=== PATIENT | female | born 1985 | race Caucasian/White ===

== ENCOUNTER 2017-08-21 17:27 | Emergency (ER) | payer OTHER ==
[2017-08-21 17:53] LABS: #Eosinphils 0.1 thou/uL (0.0-0.7); #Lymphocytes 3.3 thou/uL (1.20-3.40); #Monocytes 0.7 thou/uL (0.11-0.59); %Basophils 0.4 % (0.0-1.0); %Eosinophils 1.4 % (0.0-10.0); %Lymphocytes 32.5 % (21.0-51.0); %Monocytes 6.8 % (0.0-10.0); Mean Platelet Volume 7.8 fL (7.4-10.4); Red Blood Cell (RBC) Count 5.15 mill/uL (4.20-5.40); White Blood Cell (WBC) Count 10.2 thou/uL (4.8-10.8)
[2017-08-21 18:14] LABS: ALT (SGPT) 36 U/L (8-55); AST (SGOT) 23 U/L (5-34); Alkaline Phosphatase 45 U/L (40-150); Anion Gap 13 mmol/L (10-20); BUN (Urea Nitrogen) 12 mg/dL (7.0-18.7); Bilirubin, Total 0.9 mg/dL (0.2-1.2); Calc. Creatinine Clearance 0 mL/min (70-130); Calcium 9.6 mg/dL (7.8-10.44); Carbon Dioxide 32 mmol/L (22-29); Chloride 95 mmol/L (98-107); Estimated GFR-MDRD 78; Globulin 4.4 g/dL (2.4-3.5); Lipase 26 U/L (8-78); Protein, Total 8.4 g/dL (6.0-8.3)
[2017-08-21] MEDS ORDERED: Promethazine HCl 25 MG/ML VIAL ONE (18:31)
[2017-08-21] MEDS ORDERED: Insulin Regular 300 UNITS/3 ML VIAL ONE (18:42)
--- NOTE | 2017-08-21 18:55 | RAD ---
PORTABLE CHEST: History: Shortness of breath. FINDINGS: Patient is rotated on this exam. Heart and mediastinum are within normal limits. The lungs are clear of infiltrates. No significant bony findings. IMPRESSION: No active intrathoracic disease. POS: [facility]
[2017-08-21 20:53] LABS: Bilirubin Small (Negative); Blood, Urine Negative (Negative); Glucose, Urine (Dipstick) Negative (Negative); Ketone, Urine Trace mg/dL (Negative); Nitrite Negative (Negative); Protein, Urine (Dipstick) Trace mg/dL (Neg-Trace)
[2017-08-21 20:55] LABS: Bacteria/HPF 1+ HPF (None Seen); Hyaline Casts/LPF 0-3 HYALINE CAST LPF (0-3 Hyaline)
[2017-08-21 21:01] LABS: Amphetamine Not Detected (NotDetected); Methamphetamine Not Detected (NotDetected)
[2017-08-21 21:02] LABS: Methadone Not Detected (NotDetected)
== END 2017-08-21 21:15 | disposition home or self-care (01) ==
LOC: ERS 17:27
DX: E11.65 Type 2 diabetes mellitus with hyperglycemia (principal); I10 Essential (primary) hypertension; J44.9 Chronic obstructive pulmonary disease, unspecified; F31.9 Bipolar disorder, unspecified; F41.9 Anxiety disorder, unspecified; F17.210 Nicotine dependence, cigarettes, uncomplicated; Z79.4 Long term (current) use of insulin; Z79.899 Other long term (current) drug therapy
CPT/HCPCS: 36415; 36416; 71010; 80053; 80306; 81003; 81015; 81025; 83690; 84443; 84702; 85025; 93005; J1815; J2550

== ENCOUNTER 2017-08-22 02:48 | Observation (INO) | payer OTHER ==
[2017-08-22] MEDS ORDERED: Ondansetron HCl/PF 4 MG/2 ML Vial ONE (03:16)
[2017-08-22] MEDS ORDERED: Metoclopramide HCl 10 MG/2 ML VIAL ONE (03:26)
[2017-08-22] MEDS ORDERED: Promethazine HCl 25 MG/ML VIAL ONE (05:07)
[2017-08-22] MEDS ORDERED: Dextrose 50% Abboject 50 ML SYRINGE SLOW IVP PRN (05:27)
[2017-08-22] MEDS ORDERED: Acetaminophen 325 MG TAB PO PRN (05:27)
[2017-08-22] MEDS ORDERED: Ondansetron ODT 4 MG TAB PO PRN (05:27)
[2017-08-22] MEDS ORDERED: Dextrose 5% in Water 1,000 ML IV PRN (05:27)
[2017-08-22] MEDS ORDERED: Acetaminophen 650 MG Suppository PR PRN (05:27)
[2017-08-22] MEDS ORDERED: HumaLOG 300 UNITS/3 ML VIAL SC PRN (05:27)
[2017-08-22] MEDS ORDERED: Bisacodyl 10 MG SUPP PR PRN (05:27)
[2017-08-22] MEDS ORDERED: Ondansetron HCl/PF 4 MG/2 ML Vial IVP PRN (05:27)
[2017-08-22] MEDS ORDERED: Bisacodyl 5 MG TAB PO PRN (05:27)
[2017-08-22] MEDS ORDERED: Metoclopramide HCl 10 MG/2 ML VIAL IVP PRN (05:27)
[2017-08-22] MEDS ORDERED: Erythromycin 500 MG in Sodium Chloride 0.9% 250 ML 250 ML IVPB SCH (06:00)
--- NOTE | 2017-08-22 06:25 | HP-2 ---
CODE STATUS: Full. PRIMARY CARE PHYSICIAN: Dr. David PRIMARY CARE PHYSICIAN: Dr. Topete RESIDENT: Jaun Rene M.D. - PGY1. CHIEF COMPLAINT: Vomiting. HISTORY OF PRESENT ILLNESS: This is a 32-year-old female who presents with a 3-day history of intra ctable vomiting. She states started 3 days ago, has had about 20 episodes of vomiting, cannot keep anything down, fluids or solids. Denies any fever or chills. Denies any chest pain, shortness of b reath. Denies any diarrhea or constipation. Denies eating any exotic foods or undercooked foods or anything new. She did state that she had recently smoked marijuana. She states that she has been keeping her blood sugars anywhere from the 200 to the 150s. Denies any other concerns or complaints at this time. REVIEW OF SYSTEMS: All review of systems unless noted in the HPI, otherwise negative at this time. PAST MEDICAL HISTORY: Gastroparesis, diabetes mellitus type 2, hypertension, hidradenitis, LAYNE, obe sity, bipolar, anxiety. PAST SURGICAL HISTORY: She has had multiple I\T\Ds and a tonsillectomy. ALLERGIES: ZOSYN and PENICILLIN cause her to go into renal failure. MEDICATIONS: Include Reglan, Traceba, acarbose, lisinopril, metoprolol, Humira, Seroquel, Invega an d atorvastatin. Patient will need to be med rec for dosing and other current medications that she t akes at this time. FAMILY HISTORY: Mom has diabetes. Dad is unremarkable. SOCIAL HISTORY: She uses 1 pack per day smoker for the last 13 years. Occasional alcohol use and s mokes marijuana. PHYSICAL EXAMINATION: VITAL SIGNS: Blood pressure is 140/94, pulse of 115, respirations 20, temperature is 99.4, pulse ox 94% on 2 liters. Current weight is 136 kilograms. GENERAL: She is alert and oriented x3. Well-developed, obese, appropriately interactive. EYES: PERRLA. Conjunctivae within normal limits. ENT: Nasal mucosa within normal limits. Oropharynx is a little dry. NECK: Supple, no lymphadenopathy, no thyromegaly. CARDIOVASCULAR: Regular rate and rhythm, no murmurs, no gallops. Radial pulses and pedal pulses pa lpated bilaterally. RESPIRATORY: Normal breathing effort. Clear to auscultation bilaterally. No wheezes or crackles. SKIN: Warm and dry. No edema noted. ABDOMEN: Soft, mildly tender to palpation in the upper quadrants. Bowel sounds heard in all 4 quad rants, a little hard to auscultate due to body habitus. No masses or distention. MUSCULOSKELETAL: Structures within normal limits. Tone within normal limits. Muscle strength 5/5. Full range of motion. NEUROLOGIC: No focal neuro deficit. LABORATORY DATA: White blood cell count 10.2, hemoglobin 17.8, hematocrit 50.0, MCV 97, platelets 2 03. Sodium 136, potassium 3.8, chloride 95, bicarbonate 32, BUN 12, creatinine 0.85, glucose 253, c alcium 9.6, total protein 8.4, albumin 4.0, alkaline phosphatase 45, AST 23, ALT 36, total bilirubin 0.9. TSH is 1.438. Beta hCG is 1.20. UDS was positive for marijuana and tricyclics. UA; specifi c gravity 1.02, trace protein, leukocyte esterase small, and nitrites were negative, ketones trace, glucose negative, RBCs 4-6, white blood cells 7-10, squamous epithelial cells 7-10, bacteria 1+. Chest x-ray, no acute intrathoracic disease. ASSESSMENT AND PLAN: 1. Intractable vomiting secondary to gastroparesis and possibly suspect cannabinoid hyperemesis syn drome. We will give her fluids and normal saline at a rate of 200 as she is dry. She has already b een given 2 boluses in the ER. We will start Reglan, Zofran and erythromycin for gastroparesis and nausea and vomiting. We will keep her n.p.o. at this time. 2. Metabolic alkalosis likely due to problem #2. We will give IV fluids. 3. Diabetes mellitus 2. We will continue home medication. We will put her on moderate sliding sca le insulin and check Accu-Cheks a.c. and at bedtime and put her on a consistent carb diet. 4. Hypertension. Continue home meds. 5. Gastroparesis. Reglan and erythromycin. 6. Bipolar. We will continue her home medications. 7. Elevated hematocrit and hemoglobin, likely due to volume contraction due to some dehydration fro m increased vomiting. As again, we will continue with IV fluids. 8. Marijuana abuse. She has been counseled on quitting and cannabinoid hyperemesis syndrome. 9. Tobacco abuse. She has been counseled on quitting, not quite ready to quit at this time. 10. Gastrointestinal prophylaxis. We will start her on omeprazole.
[2017-08-22 06:27] VITALS: BMI 46.5
[2017-08-22] MEDS: Sodium Chloride 0.9% 1,000 ML IV SCH ×3 (06:43→16:20)
[2017-08-22] MEDS: Erythromycin Base 250 MG TAB PO SCH ×2 (06:43→12:15)
[2017-08-22] MEDS ORDERED: FLU VACC QS2017-18 36 mo. & older 0.5 ML SYRINGE IM ONE (07:15)
[2017-08-22] MEDS ORDERED: Lisinopril 20 MG TAB PO SCH (09:00)
[2017-08-22] MEDS ORDERED: INSULIN DEGLUDEC SQ SCH (09:00)
[2017-08-22] MEDS ORDERED: Ibuprofen 800 MG TAB PO PRN (10:50)
[2017-08-22] MEDS ORDERED: PALIPERIDONE PALMITATE 234 MG IM SCH (11:00)
[2017-08-22] MEDS ORDERED: Nicotine 14 MG PATCH TD SCH (11:15)
--- NOTE | 2017-08-22 11:50 | HP ---
DATE OF SERVICE: 08/22/2017 CHIEF COMPLAINT: Vomiting. HISTORY OF PRESENT ILLNESS: The patient is a 32-year-old female with a past medical history of type 2 diabetes with gastroparesis, hypertension, obesity, bipolar disorder and anxiety who presented to the ER with a 3-day history of intractable vomiting. It should be noted that the patient has had [facility] hospitalizations for the same complaint. She notes this time she has had about 20 episodes of vomiting and was unable to keep either solids or liquids down. She denied fever and chills. She did recently smoke marijuana and when think back has noticed that all of her episodes of vomiting h ave occurred after she has been smoking marijuana. This morning the patient has gone downstairs to smoke cigarettes 4-5 times already and every time she comes back up she complains of vomiting. She has agreed to a nicotine patch this morning. For the full history, please see the resident's dictation. PHYSICAL EXAMINATION: VITAL SIGNS: Temperature 99.1, pulse 113, respiration rate 18, O2 sat 91% on 2 liters, BP 148/84. GENERAL: The patient is awake, alert, and oriented, in no acute distress. ABDOMEN: Soft, mildly tender in the upper quadrants. Patient has bowel sounds present. CARDIOVASCULAR: Regular rate and rhythm without murmurs, gallops, or rubs. LUNGS: Clear to auscultation bilaterally without wheezing or rhonchi. LABORATORY AND X-RAY FINDINGS: 1. CBC: WBC 7.2, hemoglobin 7.8, hematocrit 50.0, platelets 203. 2. CMP: Sodium 136, potassium 3.8, chloride 95, bicarb 32, BUN 12, creatinine 0.85, glucose 253, c alcium 9.6, total bilirubin 0.9, AST 23, ALT 36, alkaline phosphatase 45, total protein 8.4, albumin 4.0. 3. Lipase 26. 4. TSH 1.443. 5. test negative. 6. Urinalysis significant for trace ketones, small bilirubin, small leukocyte esterase with 1+ bact eria and 7-10 squamous epithelial cells. 7. UDS positive for cannabis and tricyclics. 8. Chest x-ray shows no acute processes. ASSESSMENT AND PLAN: 1. Intractable nausea and vomiting, likely secondary to gastroparesis and cannabinoid hyperemesis: The patient has been given IV fluids. She has been counseled on the importance of stopping smoking both cigarettes and marijuana. The patient will have Reglan, Zofran and erythromycin for her gastr oparesis. We also counseled the patient on the importance of trying to avoid tobacco as well as lillian ry time she goes down to smoke she comes back up and starts throwing up. 2. Metabolic alkalosis: Plan as mentioned above. 3. Type 2 diabetes. Continue home medications and place patient on sliding scale insulin. 4. Gastroparesis. Recommended erythromycin as mentioned above. 5. Bipolar disorder. Continue home medications. 6. Polysubstance abuse: Counseling as mentioned above. 7. Please see the resident's dictation for the full history, physical, assessment and plan.
[2017-08-22 15:27] VITALS: BP 147/91; TEMP 98.3
[2017-08-22] MEDS ORDERED: traZODone HCl 50 MG TAB PO SCH (21:00)
[2017-08-22] MEDS ORDERED: INSULIN DEGLUDEC 40 UNIT SC SCH (21:00)
[2017-08-22] MEDS ORDERED: Lithium Carbonate ER 450 mg Tablet PO SCH (21:00)
[2017-08-22] MEDS ORDERED: clonazePAM 1 MG TAB PO SCH (21:00)
[2017-08-22] MEDS ORDERED: Atorvastatin Calcium 40 MG TAB PO SCH (21:00)
--- NOTE | 2017-08-22 23:41 | DIS-2 ---
DATE OF ADMISSION: 08/22/2017 DATE OF DISCHARGE: Patient left AMA. RESIDENT: Americo Vinson DO ADMITTING ATTENDING: Radha Topete M.D. DISCHARGE ATTENDING: Radha Topete M.D. CONSULTS: None. PROCEDURES: None. PRIMARY DIAGNOSES: Intractable nausea and vomiting likely secondary to cannabinoid hyperemesis. SECONDARY DIAGNOSES: Type 2 diabetes, polycystic ovarian syndrome, type 2 diabetes and history of gastroparesis. DISCHARGE MEDICATIONS: None. DISCONTINUED MEDICATIONS: None. HOSPITAL COURSE: The patient was admitted for intractable nausea and vomiting. The patient has been admitted for this multiple times in the past with the likely diagnosis of gastroparesis secondary to uncontrolled type 2 diabetes. We will determine that it was likely that this has been exacerbated by the fact that the patient smokes marijuana and the time what she does is typically followed by episodes of emesis. She very often ends up admitted after smoking marijuana. The patient was having her diet slowly advanced and was given antiemetics and IV fluids. At that point, the patient decided to leave AMA because she stated \\\\"I have Phenergan at home\\\\" to the nursing staff and left. DISPOSITION: The patient left AMA. DISCHARGE INSTRUCTIONS: The patient left AMA. BRIAN
[2017-08-23] MEDS ORDERED: Nicotine 14 MG PATCH TD SCH (09:00)
[2017-08-23] MEDS ORDERED: Aspirin 81 mg Enteric Coated Tablet PO SCH (09:00)
[2017-08-23] MEDS ORDERED: FLUoxetine HCl 20 MG CAP PO SCH (09:00)
[2017-08-23] MEDS ORDERED: Fenofibrate Nanocrystallized 145 MG TAB PO SCH (09:00)
[2017-08-29] MEDS ORDERED: Adalimumab 40 MG/0.8 ML SYRINGE SC SCH (09:00)
[2017-09-19] MEDS ORDERED: PALIPERIDONE PALMITATE 234 MG IM SCH (09:00)
== END 2017-08-22 16:22 | disposition left against medical advice (07) ==
LOC: ERS 02:48 → 2SW 05:19
PROVIDERS: ADMIT Family Medicine; ATTEND Family Medicine
DX: R11.2 Nausea with vomiting, unspecified (principal); E28.2 Polycystic ovarian syndrome; E66.9 Obesity, unspecified; F31.9 Bipolar disorder, unspecified; F41.9 Anxiety disorder, unspecified; E87.3 Alkalosis; E11.43 Type 2 diabetes mellitus with diabetic autonomic (poly)neuropathy; K31.84 Gastroparesis; G47.33 Obstructive sleep apnea (adult) (pediatric); F17.210 Nicotine dependence, cigarettes, uncomplicated; F12.10 Cannabis abuse, uncomplicated; Z68.42 Body mass index [BMI] 45.0-49.9, adult; Z79.82 Long term (current) use of aspirin; Z79.4 Long term (current) use of insulin; Z79.899 Other long term (current) drug therapy; Z88.0 Allergy status to penicillin; Z88.8 Allergy status to other drugs, medicaments and biological substances; Z90.89 Acquired absence of other organs; Z98.890 Other specified postprocedural states; Z87.19 Personal history of other diseases of the digestive system; Z83.3 Family history of diabetes mellitus
CPT/HCPCS: 36415; 36416; 71010; 80053; 80306; 81003; 81015; 81025; 83690; 84443; 84702; 85025; 93005; 96361; 96372; 96374; 96375; 96376; G0378; J1364; J1815; J2405; J2550; J2765; J7050

== ENCOUNTER 2017-08-28 05:46 | Emergency (ER) | payer OTHER ==
[2017-08-28] MEDS ORDERED: Metoclopramide HCl 10 MG/2 ML VIAL ONE (06:17)
[2017-08-28 06:30] LABS: #Basophils 0.1 thou/uL (0.0-0.2); #Eosinphils 0.2 thou/uL (0.0-0.7); #Lymphocytes 2.6 thou/uL (1.20-3.40); #Monocytes 0.8 thou/uL (0.11-0.59); #Neutrophils 7.2 thou/uL (1.40-6.50); %Basophils 0.7 % (0.0-1.0); %Lymphocytes 23.6 % (21.0-51.0); %Monocytes 7.6 % (0.0-10.0); Hematocrit 47.9 % (36.0-47.0); Mean Platelet Volume 7.6 fL (7.4-10.4); Red Blood Cell (RBC) Count 4.89 mill/uL (4.20-5.40); White Blood Cell (WBC) Count 10.9 thou/uL (4.8-10.8)
[2017-08-28 06:47] LABS: ALT (SGPT) 49 U/L (8-55); AST (SGOT) 36 U/L (5-34); Alkaline Phosphatase 42 U/L (40-150); Anion Gap 13 mmol/L (10-20); BUN (Urea Nitrogen) Less than 4 mg/dL (7.0-18.7); Bilirubin, Total 0.9 mg/dL (0.2-1.2); Calc. Creatinine Clearance 0 mL/min (70-130); Calcium 9.2 mg/dL (7.8-10.44); Carbon Dioxide 28 mmol/L (22-29); Chloride 98 mmol/L (98-107); Estimated GFR-MDRD 90; Globulin 3.4 g/dL (2.4-3.5); Lipase 24 U/L (8-78); Protein, Total 7.1 g/dL (6.0-8.3)
[2017-08-28 06:47] LABS: Anion Gap 9 mmol/L (-14-95); pH (Venous) 7.445 (7.35-7.45); vO2 Saturation-calc 95.6 % (0.0-100.0)
[2017-08-28 08:11] LABS: Bilirubin Negative (Negative); Blood, Urine Negative (Negative); Glucose, Urine (Dipstick) Negative (Negative); Ketone, Urine Negative (Negative); Nitrite Negative (Negative); Protein, Urine (Dipstick) 30 mg/dL (Neg-Trace)
[2017-08-28 08:13] LABS: Bacteria/HPF 1+ HPF (None Seen); Hyaline Casts/LPF 4-6 HYALINE CAST LPF (0-3 Hyaline)
== END 2017-08-28 07:59 | disposition home or self-care (01) ==
LOC: ERS 05:46
DX: E10.43 Type 1 diabetes mellitus with diabetic autonomic (poly)neuropathy (principal); K31.84 Gastroparesis; F41.9 Anxiety disorder, unspecified; F31.9 Bipolar disorder, unspecified; F17.210 Nicotine dependence, cigarettes, uncomplicated; Z79.899 Other long term (current) drug therapy
CPT/HCPCS: 36415; 80053; 81001; 82330; 82803; 83690; 85025; 93005; 94640; 94760; 96361; 96374; 99406; J2765; J7620

== ENCOUNTER 2017-11-07 08:17 | Emergency (ER) | payer OTHER ==
[2017-11-07] MEDS ORDERED: Metoprolol Tartrate 100 MG TAB PO SCH (09:00)
[2017-11-07] MEDS ORDERED: Metoprolol Tartrate 50 MG TAB ONE (09:39)
== END 2017-11-07 10:17 | disposition home or self-care (01) ==
LOC: ERS 08:17
DX: L03.317 Cellulitis of buttock (principal); I10 Essential (primary) hypertension; J45.909 Unspecified asthma, uncomplicated; J42 Unspecified chronic bronchitis; E10.9 Type 1 diabetes mellitus without complications; F31.9 Bipolar disorder, unspecified; F41.9 Anxiety disorder, unspecified; F17.210 Nicotine dependence, cigarettes, uncomplicated; Z79.899 Other long term (current) drug therapy
CPT/HCPCS: 36416; 99283

== ENCOUNTER 2017-11-09 07:06 | Day surgery (SDC) | payer OTHER ==
[2017-11-08 11:43] VITALS: BMI 42.5
[2017-11-09] MEDS ORDERED: Levofloxacin 500 mg/D5W 100 ml Premix Bag ONE (08:33)
[2017-11-09] MEDS ORDERED: Insulin Regular 300 UNITS/3 ML VIAL ONE (09:01)
[2017-11-09] MEDS ORDERED: Tranexamic Acid 1,000 MG/100 ML BAG ONE (09:01)
[2017-11-09] MEDS ORDERED: HYDROmorphone 0.5 MG/0.5 ML SYRINGE ONE (09:08)
[2017-11-09] MEDS ORDERED: Fentanyl 100 MCG/2 ML VIAL ONE ×2 (09:08→10:38)
--- NOTE | 2017-11-09 10:43 | OP ---
PREOPERATIVE DIAGNOSIS: Perianal abscess. SURGEON: Americo Castle M.D. PROCEDURE PERFORMED: Incision and drainage. INDICATIONS: The patient is a 32-year-old female with a 4-day history of painful swelling near anus. FINDINGS: A left posterior perianal abscess, fairly deep. PROCEDURE: After informed consent was obtained, the patient was taken to the operating room and give n general endotracheal anesthesia, placed in lithotomy position. Her perianal region was prepped and draped in the usual fashion. An endoscopy showed no internal opening, an elliptical incision was pe rformed close to the anal verge releasing very foul-smelling thick purulent fluid. This was sent for culture. The cavity was broken up and opened thoroughly irrigated. Hemostasis achieved with electr ocautery. The wound was packed open with Betadine gauze. Sterile bandage applied. The patient tole rated the procedure well and transferred to recovery in good condition. Sponge and needle count veri fied correct x2.
[2017-11-09] MEDS ORDERED: Propofol 200 MG/20 ML VIAL ONE (13:14)
[2017-11-09] MEDS ORDERED: Ondansetron HCl/PF 4 MG/2 ML Vial ONE (13:14)
[2017-11-09] MEDS ORDERED: Metoclopramide HCl 10 MG/2 ML VIAL ONE (13:14)
[2017-11-09] MEDS ORDERED: Lidocaine 1% PF 5 ML VIAL ONE (13:14)
[2017-11-09] MEDS ORDERED: Ketorolac Tromethamine 30 MG/ML VIAL ONE (13:14)
[2017-11-09] MEDS ORDERED: Succinylcholine Chloride 20 MG/ML 10 ml SYRINGE FS ONE (13:14)
== END 2017-11-09 11:43 | disposition home or self-care (01) ==
LOC: SDC 07:06
PROVIDERS: ATTEND Surgery
PROC: 0D9Q7ZX Drainage of Anus, Via Natural or Artificial Opening, Diagnostic (ICD-10-PCS; principal; 2017-11-09)
DX: K61.0 Anal abscess (principal); I10 Essential (primary) hypertension; J45.909 Unspecified asthma, uncomplicated; E66.9 Obesity, unspecified; F17.210 Nicotine dependence, cigarettes, uncomplicated; F31.9 Bipolar disorder, unspecified; F41.9 Anxiety disorder, unspecified; E11.9 Type 2 diabetes mellitus without complications; G47.33 Obstructive sleep apnea (adult) (pediatric); F12.10 Cannabis abuse, uncomplicated; Z68.41 Body mass index [BMI] 40.0-44.9, adult; Z79.82 Long term (current) use of aspirin; Z79.2 Long term (current) use of antibiotics; Z79.4 Long term (current) use of insulin; Z79.899 Other long term (current) drug therapy; Z88.1 Allergy status to other antibiotic agents; Z88.0 Allergy status to penicillin; Z90.89 Acquired absence of other organs; Z98.890 Other specified postprocedural states; Z86.718 Personal history of other venous thrombosis and embolism
CPT/HCPCS: 36416; 80053; 84703; 85025; 87070; 87205; 93005; 93010; 96374; J0131; J1170; J1815; J1885; J1956; J2001; J2405; J2704; J2765; J3010

== ENCOUNTER 2017-11-13 09:48 | Emergency (ER) | payer OTHER ==
[2017-11-13] MEDS ORDERED: HYDROcodone/Acetaminophen 7.5/325 mg Tablet ONE (10:11)
== END 2017-11-13 10:19 | disposition home or self-care (01) ==
LOC: ERS 09:48
DX: G89.18 Other acute postprocedural pain (principal); E10.9 Type 1 diabetes mellitus without complications; I10 Essential (primary) hypertension; F17.210 Nicotine dependence, cigarettes, uncomplicated; Z79.899 Other long term (current) drug therapy
CPT/HCPCS: 99283

== ENCOUNTER 2017-11-18 08:28 | Emergency (ER) | payer OTHER ==
[2017-11-18 09:12] LABS: #Lymphocytes 2.2 thou/uL (1.20-3.40); #Monocytes 0.6 thou/uL (0.11-0.59); #Neutrophils 11.1 thou/uL (1.40-6.50); %Basophils 0.1 % (0.0-1.0); %Eosinophils 0.1 % (0.0-10.0); %Monocytes 4.2 % (0.0-10.0); %Neutrophils 79.5 % (42.0-75.0); Hemoglobin 16.6 g/dL (12.0-16.0); Mean Corpuscular Hemoglobin 31.9 pg (27.0-31.0); Mean Platelet Volume 7.7 fL (7.4-10.4); Platelet Count 309 thou/uL (130-400); RBC Distribution Width 14.4 % (11.5-14.5); Red Blood Cell (RBC) Count 5.21 mill/uL (4.20-5.40); White Blood Cell (WBC) Count 13.9 thou/uL (4.8-10.8)
[2017-11-18] MEDS ORDERED: Metoclopramide HCl 10 MG/2 ML VIAL ONE (09:23)
[2017-11-18 09:48] LABS: ALT (SGPT) 30 U/L (8-55); Albumin 4.2 g/dL (3.5-5.0); Alkaline Phosphatase 51 U/L (40-150); BUN (Urea Nitrogen) 14 mg/dL (7.0-18.7); Calc. Creatinine Clearance 0 mL/min (70-130); Calcium 10.2 mg/dL (7.8-10.44); Carbon Dioxide 25 mmol/L (22-29); Estimated GFR-MDRD 60; Globulin 5.7 g/dL (2.4-3.5); Glucose 380 mg/dL (70-105); Lipase 41 U/L (8-78); Protein, Total Less than 0.8 g/dL (6.0-8.3)
[2017-11-18 11:05] LABS: Chloride 93 mmol/L (98-107)
[2017-11-18 11:07] LABS: Anion Gap 18 mmol/L (10-20)
[2017-11-18 11:11] LABS: AST (SGOT) 22 U/L (5-34)
[2017-11-18 11:12] LABS: Potassium 4.6 mmol/L (3.5-5.1); Sodium 130 mmol/L (136-145)
== END 2017-11-18 10:15 | disposition home or self-care (01) ==
LOC: ERS 08:28
DX: E10.43 Type 1 diabetes mellitus with diabetic autonomic (poly)neuropathy (principal); K31.84 Gastroparesis; E28.2 Polycystic ovarian syndrome; F41.9 Anxiety disorder, unspecified; F31.9 Bipolar disorder, unspecified; F17.210 Nicotine dependence, cigarettes, uncomplicated; Z79.899 Other long term (current) drug therapy
CPT/HCPCS: 80053; 83690; 85025; 96365; J2765

== ENCOUNTER 2017-11-21 15:34 | Inpatient (IN) | payer OTHER ==
[2017-11-21] MEDS ORDERED: Sodium Chloride 0.9% 1,000 ML IV SCH ×2 (21:15→22:00)
[2017-11-21 21:35] LABS: #Basophils 0.1 thou/uL (0.0-0.2); #Eosinphils 0.1 thou/uL (0.0-0.7); #Lymphocytes 4.2 thou/uL (1.20-3.40); #Monocytes 0.9 thou/uL (0.11-0.59); #Neutrophils 11.4 thou/uL (1.40-6.50); %Basophils 0.3 % (0.0-1.0); %Eosinophils 0.4 % (0.0-10.0); %Lymphocytes 25.1 % (21.0-51.0); %Monocytes 5.5 % (0.0-10.0); %Neutrophils 68.7 % (42.0-75.0); Mean Corpuscular HGB CONC 34.1 g/dL (32.0-36.0); Mean Corpuscular Volume 93.8 fl (81.0-99.0); Mean Platelet Volume 7.8 fL (7.4-10.4); Platelet Count 260 thou/uL (130-400); RBC Distribution Width 14.2 % (11.5-14.5); White Blood Cell (WBC) Count 16.6 thou/uL (4.8-10.8)
[2017-11-21] MEDS ORDERED: Dicyclomine 20 MG TAB PO PRN (21:44)
[2017-11-21] MEDS ORDERED: Bisacodyl 10 MG SUPP PR PRN (21:50)
[2017-11-21] MEDS ORDERED: Ondansetron ODT 4 MG TAB PO PRN (21:50)
[2017-11-21] MEDS ORDERED: Acetaminophen 650 MG Suppository PR PRN (21:50)
[2017-11-21] MEDS ORDERED: Bisacodyl 5 MG TAB PO PRN (21:50)
[2017-11-21] MEDS ORDERED: Calcium Carbonate 500 MG ChewTAB PO PRN (21:50)
[2017-11-21] MEDS ORDERED: Ondansetron HCl/PF 4 MG/2 ML Vial IVP PRN (21:50)
[2017-11-21] MEDS ORDERED: Acetaminophen 325 MG TAB PO PRN (21:50)
[2017-11-21 22:04] LABS: ALT (SGPT) 26 U/L (8-55); AST (SGOT) 18 U/L (5-34); Albumin 3.8 g/dL (3.5-5.0); Alkaline Phosphatase 50 U/L (40-150); Anion Gap 20 mmol/L (10-20); BUN (Urea Nitrogen) 11 mg/dL (7.0-18.7); Calc. Creatinine Clearance 0 mL/min (70-130); Calcium 9.3 mg/dL (7.8-10.44); Carbon Dioxide 22 mmol/L (22-29); Chloride 90 mmol/L (98-107); Estimated GFR-MDRD 74; Globulin 4.1 g/dL (2.4-3.5); Glucose 337 mg/dL (70-105); Magnesium 1.6 mg/dL (1.6-2.6); Phosphorus 3.2 mg/dL (2.3-4.7); Potassium 3.6 mmol/L (3.5-5.1); Protein, Total 7.9 g/dL (6.0-8.3); Sodium 128 mmol/L (136-145)
[2017-11-21] MEDS ORDERED: Dextrose 5% in Water 1,000 ML IV PRN ×2 (22:27→22:35)
[2017-11-21] MEDS ORDERED: Dextrose 50% Abboject 50 ML SYRINGE SLOW IVP PRN ×2 (22:27→22:35)
[2017-11-21] MEDS ORDERED: HumaLOG 300 UNITS/3 ML VIAL SC PRN (22:35)
[2017-11-21] MEDS: Promethazine HCl 25 MG/ML VIAL IM/IV SCH (23:22)
[2017-11-21 23:45] LABS: Bilirubin Negative (Negative); Blood, Urine Negative (Negative); Clarity CLEAR (Clear); Glucose, Urine (Dipstick) >=1000 mg/dL (Negative); Leukocyte Negative (Negative); Nitrite Negative (Negative); Protein, Urine (Dipstick) Negative (Neg-Trace); Specific Gravity, Urine 1.018 (1.002-1.036)
[2017-11-21 23:48] LABS: Bacteria/HPF 1+ HPF (None Seen); Hyaline Casts/LPF 0-3 HYALINE CAST LPF (0-3 Hyaline); Pathc Cast-AUWi Flag 0.13 (0-2.49); Squamous Epithelial 0-3 HPF (0-3); WBC/HPF 0-3 HPF (0-3)
[2017-11-22] MEDS: Sodium Chloride 0.9% 1,000 ML IV SCH ×3 (01:29→11:17)
[2017-11-22 05:27] LABS: #Basophils 0.1 thou/uL (0.0-0.2); #Eosinphils 0.2 thou/uL (0.0-0.7); #Lymphocytes 4.6 thou/uL (1.20-3.40); #Monocytes 0.8 thou/uL (0.11-0.59); #Neutrophils 7.2 thou/uL (1.40-6.50); %Basophils 0.4 % (0.0-1.0); %Eosinophils 1.6 % (0.0-10.0); %Lymphocytes 35.9 % (21.0-51.0); Mean Corpuscular HGB CONC 33.5 g/dL (32.0-36.0); Mean Corpuscular Hemoglobin 31.6 pg (27.0-31.0); Mean Corpuscular Volume 94.3 fl (81.0-99.0); Mean Platelet Volume 7.9 fL (7.4-10.4); Platelet Count 240 thou/uL (130-400); RBC Distribution Width 14.1 % (11.5-14.5); Red Blood Cell (RBC) Count 4.74 mill/uL (4.20-5.40); White Blood Cell (WBC) Count 12.9 thou/uL (4.8-10.8)
[2017-11-22] MEDS: Promethazine HCl 25 MG/ML VIAL IM/IV SCH ×2 (06:08→10:59)
--- NOTE | 2017-11-22 06:22 | HP-2 ---
DATE OF ADMISSION: 11/21/2017 CODE STATUS: FULL. PRIMARY CARE PHYSICIAN: Dr. David. ATTENDING: Dr. Jovany Bills. RESIDENTS: Dr. Juan Rene, PGY-1. HISTORY OF PRESENT ILLNESS: This is a 32-year-old female with a history of diabetes mellitus, uncont rolled and gastroparesis. She comes in with a chief complaint of intractable vomiting. Reports that she has had a 6-day history of persistent nausea and vomiting. Earlier in the week, she had as many episodes as 20 times a day of vomiting, not able to keep any fluids or solids down. She had no sick contacts. She did report having a perianal abscess recently drained by Dr. Castle 2 weeks ago, but brittanie pierre feels okay. She denied any fever or chills. She reports not checking her blood sugars, but she is taking to receive 100 units daily. She also reports that she has not been able to take her R eglan. Her insurance is no longer covering her Reglan, so has not had that for a while. She was sen t over here as a direct admission from the [facility] because she also ran out of [employer] this a .m. She also noted that she is still continues smoking marijuana, most recently smoked for marijuana a day ago. She does report though today that her nausea is feeling a little bit better after when a dmitted here. She also reports that her episodes of vomiting have lessened, the last few days only h aving about 4 to 5 episodes of vomiting. She denies any diarrhea, constipation, denies any shortness of breath, chest pain, or anything intact. REVIEW OF SYSTEMS: All review of systems not listed in the HPI, otherwise negative at this time. PAST MEDICAL HISTORY: Diabetes mellitus type 2, bipolar, obstructive sleep apnea, PCOS, gastroparesi s, hyperlipidemia, and hypertension. PAST SURGICAL HISTORY: Includes tonsillectomy, sweat gland removal. She had excision of hidradeniti s suppurativa on 12/2013. She had an I&D of perianal abscess in 2013, had an abscess drained in her groin in 2014 and recently had the perianal abscess here in 2017, 2 weeks ago. ALLERGIES: ZOSYN and PENICILLIN. MEDICATIONS: She currently takes are: 1. Atorvastatin calcium 80 mg tablet daily. 2. Lisinopril 20 mg tablet daily. 4. ProAir HFA inhalation as needed. 5. Acarbose 50 mg by mouth three times daily. 6. Symbicort 1 puff twice a day. 7. Tresiba FlexTouch 100 units daily. 8. Tricor 145 mg tablet once daily. 9. Humira 40 mg/0.8 mL subcu prefilled syringe every week. 10. Invega Sustenna 234 mg 0.152 intramuscular suspension injection monthly. 11. Ibuprofen 800 mg tablet twice daily as needed. 12. Metoprolol succinate extended release 200 mg 1 tablet daily. 13. [place] carbonate 300 mg by mouth three times daily. 14. Vitamin D 5000 units oral capsule 1 tab p.o. week. 15. Humalog sliding scale as needed depending on blood sugars. 16. Prozac 40 mg oral capsule daily. 17. Promethazine HCL 25 mg oral. On her medication list, she said she was taking Seroquel and Klonopin, but was taken off the Klonopin in which she was felt to continue smoking marijuana per her [facility] doc and she was taken off her Seroq uel and switched to Ambien. PHYSICAL EXAMINATION: VITAL SIGNS: Blood pressure was 141/84, pulse of 120, respirations 16, temperature 98.9, satting 96% on room air. Current weight is 124.5 kilograms. GENERAL: Alert and oriented x3. Well-developed, obese, appropriately interactive. EYES: Conjunctivae are within normal limits. ENT: Nasal mucosa and oropharynx within normal limits. NECK: Supple, no lymphadenopathy, no thyromegaly. CARDIOVASCULAR: Regular rate and rhythm. No murmur, no gallops. Radial pulses, pedal pulses palpat ed bilaterally. RESPIRATORY: Has normal, breathing effort, no retractions. Some mild wheezing and crackles noted on expectoration in all quadrants of her lungs. ABDOMEN: Soft, tender to palpation, more in the epigastric area. Bowel sounds heard in all 4 quadra nts. No masses or distention. EXTREMITIES: No edema, no pitting. MUSCULOSKELETAL: Structures within normal, full range of motion. NEUROLOGIC: No focal neurologic deficits. PSYCHIATRIC: Appropriate. LABORATORY DATA: White blood cell count elevated 16.6, hemoglobin is 15, hematocrit is 44.1, MCV is 93.1, neutrophil number is 11.4, platelets 260. Sodium is 128, potassium 3.6, chloride is 90, carbon dioxide 22, BUN 11, creatinine 0.89, blood glucose is 337, calcium is 9.3, protein is 7.9, albumin i s 3.8, total bilirubin is 1.0, AST is 18, ALT is 26, alkaline phosphatase is 50, phosphorus 3.2, magn esium is 1.6. ASSESSMENT AND PLAN: This is a 32-year-old female with gastroparesis and uncontrolled diabetes. 1. Intractable vomiting due to diabetic gastroparesis and possibly marijuana abuse. We will continu e her home meds. We will have to switch her to Levemir while she is here, 100 units daily, and put h er on a clear liquid diet, advance as tolerated. We will put her on promethazine, Zofran give her Be ntyl for gas pain. We will give her famotidine to help with any GERD pain and see if this helps with it. I attempted to put her on erythromycin for gastroparesis, but they are on back order at the [facility], may need to start her back on Reglan if needed. Her insurance is not currently paying for Reg miracle though, so it is not a great option for her outpatient. I have consulted case management to asse ss for assistance to help getting. Also, concern is watching her EKG with prolonged QT due to all of the medicines and antiemetic she takes. 2. Diabetes mellitus type 2. We will give her Levemir 100 units daily, put her on a moderate slidin g scale insulin and do Accu-Cheks a.c. and at bedtime and adjust as needed. 3. Moderate dehydration. We will give her fluid bolus and give her IV fluids at a rate of normal sa line at 150. We will put her on clear liquid diet and advance diet as tolerated as well. 4. Pseudohyponatremia corrects to 135. We will need to continue to check daily BMP and treat as nee ded. She is getting normal saline ran at a rate of 150. 5. Leukocytosis. White blood cell count is a little bit elevated. She has no sign of infection. W e will recheck a CBC in the morning and see how she is doing after fluids just could be due to a ramona le bit of contraction due to being a little bit dry due to her dehydration. 6. Hypertension. Continue her home medication, but if she is not able to tolerate any of her oral m edicines may need to atenolol, labetalol, or hydralazine p.r.n. 7. Bipolar. Continue her home medications. 8. Marijuana abuse. She was told that to keep using it for anxiety, but may not be correct. We jyothi kaplan deputy general counsel her on quitting. May be contributing to her gastroparesis and vomiting. 9. Tobacco abuse, counseled on quitting cigarette use. 10. Deep venous thrombosis prophylaxis, Lovenox.
[2017-11-22] MEDS ORDERED: Mometasone/Formoterol 120 PUFF INHALER INH SCH (06:30)
[2017-11-22 08:00] VITALS: BMI 41.5
[2017-11-22] MEDS ORDERED: Insulin Degludec [Tresiba Flextouch U-200] SC SCH (09:00)
[2017-11-22] MEDS ORDERED: Famotidine 20 MG TAB PO SCH (09:00)
[2017-11-22] MEDS ORDERED: ERYTHROMYCIN IVPB SCH ×2 (09:00→17:00)
[2017-11-22] MEDS ORDERED: FLUoxetine HCl 20 MG CAP PO SCH (09:00)
[2017-11-22] MEDS ORDERED: Insulin Detemir 100 UNITS/ML 100 UNITS in Pre-Filled Syringe 1 EACH SC SCH (09:00)
[2017-11-22] MEDS ORDERED: Lisinopril 20 MG TAB PO SCH (09:00)
[2017-11-22] MEDS ORDERED: Fenofibrate Nanocrystallized 145 MG TAB PO SCH (09:00)
[2017-11-22] MEDS ORDERED: SODIUM CHLORIDE 0.9% IVPB SCH ×2 (09:00→17:00)
[2017-11-22] MEDS ORDERED: Enoxaparin Sodium 40 MG/0.4 ML SYRINGE SC SCH (09:00)
[2017-11-22] MEDS ORDERED: Aspirin 81 mg Enteric Coated Tablet PO SCH (09:00)
--- NOTE | 2017-11-22 09:09 | PDOC.FM ---
- Subjective Subjective: Patient did well overnight, no episodes of emesis overnight. Denies CP, SOB. Abdomen mildly sore throughout. Denies any increase in marijuana use recently as was initially reported. Admits to increasing snacking recently with candy, chips, etc. - Objective MAR Reviewed: Yes Vital Signs & Weight: Vital Signs (12 hours) Temp Pulse Resp BP BP Pulse Ox 11/22/17 08:43 132/82 11/22/17 07:10 97.5 F L 128 H 18 132/82 95 11/22/17 04:00 98.8 F 117 H 20 151/75 H 92 L 11/22/17 00:00 98.4 F 108 H 18 131/85 94 L Weight Admit Weight 123.15 kg Weight 123.831 kg I&O: 11/21/17 11/22/17 11/23/17 06:59 06:59 06:59 Intake Total 2125 Output Total 800 Balance 1325 Result Diagrams: 11/22/17 04:25 11/21/17 21:28 <Albert Mcmahon - Last Filed: 11/22/17 09:07> - Objective Vital Signs & Weight: Weight Admit Weight 123.15 kg Weight 123.831 kg I&O: 11/22/17 11/23/17 11/24/17 06:59 06:59 06:59 Intake Total 2125 Output Total 800 Balance 1325 Result Diagrams: 11/22/17 04:25 11/22/17 12:18 <Radha Topete - Last Filed: 11/23/17 11:08> Phys Exam - Physical Examination Constitutional: NAD Respiratory: no wheezing, clear to auscultation bilateral Cardiovascular: RRR, no significant murmur Gastrointestinal: soft mildly TTP throughout Musculoskeletal: no edema, pulses present Neurological: normal sensation, moves all 4 limbs Psychiatric: normal affect, A&O x 3 <Albert Mcmahon - Last Filed: 11/22/17 09:07> Dx/Plan (1) Gastroparesis due to DM Code(s): E11.43 - TYPE 2 DIABETES W DIABETIC AUTONOMIC (POLY)NEUROPATHY; K31.84 - GASTROPARESIS Status: Acute Plan: counseled on diet, limiting carb intake seems to be improved overnight, tolerating full liquid diet, will advance throughout the day (2) Intractable vomiting with nausea Code(s): R11.2 - NAUSEA WITH VOMITING, UNSPECIFIED Status: Acute Plan: improved CM consult to explore options for reglan funding through insurance as this previously was covered by insurance (3) Hyperglycemia Code(s): R73.9 - HYPERGLYCEMIA, UNSPECIFIED Status: Acute Plan: we do not have triseba here in the hospital, which is what patient is on at home We will use levemir for basal insulin in hospital (4) Non compliance w medication regimen Code(s): Z91.14 - PATIENT'S OTHER NONCOMPLIANCE WITH MEDICATION REGIMEN Status : Acute (5) Anxiety disorder Code(s): F41.9 - ANXIETY DISORDER, UNSPECIFIED Status: Chronic QualifierTitle: Anxiety disorder type: unspecified anxiety disorder Qualified Code(s): F41.9 - Anxiety disorder, unspecified (6) Bipolar disorder Code(s): F31.9 - BIPOLAR DISORDER, UNSPECIFIED Status: Chronic QualifierTitle: Active/Remission status: remission status unspecified Qualified Code(s): F31.9 - Bipolar disorder, unspecified (7) DMII (diabetes mellitus, type 2) Status: Chronic QualifierTitle: Diabetes mellitus complication status: with hyperglycemia (8) Hyperlipidemia Code(s): E78.5 - HYPERLIPIDEMIA, UNSPECIFIED Status: Chronic (9) Hypertension Code(s): I10 - ESSENTIAL (PRIMARY) HYPERTENSION Status: Chronic QualifierTitle: Hypertension type: essential hypertension Qualified Code( s): I10 - Essential (primary) hypertension (10) Obesity hypoventilation syndrome Code(s): E66.2 - MORBID (SEVERE) OBESITY WITH ALVEOLAR HYPOVENTILATION Status : Chronic (11) Tobacco abuse Code(s): Z72.0 - TOBACCO USE Status: Chronic <Albert Mcmahon - Last Filed: 11/22/17 09:07> Attending Addendum - Attending Addendum I personally evaluated the patient and discussed the management with Dr. Mcmahon on 11/22/17. I agree with the History, Examination, Assessment and Plan documented above with any addition or exceptions noted below. The patient is feeling better this morning. Discussed using goodrx discount to obtain reglan. She wants to try to eat at lunch and if she had no vomiting will likely discharge home. <Radha Topete - Last Filed: 11/23/17 11:08>
[2017-11-22] MEDS ORDERED: Metoclopramide HCl 10 MG TAB PO SCH ×2 (12:00→17:00)
[2017-11-22] MEDS ORDERED: Promethazine HCl 25 MG in Sodium Chloride 0.9% 50 ML IVPB SCH (12:00)
[2017-11-22] MEDS ORDERED: Promethazine HCl 25 MG/ML VIAL IM SCH (12:00)
[2017-11-22] MEDS: HumaLOG 300 UNITS/3 ML VIAL SC PRN ×2 (12:22→16:40)
[2017-11-22 12:34] VITALS: BP 133/84; TEMP 98.1
[2017-11-22 12:41] LABS: Anion Gap 17 mmol/L (10-20); BUN (Urea Nitrogen) 8 mg/dL (7.0-18.7); Calc. Creatinine Clearance 221 mL/min (70-130); Calcium 8.8 mg/dL (7.8-10.44); Carbon Dioxide 20 mmol/L (22-29); Chloride 97 mmol/L (98-107); Estimated GFR-MDRD Greater than 90; Glucose 305 mg/dL (70-105); Potassium 3.7 mmol/L (3.5-5.1); Sodium 130 mmol/L (136-145)
[2017-11-22] MEDS ORDERED: Nicotine 21 MG PATCH TD SCH (15:00)
[2017-11-22] MEDS ORDERED: Lithium Carbonate ER 450 mg Tablet PO SCH (21:00)
[2017-11-22] MEDS ORDERED: Atorvastatin Calcium 40 MG TAB PO SCH (21:00)
--- NOTE | 2017-11-22 23:42 | EKG ---
Test Reason : Blood Pressure : / mmHG Vent. Rate : 110 BPM Atrial Rate : 110 BPM P-R Int : 154 ms QRS Dur : 094 ms QT Int : 354 ms P-R-T Axes : 071 078 031 degrees QTc Int : 479 ms Sinus tachycardia Otherwise normal ECG When compared with ECG of 08-NOV-2017 12:30, (Unconfirmed) No significant change was found Confirmed by Charity FRANCOIS ([id number]) on 11/22/2017 11:41:51 PM Referred By: Confirmed By:Charity FRANCOIS
--- NOTE | 2017-11-22 23:47 | EKG ---
Test Reason : Blood Pressure : / mmHG Vent. Rate : 096 BPM Atrial Rate : 096 BPM P-R Int : 152 ms QRS Dur : 090 ms QT Int : 378 ms P-R-T Axes : 064 072 064 degrees QTc Int : 477 ms Normal sinus rhythm Normal ECG When compared with ECG of 21-NOV-2017 21:20, (Unconfirmed) No significant change was found Confirmed by Charity FRANCOIS ([id number]) on 11/22/2017 11:46:39 PM Referred By: CRISTIAN Confirmed By:Charity FRANCOIS
[2017-11-23] MEDS ORDERED: Nicotine 21 MG PATCH TD SCH (09:00)
--- NOTE | 2017-11-23 13:54 | DIS-2 ---
DATE OF ADMISSION: 11/21/2017 DATE OF DISCHARGE: 11/23/2017 RESIDENT: Albert Mcmahon D.O. ADMITTING ATTENDING: Radha Topete M.D. DISCHARGE ATTENDING: Radha Topete M.D. CONSULTATIONS: None. PROCEDURES: None. PRIMARY DIAGNOSES: 1. Intractable nausea and vomiting secondary to gastroparesis. 2. Moderate dehydration. 3. Prolonged QT on EKG. SECONDARY DIAGNOSES: 1. Uncontrolled type 2 diabetes. 2. Bipolar. 3. Obstructive sleep apnea. 4. Polycystic ovary syndrome. 5. Hypertension. 6. Hyperlipidemia. 7. Pseudohyponatremia. 8. Bipolar. 9. Tobacco abuse. 10. Polysubstance abuse including marijuana. DISCONTINUED MEDICATIONS: Phenergan. DISCHARGE MEDICATIONS: 1. Metoclopramide 10 mg p.o. q.i.d. p.r.n. nausea. 2. Zolpidem tartrate 10 mg p.o. at bedtime. 3. Tresiba FlexTouch 100 units subcutaneous daily. 4. Motrin 800 mg p.o. b.i.d. p.r.n. 5. Fenofibrate 145 mg p.o. daily. 6. Fluoxetine 40 mg p.o. daily. 7. Dicyclomine 40 mg p.o. q.6 hours p.r.n. 8. Symbicort 160/4.5 one puff inhaled b.i.d. 9. Atorvastatin 80 mg p.o. at bedtime. 10. Aspirin 81 mg p.o. daily. 11. Albuterol sulfate HFA 1 puff inhaled q.4 hours p.r.n. 12. Humira 40 mg p.o. subcutaneous every 7 days. 13. Acarbose 50 mg p.o. t.i.d. with meals. 14. Metoprolol succinate 200 mg p.o. daily. 15. [place] carbonate 100 mg p.o. at bedtime. 16. Lisinopril 20 mg p.o. daily. 17. Mild sliding scale insulin t.i.d. with meals. HISTORY OF PRESENT ILLNESS AND HOSPITAL COURSE: The patient is a 32-year-old female who presented as a direct admit from the [facility] for intractable nausea and vomiting. On admissi on, the patient was placed n.p.o. and started on fluids for moderate dehydration. The patient has a longstanding history of nausea and vomiting secondary to gastroparesis tertiary to diabetes mellitus type 2, poorly controlled. The patient received promethazine and Zofran p.r.n. Overnight, the patie nt did not have any episodes of emesis; however, still had some mild nausea. The following day, the patient was gradually advanced on diet and was able tolerate a normal lunch of chicken tenders and po tatoes. The patient was also started on Reglan after research showed that she could receive a month' s supply of Reglan for less than $10. EKG was repeated just before discharge and she was found to aguilera ve a QTC of 477, which was stable from the previous day of 479 on admission. DISPOSITION: Stable. DISCHARGE INSTRUCTIONS: 1. Location: Home. 2. Diet: Diabetic diet with recommendations to eat 6 small meals per day. 3. Activity: As tolerated. 4. Followup: Follow up with [facility] in the next 7-14 days.
--- NOTE | 2017-11-23 17:09 | HP ---
DATE OF SERVICE: 11/22/2017 CHIEF COMPLAINT: Nausea and vomiting. HISTORY OF PRESENT ILLNESS: The patient is a 32-year-old female with a past medical history of uncontrolled diabetes mellitus and severe gastroparesis. The patient was admitted with 6-day history of persistent nausea and vomiting, having up to 20 episodes of vomiting a day. She did note that her episodes of nausea and vomiting had started to improve in hours before arriving to the ER. The patient normally is on multiple medications for gastroparesis including Reglan. The patient has had her insurance plain changed and no longer coverage Reglan, so she had been out of it for week or two and this is what led to her symptoms. Patient started feeling better during my visit and was going to try to eat regular food for lunch. We were able to find a coupon for her to get Reglan at [employer] between 8-10 dollars and she states that she does have the money for that and will be able to purchase it. For the full past medical history of the patient, please see Dr. Rene's dictation. PHYSICAL EXAMINATION: VITAL SIGNS: Temperature 97.5, pulse 128, respiration rate 18, O2 sat 95% on room air, and blood pressure 132/82. GENERAL: The patient is awake, alert, and oriented, in no acute distress. CARDIOVASCULAR: The patient was initially tachycardic. Pulse has decreased. There are no murmurs, gallops, or rubs. LUNGS: Clear to auscultation bilaterally without wheezing or rhonchi. ABDOMEN: Soft, nontender, nondistended, bowel sounds present. EXTREMITIES: There is no clubbing, cyanosis, or edema. LABORATORY AND X-RAY FINDINGS: 1. CBC: WBC is 12.9, hemoglobin 15.0, hematocrit 44.7, platelet count 240. 2. BMP: Sodium 130, potassium 3.7, chloride 97, bicarbonate 20, BUN 8, creatinine 0.72, glucose 305, calcium 8.8. ASSESSMENT AND PLAN: 1. Intractable vomiting due to diabetic gastroparesis and marijuana abuse: The patient noted that she has increasing amount of marijuana that she has been using, we counseled that this can lead to nausea and vomiting. She has also been out of her Reglan and this has been restarted. We will try to advance diet as tolerated and if the patient is feeling better later this afternoon, she can be probably discharged home. 2. Diabetes mellitus. We are unable to obtain the type of insulin that she uses at home, so we will use Levemir instead. She has been counseled on the importance of being compliant with diabetes. 3. Dehydration: The patient has been on IV fluids. His sodium is improved and she is feeling better. 4. Pseudohyponatremia: Due to her hyperglycemia as mentioned above, her sodium has improved, but she is also getting IV fluids. 5. Leukocytosis: White count decreased from 16,000 down to the current rate. She has no signs or symptomss of a bacterial infection and leukocytosis is likely secondary to hemoconcentration. 6. For full H&P as well as assessment and plan, please see Dr. Rene's dictation. We have discussed the case in detail and I repeated pertinent portions of the history and physical myself. BRIAN
[2017-11-24] MEDS ORDERED: Adalimumab 40 MG/0.8 ML SYRINGE SC SCH (09:00)
== END 2017-11-22 18:46 | disposition home or self-care (01) | DRG 74 ==
LOC: ERS 15:34 → 2NO 19:42
PROVIDERS: ADMIT Family Medicine; ATTEND Family Medicine
DX: E11.43 Type 2 diabetes mellitus with diabetic autonomic (poly)neuropathy (principal); E11.65 Type 2 diabetes mellitus with hyperglycemia; E66.2 Morbid (severe) obesity with alveolar hypoventilation; Z68.41 Body mass index [BMI] 40.0-44.9, adult; K31.84 Gastroparesis; E86.0 Dehydration; F12.10 Cannabis abuse, uncomplicated; Z79.4 Long term (current) use of insulin; Z91.120 Patient's intentional underdosing of medication regimen due to financial hardship; F31.9 Bipolar disorder, unspecified; E78.5 Hyperlipidemia, unspecified; I10 Essential (primary) hypertension; E28.2 Polycystic ovarian syndrome; Z88.0 Allergy status to penicillin; Z88.8 Allergy status to other drugs, medicaments and biological substances; F17.210 Nicotine dependence, cigarettes, uncomplicated
CPT/HCPCS: 36415; 36416; 80048; 80053; 81001; 83735; 84100; 85025; 93005; 93010; J1364; J1650; J1815; J2550; J7050

== ENCOUNTER 2018-02-03 17:55 | Emergency (ER) | payer OTHER ==
[2018-02-03] MEDS ORDERED: Clindamycin 150 MG CAP ONE (18:42)
[2018-02-03] MEDS ORDERED: Acetaminophen 500 MG TAB ONE (18:42)
[2018-02-03] MEDS ORDERED: traMADol HCl 50 MG TAB ONE (18:43)
== END 2018-02-03 19:17 | disposition home or self-care (01) ==
LOC: ERS 17:55
DX: K02.9 Dental caries, unspecified (principal); E10.9 Type 1 diabetes mellitus without complications; I10 Essential (primary) hypertension; J45.909 Unspecified asthma, uncomplicated; F41.9 Anxiety disorder, unspecified; F31.9 Bipolar disorder, unspecified; F17.210 Nicotine dependence, cigarettes, uncomplicated
CPT/HCPCS: 99283

== ENCOUNTER 2018-02-13 16:31 | Emergency (ER) | payer OTHER ==
[2018-02-13] MEDS ORDERED: Ketorolac Tromethamine 60 MG/2 ML VIAL ONE (16:49)
--- NOTE | 2018-02-13 18:30 | RAD ---
LEFT ANKLE THREE VIEWS: INDICATIONS: Left ankle pain. IMPRESSION: No acute fracture or subluxation is evident. Enthesopathic change is seen off the calcaneus. POS: [facility]
== END 2018-02-13 18:14 | disposition home or self-care (01) ==
LOC: ERS 16:31
DX: S93.402A Sprain of unspecified ligament of left ankle, initial encounter (principal); I10 Essential (primary) hypertension; E10.9 Type 1 diabetes mellitus without complications; J45.909 Unspecified asthma, uncomplicated; F41.9 Anxiety disorder, unspecified; F31.9 Bipolar disorder, unspecified; F17.210 Nicotine dependence, cigarettes, uncomplicated; X50.1XXA Overexertion from prolonged static or awkward postures, initial encounter
CPT/HCPCS: 96372; 99406; J1885

== ENCOUNTER 2018-04-30 18:01 | Emergency (ER) | payer OTHER ==
[2018-04-30] MEDS ORDERED: methylPREDNISolone Sod Succ/PF 125 MG/2 ML VIAL ONE (18:44)
[2018-04-30] MEDS ORDERED: Water For Inject, Bacteriostat 30 ML ONE (18:45)
[2018-04-30 19:05] LABS: #Basophils 0.1 thou/uL (0.0-0.2); #Eosinphils 0.3 thou/uL (0.0-0.7); #Monocytes 0.6 thou/uL (0.11-0.59); #Neutrophils 6.1 thou/uL (1.40-6.50); %Eosinophils 2.3 % (0.0-10.0); %Lymphocytes 41.2 % (21.0-51.0); %Monocytes 5.3 % (0.0-10.0); %Neutrophils 50.2 % (42.0-75.0); Hemoglobin 16.9 g/dL (12.0-16.0); Mean Corpuscular HGB CONC 36.3 g/dL (32.0-36.0); Mean Corpuscular Hemoglobin 33.4 pg (27.0-31.0); Mean Platelet Volume 8.2 fL (7.4-10.4); Platelet Count 257 thou/uL (130-400); RBC Distribution Width 13.4 % (11.5-14.5); Red Blood Cell (RBC) Count 5.05 mill/uL (4.20-5.40); White Blood Cell (WBC) Count 12.1 thou/uL (4.8-10.8)
[2018-04-30 19:08] LABS: BHCG - Serum Negative (NEGATIVE); Pregs Control Background? CLEAR/WHITE (CLR/WHITE); Pregs Control Bar Appear? YES (CONTROL BAR)
[2018-04-30 19:19] LABS: ALT (SGPT) 38 U/L (8-55); AST (SGOT) 21 U/L (5-34); Alkaline Phosphatase 70 U/L (40-150); Anion Gap 15 mmol/L (10-20); BUN (Urea Nitrogen) 15 mg/dL (7.0-18.7); Bilirubin, Total 0.4 mg/dL (0.2-1.2); CK (CPK) 34 U/L (29-168); Calc. Creatinine Clearance 0 mL/min (70-130); Calcium 9.8 mg/dL (7.8-10.44); Carbon Dioxide 26 mmol/L (22-29); Chloride 97 mmol/L (98-107); Estimated GFR-MDRD 79; Globulin 3.7 g/dL (2.4-3.5); Glucose 395 mg/dL (70-105); Lipase 41 U/L (8-78); Potassium 3.6 mmol/L (3.5-5.1); Protein, Total 7.7 g/dL (6.0-8.3); Sodium 134 mmol/L (136-145)
[2018-04-30 19:22] LABS: Troponin I Less than 0.010 ng/mL (< 0.028)
== END 2018-04-30 19:40 | disposition home or self-care (01) ==
LOC: ERS 18:01
DX: J45.901 Unspecified asthma with (acute) exacerbation (principal); E10.9 Type 1 diabetes mellitus without complications; I10 Essential (primary) hypertension; J45.909 Unspecified asthma, uncomplicated; F41.9 Anxiety disorder, unspecified; F31.9 Bipolar disorder, unspecified; F17.210 Nicotine dependence, cigarettes, uncomplicated
CPT/HCPCS: 80053; 82550; 82553; 83690; 84484; 84703; 85025; 85379; 93005; 94640; 96374; J2930; J7620

== ENCOUNTER 2018-05-15 09:29 | Emergency (ER) | payer OTHER ==
[2018-05-15 10:27] LABS: #Basophils 0.1 thou/uL (0.0-0.2); #Eosinphils 0.1 thou/uL (0.0-0.7); #Lymphocytes 2.4 thou/uL (1.20-3.40); #Monocytes 0.5 thou/uL (0.11-0.59); #Neutrophils 6.4 thou/uL (1.40-6.50); %Basophils 0.7 % (0.0-1.0); %Eosinophils 1.3 % (0.0-10.0); %Lymphocytes 25.4 % (21.0-51.0); %Monocytes 5.4 % (0.0-10.0); %Neutrophils 67.3 % (42.0-75.0); Mean Corpuscular HGB CONC 35.5 g/dL (32.0-36.0); Mean Corpuscular Volume 92.9 fL (78.0-98.0); Mean Platelet Volume 9.3 fL (7.4-10.4); Platelet Count 135 thou/uL (130-400); RBC Distribution Width 13.1 % (11.5-14.5); Red Blood Cell (RBC) Count 5.47 mill/uL (4.20-5.40); White Blood Cell (WBC) Count 9.5 thou/uL (4.8-10.8)
[2018-05-15] MEDS ORDERED: Metoclopramide HCl 10 MG/2 ML VIAL ONE (10:41)
[2018-05-15] MEDS ORDERED: diphenhydrAMINE 50 MG/ML VIAL ONE (10:41)
[2018-05-15 10:44] LABS: BHCG - Serum Negative (NEGATIVE); Pregs Control Background? CLEAR/WHITE (CLR/WHITE); Pregs Control Bar Appear? YES (CONTROL BAR)
[2018-05-15 12:21] LABS: ALT (SGPT) 53 U/L (8-55); AST (SGOT) 41 U/L (5-34); Alkaline Phosphatase 61 U/L (40-150); Anion Gap 18 mmol/L (10-20); BUN (Urea Nitrogen) 10 mg/dL (7.0-18.7); Bilirubin, Total 1.2 mg/dL (0.2-1.2); Calc. Creatinine Clearance 0 mL/min (70-130); Calcium 9.4 mg/dL (7.8-10.44); Carbon Dioxide 26 mmol/L (22-29); Chloride 92 mmol/L (98-107); Estimated GFR-MDRD 64; Globulin 3.9 g/dL (2.4-3.5); Glucose 379 mg/dL (70-105); Potassium 3.8 mmol/L (3.5-5.1); Protein, Total 7.9 g/dL (6.0-8.3); Sodium 132 mmol/L (136-145)
== END 2018-05-15 11:33 | disposition left against medical advice (07) ==
LOC: ERS 09:29
DX: R11.10 Vomiting, unspecified (principal); E10.9 Type 1 diabetes mellitus without complications; F31.9 Bipolar disorder, unspecified; F41.9 Anxiety disorder, unspecified; F17.210 Nicotine dependence, cigarettes, uncomplicated; I10 Essential (primary) hypertension; J45.909 Unspecified asthma, uncomplicated
CPT/HCPCS: 36416; 80053; 84703; 85025; 99283; J1200; J2765

== ENCOUNTER 2018-05-15 15:59 | Emergency (ER) | payer OTHER | END 2018-05-15 17:28 | disposition left against medical advice (07) | LOC: ERS 15:59 | DX: Z53.21 Procedure and treatment not carried out due to patient leaving prior to being seen by health care provider (principal) ==

== ENCOUNTER 2018-05-18 17:18 | Inpatient (IN) | payer OTHER ==
[2018-05-18 18:43] LABS: #Basophils 0.1 thou/uL (0.0-0.2); #Eosinphils 0.1 thou/uL (0.0-0.7); #Lymphocytes 4.2 thou/uL (1.20-3.40); #Monocytes 1.1 thou/uL (0.11-0.59); #Neutrophils 9.5 thou/uL (1.40-6.50); %Basophils 0.5 % (0.0-1.0); %Eosinophils 0.3 % (0.0-10.0); %Lymphocytes 28.3 % (21.0-51.0); %Monocytes 7.3 % (0.0-10.0); %Neutrophils 63.6 % (42.0-75.0); Hemoglobin 18.1 g/dL (12.0-16.0); Mean Corpuscular HGB CONC 36.6 g/dL (32.0-36.0); Mean Corpuscular Hemoglobin 33.7 pg (27.0-31.0); Mean Corpuscular Volume 92.1 fL (78.0-98.0); Mean Platelet Volume 7.5 fL (7.4-10.4); Platelet Count 234 thou/uL (130-400); RBC Distribution Width 12.6 % (11.5-14.5); Red Blood Cell (RBC) Count 5.37 mill/uL (4.20-5.40); White Blood Cell (WBC) Count 14.8 thou/uL (4.8-10.8)
--- NOTE | 2018-05-18 18:49 | PDOC.FPRHP ---
- History of Present Illness Chief Complaint: Nausea/vomiting History of Present Illness: Patient is a 33 yo F presenting as a direct admit from clinic for intractable nausea and vomiting for the past 5 days. She has had about 10-20 episodes of vomiting/day. The patient has a PMH significant for gastroparesis, DM, asthma, and anxiety. She takes metoclopromide and recently ran out of her medication. She states that she has felt dizzy/room spinning off and on the past 5 days. She has not been able to tolerate solid food and has only been keeping down water occasionally. She endorses a measuring a fever of 101.3 two days ago. She has had intractable N/V every few months that she states is due to her gastroparesis. She smokes marijuana daily - 1-2 hits/day, but she does not think this is related to the N/V. She was also recently diagnosed with Chron's disease. She has taken promethazine, zofran and bentyl for the last 2 days which has helped with the cramping pain. ED Course: N/A - Allergies/Adverse Reactions Allergies Allergy/AdvReac Type Severity Reaction Status Date / Time piperacillin sodium Allergy Severe Verified 11/08/17 11:43 [From Zosyn] tazobactam sodium Allergy Severe Verified 11/08/17 11:43 [From Zosyn] Penicillins Allergy Verified 11/08/17 11:43 - Home Medications Medication Instructions Recorded Confirmed Type Fenofibrate 145 mg PO DAILY 06/03/15 11/21/17 History Acarbose [Precose] 50 mg PO TID-WM #0 tab 06/08/15 11/21/17 Rx Budesonide-Formoterol [Symbicort 1 puff INH BID-RT #0 aer 05/13/16 11/21/17 Rx 160-4.5] Adalimumab [Humira] 40 mg SC Q7D 10/04/16 11/21/17 History Atorvastatin Calcium 80 mg PO HS 10/04/16 11/21/17 History Ibuprofen [Motrin] 800 mg PO BID PRN 10/04/16 11/21/17 History Insulin Degludec [Tresiba 100 unit SQ DAILY 10/04/16 11/21/17 History Flextouch U-200] Insulin Regular [HumuLIN R Vial] 0 unit SC TID-WM 10/04/16 11/21/17 History Lisinopril [Zestril] 20 mg PO DAILY 10/04/16 11/21/17 History Aspirin [Adult Low Dose Aspirin EC] 81 mg PO DAILY #30 tablet. 10/06/16 Rx Metoprolol Succinate [Toprol XL] 200 mg PO DAILY tab 12/25/16 11/21/17 Rx Dicyclomine HCl 40 mg PO Q6HR PRN 05/15/17 11/21/17 History Insulin Degludec [Tresiba 40 unit SC HS 05/15/17 11/21/17 History Flextouch U-200] Ondansetron [Zofran ODT] 4 mg PO Q6HR PRN 05/15/17 11/21/17 History [place] Carbonate [[place] 900 mg PO HS 08/22/17 11/21/17 History Carbonate ER] Paliperidone Palmitate [Invega 234 mg IM Q28D 08/22/17 11/21/17 History Sustenna] Albuterol Sulfate HFA (OR) 1 puff INH Q4HR PRN 11/08/17 11/21/17 History [Proventil Hfa (or)] Metoclopramide HCl 10 mg PO QID PRN #120 tab 11/22/17 Rx Metoclopramide HCl [Reglan] 10 mg PO ACHS #120 tab 11/22/17 Rx QUEtiapine Fumarate [SEROquel] 400 mg PO HS 05/18/18 05/18/18 History - History PMHx: bipolar disorder, HLD, anxiety, HTN, LAYNE, DM, asthma, gastroparesis, Hidradenitis, Chrons PSHx: I&Ds for Hidradenitis, tonsillectomy FHx: mom - heart dz, seizures, HTN; dad - unknown; brother - chrons, seizures Social: tobacco use - 1 pack/day (expressed wanting to quit), marijuana - 1-2 hits/day, previously smoked all day every day; rare alcohol use - Review of Systems General: reports: fever/chills, fatigue. denies: weight/appetite/sleep changes , night sweats Eyes: reports: vision changes (blurry vision while dizzy then resolves after 5 min) ENT: denies: nasal congestion, rhinorrhea Respiratory: denies: cough, congestion, shortness of breath Cardiovascular: denies: chest pain, palpitation, edema Gastrointestinal: reports: nausea, vomiting, abdominal pain. denies: diarrhea, constipation Genitourinary: denies: incontinence, dysuria, polyuria Skin: denies: rashes, lesions, itching Musculoskeletal: denies: pain, tenderness, stiffness, swelling Neurological: denies: numbness, syncope, seizure Psychological: reports: anxiety. denies: depression - Vital signs BP: 129/83 HR: 115 RR: 20 Tmax: 98.6 Pox: 95% on RA Wt: 124kg - Physical Exam Constitutional: NAD, awake, alert and oriented HEENT: normocephalic and atraumatic, EOMI, grossly normal vision, grossly normal hearing, normal nasal mucosa, other (poor dentition, MMM mildly dry) Heart: RRR, normal S1/S2, no murmurs/rubs/gallops, pulses present, no edema Lungs: no respiratory distress, other (wheezing heart throughout lung [place]) Abdomen: soft, other (mild TTP diffusely; hypoactive bowl sounds) Musculoskeletal: normal structure, normal tone, ROM grossly normal Neurological: no focal deficit, CN II-XII intact Skin: no rash/lesions, capillary refill <2 seconds Psychiatric: normal mood and affect FMR H&P: Results - Labs Result Diagrams: 05/18/18 18:33 05/18/18 18:33 Lab results: WBC 14.8 thou/uL (4.8-10.8) H 05/18/18 18:33 Hgb 18.1 g/dL (12.0-16.0) H 05/18/18 18:33 Hct 49.4 % (36.0-47.0) H 05/18/18 18:33 MCV 92.1 fL (78.0-98.0) 05/18/18 18:33 Plt Count 234 thou/uL (130-400) 05/18/18 18:33 Neutrophils % 63.6 % (42.0-75.0) 05/18/18 18:33 FMR H&P: A/P - Problem List (1) Intractable vomiting with nausea Current Visit: No Status: Acute Code(s): R11.2 - NAUSEA WITH VOMITING, UNSPECIFIED Assessment and Plan: - secondary to diabetic gastroparesis flare - bolus LR 1000, maintenance fluids - start Metoclopromide - continue zofran (2) DMII (diabetes mellitus, type 2) Current Visit: No Status: Chronic Qualifiers: Diabetes mellitus complication status: with hyperglycemia Assessment and Plan: - Glucose check, accuchecks and aggressive SS - check A1C (3) Asthma Current Visit: No Status: Chronic Code(s): J45.909 - UNSPECIFIED ASTHMA, UNCOMPLICATED Assessment and Plan: - restart home medications of advair and albuterol as needed - monitor resp status (4) Tobacco abuse Current Visit: No Status: Chronic Code(s): Z72.0 - TOBACCO USE Assessment and Plan: - patient desires nicotine patch to help quit smoking - currently smokes 15 pack year hx (5) Bipolar disorder Current Visit: No Status: Chronic Code(s): F31.9 - BIPOLAR DISORDER, UNSPECIFIED Qualifiers: Active/Remission status: remission status unspecified Qualified Code(s): F31.9 - Bipolar disorder, unspecified Assessment and Plan: - continue home medications (6) Obstructive sleep apnea Current Visit: No Status: Chronic Code(s): G47.33 - OBSTRUCTIVE SLEEP APNEA (ADULT) (PEDIATRIC) Assessment and Plan: - patient does not use CPAP - monitor vital signs - Plan CODE: FULL Plan discussed with Dr. Hernandez Disposition/LOS: DISPO: admit to inpatient, likely >2midnights FMR H&P: Upper Level - Pertinent history 33 yo WF PMH IDDM uncontrolled, LAYNE, bipolar, and diabetic gastroparesis. Presents as direct admit from clinic with 5 day history of N/V and diffuse abdominal pain. States she has had up to 20 episodes of NBNB vomiting daily. States she ran out of Reglan 2 weeks ago and has been waiting for appt with PCP. States she has not been taking insulin since N/V started. Was noted to be tachycardic at clinic and sent for direct admission. States she is still occasionally smoking marijuana but has cut back. States she is strongly considering stopping smoking cigarettes. - Pertinent findings Vitals: Pulse 115, BP 129/83 GEN: Appears to be in mild discomfort, A&Ox4 ENT: Dry MM, poor dentition CV: Tachycardic, regular, no murmur Pulm: mild wheezing diffusely, normal effort, Abdomen: Decreased bowel sounds diffusely, mildly diffuse TTP, no rebound or guarding. Labs: pending at this time - Plan Date/Time: 05/18/181844 I, Bravo Shanks MD, have evaluated this patient and agree with findings/plan as outlined by international trade analyst resident. Pertinent changes/additions are listed here. 1. Acute exacerbation of Diabetic Gastroparesis: Reglan IV scheduled, Bolus 1 L LR and run LR at 150 mL/hr since showing signs of volume depletion PRN zofran available for breakthrough N/V. Advance diet as tolerated. BMP and CBC pending 2. IDDM: Restart long acting home insulin, check A1c, ACHS checks, aggressive SSI 3. Bipolar: home meds 4. Asthma: PNR albuterol, home inhalers 5. Tobacco abuse: PRN nicotine patch, counseled on cessation 6. Marijuana abuse: cessation encouraged 7. Volume depletion 2/2 #1: IV fluids 8. PPx: ambulation 9. CODE: FULL Dispo: inpatient, medical, likely >[address] Hernandez.
[2018-05-18 19:03] LABS: Anion Gap 14 mmol/L (10-20); BUN (Urea Nitrogen) 12 mg/dL (7.0-18.7); Calc. Creatinine Clearance 0 mL/min (70-130); Calcium 9.5 mg/dL (7.8-10.44); Carbon Dioxide 33 mmol/L (22-29); Chloride 88 mmol/L (98-107); Estimated GFR-MDRD 68; Glucose 330 mg/dL (70-105); Lipase 58 U/L (8-78); Magnesium 1.4 mg/dL (1.6-2.6); Potassium 3.2 mmol/L (3.5-5.1); Sodium 132 mmol/L (136-145)
[2018-05-18] MEDS ORDERED: Ondansetron ODT 4 MG TAB PO PRN ×2 (19:08→19:29)
[2018-05-18] MEDS ORDERED: Acetaminophen 325 MG TAB PO PRN (19:08)
[2018-05-18] MEDS ORDERED: Ondansetron HCl/PF 4 MG/2 ML Vial IVP PRN (19:08)
[2018-05-18] MEDS ORDERED: Acetaminophen 650 MG Suppository PR PRN (19:08)
[2018-05-18] MEDS ORDERED: Lactated Ringer's 1,000 ML IV SCH (19:15)
[2018-05-18] MEDS ORDERED: Dextrose 50% Abboject 50 ML SYRINGE SLOW IVP PRN (19:17)
[2018-05-18] MEDS ORDERED: Dextrose 5% in Water 1,000 ML IV PRN (19:17)
[2018-05-18] MEDS ORDERED: Dicyclomine 20 MG TAB PO PRN (19:29)
[2018-05-18] MEDS ORDERED: PROVENTIL INHALER 6.7 G (200 INHALATIONS) INH PRN (19:29)
[2018-05-18] MEDS ORDERED: PALIPERIDONE PALMITATE 234 MG IM SCH (19:30)
[2018-05-18] MEDS ORDERED: Albuterol Sulfate 2.5 mg/3 ml Neb NEB PRN (19:39)
[2018-05-18] MEDS ORDERED: Lithium Carbonate ER 450 mg Tablet PO SCH (21:00)
[2018-05-18] MEDS ORDERED: Atorvastatin Calcium 40 MG TAB PO SCH (21:00)
[2018-05-18] MEDS: Lactated Ringer's 1,000 ML IV SCH (21:26)
[2018-05-18] MEDS: Metoclopramide HCl 10 MG/2 ML VIAL IVP SCH (21:28)
[2018-05-18 22:16] VITALS: BMI 56.5
[2018-05-18] MEDS ORDERED: Nicotine 21 MG PATCH TD SCH (22:30)
[2018-05-18] MEDS: HumaLOG 300 UNITS/3 ML VIAL SC PRN (22:46)
[2018-05-19] MEDS: Metoclopramide HCl 10 MG/2 ML VIAL IVP SCH ×2 (02:14→08:57)
[2018-05-19] MEDS: Lactated Ringer's 1,000 ML IV SCH (04:16)
[2018-05-19] MEDS ORDERED: Magnesium 2 GM/NS 0.9% 100 ML 2 GM in Premix Bag 1 BAG IVPB SCH (04:30)
[2018-05-19] MEDS: HumaLOG 300 UNITS/3 ML VIAL SC PRN ×2 (05:33→11:44)
[2018-05-19 06:34] LABS: Anion Gap 13 mmol/L (10-20); BUN (Urea Nitrogen) 9 mg/dL (7.0-18.7); Calc. Creatinine Clearance 295 mL/min (70-130); Calcium 9.5 mg/dL (7.8-10.44); Carbon Dioxide 32 mmol/L (22-29); Chloride 91 mmol/L (98-107); Estimated GFR-MDRD Greater than 90; Glucose 249 mg/dL (70-105); Sodium 133 mmol/L (136-145)
[2018-05-19 07:40] LABS: ALT (SGPT) 30 U/L (8-55); AST (SGOT) 19 U/L (5-34); Albumin 3.7 g/dL (3.5-5.0); Alkaline Phosphatase 51 U/L (40-150); Anion Gap 15 mmol/L (10-20); BUN (Urea Nitrogen) 8 mg/dL (7.0-18.7); Bilirubin, Total 1.4 mg/dL (0.2-1.2); Calc. Creatinine Clearance 279 mL/min (70-130); Calcium 9.5 mg/dL (7.8-10.44); Carbon Dioxide 30 mmol/L (22-29); Chloride 92 mmol/L (98-107); Estimated GFR-MDRD 87; Globulin 3.5 g/dL (2.4-3.5); Glucose 250 mg/dL (70-105); Protein, Total 7.2 g/dL (6.0-8.3); Sodium 134 mmol/L (136-145)
[2018-05-19 07:47] LABS: #Basophils 0.1 thou/uL (0.0-0.2); #Eosinphils 0.1 thou/uL (0.0-0.7); #Monocytes 0.8 thou/uL (0.11-0.59); #Neutrophils 5.9 thou/uL (1.40-6.50); %Basophils 0.7 % (0.0-1.0); %Eosinophils 1.3 % (0.0-10.0); %Lymphocytes 36.6 % (21.0-51.0); %Monocytes 7.2 % (0.0-10.0); %Neutrophils 54.2 % (42.0-75.0); Hemoglobin 16.6 g/dL (12.0-16.0); Mean Corpuscular HGB CONC 34.8 g/dL (32.0-36.0); Mean Corpuscular Hemoglobin 32.4 pg (27.0-31.0); Mean Corpuscular Volume 93.1 fL (78.0-98.0); Mean Platelet Volume 7.5 fL (7.4-10.4); Platelet Count 204 thou/uL (130-400); RBC Distribution Width 12.7 % (11.5-14.5); Red Blood Cell (RBC) Count 5.14 mill/uL (4.20-5.40); White Blood Cell (WBC) Count 10.8 thou/uL (4.8-10.8)
[2018-05-19 08:27] VITALS: BP 131/77; TEMP 98.1
--- NOTE | 2018-05-19 08:41 | PDOC.FM ---
- Subjective Subjective: Patient reports having emesis last night. Per nurse, emesis total of 450cc. Overall, patient denies nausea, improvement from yesterday. Abdominal pain has also improved. She reports being able to tolerate walking. Was able to tolerate drinking apple juice and feels ready to try solid food diet. Update in pm: due to personal family health problems, patient desired to leave even after extensive discussion. - Objective MAR Reviewed: Yes Vital Signs & Weight: Vital Signs (12 hours) Temp Pulse Resp BP Pulse Ox 05/19/18 07:15 98.1 F 109 H 16 131/77 90 L 05/19/18 04:00 98.6 F 109 H 16 139/86 89 L 05/18/18 23:42 98.3 F 116 H 16 138/76 89 L Weight Weight 168.736 kg I&O: 05/18/18 05/19/18 05/20/18 06:59 06:59 06:59 Intake Total 2450 Output Total 650 Balance 1800 Result Diagrams: 05/19/18 05:55 05/19/18 05:59 EKG Reviewed by me: Yes <Liat Bustamante - Last Filed: 05/19/18 13:56> - Objective Vital Signs & Weight: Vital Signs (12 hours) Temp Pulse Resp BP Pulse Ox 05/19/18 08:00 98.1 F 109 H 16 90 L 05/19/18 07:15 98.1 F 109 H 16 131/77 90 L Weight Admit Weight 168.736 kg Weight 168.736 kg I&O: 05/18/18 05/19/18 05/20/18 06:59 06:59 06:59 Intake Total 2450 Output Total 650 Balance 1800 Result Diagrams: 05/19/18 05:55 05/19/18 05:59 <Timur Goff - Last Filed: 05/19/18 16:22> Phys Exam - Physical Examination Constitutional: NAD dry oral mucosal membranes Neck: supple decreased lung sounds, wheezing Gastrointestinal: soft, non-tender Psychiatric: A&O x 3 Skin: no rash <Liat Bustamante - Last Filed: 05/19/18 13:56> Dx/Plan (1) Gastroparesis due to DM Code(s): E11.43 - TYPE 2 DIABETES W DIABETIC AUTONOMIC (POLY)NEUROPATHY; K31.84 - GASTROPARESIS Status: Acute (2) Hyperglycemia Code(s): R73.9 - HYPERGLYCEMIA, UNSPECIFIED Status: Acute (3) Intractable vomiting with nausea Code(s): R11.2 - NAUSEA WITH VOMITING, UNSPECIFIED Status: Acute (4) Tachycardia Code(s): R00.0 - TACHYCARDIA, UNSPECIFIED Status: Acute (5) Anxiety disorder Code(s): F41.9 - ANXIETY DISORDER, UNSPECIFIED Status: Chronic QualifierTitle: Anxiety disorder type: unspecified anxiety disorder Qualified Code(s): F41.9 - Anxiety disorder, unspecified (6) Asthma Code(s): J45.909 - UNSPECIFIED ASTHMA, UNCOMPLICATED Status: Chronic (7) Hyperlipidemia Code(s): E78.5 - HYPERLIPIDEMIA, UNSPECIFIED Status: Chronic (8) Hypertension Code(s): I10 - ESSENTIAL (PRIMARY) HYPERTENSION Status: Chronic QualifierTitle: Hypertension type: essential hypertension Qualified Code( s): I10 - Essential (primary) hypertension (9) Morbid obesity with BMI of 45.0-49.9, adult Code(s): E66.01 - MORBID (SEVERE) OBESITY DUE TO EXCESS CALORIES; Z68.42 - BODY MASS INDEX (BMI) 45.0-49.9, ADULT Status: Chronic (10) Obstructive sleep apnea Code(s): G47.33 - OBSTRUCTIVE SLEEP APNEA (ADULT) (PEDIATRIC) Status: Chronic (11) Tobacco abuse Code(s): Z72.0 - TOBACCO USE Status: Chronic - Plan Plan: 33 yo F with intractable nausea and vomiting from gastroparesis due to medication noncompliance. 1. Intractable nausea and vomiting -Gave zofran and reglan -LR @ 15cc 2. Gastroparesis secondary to DM2 -Glucose remained high overnight but improved from 330-> 249 -Aim is to improve glucose control with Lispro and Glargine 3. Hypomagnesemia -Was given Mg replacement overnight -Recheck Mg this afternoon 4. Hypokalemia -3.2 -> 3.0 overnight -Gave 40mEq of K+, will recheck K+ this afternoon 5. HTN -continue home meds 4. HLD -continue home meds: statin 5. Tobacco user Due to family emergency patient desired to leave urgently after extensive discussion. Discussed plan with Dr. Goff <Liat Bustamante - Last Filed: 05/19/18 13:56> Attending Addendum - Attending Addendum Date/Time: 05/19/18 1612 I personally evaluated the patient and discussed the management with Dr. Felice Bustamante. I agree with the History, Examination, Assessment and Plan documented above with any addition or exceptions noted below. She has held down liquids and some solid food. Abdomen is soft and non-tender. Skin turgor good and mucous membranes moist. She does have a profound vocal [place]. Later after my rounds she called the resident team to state her mother had just been admitted to the hospital in [place] and due to this family emergency she needed to leave. If she could not be discharged she would have to leave AM. Dr. Clotilde Covington informed her that if she continues to vomit she needs to return to the hospital for evaluation, IV fluids and possible admission. We discharged her to go to the pharmacy, [facility] for Reglan/metoclopramide and encouraged her to follow up with her primary physician, Dr. David, in clinic. [facility] <Timur Goff - Last Filed: 05/19/18 16:22>
[2018-05-19] MEDS ORDERED: Potassium Chloride 20 MEQ TAB PO SCH (09:00)
[2018-05-19] MEDS ORDERED: INSULIN DEGLUDEC 100 UNIT SQ SCH (09:00)
[2018-05-19] MEDS ORDERED: Fenofibrate Nanocrystallized 145 MG TAB PO SCH (09:00)
[2018-05-19] MEDS ORDERED: Lisinopril 20 MG TAB PO SCH (09:00)
[2018-05-19] MEDS ORDERED: Aspirin 81 mg Enteric Coated Tablet PO SCH (09:00)
[2018-05-19] MEDS ORDERED: Nicotine 21 MG PATCH TD SCH (09:00)
[2018-05-19] MEDS: Insulin Glargine 100 UNITS in Pre-Filled Syringe SC SCH ×2 (09:46→09:55)
--- NOTE | 2018-05-20 00:55 | DIS-2 ---
DATE OF ADMISSION: 05/18/2018 DATE OF DISCHARGE: 05/19/2018 RESIDENT: Dr. Liat Bustamante. ADMITTING ATTENDING: Dr. Ofelia Krishna. DISCHARGE ATTENDING: Dr. Timur Goff. CONSULTATIONS: None. PROCEDURES: None. PRIMARY DIAGNOSIS: Intractable nausea and vomiting secondary to diabetic gastroparesis from medicati on noncompliance. SECONDARY DIAGNOSES: Diabetes type 2, asthma, tobacco use, bipolar disorder, obstructive sleep apnea , hidradenitis, hyperlipidemia, anxiety, hypertension. DISCHARGE MEDICATIONS: 1. Fenofibrate 145 mg p.o. daily. 2. Acarbose 50 mg p.o. t.i.d. with meals. 3. Symbicort 160/4.5 one puff inhalation twice daily. 4. Motrin 800 mg p.o. b.i.d. as needed. 5. Humira 40 mg subcu every 7 days. 6. Lisinopril 20 mg p.o. daily. 7. Atorvastatin calcium 80 mg p.o. at bedtime. 8. Insulin regular 0 units t.i.d. with meals. 9. Insulin degludec 100 units subcu daily. 10. Aspirin 81 mg p.o. daily. 11. Metoprolol succinate 200 mg p.o. daily. 12. Zofran 4 mg p.o. q.6 hours as needed. 13. Invega Sustenna 234 mg intramuscular q.28 days. 14. [place] carbonate 900 mg p.o. at bedtime. 15. Albuterol sulfate (Proventil HFA) 1 puff inhalation q.4 hours p.r.n. 16. Seroquel 400 mg p.o. at bedtime. 17. Klonopin 1 mg p.o. b.i.d. 18. Reglan 10 mg p.o. before meals and at bedtime. DISCONTINUED MEDICATIONS: None. HISTORY OF PRESENT ILLNESS AND HOSPITAL COURSE: Ms. Westfall is a 33-year-old female who was a direct admit from clinic after presenting with intractable nausea and vomiting for 5 days with poor p.o. int olerance, only able to intake small amounts of water. In addition, she was tachycardic. She also re ported that 2 days ago she had a measured temperature of 101.3. She said she normally has nausea and vomiting episodes due to the gastroparesis. She says the reason she started vomiting was because loretta sparrow ran out of her prescription of Reglan and was unable to get an appointment in clinic and thus was u nable to get her medication refilled. She also reported marijuana smoking, taking 1 or 2 hits. Also , reported history of Crohn's. In the ED, she was tachycardic, hemoconcentrated, and had electrolyte abnormalities consistent with dehydration. She also had a high sugar of 330 and a measured A1c of 1 0. Overnight, she received bolus fluids and maintenance fluids of lactated Ringer's in addition to R eglan. The next day, she had an improved volume status, in addition reporting feeling better and no abdominal pain. Magnesium was replaced in addition to potassium due to low lab values upon admission . Patient expressed wanting to leave due to family emergency and asked to be discharged. Even thoug h, extensive discussion was had over lab still needed to be checked, the patient still wanted t o leave. We explained that because she was doing okay and she had an improved volume status from yes terday because of adequate replaced electrolyte repletion, we decided to discharge her. We told her that should she experience any recurring issues or new symptoms to come back to the ED to see us. Loretta sparrow was discharged with a new prescription of Reglan and instructed to follow up with her PCP, Dr. Raymundo hernandez who she will see on Tuesday. DISPOSITION: Stable. DISCHARGE INSTRUCTIONS: 1. Home. 2. Diet: Diabetic diet. 3. Activity: As tolerated. 4. Followup: Follow up with PCP, Dr. Laurel David at her set appointment next Tuesday.
== END 2018-05-19 13:01 | disposition home or self-care (01) | DRG 74 ==
LOC: ONC 17:18
PROVIDERS: ADMIT Family Medicine; ATTEND Family Medicine
DX: E11.43 Type 2 diabetes mellitus with diabetic autonomic (poly)neuropathy (principal); K50.90 Crohn's disease, unspecified, without complications; Z68.43 Body mass index [BMI] 50.0-59.9, adult; K31.84 Gastroparesis; J45.909 Unspecified asthma, uncomplicated; F17.210 Nicotine dependence, cigarettes, uncomplicated; F31.9 Bipolar disorder, unspecified; G47.33 Obstructive sleep apnea (adult) (pediatric); L73.2 Hidradenitis suppurativa; E78.5 Hyperlipidemia, unspecified; F41.9 Anxiety disorder, unspecified; I10 Essential (primary) hypertension; T45.0X6A Underdosing of antiallergic and antiemetic drugs, initial encounter; E86.0 Dehydration; E11.65 Type 2 diabetes mellitus with hyperglycemia; E66.01 Morbid (severe) obesity due to excess calories; E83.42 Hypomagnesemia; E87.6 Hypokalemia; F12.10 Cannabis abuse, uncomplicated
CPT/HCPCS: 36415; 36416; 80048; 83036; 83690; 83735; 85025; 93005; 93010; A4216; J2405; J2765; J3475

== ENCOUNTER 2018-05-25 19:22 | Emergency (ER) | payer OTHER ==
--- NOTE | 2018-05-25 20:01 | RAD ---
CHEST ONE VIEW 05/25/18 HISTORY: Seizures, shortness of breath. COMPARISON: Radiograph 08/21/17. FINDINGS: Lungs are clear. No pneumothorax or effusion. The cardiac silhouette and mediastinal contours are wit hin normal limits. IMPRESSION: No acute intrathoracic abnormality. POS: HOME
[2018-05-25 20:03] LABS: #Basophils 0.1 thou/uL (0.0-0.2); #Eosinphils 0.2 thou/uL (0.0-0.7); #Lymphocytes 4.4 thou/uL (1.20-3.40); #Monocytes 0.9 thou/uL (0.11-0.59); #Neutrophils 6.2 thou/uL (1.40-6.50); %Basophils 0.6 % (0.0-1.0); %Eosinophils 1.7 % (0.0-10.0); %Lymphocytes 37.6 % (21.0-51.0); %Monocytes 7.7 % (0.0-10.0); %Neutrophils 52.4 % (42.0-75.0); Hemoglobin 18.4 g/dL (12.0-16.0); Mean Corpuscular HGB CONC 36.1 g/dL (32.0-36.0); Mean Corpuscular Hemoglobin 33.7 pg (27.0-31.0); Mean Corpuscular Volume 93.4 fL (78.0-98.0); Mean Platelet Volume 7.4 fL (7.4-10.4); Platelet Count 292 thou/uL (130-400); RBC Distribution Width 12.6 % (11.5-14.5); Red Blood Cell (RBC) Count 5.46 mill/uL (4.20-5.40); White Blood Cell (WBC) Count 11.7 thou/uL (4.8-10.8)
[2018-05-25 20:22] LABS: BHCG - Serum Negative (NEGATIVE); Pregs Control Background? CLEAR/WHITE (CLR/WHITE); Pregs Control Bar Appear? YES (CONTROL BAR)
[2018-05-25 20:26] LABS: ALT (SGPT) 45 U/L (8-55); AST (SGOT) 25 U/L (5-34); Albumin 4.1 g/dL (3.5-5.0); Alkaline Phosphatase 57 U/L (40-150); Anion Gap 19 mmol/L (10-20); BUN (Urea Nitrogen) 7 mg/dL (7.0-18.7); Bilirubin, Total 0.9 mg/dL (0.2-1.2); CK (CPK) 108 U/L (29-168); Calc. Creatinine Clearance 0 mL/min (70-130); Calcium 9.7 mg/dL (7.8-10.44); Carbon Dioxide 27 mmol/L (22-29); Chloride 94 mmol/L (98-107); Estimated GFR-MDRD 69; Globulin 3.9 g/dL (2.4-3.5); Glucose 253 mg/dL (70-105); Potassium 3.3 mmol/L (3.5-5.1); Sodium 137 mmol/L (136-145)
[2018-05-25] MEDS ORDERED: Dexamethasone 4 mg/ml Vial ONE (20:26)
[2018-05-25] MEDS ORDERED: Acetaminophen 500 MG TAB ONE (20:59)
--- NOTE | 2018-05-25 21:12 | CT ---
CT HEAD WITHOUT CONTRAST 05/25/18 HISTORY: Seizure. Fall. COMPARISON: None. FINDINGS: No parenchymal hemorrhage. No extra-axial hematoma. No midline shift. Basilar cisterns are patent. Br ain volume, age appropriate. Cortical gunderson-white matter differentiation is preserved. Ventricles and sulci are patent and symmetric. Calvarium is intact. Adequate aeration of the sinuses and mastoid air cells. IMPRESSION: No acute intracranial process. No intracranial posttraumatic sequela. POS: [facility]
== END 2018-05-25 22:26 | disposition home or self-care (01) ==
LOC: ERS 19:22
DX: R56.9 Unspecified convulsions (principal); J45.901 Unspecified asthma with (acute) exacerbation; E10.9 Type 1 diabetes mellitus without complications; I10 Essential (primary) hypertension; F41.9 Anxiety disorder, unspecified; F17.210 Nicotine dependence, cigarettes, uncomplicated; Z79.899 Other long term (current) drug therapy
CPT/HCPCS: 36415; 70450; 71045; 80053; 82550; 83605; 84146; 84703; 85025; 93005; 94640; J1100; J7620

== ENCOUNTER 2018-06-23 14:45 | Emergency (ER) | payer OTHER | END 2018-06-23 15:15 | LOC: ERS 14:45 | DX: Z53.21 Procedure and treatment not carried out due to patient leaving prior to being seen by health care provider (principal) ==

== ENCOUNTER 2018-06-25 08:17 | Emergency (ER) | payer OTHER ==
[2018-06-25 09:24] LABS: #Lymphocytes 2.2 thou/uL (1.20-3.40); #Monocytes 0.7 thou/uL (0.11-0.59); #Neutrophils 10.1 thou/uL (1.40-6.50); %Basophils 0.2 % (0.0-1.0); %Eosinophils 0.3 % (0.0-10.0); %Lymphocytes 16.9 % (21.0-51.0); %Monocytes 5.1 % (0.0-10.0); %Neutrophils 77.5 % (42.0-75.0); Mean Corpuscular HGB CONC 35.5 g/dL (32.0-36.0); Mean Corpuscular Hemoglobin 33.5 pg (27.0-31.0); Mean Corpuscular Volume 94.3 fL (78.0-98.0); Mean Platelet Volume 8.2 fL (7.4-10.4); Platelet Count 213 thou/uL (130-400); RBC Distribution Width 13.5 % (11.5-14.5); Red Blood Cell (RBC) Count 4.77 mill/uL (4.20-5.40)
[2018-06-25] MEDS ORDERED: methylPREDNISolone Sod Succ/PF 125 MG/2 ML VIAL ONE (09:37)
[2018-06-25 09:46] LABS: ALT (SGPT) 38 U/L (8-55); AST (SGOT) 16 U/L (5-34); Albumin 3.8 g/dL (3.5-5.0); Alkaline Phosphatase 62 U/L (40-150); Anion Gap 18 mmol/L (10-20); BUN (Urea Nitrogen) 9 mg/dL (7.0-18.7); Bilirubin, Total 0.5 mg/dL (0.2-1.2); Calc. Creatinine Clearance 0 mL/min (70-130); Calcium 9.7 mg/dL (7.8-10.44); Carbon Dioxide 21 mmol/L (22-29); Chloride 99 mmol/L (98-107); Estimated GFR-MDRD 83; Globulin 3.9 g/dL (2.4-3.5); Glucose 442 mg/dL (70-105); Potassium 4.1 mmol/L (3.5-5.1); Protein, Total 7.7 g/dL (6.0-8.3); Sodium 134 mmol/L (136-145)
--- NOTE | 2018-06-25 10:03 | RAD ---
PA AND LATERAL VIEWS CHEST: HISTORY: Dyspnea. FINDINGS: Comparison is made with the exam of 10/04/16. The heart size is normal. The lungs are expanded without focal areas of consolidation, pneumothorace s, or pleural effusions. No acute osseous abnormalities are seen. IMPRESSION: No radiographic evidence of acute cardiopulmonary process. POS: [facility]
[2018-06-25 10:26] LABS: Bilirubin Negative (Negative); Blood, Urine Negative (Negative); Clarity CLEAR (Clear); Glucose, Urine (Dipstick) >=1000 mg/dL (Negative); Leukocyte Negative (Negative); Nitrite Negative (Negative); Pregnancy Test - Urine (BHCG) Negative (Negative); Pregu Control Background? CLEAR/WHITE (CLR/WHITE); Pregu Control Bar Appear? YES (CONTROL BAR); Protein, Urine (Dipstick) Negative (Neg-Trace); Specific Gravity 1.037 (1.002-1.036); Specific Gravity, Urine 1.037 (1.002-1.036); Urobilinogen 0.2 mg/dL (0.2-1.0)
[2018-06-25] MEDS ORDERED: Insulin Regular 300 UNITS/3 ML VIAL ONE (11:04)
[2018-06-25 11:33] LABS: Base Excess-Venous 2.5 mmol/L (0 (+/- 2.5)); Bicarbonate (HCO3v) 26.9 mmol/L (1.0-85.0); CO2 Tension (PvCO2) 39.5 mmHg (41.0-51.0); Calcium, Ionized 1.14 mmol/L (1.12-1.32); Hemoglobin - Calc 16.6 g/dL (12.0-18.0); O2 Tension (PvO2) 59.3 mmHg (35.0-45.0); Potassium 4.3 mmol/L (3.4-4.7); T. Carbon Dioxide 28.1 mmol/L (1.0-85.0); vO2 Saturation-calc 91.3 % (94-98)
== END 2018-06-25 12:44 | disposition home or self-care (01) ==
LOC: ERS 08:17
DX: J45.901 Unspecified asthma with (acute) exacerbation (principal); E87.2 Acidosis; E11.65 Type 2 diabetes mellitus with hyperglycemia; I10 Essential (primary) hypertension; F31.9 Bipolar disorder, unspecified; F41.9 Anxiety disorder, unspecified; F17.210 Nicotine dependence, cigarettes, uncomplicated; Z79.899 Other long term (current) drug therapy; Z79.4 Long term (current) use of insulin
CPT/HCPCS: 36415; 36416; 71046; 80053; 81003; 81025; 82010; 82330; 82803; 83605; 85025; 94640; 96361; 96372; 96374; J1815; J2930; J7620

== ENCOUNTER 2018-07-11 15:15 | Emergency (ER) | payer OTHER | END 2018-07-11 16:59 | disposition left against medical advice (07) | LOC: ERS 15:15 | DX: Z53.21 Procedure and treatment not carried out due to patient leaving prior to being seen by health care provider (principal) ==

== ENCOUNTER 2018-07-12 11:00 | Observation (INO) | payer OTHER ==
[2018-07-12 11:37] VITALS: BMI 42.5
[2018-07-12] MEDS: Lactated Ringer's 1,000 ML IV SCH ×3 (12:19→22:30)
[2018-07-12] MEDS: Ondansetron HCl/PF 4 MG/2 ML Vial IVP PRN ×2 (13:19→21:42)
[2018-07-12] MEDS ORDERED: Dextrose 50% Abboject 50 ML SYRINGE SLOW IVP PRN (14:22)
[2018-07-12] MEDS ORDERED: Dextrose 5% in Water 1,000 ML IV PRN (14:22)
[2018-07-12] MEDS ORDERED: HumaLOG 300 UNITS/3 ML VIAL SC PRN (14:22)
[2018-07-12 14:55] LABS: #Basophils 0.1 thou/uL (0.0-0.2); #Lymphocytes 2.1 thou/uL (1.20-3.40); #Monocytes 0.9 thou/uL (0.11-0.59); #Neutrophils 11.6 thou/uL (1.40-6.50); %Basophils 0.5 % (0.0-1.0); %Eosinophils 0.2 % (0.0-10.0); %Lymphocytes 14.5 % (21.0-51.0); %Monocytes 5.8 % (0.0-10.0); Hemoglobin 16.4 g/dL (12.0-16.0); Mean Corpuscular HGB CONC 36.2 g/dL (32.0-36.0); Mean Corpuscular Hemoglobin 34.8 pg (27.0-31.0); Mean Corpuscular Volume 96.3 fL (78.0-98.0); Platelet Count 247 thou/uL (130-400); RBC Distribution Width 13.3 % (11.5-14.5); Red Blood Cell (RBC) Count 4.71 mill/uL (4.20-5.40); White Blood Cell (WBC) Count 14.7 thou/uL (4.8-10.8)
[2018-07-12] MEDS ORDERED: Nicotine 21 MG PATCH TD SCH (15:00)
[2018-07-12] MEDS: Metoclopramide HCl 10 MG/2 ML VIAL IVP PRN (15:14)
[2018-07-12 15:15] LABS: ALT (SGPT) 30 U/L (8-55); AST (SGOT) 16 U/L (5-34); Albumin 3.7 g/dL (3.5-5.0); Alkaline Phosphatase 43 U/L (40-150); Anion Gap 17 mmol/L (10-20); BUN (Urea Nitrogen) 7 mg/dL (7.0-18.7); Bilirubin, Total 0.8 mg/dL (0.2-1.2); Calc. Creatinine Clearance 216 mL/min (70-130); Calcium 9.2 mg/dL (7.8-10.44); Carbon Dioxide 25 mmol/L (22-29); Chloride 99 mmol/L (98-107); Estimated GFR-MDRD 90; Globulin 3.5 g/dL (2.4-3.5); Glucose 268 mg/dL (70-105); Magnesium 1.4 mg/dL (1.6-2.6); Phosphorus 3.2 mg/dL (2.3-4.7); Potassium 3.5 mmol/L (3.5-5.1); Protein, Total 7.2 g/dL (6.0-8.3); Sodium 137 mmol/L (136-145)
[2018-07-12] MEDS: HumaLOG 300 UNITS/3 ML VIAL SC PRN (15:27)
[2018-07-12] MEDS ORDERED: Magnesium 2 GM/NS 0.9% 100 ML 2 GM in Premix Bag 1 BAG IVPB SCH (18:00)
--- NOTE | 2018-07-12 18:11 | HP ---
I have discuss the case with Dr. Bravo Shanks and agree with his assessment and plan. HISTORY OF PRESENT ILLNESS: Briefly, Ms. Westfall is a 33-year-old female patient with a long history of gastroparesis and recurrent admissions for such. She presented to our clinic this morning with a 4-5 day history of nausea, vomiting, and appeared significantly dehydrated. She had a normal blood p ressure, but her pulse rate was 116. Mucous membranes are dry. She has been admitted for further tr eatment and for fluid resuscitation. PHYSICAL EXAMINATION: GENERAL: She is pleasant, awake, alert. She does complain about diffuse abdominal pain. VITAL SIGNS: Temperature is 98.9. Her pulse rate is 116, respirations 18, her oxygen saturation on 2 liters is 94%. Her blood pressure is 153/99. EAR, NOSE AND THROAT: Her mucous membranes are dry. NECK: Supple. CARDIAC: Her heart rhythm is regular, no gallop or murmur noted. She has a relative mild tachycardi a. LUNGS: Clear, without rales or wheezes. ABDOMEN: Appears grossly normal. It does not distended. It is diffusely, but minimally tender with out guarding or rebound. EXTREMITIES: Noted trace edema. NEUROLOGIC: No focal deficits. LABORATORY DATA: Still not available. ASSESSMENT: Volume depletion secondary to gastroparesis and nausea, vomiting resulting. PLAN: IV fluids, continue to check labs. May get GI consult for further input regarding the treatme nt of her gastroparesis as she has been on Reglan for several years without sustained a good response .
--- NOTE | 2018-07-12 20:41 | HP-2 ---
DATE OF SERVICE: 07/12/2018 CODE STATUS: FULL. PRIMARY CARE PHYSICIAN: Laurel David M.D. RESIDENT: Bravo Shanks M.D. ATTENDING PHYSICIAN: Jovany Bills M.D. CONSULTATIONS: None. CHIEF COMPLAINT: Nausea and vomiting. HISTORY OF PRESENT ILLNESS: Ms. Westfall is a pleasant 33-year-old female with past medical history of insulin-dependent type 2 diabetes mellitus, hypertension, obstructive sleep apnea, bipolar disorder and diabetic gastroparesis. She presents as a direct admission from [facility] for volume depletion and intractable nausea and vomiting. She states that she was started on clindamycin approximately 1 week ago by her surgeon for a presumed cellulitis of her hidradenitis. She states that the clindamycin upset her stomach and she began to experience nausea and vomiting 5 days ago. She states that she has stopped taking her insulin 5 days ago and her oral hyperglycemics 3 days ago because she had lost her glucometer during a move and did not want to become hypoglycemic. She reports occasionally vomiting up small specks of blood. She was seen at [facility] last night given 2 liters of fluid, Zofran, Reglan, and Phenergan, which initially helped her symptoms. However, she stated she was driving away from the hospital, she began to vomit uncontrolled again. She was seen in clinic today and found to be tachycardic and appeared volume down. She was subsequently directly admitted for treatment. PAST MEDICAL HISTORY: 1. Bipolar. 2. Hyperlipidemia. 3. Anxiety. 4. Hypertension. 5. Obstructive sleep apnea. 6. Insulin-dependent type 2 diabetes mellitus. 7. Asthma. 8. Diabetic gastroparesis. 9. Hidradenitis suppurativa. 10. Crohn's. PAST SURGICAL HISTORY: 1. I&D for hidradenitis. 2. Tonsillectomy. ALLERGIES: 1. Zosyn 2. Penicillin MEDICATIONS: 1. Reglan 10 mg ACHS 2. Seroquel 400 mg HS 3. Zofran 8 mg q6 hr PRN 4. Citalopram 20 mg daily 5. Albuterol 0.083% INH q4hr PRN 6. Levemir 10 u SC HS 7. Lipitor 80 mg HS 8. Lisinopril 20 mg daily 9. Tricor 145 mg daily 10. Humira 40 mg every week 11. Invega 234 mg every month 12. Ibuprofen 800 mg BID PRN 13. Metoprolol 50 mg daily 14. Easley 900 mg HS 15. Humalong sliding scale insulin 16. Klonopin 1 mg daily 17. Promethazine 25 mg TID 18. Advair 250-50 mcg 2 puffs BID 19. Invega 3 mg daily 20. Restoril 30 mg HS FAMILY HISTORY: 1. Coronary artery disease in her mother and seizures. 2. Hypertension in her father. 3. Crohn disease and seizures with her brother. SOCIAL HISTORY: She endorses smoking approximately 1 pack of cigarettes per day , but is contemplating quitting. States she is a former marijuana user, but has not used marijuana for the past month. Reports no other illicit drug use and occasional alcohol use. REVIEW OF SYSTEMS: Twelve point review of system performed and was negative other than what was previously stated in history of present illness. PHYSICAL EXAMINATION: VITAL SIGNS: Temperature 98.9, pulse 116, respiration rate 18, pulse ox 94% on 2 liters, blood pressure 153/99. GENERAL: Mildly ill-appearing, alert and oriented x4, appropriately interactive. HEENT: Normocephalic, atraumatic. PERRLA, EOMI. External ears, nose grossly normal. Oropharynx reveals dry mucous membranes. NECK: Supple, without lymphadenopathy, thyromegaly. CARDIOVASCULAR: Tachycardic rate, regular rhythm, no murmurs, rubs or gallops. LUNGS: Clear to auscultation bilaterally. Normal effort. ABDOMEN: Soft, mild diffuse tenderness, no guarding rebounding or rigidity. Bowel sounds present x4 quadrants. MUSCULOSKELETAL: Normal strength and range of motion in all 4 limbs. EXTREMITIES: No clubbing, cyanosis or edema. NEUROLOGIC: No gross focal deficits. SKIN: Warm, dry, and intact without lesions. Her left axilla did not appear to be acutely inflamed or infected. PSYCHIATRIC: Mood and affect are appropriate. LABORATORY DATA: Pending at this time. IMAGING: None. EKG: Sinus tachycardia with rate of 116. Normal QRS complexes, no ST elevations or T-wave inversions noted. QTC interval 458. ASSESSMENT AND PLAN: 1. Ms. Westfall is a 31-year-old insulin-dependent type 2 diabetic with known history of noncompliance and recurrent diabetic gastroparesis. She presents with a 5-day history of intractable nausea and vomiting. 2. Acute exacerbation, diabetic aspiration. We will schedule IV Reglan q.6 hours and have Zofran available p.r.n. Lactated Ringer's 250 mL per hour until vital signs normalized. We will keep n.p.o. until nausea and vomiting are controlled. We will then advance diet as tolerated. 3. Insulin-dependent diabetes mellitus. Restart Levemir, mild sliding scale insulin coverage provided, q.6 hours Accu-Cheks, hypoglycemics available as needed. 4. Hypertension. Home medications. 5. Bipolar disorder. Resume home medications. 6. Volume depletion secondary to diabetic gastroparesis exacerbation. Continue IV fluids. 7. Tobacco abuse. Nicotine patch available. Patient has been witnessed leaving the floor to smoke twice since she has arrived. Advised to not continue to smoke while she has nicotine patch available. 8. History of marijuana abuse and encouraged continued cessation. 9. Prophylaxis, walking program sequential compression devices. 10. Code status: FULL. DISPOSITION: She is admitted under observation status, placed on the medical floor. Length of stay less than 2 midnights. History and physical exam and management of this patient were discussed with Dr. Bills who is in agreement, unless otherwise stated in his history and physical. BRIAN
[2018-07-12] MEDS ORDERED: Insulin Glargine 10 UNITS in Pre-Filled Syringe 1 EACH SC SCH (21:00)
[2018-07-12] MEDS ORDERED: Lithium Carbonate ER 450 mg Tablet PO SCH (21:00)
[2018-07-12] MEDS ORDERED: Atorvastatin Calcium 40 MG TAB PO SCH (21:00)
[2018-07-13] MEDS: Lactated Ringer's 1,000 ML IV SCH ×4 (01:08→11:44)
--- NOTE | 2018-07-13 05:43 | PDOC.FM ---
- Subjective Subjective: Pt states she is feeling better this morning. Was able to keep liquids and some soda down this morning. Says her abdomen is still slightly tender but much improved, throat is sore from vomiting. She states she wants to go home soon. - Objective Vital Signs & Weight: Vital Signs (12 hours) Temp Pulse Resp BP Pulse Ox 07/13/18 04:00 98.6 F 106 H 20 99/66 96 07/13/18 00:00 99.1 F 116 H 20 106/62 93 L 07/12/18 20:00 98.9 F 116 H 20 105/55 L 93 L Weight Weight 127.006 kg I&O: 07/11/18 07/12/18 07/13/18 06:59 06:59 06:59 Intake Total 980 Balance 980 Result Diagrams: 07/12/18 14:48 07/12/18 14:48 <Miracle Valadez - Last Filed: 07/13/18 09:11> - Objective Vital Signs & Weight: Vital Signs (12 hours) Temp Pulse Resp BP BP BP Pulse Ox 07/13/18 11:00 98.6 F 112 H 18 134/77 91 L 07/13/18 10:29 106 H 20 97 07/13/18 10:16 122/74 07/13/18 08:00 97.6 F 113 H 18 122/74 90 L 07/13/18 07:28 120/82 07/13/18 07:01 96 07/13/18 04:00 98.6 F 106 H 20 99/66 96 07/13/18 00:00 99.1 F 116 H 20 106/62 93 L Weight Weight 127.006 kg I&O: 07/12/18 07/13/18 07/14/18 06:59 06:59 06:59 Intake Total 1980 Balance 1980 Result Diagrams: 07/12/18 14:48 07/12/18 14:48 <Beto Lemos - Last Filed: 07/13/18 11:53> Phys Exam - Physical Examination Constitutional: NAD HEENT: PERRLA, moist MMs Neck: no nodes, supple Respiratory: wheezing present, clear to auscultation bilateral Cardiovascular: RRR, no significant murmur Gastrointestinal: soft slightly TTP Musculoskeletal: no edema, pulses present Neurological: moves all 4 limbs Psychiatric: normal affect, A&O x 3 <Miracle Valadez - Last Filed: 07/13/18 09:11> Dx/Plan (1) Gastroparesis due to DM Code(s): E11.43 - TYPE 2 DIABETES W DIABETIC AUTONOMIC (POLY)NEUROPATHY; K31.84 - GASTROPARESIS Status: Acute (2) Crohn disease Code(s): K50.90 - CROHN'S DISEASE, UNSPECIFIED, WITHOUT COMPLICATIONS Status: Chronic (3) Hidradenitis Code(s): L73.2 - HIDRADENITIS SUPPURATIVA Status: Chronic (4) Non compliance w medication regimen Code(s): Z91.14 - PATIENT'S OTHER NONCOMPLIANCE WITH MEDICATION REGIMEN Status : Chronic (5) Anxiety disorder Code(s): F41.9 - ANXIETY DISORDER, UNSPECIFIED Status: Chronic Qualifiers: Anxiety disorder type: unspecified anxiety disorder Qualified Code(s): F41.9 - Anxiety disorder, unspecified (6) Asthma Code(s): J45.909 - UNSPECIFIED ASTHMA, UNCOMPLICATED Status: Chronic (7) Bipolar disorder Code(s): F31.9 - BIPOLAR DISORDER, UNSPECIFIED Status: Chronic Qualifiers: Active/Remission status: remission status unspecified Qualified Code(s): F31.9 - Bipolar disorder, unspecified (8) DMII (diabetes mellitus, type 2) Status: Chronic Qualifiers: Diabetes mellitus complication status: with hyperglycemia (9) Hyperlipidemia Code(s): E78.5 - HYPERLIPIDEMIA, UNSPECIFIED Status: Chronic (10) Hypertension Code(s): I10 - ESSENTIAL (PRIMARY) HYPERTENSION Status: Chronic Qualifiers: Hypertension type: essential hypertension Qualified Code(s): I10 - Essential (primary) hypertension (11) Obstructive sleep apnea Code(s): G47.33 - OBSTRUCTIVE SLEEP APNEA (ADULT) (PEDIATRIC) Status: Chronic (12) Intractable vomiting with nausea Code(s): R11.2 - NAUSEA WITH VOMITING, UNSPECIFIED Status: Acute - Plan Plan: 33 yo F with PMH of IDDM, HTN, LAYNE, bipolar disorder, known history of non- compliance and recurrent diabetic gastroparesis with 5 day history of intractable nausea and vomiting. Intractable nausea vomiting 2/2 recurrent diabetic gastroparesis -Reglan q6 hrs, zofran PRN, LR 250 ml/hr until VS normalize. NPO until n/v controlled. Then advance diet as tolerated. IDDM -Restart levemir, mild SSI, q6 hr accuchecks. HTN -Home meds Bipolar disorder -Home meds Asthma -wheezing this morning, albuterol ordered Volume depletion 2/2 diabetic gastroparesis -IV fluids, stop now that patient able to tolerate fluids Tobacco abuse -Nicotine patch available. Pt witnessed leaving floor to smoke. Advised to not continue cessation. PPX: walking program, SCDs Code status: full <Miracle Valadez - Last Filed: 07/13/18 09:11> Attending Addendum - Attending Addendum Date/Time: 07/13/18 1152 I personally evaluated the patient and discussed the management with Dr. Valadez. I agree with the History, Examination, Assessment and Plan documented above with any addition or exceptions noted below. Patient improved after restarting her home meds for diabetic gastroparesis. She is fluid hydrated and tolerating PO liquids. Will see how she tolerates diet this morning and likely discharge home later today with instructions to resume her home regimen. <Beto Lemos - Last Filed: 07/13/18 11:53>
[2018-07-13] MEDS: HumaLOG 300 UNITS/3 ML VIAL SC PRN (06:31)
[2018-07-13] MEDS: Ondansetron HCl/PF 4 MG/2 ML Vial IVP PRN (08:52)
[2018-07-13] MEDS ORDERED: Fenofibrate Nanocrystallized 145 MG TAB PO SCH (09:00)
[2018-07-13] MEDS ORDERED: Lisinopril 20 MG TAB PO SCH ×2 (09:00→09:30)
[2018-07-13] MEDS ORDERED: Citalopram 20 MG TAB PO SCH (09:00)
[2018-07-13] MEDS ORDERED: Aspirin 81 mg Enteric Coated Tablet PO SCH (09:00)
[2018-07-13] MEDS ORDERED: PROVENTIL INHALER 6.7 G (200 INHALATIONS) INH SCH (09:15)
[2018-07-13] MEDS: Metoclopramide HCl 10 MG/2 ML VIAL IVP PRN (11:26)
[2018-07-13 12:47] VITALS: BP 143/102; TEMP 99.2
--- NOTE | 2018-07-14 04:55 | DIS-2 ---
DATE OF ADMISSION: 07/12/2018 DATE OF DISCHARGE: 07/13/2018 RESIDENT: Miracle Valadez MD ADMISSION ATTENDING: Dr. Lemos. DISCHARGE ATTENDING: Dr. Lemos. CONSULTATIONS: None. PROCEDURES: None. PRIMARY DIAGNOSES: 1. Intractable nausea and vomiting secondary to recurrent diabetic gastroparesis. 2. Volume depletion secondary to diabetic gastroparesis. SECONDARY DIAGNOSES: 1. Insulin-dependent diabetes mellitus type 2. 2. Hypertension. 3. Bipolar disorder. 4. Asthma. 5. Tobacco abuse. DISCHARGE MEDICATIONS: 1. Adalimumab 40 mg subcu q.7 days. 2. Albuterol 200 puff inhaler q.4 hours p.r.n. 3. Aspirin 81 mg p.o. daily. 4. Atorvastatin 80 mg p.o. at bedtime. 5. Citalopram 20 mg p.o. daily. 6. Clonazepam 1 mg p.o. b.i.d. 7. Fenofibrate 145 mg p.o. daily. 8. Ibuprofen 800 mg p.o. b.i.d. p.r.n. 9. 300 unit per 3 mL vial Humulin subcu t.i.d. with meals. 10. Lisinopril 20 mg p.o. daily. 11. Fabens carbonate 900 mg p.o. at bedtime. 12. Metoclopramide hydrochloride 10 mg p.o. a.c. and at bedtime. 13. Metoprolol 200 mg p.o. daily. 14. Ondansetron 4 mg p.o. q.6 hours p.r.n. for nausea, vomiting. 15. Paliperidone palmitate 234 mg IM every 28 days, received today. We will need the next session i n 28 days. 16. Quetiapine fumarate 400 mg p.o. at bedtime. DISCONTINUED MEDICATIONS: None. HISTORY OF PRESENT ILLNESS AND HOSPITAL COURSE: Ms. Westfall is a pleasant 33-year-old femal e with a past medical history of insulin-dependent type 2 diabetes mellitus, hypertension, LAYNE, bipol ar disorder, and diabetic gastroparesis, who presents as a direct admission from [facility] for volume depletion and intractable nausea and vomiting. She states that she was started o n clindamycin approximately 1 week ago by her surgeon for presumed cellulitis of her hidradenitis. S he states that the clindamycin upset her stomach. She began to experience nausea and vomiting 5 days ago. She states that she has stopped taking her insulin 5 days ago and her oral hyperglycemic 3 day s ago because she had lost her glucometer during in move and did not want to become hypoglycemic. Jaja sparrow reports occasionally vomiting up small specks of blood. She was seen at [facility], given 2 liters of fluid, Zofran, Reglan, and Phenergan, which initially helped her symptoms. Ho mandy, she stated she was driving away from the hospital, she began to vomit uncontrollably again. S he was seen in clinic today and found to be tachycardic and appeared volume down. She was subsequent ly direct admitted for treatment. For her intractable nausea and vomiting secondary to recurrent danilo betic gastroparesis, she was given Reglan q.6 hours, Zofran p.r.n. and was volume resuscitated with l actated Ringer's until her vital signs normalized. She was kept n.p.o. until her nausea and vomiting were controlled. Then, her diet was advanced as tolerated until she was tolerating food. For her d iabetes, she was started on Levemir, had a mild sliding scale insulin and q.6 hours Accu-Cheks. For asthma, she was given albuterol, which improved her wheezing. For volume depletion, she was repleted with IV fluids. For tobacco abuse, nicotine patch was available for her. The patient was witnessed to leave the floor to smoke multiple times. She was advised to not continue smoking. DISPOSITION: Stable. DISCHARGE INSTRUCTIONS: 1. Location: Home. 2. Diet: Consistent carbohydrates. 3. Activity: As tolerated. 4. Followup: Follow up with [facility]& primary care physician within 3 days.
[2018-07-14] MEDS ORDERED: Lisinopril 20 MG TAB PO SCH (09:00)
--- NOTE | 2018-07-17 08:27 | EKG ---
Test Reason : Blood Pressure : / mmHG Vent. Rate : 116 BPM Atrial Rate : 116 BPM P-R Int : 164 ms QRS Dur : 090 ms QT Int : 330 ms P-R-T Axes : 067 070 054 degrees QTc Int : 458 ms Sinus tachycardia Q wave V2 Otherwise normal ECG Confirmed by DR. Arnaldo WALTER ([id number]) on 07/17/2018 8:26:58 AM Referred By: KIERSTEN Confirmed By:DR. Arnaldo WALTER
== END 2018-07-13 12:21 | disposition home or self-care (01) ==
LOC: T4-B 11:00
PROVIDERS: ADMIT Student in an Organized Health Care Education/Training Program; ATTEND Student in an Organized Health Care Education/Training Program
DX: E11.43 Type 2 diabetes mellitus with diabetic autonomic (poly)neuropathy (principal); K31.84 Gastroparesis; E86.9 Volume depletion, unspecified; G47.33 Obstructive sleep apnea (adult) (pediatric); F31.9 Bipolar disorder, unspecified; F41.9 Anxiety disorder, unspecified; J45.909 Unspecified asthma, uncomplicated; K50.90 Crohn's disease, unspecified, without complications; F17.210 Nicotine dependence, cigarettes, uncomplicated; F12.11 Cannabis abuse, in remission; L73.2 Hidradenitis suppurativa; Z79.4 Long term (current) use of insulin; Z79.899 Other long term (current) drug therapy; Z88.0 Allergy status to penicillin; Z88.1 Allergy status to other antibiotic agents
CPT/HCPCS: 36415; 36416; 80053; 83735; 84100; 85025; 93005; 93010; 96361; 96374; 96375; 96376; G0378; J2405; J2765; J3475; J7120

== ENCOUNTER 2018-07-17 08:22 | Emergency (ER) | payer OTHER ==
[2018-07-17] MEDS ORDERED: Metoclopramide HCl 10 MG/2 ML VIAL ONE (08:44)
[2018-07-17 09:27] LABS: #Basophils 0.1 thou/uL (0.0-0.2); #Eosinphils 0.3 thou/uL (0.0-0.7); #Lymphocytes 2.9 thou/uL (1.20-3.40); #Monocytes 0.7 thou/uL (0.11-0.59); #Neutrophils 7.8 thou/uL (1.40-6.50); %Basophils 0.9 % (0.0-1.0); %Eosinophils 2.3 % (0.0-10.0); %Lymphocytes 24.6 % (21.0-51.0); %Monocytes 5.6 % (0.0-10.0); %Neutrophils 66.7 % (42.0-75.0); Hemoglobin 17.4 g/dL (12.0-16.0); Mean Corpuscular HGB CONC 34.6 g/dL (32.0-36.0); Mean Corpuscular Hemoglobin 33.9 pg (27.0-31.0); Mean Corpuscular Volume 97.9 fL (78.0-98.0); Mean Platelet Volume 7.7 fL (7.4-10.4); Platelet Count 286 thou/uL (130-400); RBC Distribution Width 13.8 % (11.5-14.5); Red Blood Cell (RBC) Count 5.12 mill/uL (4.20-5.40); White Blood Cell (WBC) Count 11.6 thou/uL (4.8-10.8)
[2018-07-17 09:55] LABS: ALT (SGPT) 25 U/L (8-55); AST (SGOT) 17 U/L (5-34); Alkaline Phosphatase 50 U/L (40-150); Anion Gap 15 mmol/L (10-20); BUN (Urea Nitrogen) 4 mg/dL (7.0-18.7); Bilirubin, Total 0.6 mg/dL (0.2-1.2); Calc. Creatinine Clearance 0 mL/min (70-130); Calcium 9.4 mg/dL (7.8-10.44); Carbon Dioxide 25 mmol/L (22-29); Chloride 100 mmol/L (98-107); Estimated GFR-MDRD Greater than 90; Globulin 3.5 g/dL (2.4-3.5); Glucose 277 mg/dL (70-105); Lipase 58 U/L (8-78); Potassium 3.8 mmol/L (3.5-5.1); Protein, Total 7.5 g/dL (6.0-8.3); Sodium 136 mmol/L (136-145)
--- NOTE | 2018-07-22 16:35 | EKG ---
Test Reason : Blood Pressure : / mmHG Vent. Rate : 107 BPM Atrial Rate : 107 BPM P-R Int : 142 ms QRS Dur : 084 ms QT Int : 366 ms P-R-T Axes : 066 065 048 degrees QTc Int : 488 ms Sinus tachycardia Otherwise normal ECG Confirmed by NIKO JAIMES ([id number]), scientific editor VINAY LOONEY ([id number]) on 07/22/2018 4:34:56 PM Referred By: Confirmed By:NIKO JAIMES
== END 2018-07-17 09:52 | disposition left against medical advice (07) ==
LOC: ERS 08:22
DX: R11.2 Nausea with vomiting, unspecified (principal); E11.43 Type 2 diabetes mellitus with diabetic autonomic (poly)neuropathy; K31.84 Gastroparesis; I10 Essential (primary) hypertension; E66.9 Obesity, unspecified; F41.9 Anxiety disorder, unspecified; J45.909 Unspecified asthma, uncomplicated; F31.9 Bipolar disorder, unspecified; Z79.4 Long term (current) use of insulin; Z79.899 Other long term (current) drug therapy
CPT/HCPCS: 36415; 80053; 83690; 85025; 93005; 96361; 96374; J2765

== ENCOUNTER 2018-07-22 18:47 | Emergency (ER) | payer OTHER ==
[2018-07-22] MEDS ORDERED: predniSONE 20 MG TAB ONE (19:46)
[2018-07-22] MEDS ORDERED: Albuterol Sulfate 2.5 mg/3 ml Neb ONE ×2 (19:51→19:52)
[2018-07-22] MEDS ORDERED: Albuterol Sulfate 2.5 mg/0.5 ml Neb ONE (19:51)
--- NOTE | 2018-07-22 19:58 | RAD ---
PORTABLE CHEST: 07/22/18 HISTORY: Cough and wheezing. COMPARISON: 05/25/18 EXAM. Heart size and mediastinum are within normal limits. The lungs are clear of infiltrates. No significa nt bony findings. IMPRESSION: No active intrathoracic disease. POS: [facility]
== END 2018-07-22 21:48 | disposition home or self-care (01) ==
LOC: ERS 18:47
DX: J45.901 Unspecified asthma with (acute) exacerbation (principal); E11.43 Type 2 diabetes mellitus with diabetic autonomic (poly)neuropathy; K31.84 Gastroparesis; I10 Essential (primary) hypertension; E66.9 Obesity, unspecified; F41.9 Anxiety disorder, unspecified; F31.9 Bipolar disorder, unspecified; F17.210 Nicotine dependence, cigarettes, uncomplicated; Z71.6 Tobacco abuse counseling; Z79.4 Long term (current) use of insulin; Z79.899 Other long term (current) drug therapy
CPT/HCPCS: 71045; 94644; 99406; J7506; J7611; J7620

== ENCOUNTER 2018-07-25 15:39 | Outpatient (CLI) | payer OTHER ==
[2018-07-25 16:43] LABS: Hemoglobin 17.7 g/dL (12.0-16.0); Mean Corpuscular HGB CONC 35.1 g/dL (32.0-36.0); Mean Corpuscular Hemoglobin 33.9 pg (27.0-31.0); Mean Corpuscular Volume 96.5 fL (78.0-98.0); Platelet Count 272 thou/uL (130-400); RBC Distribution Width 13.6 % (11.5-14.5); Red Blood Cell (RBC) Count 5.21 mill/uL (4.20-5.40)
[2018-07-25 16:56] LABS: BHCG - Serum Negative (NEGATIVE); Pregs Control Background? CLEAR/WHITE (CLR/WHITE); Pregs Control Bar Appear? YES (CONTROL BAR)
[2018-07-25 17:24] LABS: #Basophils 0.1 thou/uL (0.0-0.2); #Eosinphils 0.1 thou/uL (0.0-0.7); #Neutrophils 11.4 thou/uL (1.40-6.50); %Basophils 0.4 % (0.0-1.0); %Eosinophils 0.6 % (0.0-10.0); %Lymphocytes 23.9 % (21.0-51.0); %Monocytes 6.2 % (0.0-10.0); Hemoglobin 17.6 g/dL (12.0-16.0); Mean Corpuscular HGB CONC 34.5 g/dL (32.0-36.0); Mean Corpuscular Hemoglobin 33.4 pg (27.0-31.0); Mean Corpuscular Volume 96.6 fL (78.0-98.0); Mean Platelet Volume 8.3 fL (7.4-10.4); Platelet Count 277 thou/uL (130-400); RBC Distribution Width 13.6 % (11.5-14.5); Red Blood Cell (RBC) Count 5.29 mill/uL (4.20-5.40); White Blood Cell (WBC) Count 16.6 thou/uL (4.8-10.8)
== END 2018-07-25 15:40 | disposition home or self-care (01) ==
LOC: LABBT 15:39
PROVIDERS: ATTEND Surgery
DX: Z01.812 Encounter for preprocedural laboratory examination (principal); L02.412 Cutaneous abscess of left axilla
CPT/HCPCS: 84703; 85027

== ENCOUNTER 2018-07-27 07:53 | Day surgery (SDC) | payer OTHER ==
[2018-07-25 15:51] VITALS: BMI 42.1
[2018-07-27] MEDS ORDERED: Levofloxacin 500 mg/D5W 100 ml Premix Bag ONE (08:10)
[2018-07-27] MEDS ORDERED: Bupivacaine HCl 0.5%/Epinephrine 1:200,000/PF 30 ml Vial ONE (08:42)
[2018-07-27] MEDS ORDERED: Bupivacaine/Epinephrine 0.25% 30 ML VIAL ONE (08:42)
[2018-07-27] MEDS ORDERED: HYDROmorphone 2 MG/ML VIAL ONE (08:50)
[2018-07-27] MEDS ORDERED: Midazolam HCl 2 mg/2 ml Vial ONE ×2 (08:50→08:52)
[2018-07-27] MEDS ORDERED: Fentanyl 100 MCG/2 ML VIAL ONE (08:50)
--- NOTE | 2018-07-27 10:42 | OP ---
PREOPERATIVE DIAGNOSIS: History of hidradenitis, left axillary inflammation. SURGEON: Americo Castle M.D. PROCEDURE PERFORMED: Excisional biopsy, left axilla. INDICATIONS: This is a 33-year-old female with longstanding hidradenitis, has had multiple excisions . Lately, she has been complaining of increased pain in the left axilla. Dr. Gray has been followi ng her, is concerned there is a deep infection where she is having this pain, it is a little bit jules rated. FINDINGS: A 4 x 2 x 1 cm excision of skin and subcutaneous tissue. No active purulent fluid. Cultu res were obtained, however. PROCEDURE: After informed consent was obtained, the patient was taken to the operating room, given g eneral endotracheal anesthesia. She was placed in the supine position. Her left axilla was prepped and draped in usual fashion. The area of concern was marked preoperatively. Local anesthesia infilt rated subcutaneously and deep. A 4 x 2 x 1 cm excisional biopsy performed. There was no purulent fl uid found. Cultures were obtained of the subcutaneous fluid. Hemostasis achieved with electrocauter y. The wound was left open, packed with Betadine gauze, covered by clean gauze. Patient tolerated t he procedure well and was transferred to recovery in good condition. Sponge and needle count verifie d correct x2.
[2018-07-27] MEDS ORDERED: PROPOFOL 200 MG/20 ML VIAL ONE (12:59)
[2018-07-27] MEDS ORDERED: PHENYLEPHRINE-NS 100 MCG/ML 10 ML SYRINGE ONE (12:59)
[2018-07-27] MEDS ORDERED: ePHEDrine/0.9% NaCl/PF SYRINGE 50 mg/10 ml ONE (12:59)
[2018-07-27] MEDS ORDERED: Glycopyrrolate 0.2 MG/ML 5 ML SYRINGE ONE (12:59)
[2018-07-27] MEDS ORDERED: Ketorolac Tromethamine 30 MG/ML VIAL ONE (12:59)
[2018-07-27] MEDS ORDERED: Ondansetron HCl/PF 4 MG/2 ML Vial ONE (12:59)
[2018-07-27] MEDS ORDERED: Lidocaine 1% PF 5 ML VIAL ONE (12:59)
== END 2018-07-27 11:10 | disposition home or self-care (01) ==
LOC: SDC 07:53
PROVIDERS: ATTEND Surgery
PROC: 0JB60ZZ Excision of Chest Subcutaneous Tissue and Fascia, Open Approach (ICD-10-PCS; principal; 2018-07-27)
DX: L73.2 Hidradenitis suppurativa (principal); E11.9 Type 2 diabetes mellitus without complications; J45.909 Unspecified asthma, uncomplicated; I10 Essential (primary) hypertension; F17.200 Nicotine dependence, unspecified, uncomplicated; E66.9 Obesity, unspecified; Z68.41 Body mass index [BMI] 40.0-44.9, adult; Z79.4 Long term (current) use of insulin; Z79.82 Long term (current) use of aspirin; Z79.899 Other long term (current) drug therapy; Z88.0 Allergy status to penicillin; Z88.1 Allergy status to other antibiotic agents; Z88.8 Allergy status to other drugs, medicaments and biological substances; Z98.890 Other specified postprocedural states
CPT/HCPCS: 36416; 87070; 87205; 88305; J0670; J1170; J1885; J1956; J2001; J2250; J2405; J2704; J3010

== ENCOUNTER 2018-08-01 07:48 | Emergency (ER) | payer OTHER | END 2018-08-01 08:40 | disposition home or self-care (01) | LOC: ERS 07:48 | DX: Z48.817 Encounter for surgical aftercare following surgery on the skin and subcutaneous tissue (principal); F41.9 Anxiety disorder, unspecified; E11.43 Type 2 diabetes mellitus with diabetic autonomic (poly)neuropathy; K31.84 Gastroparesis; I10 Essential (primary) hypertension; F31.9 Bipolar disorder, unspecified; E66.9 Obesity, unspecified; F17.210 Nicotine dependence, cigarettes, uncomplicated; Z79.4 Long term (current) use of insulin; Z79.899 Other long term (current) drug therapy | CPT/HCPCS: 99282 ==

== ENCOUNTER 2018-09-10 08:14 | Emergency (ER) | payer OTHER | END 2018-09-10 09:05 | disposition home or self-care (01) | LOC: ERS 08:14 | DX: L03.311 Cellulitis of abdominal wall (principal); B00.89 Other herpesviral infection; I10 Essential (primary) hypertension; E66.9 Obesity, unspecified; F31.9 Bipolar disorder, unspecified; F41.9 Anxiety disorder, unspecified; F17.210 Nicotine dependence, cigarettes, uncomplicated; J45.909 Unspecified asthma, uncomplicated; Z79.899 Other long term (current) drug therapy; Z79.891 Long term (current) use of opiate analgesic | CPT/HCPCS: 99283 ==

== ENCOUNTER 2018-09-11 15:46 | Outpatient (CLI) | payer OTHER ==
[2018-09-11 16:23] LABS: #Basophils 0.1 thou/uL (0.0-0.2); #Eosinphils 0.3 thou/uL (0.0-0.7); #Lymphocytes 4.1 thou/uL (1.20-3.40); #Monocytes 0.7 thou/uL (0.11-0.59); #Neutrophils 8.1 thou/uL (1.40-6.50); %Basophils 0.8 % (0.0-1.0); %Eosinophils 2.4 % (0.0-10.0); %Lymphocytes 30.6 % (21.0-51.0); %Monocytes 5.4 % (0.0-10.0); %Neutrophils 60.8 % (42.0-75.0); Hemoglobin 17.8 g/dL (12.0-16.0); Mean Corpuscular HGB CONC 34.5 g/dL (32.0-36.0); Mean Corpuscular Hemoglobin 32.5 pg (27.0-31.0); Mean Corpuscular Volume 94.2 fL (78.0-98.0); Mean Platelet Volume 8.3 fL (7.4-10.4); Platelet Count 224 thou/uL (130-400); RBC Distribution Width 12.6 % (11.5-14.5); Red Blood Cell (RBC) Count 5.49 mill/uL (4.20-5.40); White Blood Cell (WBC) Count 13.3 thou/uL (4.8-10.8)
== END 2018-09-11 15:47 | disposition home or self-care (01) ==
LOC: LABBT 15:46
PROVIDERS: ATTEND Surgery
DX: Z01.812 Encounter for preprocedural laboratory examination (principal); N76.4 Abscess of vulva; L73.2 Hidradenitis suppurativa
CPT/HCPCS: 85025

== ENCOUNTER 2018-09-13 07:49 | Day surgery (SDC) | payer OTHER ==
[2018-09-11 15:54] VITALS: BMI 41.8
[2018-09-13] MEDS ORDERED: Albuterol Sulfate 2.5 mg/0.5 ml Neb NEB SCH (09:15)
[2018-09-13] MEDS ORDERED: Albuterol Sulfate 2.5 mg/3 ml Neb ONE (09:22)
[2018-09-13] MEDS ORDERED: Fentanyl 100 MCG/2 ML VIAL ONE ×2 (10:18→11:48)
[2018-09-13] MEDS ORDERED: Bupivacaine/Epinephrine 0.25% 30 ML VIAL ONE (10:51)
[2018-09-13] MEDS ORDERED: Albuterol Sulfate HFA (OR ONLY) ONE (10:54)
--- NOTE | 2018-09-13 11:14 | OP ---
DATE OF PROCEDURE: 09/13/2018 PREOPERATIVE DIAGNOSIS: Left labial abscess. SURGEON: Americo Castle M.D. PROCEDURE PERFORMED: Excision. INDICATIONS: A 33-year-old female who has had multiple abscesses from hidradenitis. This one did no t respond to antibiotics. FINDINGS: There was a 1 cm abscess left labia majora. PROCEDURE: After informed consent was obtained, the patient was taken to the operating room and give n general endotracheal anesthesia. She was placed in lithotomy position. Local anesthesia with 0.5% Marcaine with epinephrine. An elliptical incision was performed. The abscess cavity was excised, o btained hemostasis with electrocautery, packed open. Sterile gauze applied. The patient tolerated t he procedure well and was transferred to recovery in good condition. Sponge and needle count verifie d correct x2.
[2018-09-13] MEDS ORDERED: PROPOFOL 200 MG/20 ML VIAL ONE (16:49)
[2018-09-13] MEDS ORDERED: Dexamethasone 20 MG/5 ML VIAL ONE (16:49)
[2018-09-13] MEDS ORDERED: PROVENTIL INHALER 6.7 G (200 INHALATIONS) ONE (16:49)
[2018-09-13] MEDS ORDERED: Succinylcholine Chloride 20 MG/ML 10 ml SYRINGE FS ONE (16:49)
[2018-09-13] MEDS ORDERED: Lidocaine 1% PF 5 ML VIAL ONE (16:49)
[2018-09-13] MEDS ORDERED: Ondansetron PF 4 MG/2 ML Vial ONE (16:49)
--- NOTE | 2018-09-18 07:49 | PQF ---
[facility] POST DISCHARGE CLINICAL DOCUMENTATION IMPROVEMENT CLARIFICATION FORM l Todays Date: 09/18/18 l Patients Name LUIS MCGRATH l l Admit Date 09/13/18 l Disch Date 09/13/18 Alligator Shear Operator Name Leif Lewis Email: [email or web address] Cell: [phone] To be completed by Alligator Shear Operator: Present Clinical Indicators - Signs / Symptoms Results and Location in Medical Record [ ] Documentation of: [ ] [ ] Documentation of: [ ] [ ] Documentation of: [ ] [ ] Documentation of: [ ] [ ] Risks [ ] [ ] [ ] Treatment [ ] ABSCESS OF LEFT LABIA QUERY FOR SIZE OF EXCISED MARGINS [ ] [ ] To be completed by Physician: ABELARDO BLACKMON The documentation in this patients record requires clarification to ensure coding compliance and accuracy. Check the appropriate box and include in your discharge summary. [ ] [ ] [ ] [ ] Please check this box if this does not apply to this patient [ ] Unable to determine [ ] Other diagnosis: Review the following information and exercise your independent professional judgment in responding to the clarification. Based upon the clinical findings, risk factors, and treatment, please clarify if you are treating one of the above probable or suspected diagnoses. Physician Signature: Date Time MTDD
== END 2018-09-13 13:15 | disposition home or self-care (01) ==
LOC: SDC 07:49
PROVIDERS: ATTEND Surgery
PROC: 0UBMXZZ Excision of Vulva, External Approach (ICD-10-PCS; principal; 2018-09-13)
DX: L73.2 Hidradenitis suppurativa (principal); N76.4 Abscess of vulva; E11.9 Type 2 diabetes mellitus without complications; J45.909 Unspecified asthma, uncomplicated; I10 Essential (primary) hypertension; E66.9 Obesity, unspecified; Z68.41 Body mass index [BMI] 40.0-44.9, adult; Z79.4 Long term (current) use of insulin; Z79.82 Long term (current) use of aspirin; Z79.899 Other long term (current) drug therapy; Z88.0 Allergy status to penicillin; Z88.1 Allergy status to other antibiotic agents; Z88.8 Allergy status to other drugs, medicaments and biological substances
CPT/HCPCS: 88305; 94640; 96374; J1100; J2001; J2405; J2704; J3010; J3370; J7611

== ENCOUNTER 2018-10-17 06:39 | Emergency (ER) | payer OTHER ==
[2018-10-17] MEDS ORDERED: methylPREDNISolone Sod Succ/PF 125 MG/2 ML VIAL ONE (07:02)
[2018-10-17] MEDS ORDERED: Ondansetron PF 4 MG/2 ML Vial ONE (07:02)
[2018-10-17 07:25] LABS: #Basophils 0.1 thou/uL (0.0-0.2); #Eosinphils 0.2 thou/uL (0.0-0.7); #Lymphocytes 3.6 thou/uL (1.20-3.40); #Monocytes 0.7 thou/uL (0.11-0.59); #Neutrophils 7.8 thou/uL (1.40-6.50); %Basophils 0.8 % (0.0-1.0); %Lymphocytes 28.9 % (21.0-51.0); %Monocytes 5.3 % (0.0-10.0); Hemoglobin 17.6 g/dL (12.0-16.0); Mean Corpuscular HGB CONC 34.4 g/dL (32.0-36.0); Mean Corpuscular Hemoglobin 32.3 pg (27.0-31.0); Mean Corpuscular Volume 94.1 fL (78.0-98.0); Mean Platelet Volume 7.9 fL (7.4-10.4); Platelet Count 203 thou/uL (130-400); RBC Distribution Width 13.1 % (11.5-14.5); Red Blood Cell (RBC) Count 5.45 mill/uL (4.20-5.40); White Blood Cell (WBC) Count 12.3 thou/uL (4.8-10.8)
[2018-10-17 07:42] LABS: ALT (SGPT) 36 U/L (8-55); AST (SGOT) 24 U/L (5-34); Albumin 3.8 g/dL (3.5-5.0); Alkaline Phosphatase 72 U/L (40-150); Anion Gap 16 mmol/L (10-20); BUN (Urea Nitrogen) 9 mg/dL (7.0-18.7); Bilirubin, Total 0.4 mg/dL (0.2-1.2); Calc. Creatinine Clearance 0 mL/min (70-130); Calcium 9.4 mg/dL (7.8-10.44); Carbon Dioxide 27 mmol/L (22-29); Chloride 97 mmol/L (98-107); Estimated GFR-MDRD 86; Glucose 336 mg/dL (70-105); Potassium 4.4 mmol/L (3.5-5.1); Protein, Total 7.8 g/dL (6.0-8.3); Sodium 136 mmol/L (136-145)
--- NOTE | 2018-10-17 08:24 | RAD ---
CHEST TWO VIEWS: INDICATIONS: Fever and cough. COMPARISON: 06/25/2018 FINDINGS/IMPRESSION: No air space consolidation, pleural effusion, or pneumothorax is evident. The cardiomediastinal silh ouette is within normal limits. No acute osseous abnormality is evident. The examination has not ap preciably changed from a comparison dated 06/25/2018. POS: [facility]
== END 2018-10-17 07:49 | disposition left against medical advice (07) ==
LOC: ERS 06:39
DX: E86.0 Dehydration (principal); E11.43 Type 2 diabetes mellitus with diabetic autonomic (poly)neuropathy; K31.84 Gastroparesis; F41.9 Anxiety disorder, unspecified; I10 Essential (primary) hypertension; F31.9 Bipolar disorder, unspecified; E66.9 Obesity, unspecified; J44.9 Chronic obstructive pulmonary disease, unspecified; F17.210 Nicotine dependence, cigarettes, uncomplicated; Z71.6 Tobacco abuse counseling; Z79.4 Long term (current) use of insulin; Z79.899 Other long term (current) drug therapy
CPT/HCPCS: 36415; 71046; 80053; 85025; 87804; 94640; 94760; 96361; 96374; 96375; 99406; J2405; J2930; J7620

== ENCOUNTER 2018-10-21 05:46 | Inpatient (IN) | payer OTHER ==
[2018-10-21] MEDS ORDERED: Vancomycin HCl 1.5 GM in Sodium Chloride 0.9% 250 ML 300 ML IVPB SCH (06:30)
[2018-10-21] MEDS ORDERED: Clindamycin/D5W 600 mg/50 ml Premix Bag ONE (06:39)
[2018-10-21 06:41] LABS: #Basophils 0.1 thou/uL (0.0-0.2); #Eosinphils 0.2 thou/uL (0.0-0.7); #Lymphocytes 3.2 thou/uL (1.20-3.40); #Monocytes 0.7 thou/uL (0.11-0.59); #Neutrophils 9.3 thou/uL (1.40-6.50); %Basophils 0.6 % (0.0-1.0); %Eosinophils 1.5 % (0.0-10.0); %Lymphocytes 23.8 % (21.0-51.0); %Monocytes 4.9 % (0.0-10.0); %Neutrophils 69.3 % (42.0-75.0); Hemoglobin 18.3 g/dL (12.0-16.0); Mean Corpuscular HGB CONC 33.1 g/dL (32.0-36.0); Mean Corpuscular Hemoglobin 31.3 pg (27.0-31.0); Mean Corpuscular Volume 94.4 fL (78.0-98.0); Mean Platelet Volume 7.9 fL (7.4-10.4); Platelet Count 230 thou/uL (130-400); RBC Distribution Width 13.6 % (11.5-14.5); Red Blood Cell (RBC) Count 5.86 mill/uL (4.20-5.40); White Blood Cell (WBC) Count 13.4 thou/uL (4.8-10.8)
[2018-10-21 06:50] LABS: BHCG - Serum Negative (NEGATIVE); Pregs Control Background? CLEAR/WHITE (CLR/WHITE); Pregs Control Bar Appear? YES (CONTROL BAR)
[2018-10-21 07:00] LABS: ALT (SGPT) 41 U/L (8-55); AST (SGOT) 29 U/L (5-34); Albumin 4.2 g/dL (3.5-5.0); Alkaline Phosphatase 66 U/L (40-150); Anion Gap 15 mmol/L (10-20); BUN (Urea Nitrogen) 8 mg/dL (7.0-18.7); Bilirubin, Total 1.1 mg/dL (0.2-1.2); Calc. Creatinine Clearance 0 mL/min (70-130); Calcium 9.8 mg/dL (7.8-10.44); Carbon Dioxide 26 mmol/L (22-29); Chloride 94 mmol/L (98-107); Estimated GFR-MDRD 76; Globulin 4.1 g/dL (2.4-3.5); Glucose 373 mg/dL (70-105); Potassium 3.8 mmol/L (3.5-5.1); Protein, Total 8.3 g/dL (6.0-8.3); Sodium 131 mmol/L (136-145)
[2018-10-21] MEDS ORDERED: Lidocaine 1% (PF) 30 ML VIAL ONE (07:30)
[2018-10-21] MEDS ORDERED: Morphine 4 MG/ML VIAL ONE (07:30)
[2018-10-21] MEDS ORDERED: Ondansetron PF 4 MG/2 ML Vial ONE (07:36)
--- NOTE | 2018-10-21 09:08 | PDOC.FPRHP ---
- History of Present Illness Chief Complaint: breast abscess History of Present Illness: This is a 33yo F with hx of frequent soft tissue abscesses (Tin is her surgeon ), obesity, and DM presenting for eval of breast abscess. Pt presents with 2 week hx of increasing pain and tenderness in L breast. In ED fluctuance was noted and abscess was I&Dd. Procedure was well tolerated. Pt reports related fever/chills and some nausea/vomiting though this is not very unusual for her given her hx of gastroparesis. ED Course: I&D, vanc, clinda, 2L IVF - Allergies/Adverse Reactions Allergies Allergy/AdvReac Type Severity Reaction Status Date / Time piperacillin sodium Allergy Severe renal Verified 09/11/18 15:56 [From Zosyn] failure tazobactam sodium Allergy Severe renal Verified 09/11/18 15:56 [From Zosyn] failure Penicillins Allergy renal Verified 09/11/18 15:56 failure - Home Medications Medication Instructions Recorded Confirmed Type Fenofibrate 145 mg PO HS 06/03/15 10/21/18 History Adalimumab [Humira] 40 mg SC Q7D 10/04/16 10/21/18 History Atorvastatin Calcium 80 mg PO HS 10/04/16 10/21/18 History Ibuprofen [Motrin] 800 mg PO BID PRN 10/04/16 10/21/18 History Insulin Regular [HumuLIN R Vial] 20 unit SC TID-WM 10/04/16 10/21/18 History Lisinopril [Zestril] 20 mg PO DAILY 10/04/16 10/21/18 History Aspirin [Adult Low Dose Aspirin EC] 81 mg PO DAILY #30 tablet. 10/06/16 Rx Ondansetron [Zofran ODT] 4 mg PO Q6HR PRN 05/15/17 10/21/18 History Paliperidone Palmitate [Invega 234 mg IM Q28D 08/22/17 10/21/18 History Sustenna] QUEtiapine Fumarate [SEROquel] 400 mg PO HS 05/18/18 10/21/18 History Citalopram [CeleXA] 20 mg PO DAILY tab 07/13/18 10/21/18 Rx Albuterol Sulfate [Proventil Hfa] 2 puff INH Q4H PRN 07/25/18 10/21/18 History Ipratropium/Albuterol Sulfate 3 ml NEB QID PRN 07/25/18 10/21/18 History [DuoNeb] Levemir Flexpen [Levemir FlexPen] 50 units SC BID 07/25/18 10/21/18 History Metoclopramide HCl [Reglan] 10 mg PO QID 07/25/18 10/21/18 History Metoprolol Succinate 50 mg PO DAILY 07/25/18 10/21/18 History Paliperidone [Paliperidone ER] 3 mg PO DAILY 07/25/18 10/21/18 History Temazepam 1 tab PO HS PRN 07/25/18 10/21/18 History OXcarbazepine [Trileptal] 150 mg PO BID 09/11/18 10/21/18 History Doxycycline [Vibramycin] 100 mg PO Q12HR #28 cap 10/21/18 Rx busPIRone HCl [Buspar] 7.5 mg PO BID 10/21/18 10/21/18 History traMADol HCl [Tramadol HCl] 50 mg PO Q6HR PRN 10/21/18 10/21/18 History - History PMHx: hidradenitis suppurative (on adalberto), DM, gastroparesis, HTN, chrons PSHx: Multpile I&D of abscess FHx: non contributory Social: active smoker 1.5 packs per day - Review of Systems General: reports: fever/chills, fatigue Eyes: denies: eye pain, vision changes ENT: denies: nasal congestion, rhinorrhea Respiratory: denies: cough, congestion Cardiovascular: denies: chest pain Gastrointestinal: reports: nausea, vomiting Genitourinary: denies: incontinence, dysuria Skin: reports: lesions. denies: rashes Musculoskeletal: denies: pain, stiffness Neurological: denies: numbness, syncope Psychological: reports: anxiety. denies: depression - Vital signs BP 127/80 P: 114 RR: 22 Temp: 97.8 degF O2sat: 97% on RA Weight 127.01 kg - Physical Exam Constitutional: NAD, awake, alert and oriented HEENT: normocephalic and atraumatic, EOMI, grossly normal vision, grossly normal hearing Neck: supple, trachea midline Chest: no-tender to palpation Heart: normal S1/S2, other (tachycardic) Lungs: CTAB, no respiratory distress, other (tachypnea) Abdomen: soft, non-tender Musculoskeletal: normal structure, normal tone Neurological: no focal deficit, normal sensation Skin: good turgor, other (s/p I&D of L breast abscess with packing in place) Heme/Lymphatic: no purpura, no petechia Psychiatric: normal mood and affect, other (poor judgment) FMR H&P: Results - Labs Result Diagrams: 10/21/18 06:20 10/21/18 10:29 Lab results: WBC 13.4 thou/uL (4.8-10.8) H 10/21/18 06:20 Hgb 18.3 g/dL (12.0-16.0) H 10/21/18 06:20 Hct 55.3 % (36.0-47.0) H 10/21/18 06:20 MCV 94.4 fL (78.0-98.0) 10/21/18 06:20 Plt Count 230 thou/uL (130-400) 10/21/18 06:20 Neutrophils % 69.3 % (42.0-75.0) 10/21/18 06:20 Sodium 131 mmol/L (136-145) L 10/21/18 06:20 Potassium 3.8 mmol/L (3.5-5.1) 10/21/18 06:20 Chloride 94 mmol/L (98-107) L 10/21/18 06:20 Carbon Dioxide 26 mmol/L (22-29) 10/21/18 06:20 BUN 8 mg/dL (7.0-18.7) 10/21/18 06:20 Creatinine 0.86 mg/dL (0.6-1.1) 10/21/18 06:20 Glucose 373 mg/dL (70-105) H 10/21/18 06:20 Lactic Acid 2.3 mmol/L (0.5-2.2) H 10/21/18 06:20 Calcium 9.8 mg/dL (7.8-10.44) 10/21/18 06:20 Total Bilirubin 1.1 mg/dL (0.2-1.2) 10/21/18 06:20 AST 29 U/L (5-34) 10/21/18 06:20 ALT 41 U/L (8-55) 10/21/18 06:20 Alkaline Phosphatase 66 U/L (40-150) 10/21/18 06:20 Serum Total Protein 8.3 g/dL (6.0-8.3) 10/21/18 06:20 Albumin 4.2 g/dL (3.5-5.0) 10/21/18 06:20 FMR H&P: A/P - Problem List (1) Sepsis Status: Acute Code(s): A41.9 - SEPSIS, UNSPECIFIED ORGANISM (2) Gastroparesis due to DM Status: Acute Code(s): E11.43 - TYPE 2 DIABETES W DIABETIC AUTONOMIC (POLY) NEUROPATHY; K31.84 - GASTROPARESIS (3) Hyperglycemia Status: Acute Code(s): R73.9 - HYPERGLYCEMIA, UNSPECIFIED (4) Tachycardia Status: Acute Code(s): R00.0 - TACHYCARDIA, UNSPECIFIED (5) Anxiety disorder Status: Chronic Code(s): F41.9 - ANXIETY DISORDER, UNSPECIFIED Qualifiers: Anxiety disorder type: unspecified anxiety disorder Qualified Code(s): F41.9 - Anxiety disorder, unspecified (6) Crohn disease Status: Chronic Code(s): K50.90 - CROHN'S DISEASE, UNSPECIFIED, WITHOUT COMPLICATIONS (7) DMII (diabetes mellitus, type 2) Status: Chronic Qualifiers: Diabetes mellitus complication status: with hyperglycemia (8) Hidradenitis Status: Chronic Code(s): L73.2 - HIDRADENITIS SUPPURATIVA (9) Hyperlipidemia Status: Chronic Code(s): E78.5 - HYPERLIPIDEMIA, UNSPECIFIED (10) Morbid obesity with BMI of 45.0-49.9, adult Status: Chronic Code(s): E66.01 - MORBID (SEVERE) OBESITY DUE TO EXCESS CALORIES; Z68.42 - BODY MASS INDEX (BMI) 45.0-49.9, ADULT - Plan Sepsis 2/2 likely MRSA abscess w/ surrounding cellulitus A- Sirs +, pt was taking a leftover home script of bactrim and topical bactroban with no improvement. S/p I&D w/ cultures obtained in the ED. BCx and UCx pending as well P- tele/inpatient -IV Vancomycin - Will continue IVF maintenance - contact precautions 2/2 likely MRSA Uncontrolled IDDM w/ diabetic gastroparesis A- Pt w/ hyperglycemia in the 300's. Elevated b-hb but no current anion gap and bicarb >18. Pt not in DKA. Last A1c 11.0 from 06/19/18. P- dietary consult - home meds Tachycardia A- Pt w/ hx of persistent tachycardia on b-arina for this P- Will monitor on telemetry and cont. outpatient meds - Consider discussing w/ Cardiology for further eval Gastroparesis -home meds HTN -will hold home meds for now Chrons -home meds hidradenitis suppurativa -will hold adalberto FMR H&P: Upper Level - Pertinent history 33 y/o F w/ PMHx of IDDM presents for evaluation of abscess of the left breast which has been present since the end of August. Reportedly see by General Surgery Dr. Castle for this and has been on Bactrim and Bactroban. Fever at home to 102.3 a few days ago. Of note, patient was evaluated in the ED on 10/17 for fever to 102.3 degF and left the ED AMA. Also reports elevated BG above baseline. Abscess was I&Ded in the ER w/ cultures obtained and she was started on IV Vanc and Clinda. Pt was also give 2L NS. Pt reports she has a hx of tachycardia and normally runs 120-130's. She states she is on metoprolol for this. Per clinic records patient's pulse is always 100's - 120's and is seen by Cardiology Dr. Amato for this. - Pertinent findings BP 127/80 P: 114 RR: 22 Temp: 97.8 degF O2sat: 97% on RA Weight 127.01 kg WBC 13.4 Hgb 18.3 Hct 55.3 Plt - 230 Na 131 K 3.8 Chl 94 CO2 26 BUN 8 Cr 0.86 Gluc 373 Alb 4.2 b-hb 0.74 LA 2.3 b-hcg Neg GEN: Obese, NAD, resting in bed comfortably HEENT: Mildly dry MM CARD: Tachycardic, no murmur PULM: Distant breath sounds, no overt wheezing or rhonchi DERM: Approx. 3 cm area of fluctuance s/p I&D w/ surrounding erythema at 3 o' clock on L-breast GI: Soft, non-ttp, BSx4 EXT: No swelling LEs noted - Plan Date/Time: 10/21/18 0901 I, B. Valerio Balbuena MD, have evaluated this patient and agree with findings/plan as outlined by intern retail resident. Pertinent changes/additions are listed here. 33 y/o F w/: 1) Sepsis 2/2 likely MRSA abscess w/ surrounding cellulitus - Technically meets sepsis criteria w/ WBC >12, Pulse >90, and RR >20, However patient is non-toxic appearing on exam and has hx of peristent tachycardia in which she is seeing Cardiology for as confirmed through out outside clinic records and w/ morbid obesity w/ BMI of 44 which is likely contributing to her meeting the criteria for pulse and RR. - Regardless, patient w/ persistent and worsening abscess w/ surrounding cellulitus on L-breast s/p taking old script of bactrim at home and using topical bactroban. Will plan to admit to tele/inpatient for IV Vancomycin - S/p I&D w/ cultures obtained in the ED. BCx and UCx pending as well. - Mildly elevated LA at 2.3, will repeat in 4-6 hours s/p IVF administration - Will continue IVF at [facility] and monitor strict I/O's to ensure adequate fluid resuscitation - Pt to be placed on contact precautions 2/2 likely MRSA - Patient w/ allergy to Zosyn, reportedly unable to tolerate Clindamycin 2/2 GI upset, and failed Rx w/ Bactrim. Discussed possibility of needing PIC placement at discharge pending sensitivities for continued IV abx if no suitable PO regimen can be used 2/2 allergies and patient's personal tolerability. 2) Uncontrolled IDDM w/ diabetic gastropareiss - Pt w/ hyperglycemia in the 300's. Elevated b-hb but no current anion gap and bicarb >18 - Do not feel patient is currently in DKA and elevated B-hb likely 2/2 dehydration w/ acute flare of her gastroparesis for which she was seen for on and continues to endorse today - Will consult chef kitchen manager to discuss dietary modifications to aid w/ symptom control and start IM reglan q8 hrs - Last A1c 11.0 from 06/19/18. Will plan to repeat as patient was supposed to get repeat from 09/26 clinic visit, but this does not appear to have happened - Will start patient back on home regimen of insulin w/ Lantus in place of levemir 2/2 not having this on formulary here at the hospital - Will start w/ 75 U of lantus and Moderate SSI w/ q4 hr accuchecks during the first 12 hours to ensure adequate glycemic control. If patient tolerates this will increase to full 1:1 ratio of levemir to lantus in the AM tomorrow w/ 100 U 3) Tachycardia - Pt w/ hx of persistent tachycardia on b-arina for this - Will monitor on telemetry and cont. outpatient meds - Consider discussing w/ Cardiology for further eval 4) Other chronic problems per intern retail note Assessment and Plan Discussed w/ Dr. Krishna who is in agreement. Addendum - Attending - Attending Attestation Date/Time: 10/21/18 1874 I personally evaluated the patient and discussed the management with Dr. Balbuena I agree with the History, Examination, Assessment and Plan documented above with any addition or exceptions noted below- Briefly this is a 33 yo female with h/o DM, HTN, HLD, LAYNE, gastroparesis, and bipolar d/o who presents with left breast pain x 1 month. Patient reports that she has had abscess on her left breast that she has been applying bactroban to for the last month. Was started on clindamycin after being seen in outpatient setting but did not take it as she has not tolerated it in the past. Had some bactrim at home which she started but the area of redness and pain continued to worsen until she presented today. PMH/PSH/All/Meds reviewed and agree with resident's documentation. Afebrile VSS Exam repeated by me which was significant for abscess on left breast at about 3 PM; tender to palpation; Packing in place; minimal serosanginous discharge. Labs: WBC=13.4, H/H=18.3/55.3, Plt= 230, NA= 131, K= 3.8, Cl= 94, CO2=26, BUN/Cr= 8/0.86, Gluc= 373, Lactic acid= 2.3 -> 2.2. A/P: 1) Left breast abscess- continue vancomycin; wound culture pending. Wound care consult. 2) Type 2 DM on insulin- monitor accuchecks; continue insulin. 3) HTN- continue home meds
[2018-10-21] MEDS ORDERED: Acetaminophen 325 MG TAB PO PRN (09:44)
[2018-10-21] MEDS ORDERED: HumaLOG 300 UNITS/3 ML VIAL SC PRN ×2 (09:44→15:04)
[2018-10-21] MEDS ORDERED: Ondansetron ODT 4 MG TAB PO PRN ×2 (09:44→14:13)
[2018-10-21] MEDS ORDERED: Dextrose 50% Abboject 50 ML SYRINGE SLOW IVP PRN (09:44)
[2018-10-21] MEDS ORDERED: Sodium Chloride 0.9% 1,000 ML IV SCH ×2 (09:44→09:45)
[2018-10-21] MEDS ORDERED: Dextrose 5% in Water 1,000 ML IV PRN (09:44)
[2018-10-21 09:51] VITALS: TEMP 98.4; BMI 43.7
--- NOTE | 2018-10-21 09:59 | RAD ---
PORTABLE CHEST ONE VIEW: 10/21/2018 6:39 a.m. HISTORY: Cough. COMPARISON: 10/17/2018 FINDINGS: The heart size is normal. The lungs are well expanded without focal areas of consolidation, pneumoth orax, or pleural effusions. IMPRESSION: No radiographic evidence of acute cardiopulmonary process. POS: [facility]
[2018-10-21] MEDS ORDERED: Insulin Glargine 75 UNITS in Pre-Filled Syringe 1 EACH SC SCH (10:30)
[2018-10-21 10:42] LABS: Bilirubin Negative (Negative); Blood, Urine Negative (Negative); Clarity CLEAR (Clear); Glucose, Urine (Dipstick) >=1000 mg/dL (Negative); Leukocyte Negative (Negative); Nitrite Negative (Negative); Protein, Urine (Dipstick) Negative (Neg-Trace); pH, Urine 6.5 (5.0-9.0)
[2018-10-21 10:43] LABS: Bacteria/HPF None Seen HPF (None Seen); Hyaline Casts/LPF 0-3 HYALINE CAST LPF (0-3 Hyaline); Pathc Cast-AUWi Flag 0.14 (0-2.49); RBC/HPF 0-3 HPF (0-3); Squamous Epithelial 0-3 HPF (0-3); WBC/HPF 0-3 HPF (0-3)
[2018-10-21 11:01] LABS: Lactic Acid 2.2 mmol/L (0.5-2.2)
[2018-10-21 12:27] VITALS: BP 166/75
[2018-10-21] MEDS ORDERED: Ibuprofen 600 MG TAB PO PRN (13:12)
[2018-10-21] MEDS ORDERED: Metoclopramide HCl 10 MG/2 ML VIAL IVP SCH (14:00)
[2018-10-21 14:05] LABS: Anion Gap 14 mmol/L (10-20); BUN (Urea Nitrogen) 9 mg/dL (7.0-18.7); Calc. Creatinine Clearance 219 mL/min (70-130); Calcium 8.8 mg/dL (7.8-10.44); Carbon Dioxide 24 mmol/L (22-29); Chloride 100 mmol/L (98-107); Estimated GFR-MDRD 88; Glucose 324 mg/dL (70-105); Sodium 134 mmol/L (136-145)
[2018-10-21] MEDS ORDERED: PROVENTIL INHALER 6.7 G (200 INHALATIONS) INH PRN (14:13)
[2018-10-21] MEDS ORDERED: Temazepam 15 MG CAP PO PRN (14:30)
[2018-10-21] MEDS ORDERED: PALIPERIDONE PALMITATE 234 MG IM SCH (14:45)
[2018-10-21 15:31] LABS: Hemoglobin A1c 10.5 % (4.0-6.0)
[2018-10-21] MEDS ORDERED: Insulin Regular 300 UNITS/3 ML VIAL SC SCH (17:00)
[2018-10-21] MEDS ORDERED: Atorvastatin Calcium 40 MG TAB PO SCH (21:00)
[2018-10-21] MEDS ORDERED: Fenofibrate Nanocrystallized 145 MG TAB PO SCH (21:00)
[2018-10-21] MEDS ORDERED: OXcarbazepine 150 MG TAB PO SCH (21:00)
[2018-10-21] MEDS ORDERED: busPIRone HCl 5 MG TAB PO SCH (21:00)
[2018-10-21] MEDS ORDERED: OXcarbazepine 300 MG TAB PO SCH (21:00)
[2018-10-21] MEDS ORDERED: Insulin Glargine 50 UNITS in Pre-Filled Syringe 1 EACH SC SCH (21:00)
[2018-10-22] MEDS ORDERED: Enoxaparin Sodium 40 MG/0.4 ML SYRINGE SC SCH (09:00)
[2018-10-22] MEDS ORDERED: Insulin Glargine 75 UNITS in Pre-Filled Syringe 1 EACH SC SCH (09:00)
[2018-10-22] MEDS ORDERED: PALIPERIDONE 3 MG PO SCH (09:00)
[2018-10-22] MEDS ORDERED: Lisinopril 20 MG TAB PO SCH (09:00)
[2018-10-22] MEDS ORDERED: Citalopram 20 MG TAB PO SCH (09:00)
[2018-10-22] MEDS ORDERED: Aspirin 81 mg Enteric Coated Tablet PO SCH (09:00)
[2018-10-22] MEDS ORDERED: Insulin Glargine 100 UNITS in Pre-Filled Syringe 1 EACH SC SCH (09:00)
== END 2018-10-21 16:19 | disposition left against medical advice (07) | DRG 872 ==
LOC: ERS 05:46 → 2NO 08:12
PROVIDERS: ADMIT Family Medicine; ATTEND Family Medicine
PROC: 0H9UXZZ (ICD-10-PCS; principal; 2018-10-21)
DX: A41.02 Sepsis due to Methicillin resistant Staphylococcus aureus (principal); Z68.42 Body mass index [BMI] 45.0-49.9, adult; K50.90 Crohn's disease, unspecified, without complications; N61.1 Abscess of the breast and nipple; E11.65 Type 2 diabetes mellitus with hyperglycemia; F17.210 Nicotine dependence, cigarettes, uncomplicated; F41.9 Anxiety disorder, unspecified; F31.9 Bipolar disorder, unspecified; E11.43 Type 2 diabetes mellitus with diabetic autonomic (poly)neuropathy; K31.84 Gastroparesis; R00.0 Tachycardia, unspecified; I10 Essential (primary) hypertension; G47.33 Obstructive sleep apnea (adult) (pediatric); E66.01 Morbid (severe) obesity due to excess calories; L73.2 Hidradenitis suppurativa; E78.5 Hyperlipidemia, unspecified; Z79.4 Long term (current) use of insulin; Z90.89 Acquired absence of other organs; Z79.82 Long term (current) use of aspirin; Z79.899 Other long term (current) drug therapy; Z88.0 Allergy status to penicillin; Z88.1 Allergy status to other antibiotic agents
CPT/HCPCS: 10061; 36415; 36416; 71045; 80053; 81001; 82010; 83036; 83605; 84484; 84703; 85025; 87040; 87070; 87077; 87186; 87205; 93005; 96365; 96367; 96375; J2001; J2270; J2405; J2765; J3370; J3490; J7050; Q0162

== ENCOUNTER 2018-10-22 07:22 | Emergency (ER) | payer OTHER ==
[2018-10-22] MEDS ORDERED: Metoclopramide HCl 10 MG/2 ML VIAL ONE (07:36)
[2018-10-22 07:58] LABS: #Basophils 0.1 thou/uL (0.0-0.2); #Eosinphils 0.2 thou/uL (0.0-0.7); #Lymphocytes 2.6 thou/uL (1.20-3.40); #Monocytes 0.7 thou/uL (0.11-0.59); #Neutrophils 7.5 thou/uL (1.40-6.50); %Basophils 0.5 % (0.0-1.0); %Eosinophils 1.9 % (0.0-10.0); %Lymphocytes 23.5 % (21.0-51.0); %Monocytes 5.9 % (0.0-10.0); %Neutrophils 68.2 % (42.0-75.0); Hemoglobin 16.8 g/dL (12.0-16.0); Mean Corpuscular HGB CONC 34.8 g/dL (32.0-36.0); Mean Corpuscular Hemoglobin 32.8 pg (27.0-31.0); Mean Corpuscular Volume 94.4 fL (78.0-98.0); Mean Platelet Volume 7.7 fL (7.4-10.4); Platelet Count 202 thou/uL (130-400); RBC Distribution Width 13.4 % (11.5-14.5)
[2018-10-22] MEDS ORDERED: Ondansetron PF 4 MG/2 ML Vial ONE (08:04)
[2018-10-22 08:20] LABS: ALT (SGPT) 37 U/L (8-55); AST (SGOT) 26 U/L (5-34); Albumin 3.9 g/dL (3.5-5.0); Alkaline Phosphatase 62 U/L (40-150); Anion Gap 12 mmol/L (10-20); BUN (Urea Nitrogen) 8 mg/dL (7.0-18.7); Bilirubin, Total 0.6 mg/dL (0.2-1.2); Calc. Creatinine Clearance 0 mL/min (70-130); Calcium 9.4 mg/dL (7.8-10.44); Carbon Dioxide 26 mmol/L (22-29); Chloride 102 mmol/L (98-107); Estimated GFR-MDRD Greater than 90; Globulin 3.8 g/dL (2.4-3.5); Glucose 274 mg/dL (70-105); Potassium 4.2 mmol/L (3.5-5.1); Protein, Total 7.7 g/dL (6.0-8.3); Sodium 136 mmol/L (136-145)
[2018-10-22 08:30] LABS: BHCG - Serum Negative (NEGATIVE); Pregs Control Background? CLEAR/WHITE (CLR/WHITE); Pregs Control Bar Appear? YES (CONTROL BAR)
== END 2018-10-22 08:38 | disposition left against medical advice (07) ==
LOC: ERS 07:22
DX: R11.2 Nausea with vomiting, unspecified (principal); R19.7 Diarrhea, unspecified; J44.9 Chronic obstructive pulmonary disease, unspecified; E66.9 Obesity, unspecified; F41.9 Anxiety disorder, unspecified; F31.9 Bipolar disorder, unspecified; F17.210 Nicotine dependence, cigarettes, uncomplicated; I10 Essential (primary) hypertension; Z79.4 Long term (current) use of insulin; Z79.899 Other long term (current) drug therapy
CPT/HCPCS: 36415; 80053; 83605; 84703; 85025; J2405; J2765

== ENCOUNTER 2018-10-22 10:04 | Emergency (ER) | payer OTHER | END 2018-10-22 10:40 | disposition left against medical advice (07) | LOC: ERS 10:04 | DX: Z53.21 Procedure and treatment not carried out due to patient leaving prior to being seen by health care provider (principal) ==

== ENCOUNTER 2018-10-23 00:15 | Inpatient (IN) | payer OTHER ==
[2018-10-23 00:54] LABS: Base Excess-Venous 5.8 mmol/L (0 (+/- 2.5)); Bicarbonate (HCO3v) 29.6 mmol/L (22.0-29.0); CO2 Tension (PvCO2) 38.8 mmHg (41.0-51.0); Calcium, Ionized 1.12 mmol/L (1.12-1.32); Hemoglobin - Calc 17.4 g/dL (12.0-18.0); O2 Tension (PvO2) 62.3 mmHg (35.0-45.0); Potassium 3.7 mmol/L (3.4-4.7); T. Carbon Dioxide 30.8 mmol/L (1.0-85.0); vO2 Saturation-calc 93.2 % (94-98)
[2018-10-23 01:00] LABS: #Basophils 0.1 thou/uL (0.0-0.2); #Lymphocytes 1.9 thou/uL (1.20-3.40); #Monocytes 0.8 thou/uL (0.11-0.59); #Neutrophils 10.9 thou/uL (1.40-6.50); %Basophils 0.6 % (0.0-1.0); %Eosinophils 0.3 % (0.0-10.0); %Lymphocytes 14.1 % (21.0-51.0); %Monocytes 5.5 % (0.0-10.0); %Neutrophils 79.5 % (42.0-75.0); Hemoglobin 17.4 g/dL (12.0-16.0); Mean Corpuscular HGB CONC 35.6 g/dL (32.0-36.0); Mean Corpuscular Hemoglobin 33.9 pg (27.0-31.0); Mean Corpuscular Volume 95.2 fL (78.0-98.0); Mean Platelet Volume 8.1 fL (7.4-10.4); Platelet Count 228 thou/uL (130-400); RBC Distribution Width 13.6 % (11.5-14.5); Red Blood Cell (RBC) Count 5.13 mill/uL (4.20-5.40); White Blood Cell (WBC) Count 13.7 thou/uL (4.8-10.8)
[2018-10-23 01:20] LABS: ALT (SGPT) 33 U/L (8-55); AST (SGOT) 17 U/L (5-34); Albumin 4.1 g/dL (3.5-5.0); Alkaline Phosphatase 58 U/L (40-150); Anion Gap 16 mmol/L (10-20); BUN (Urea Nitrogen) 8 mg/dL (7.0-18.7); Calc. Creatinine Clearance 0 mL/min (70-130); Carbon Dioxide 28 mmol/L (22-29); Chloride 97 mmol/L (98-107); Estimated GFR-MDRD 83; Globulin 3.9 g/dL (2.4-3.5); Glucose 300 mg/dL (70-105); Potassium 3.9 mmol/L (3.5-5.1); Sodium 137 mmol/L (136-145)
[2018-10-23] MEDS ORDERED: Metoclopramide HCl 10 MG/2 ML VIAL ONE (01:51)
[2018-10-23 02:11] LABS: Bilirubin Small (Negative); Blood, Urine Negative (Negative); Clarity CLEAR (Clear); Glucose, Urine (Dipstick) 250 mg/dL (Negative); Leukocyte Negative (Negative); Nitrite Negative (Negative); Protein, Urine (Dipstick) 100 mg/dL (Neg-Trace); Specific Gravity, Urine 1.026 (1.002-1.036); pH, Urine 6.5 (5.0-9.0)
[2018-10-23 02:13] LABS: Bacteria/HPF None Seen HPF (None Seen); Pathc Cast-AUWi Flag 1.45 (0-2.49); WBC/HPF 0-3 HPF (0-3)
[2018-10-23 02:14] LABS: Yeast-AUWi Flag 164.1 (0-25.0)
[2018-10-23 02:21] LABS: RBC/HPF 0-3 HPF (0-3)
[2018-10-23 02:22] LABS: Hyaline Casts/LPF NONE SEEN LPF (0-3 Hyaline); Yeast-All Forms 1+ HPF (None Seen)
[2018-10-23] MEDS ORDERED: Cefepime 1 GM VIAL ONE (02:53)
[2018-10-23] MEDS ORDERED: Clindamycin/D5W 900 mg/50 ml Premix Bag ONE (03:39)
[2018-10-23] MEDS ORDERED: Ondansetron ODT 4 MG TAB SL PRN (04:00)
[2018-10-23] MEDS ORDERED: Acetaminophen 325 MG TAB PO PRN ×2 (04:00→04:06)
[2018-10-23] MEDS ORDERED: Ondansetron PF 4 MG/2 ML Vial IVP PRN ×2 (04:00→04:06)
[2018-10-23] MEDS ORDERED: Sodium Chloride 0.9% 1,000 ML IV SCH (04:00)
[2018-10-23] MEDS ORDERED: Dextrose 50% Abboject 50 ML SYRINGE SLOW IVP PRN ×2 (04:06→07:51)
[2018-10-23] MEDS ORDERED: Ondansetron ODT 4 MG TAB PO PRN (04:06)
[2018-10-23] MEDS ORDERED: HumaLOG 300 UNITS/3 ML VIAL SC PRN ×3 (04:06→07:51)
[2018-10-23] MEDS ORDERED: Dextrose 5% in Water 1,000 ML IV PRN ×2 (04:06→07:51)
[2018-10-23] MEDS ORDERED: Nicotine 14 MG PATCH TD SCH (04:06)
--- NOTE | 2018-10-23 04:35 | PDOC.FPRHP ---
- History of Present Illness Chief Complaint: Nausea and vomiting History of Present Illness: This is a 33 yo female with a pmh of DM2, HTN, crohns disease, HLD, bipolar disorder, anxiety who presents to the ed with a cc of nausea and vomiting. She states her symptoms started approximately 5 days ago and have worsened with time. She reports being unable to tolerate any PO intake and states that she has vomited multiple times in the last few days. She reports decreased urinary output and abdominal cramping. In addition, pt was recently seen in the ED multiple times for an abscess on her breast. She has undergone an I&D and reports improvement in her pain and discomfort. She reports she tried doxycycline however she threw it up. She has left the ER multiple times AMA. She states she watched her grandmother in the hospital and now has an aversion to them. ED Course: 2 L NS bolus Clindamycin 900mg Cefepine 2g Reglan 10mg - Allergies/Adverse Reactions Allergies Allergy/AdvReac Type Severity Reaction Status Date / Time piperacillin sodium Allergy Severe renal Verified 09/11/18 15:56 [From Zosyn] failure tazobactam sodium Allergy Severe renal Verified 09/11/18 15:56 [From Zosyn] failure Penicillins Allergy renal Verified 09/11/18 15:56 failure - Home Medications Medication Instructions Recorded Confirmed Type Fenofibrate 145 mg PO HS 06/03/15 10/23/18 History Adalimumab [Humira] 40 mg SC Q7D 10/04/16 10/23/18 History Atorvastatin Calcium 80 mg PO HS 10/04/16 10/23/18 History Ibuprofen [Motrin] 800 mg PO BID PRN 10/04/16 10/23/18 History Lisinopril [Zestril] 20 mg PO DAILY 10/04/16 10/23/18 History Aspirin [Adult Low Dose Aspirin EC] 81 mg PO DAILY #30 tablet. 10/06/16 Rx Ondansetron [Zofran ODT] 8 mg PO Q6HR PRN 05/15/17 10/23/18 History Paliperidone Palmitate [Invega 234 mg IM Q28D 08/22/17 10/23/18 History Sustenna] QUEtiapine Fumarate [SEROquel] 400 mg PO HS 05/18/18 10/23/18 History Citalopram [CeleXA] 20 mg PO DAILY tab 07/13/18 10/23/18 Rx Albuterol Sulfate [Proventil Hfa] 2 puff INH Q4H PRN 07/25/18 10/23/18 History Ipratropium/Albuterol Sulfate 3 ml NEB QID PRN 07/25/18 10/23/18 History [DuoNeb] Levemir Flexpen [Levemir FlexPen] 40 units SC BID 07/25/18 10/23/18 History Metoclopramide HCl [Reglan] 10 mg PO QID 07/25/18 10/23/18 History Metoprolol Succinate 50 mg PO DAILY 07/25/18 10/23/18 History Paliperidone [Paliperidone ER] 3 mg PO DAILY 07/25/18 10/23/18 History Temazepam 1 tab PO HS PRN 07/25/18 10/23/18 History OXcarbazepine [Trileptal] 150 mg PO BID 09/11/18 10/23/18 History Dragoon Carbonate 600 mg PO DAILY 10/23/18 10/23/18 History - History PMHx: DM2, HTN, Crohns, HLD, Bipolar, anxiety, bipolar PSHx: recent I&D FHx: noncontributory Social: 14 pack year history, current smoker, former cocain and marijuana abuse - Review of Systems General: reports: fever/chills, weight/appetite/sleep changes (decrease PO intake), fatigue Eyes: denies: eye pain, vision changes ENT: denies: nasal congestion, rhinorrhea Respiratory: denies: cough, congestion, shortness of breath Cardiovascular: denies: chest pain, palpitation Gastrointestinal: reports: nausea, vomiting, diarrhea, constipation, abdominal pain. denies: GI bleeding Genitourinary: denies: dysuria Skin: reports: lesions (healing abscess on left breast). denies: rashes Musculoskeletal: denies: pain, tenderness Neurological: denies: numbness, syncope Psychological: reports: anxiety, depression - Vital signs BP: 129/110 HR: 128 RR: 19 Tmax: 98.5 Pox: 97% on ra Wt: 130 kg - Physical Exam Constitutional: NAD, awake, alert and oriented, well developed HEENT: normocephalic and atraumatic, other (dry mucus membranes) Neck: trachea midline, no JVD Chest: no-tender to palpation Heart: RRR, normal S1/S2, no murmurs/rubs/gallops Lungs: CTAB, no respiratory distress, good air movement, no wheezing Abdomen: soft, bowel sounds present, other (diffuse tenderness to palpation) Musculoskeletal: normal structure, ROM grossly normal Neurological: CN II-XII intact Skin: no rash/lesions (pt has a 3x3 erythematous lesion on her left breast with a .75cm incision in the center. No drainage currently) Heme/Lymphatic: no unusual bruising or bleeding, no purpura Psychiatric: normal mood and affect, good judgment and insight (Pt admits that she has left AMA and states she will allow us to take care of her while she is here) FMR H&P: Results - Labs Result Diagrams: 10/23/18 05:59 10/23/18 00:48 Lab results: WBC 13.7 thou/uL (4.8-10.8) H 10/23/18 00:48 Hgb 17.4 g/dL (12.0-16.0) H 10/23/18 00:48 Hct 48.9 % (36.0-47.0) H 10/23/18 00:48 MCV 95.2 fL (78.0-98.0) 10/23/18 00:48 Plt Count 228 thou/uL (130-400) 10/23/18 00:48 Neutrophils % 79.5 % (42.0-75.0) H 10/23/18 00:48 VBG pCO2 38.8 mmHg (41.0-51.0) L 10/23/18 00:52 VBG pO2 62.3 mmHg (35.0-45.0) H 10/23/18 00:52 Sodium 137 mmol/L (136-145) 10/23/18 00:48 Potassium 3.9 mmol/L (3.5-5.1) 10/23/18 00:48 Chloride 97 mmol/L (98-107) L 10/23/18 00:48 Carbon Dioxide 28 mmol/L (22-29) 10/23/18 00:48 BUN 8 mg/dL (7.0-18.7) 10/23/18 00:48 Creatinine 0.80 mg/dL (0.6-1.1) 10/23/18 00:48 Glucose 300 mg/dL (70-105) H 10/23/18 00:48 Lactic Acid 1.6 mmol/L (0.5-2.2) 10/23/18 00:48 Calcium 10.0 mg/dL (7.8-10.44) 10/23/18 00:48 Total Bilirubin 1.0 mg/dL (0.2-1.2) 10/23/18 00:48 AST 17 U/L (5-34) 10/23/18 00:48 ALT 33 U/L (8-55) 10/23/18 00:48 Alkaline Phosphatase 58 U/L (40-150) 10/23/18 00:48 Serum Total Protein 8.0 g/dL (6.0-8.3) 10/23/18 00:48 Albumin 4.1 g/dL (3.5-5.0) 10/23/18 00:48 Urine Ketones 40 mg/dL (Negative) H 10/23/18 01:16 Urine Blood Negative (Negative) 10/23/18 01:16 Urine Nitrite Negative (Negative) 10/23/18 01:16 Ur Leukocyte Esterase Negative (Negative) 10/23/18 01:16 Urine RBC 0-3 HPF (0-3) 10/23/18 01:16 Urine WBC 0-3 HPF (0-3) 10/23/18 01:16 Ur Squamous Epith Cells 4-6 HPF (0-3) H 10/23/18 01:16 Urine Bacteria None Seen HPF (None Seen) 10/23/18 01:16 - Radiology Interpretation Chest x-ray Status: image reviewed by me (no acute cardiopulmonary process) FMR H&P: A/P - Problem List (1) Breast abscess Current Visit: Yes Status: Acute Code(s): N61.1 - ABSCESS OF THE BREAST AND NIPPLE (2) Gastroparesis due to DM Current Visit: No Status: Acute Code(s): E11.43 - TYPE 2 DIABETES W DIABETIC AUTONOMIC (POLY)NEUROPATHY; K31.84 - GASTROPARESIS (3) Anxiety disorder Current Visit: No Status: Chronic Code(s): F41.9 - ANXIETY DISORDER, UNSPECIFIED Qualifiers: Anxiety disorder type: unspecified anxiety disorder Qualified Code(s): F41.9 - Anxiety disorder, unspecified (4) Bipolar disorder Current Visit: No Status: Chronic Code(s): F31.9 - BIPOLAR DISORDER, UNSPECIFIED Qualifiers: Active/Remission status: remission status unspecified Qualified Code(s): F31.9 - Bipolar disorder, unspecified (5) DMII (diabetes mellitus, type 2) Current Visit: No Status: Chronic Qualifiers: Diabetes mellitus complication status: with hyperglycemia (6) Hidradenitis Current Visit: No Status: Chronic Code(s): L73.2 - HIDRADENITIS SUPPURATIVA (7) Hyperlipidemia Current Visit: No Status: Chronic Code(s): E78.5 - HYPERLIPIDEMIA, UNSPECIFIED (8) Hypertension Current Visit: No Status: Chronic Code(s): I10 - ESSENTIAL (PRIMARY) HYPERTENSION Qualifiers: Hypertension type: essential hypertension Qualified Code(s): I10 - Essential (primary) hypertension - Plan This is a 33 yo female with a pmh of DM2, HTN, crohns disease, HLD, bipolar disorder, anxiety Gastroparesis 2/2 uncontrolled DM2 -Admit to medical -NPO with IVFs, introduce fluids slowly once nausea is controlled -Continue reglan -Zofran for nausea Breast abscess with improving cellulitis -Continue clindamycin -Monitor for clinical improvement DM2 -Continue home insulin -ACHS accuchecks -SSI -Start diabetic diet once she can tolerate PO Bipolar/anxiety -Continue home meds HLD -continue home meds HTN -continue home meds Crohns -Continue home humira Code: full Prophylaxis: lovenox Family: none at bedside Disposition: home in 1-2 days FMR H&P: Upper Level - Pertinent history 33 F present for breast abscess. Left breast abscess. She has now 2 week of worsen pain in right breast. Fluctance was noted 2 day prior to this visit.. The area was I&D at that time.. It was recommended that she stay inpatient for treatment. She refused and left AMA. Today, she returns because of continued pain and tenderness in her left breast. In addition, she complains of nausea. She has a history of gastroparesis which she endorses this feels similar to. - Pertinent findings Gen: NAD, awake, alert, oriented. Appear a little older then stated age. HEENT: Normocephalic, atraumatic, grossly normal hearing, moist mucosal membrane , trachea midline CV: RRR with no apparent m/g/r. Tachy Resp: CTA bilaterally Abd: Soft, non tender MSK: normal structure without gross abnormalities Skin: Recently I&D of left breast without discharge and clean appearing Psych: Anxious appearing. State she has phobia of hospital and her mother in hospital during September. - Plan Date/Time: 10/23/18 5535 I, [Elroy Martinez], have evaluated this patient and agree with findings/plan as outlined by internal control analyst resident. Pertinent changes/additions are listed here. 1. Sepsis secondary to UTI - Patient meet sepsis with elevated WBC and pulse, and known source of infection. - Plan to start covering broadly at this time with vancomycin due to purulent cellulitis. Will narrow abx with improvement. - Patient apparently had not tolerated clindmaycin in past and failed Bactrim previously for cellulitis. 2. DM2 - Chronic issue. Continue home med. Glucose noted to be elevated today, but without anion gap. - For her gastroparesis, NPO, start her home reglan. 3. Persistent tachycardia - Clinic note records this as an issue. - Appear to be sinus tach. She is on metoprolol for this. Will continue it. 4. Anxiety - Chronic issue. Continue citalopram 5. COPD - Patient has smoking history, on albuterol as outpatient for COPD - Advise cessation, continue advair, albuterol as needed. 6. Anxiety - Appear due to traumatic event with family - Continue citalopram. Addendum - Attending - Attending Attestation Date/Time: 10/23/18 1105 I personally evaluated the patient and discussed the management with Dr. Snyder I agree with the History, Examination, Assessment and Plan documented above with any addition or exceptions noted below - 33 yo female with h/o DM2, HTN, crohns disease, HLD, bipolar disorder, anxiety presents c/o N/V for last 3 days progressive and now not tolerating any solids or liquids. PMH significant for diabetic gastroparesis. Has tried her home medications without improvement. Also recently hospitalized for breast abscess. Reports that abscess much better with decreased pain; minimal drainge. PMH/PSH/Meds/All reviewed and agree with resident's documentation. Afebrile VSS. A/P: 1) Gastroparesis - continue current meds; ice chips for now and advance slowly. Continue IVF. 2) Abscess- appears much better; awaiting wound culture result. Continue IV abx until tolerating po. 3) DM- continue accuchecks and meds, 4) Tachycardia- pt with h/o tachycardia; has been evalauted by cardiology. Cont home emds for this.
[2018-10-23] MEDS: Sodium Chloride 0.9% 1,000 ML IV SCH ×2 (05:06→11:54)
[2018-10-23] MEDS ORDERED: Ibuprofen 800 MG TAB PO PRN (05:56)
[2018-10-23] MEDS ORDERED: Temazepam 15 MG CAP PO PRN (05:56)
[2018-10-23] MEDS ORDERED: PROVENTIL INHALER 6.7 G (200 INHALATIONS) INH PRN (05:56)
[2018-10-23] MEDS ORDERED: Ondansetron ODT 8 MG TAB PO PRN (05:56)
[2018-10-23] MEDS ORDERED: Clindamycin 150 MG CAP PO SCH ×2 (06:00→10:00)
[2018-10-23] MEDS ORDERED: Promethazine 25 MG TAB PO PRN ×2 (06:55→07:52)
[2018-10-23 07:00] LABS: #Eosinphils 0.1 thou/uL (0.0-0.7); #Lymphocytes 2.3 thou/uL (1.20-3.40); #Monocytes 0.8 thou/uL (0.11-0.59); #Neutrophils 11.9 thou/uL (1.40-6.50); %Eosinophils 0.3 % (0.0-10.0); %Lymphocytes 15.3 % (21.0-51.0); %Monocytes 5.1 % (0.0-10.0); %Neutrophils 79.3 % (42.0-75.0); Hemoglobin 15.9 g/dL (12.0-16.0); Mean Corpuscular HGB CONC 34.8 g/dL (32.0-36.0); Mean Corpuscular Hemoglobin 33.2 pg (27.0-31.0); Mean Corpuscular Volume 95.5 fL (78.0-98.0); Platelet Count 222 thou/uL (130-400); RBC Distribution Width 13.6 % (11.5-14.5); Red Blood Cell (RBC) Count 4.79 mill/uL (4.20-5.40); White Blood Cell (WBC) Count 15.1 thou/uL (4.8-10.8)
[2018-10-23] MEDS ORDERED: Metoclopramide 10 MG/10 ML UDCUP PO SCH (07:30)
[2018-10-23 07:42] VITALS: BMI 43.7
[2018-10-23 08:27] LABS: Anion Gap 16 mmol/L (10-20); BUN (Urea Nitrogen) 8 mg/dL (7.0-18.7); Calc. Creatinine Clearance 219 mL/min (70-130); Calcium 9.9 mg/dL (7.8-10.44); Carbon Dioxide 27 mmol/L (22-29); Chloride 96 mmol/L (98-107); Estimated GFR-MDRD 88; Glucose 273 mg/dL (70-105); Potassium 3.6 mmol/L (3.5-5.1); Sodium 135 mmol/L (136-145)
--- NOTE | 2018-10-23 08:59 | RAD ---
PA AND LATERAL VIEWS OF CHEST: Date: 10/23/18 HISTORY: Cough. FINDINGS: The heart size is normal. The lungs are expanded without focal areas of consolidation, pneumothoraces , or pleural effusions. IMPRESSION: No radiographic evidence of acute cardiopulmonary process. POS: [facility]
[2018-10-23] MEDS ORDERED: Insulin Glargine 40 UNITS in Pre-Filled Syringe 1 EACH SC SCH (09:00)
[2018-10-23] MEDS ORDERED: PALIPERIDONE 3 MG PO SCH (09:00)
[2018-10-23] MEDS ORDERED: Aspirin 81 mg Enteric Coated Tablet PO SCH (09:00)
[2018-10-23] MEDS ORDERED: Famotidine/PF 20 mg/2ml Vial SLOW IVP SCH (09:00)
[2018-10-23] MEDS ORDERED: Citalopram 20 MG TAB PO SCH (09:00)
[2018-10-23] MEDS ORDERED: Non-Formulary Item 1 EACH (Levemir Flexpen [Levemir Flexpen] 40 UNITS) SC SCH (09:00)
[2018-10-23] MEDS ORDERED: Lithium Carbonate 150 MG CAP PO SCH (09:00)
[2018-10-23] MEDS ORDERED: Lisinopril 20 MG TAB PO SCH (09:00)
[2018-10-23] MEDS ORDERED: OXcarbazepine 150 MG TAB PO SCH (09:00)
[2018-10-23] MEDS ORDERED: Doxycycline 100 MG CAP PO SCH (09:00)
[2018-10-23] MEDS ORDERED: Enoxaparin Sodium 40 MG/0.4 ML SYRINGE SC SCH (09:00)
[2018-10-23] MEDS: Metoclopramide HCl 10 MG TAB PO SCH ×2 (09:32→13:10)
[2018-10-23 12:18] LABS: Amphetamine Not Detected (NotDetected); Cocaine Metabolite Screen Not Detected (NotDetected); Medtox Reader # READER 1; Methamphetamine Not Detected (NotDetected); Opiate Screen Not Detected (NotDetected); Phencyclidine (PCP) Not Detected (NotDetected); THC/Cannabinoid Screen Detected (NotDetected)
[2018-10-23 12:19] LABS: Barbiturates Screen Not Detected (NotDetected); Benzodiazepine Screen Detected (NotDetected); Medtox Control Line Valid? VALID (VALID); Methadone Not Detected (NotDetected); Oxycodone Screen Not Detected (NotDetected); Tricyclic Screen Not Detected (NotDetected)
[2018-10-23] MEDS ORDERED: Adalimumab 40 MG/0.8 ML SYRINGE SC SCH ×3 (14:30→15:00)
[2018-10-23 16:21] VITALS: BP 139/94; TEMP 98.5
[2018-10-23] MEDS ORDERED: Atorvastatin Calcium 40 MG TAB PO SCH (21:00)
[2018-10-23] MEDS ORDERED: Fenofibrate Nanocrystallized 145 MG TAB PO SCH (21:00)
--- NOTE | 2018-10-24 11:02 | DIS ---
DATE OF ADMISSION: 10/23/2018 DATE OF DISCHARGE: 10/23/2018 Of note, the patient left AMA less than 24 hours after being admitted. RESIDENT: Mabel Gerard MD ADMITTING ATTENDING: Ofelia Krishna MD DISCHARGE ATTENDING: Jovany Bills MD CONSULT: None. PROCEDURES: Chest x-ray, which showed no radiographic evidence of acute cardiopulmonary process. PRIMARY DIAGNOSES: 1. Breast abscess, status post I&D on 10/21/2018. 2. Gastroparesis secondary to diabetes mellitus type 2. SECONDARY DIAGNOSES: 1. Type 2 diabetes mellitus. 2. Anxiety disorder. 3. Bipolar disorder. 4. Hidradenitis suppurativa. 5. Hyperlipidemia. 6. Hypertension. 7. Crohn disease. 8. Tobacco abuse. 9. Obstructive sleep apnea. DISCHARGE MEDICATIONS: N/A as the patient left AMA before she was able to be discharged. Discontinued medications NA, see above. HOSPITAL COURSE: The patient is a 33-year-old female with a past medical history significant for Crohn's disease on chronic immunosuppressive therapy with Humira, poorly-controlled type 2 diabetes with multiple admissions for gastroparesis, and a recently diagnosed breast abscess with surrounding cellulitis, who presented to the emergency department with a chief complaint of nausea and vomiting that she says began approximately five days ago that has worsened with time. She stated that what prompted her presentation was that she has been unable to tolerate anything p.o. and has vomited multiple times in the last several days with decreased urinary output and abdominal cramping. On presentation to the emergency department, the patient was noted to be tachycardic at 120; however, on review of the patient's clinic chart and in previous admissions, she is chronically tachycardic. However, due to her inability to tolerate anything p.o., she was given 2 L of normal saline and 10 mg of IV Reglan. She was then evaluated by the medical team and admitted to the medicine floor for closer evaluation overnight. She was kept n.p.o. and started on normal saline at 170 mL an hour. The patient remained on the floor until approximately 1530 hours, when she ultimately decided to leave the hospital against medical advice. Regarding the patient's recently diagnosed abscess with surrounding cellulitis, the patient had an I and D done in the emergency department on 10/21/2018 that was cultured. She was admitted on that date, but left against medical advice and actually presented to the emergency department on the before being admitted again on . After her I and D in admission, she was prescribed p.o. doxycycline and took only one pill before her nausea and vomiting became so severe that she was unable to tolerate anything p.o. Therefore, on this admission due to her inability to tolerate p.o., the patient was given 900 mg of IV clindamycin and 2 g of cefepime for her breast abscess. Once on the floor, she started on IV vancomycin and received one dose before leaving the hospital against medical advice. Before signing her papers, the patient was instructed to follow up with the [facility] as soon as possible to ensure adequate treatment of her abscess. DISPOSITION: Guarded. DISCHARGE INSTRUCTIONS: Other than advising the patient to follow-up at the family medicine clinic no other formal instructions were able to be given to the patient as she left the hospital against medical advice. Job ID: [id number] MTDD
--- NOTE | 2018-10-26 16:23 | PQF ---
LUIS MCGRATH IRVIN [id number] [place] [id number] CLINICAL DOCUMENTATION IMPROVEMENT CLARIFICATION FORM: ICD-10 Updated PLEASE DO AN ADDENDUM TO THE PROGRESS NOTE WITH ANY DOCUMENTATION UPDATES OR ADDITIONS AND CARRY THROUGH TO DC SUMMARY. THANK YOU. DATE: 10-26-18 ATTN: DR. LAURENT GARCIA Please exercise your independent, professional judgment in responding to the clarification form. Clinical indicators are provided on the bottom of this form for your review Please check appropriate box(s) to clarify if the following diagnosis has been ruled in or ruled out: SEPSIS D/T UTI [ ] Ruled in diagnosis [ ] Continue to treat [ ] Resolved [ ] Ruled out diagnosis [ ] Cannot rule out diagnosis [ ] Other diagnosis [ ] Unable to determine In addition, please specify: Present on Admission (POA): [ ] Yes [ ] No [ ] Unable to determine For continuity of documentation, please document condition throughout progress notes and discharge summary. Thank You. CLINICAL INDICATORS - SIGNS / SYMPTOMS / LABS ED: SEPSIS; CELLULITIS SEPSIS ALERT PT LEFT AMA TUESDAY NIGHT FROM ED AFTER BEING SEPTIC W/ LEFT BREAST P 120-128 BP 129/110; 129/110; 135/112 NAUSEA/VOMITING LABS: WBC 12- @ 0048 13.7 12-24 @ 0559 15.1 12-24 ([facility]): SEPSIS D/T UTI PT LEFT AMA 10-23 RISK FACTORS 12-24 H&P ([facility]): * 3X3 ERYTHEMATOUS LESION ON LEFT BREAST W/ .75CM INCISION IN THE CENTER * DM TYPE 2 * UTI TREATMENTS ED: CLINDAMYCIN IV; CEFEPIME IV; 2LNS IVF MAR: IVF NS 12-24 VANCOMYCIN IV 10-23 THANK YOU, HOLLY (This form is maintained as a part of the permanent medical record) 2015 [employer] All Rights Reserved Holly Davis, RN, BS [email or web address] Cell [facility]
--- NOTE | 2018-10-27 09:44 | PQF ---
LUIS MCGRATHVETTE LAURENT GARCIA [id number] [place] [id number] CLINICAL DOCUMENTATION IMPROVEMENT CLARIFICATION FORM: ICD-10 Updated PLEASE DO AN ADDENDUM TO THE PROGRESS NOTE WITH ANY DOCUMENTATION UPDATES OR ADDITIONS AND CARRY THROUGH TO DC SUMMARY. THANK YOU. DATE: 10-26-18 ATTN: DR. DR. YOVANI TOWNSEND / DR. LAURENT GARCIA Please exercise your independent, professional judgment in responding to the clarification form. Clinical indicators are provided on the bottom of this form for your review Please check appropriate box(s) to clarify if the following diagnosis has been ruled in or ruled out: SEPSIS D/T UTI [ ] Ruled in diagnosis [ ] Continue to treat [ ] Resolved [ ] Ruled out diagnosis [ ] Cannot rule out diagnosis [ ] Other diagnosis [ ] Unable to determine In addition, please specify: Present on Admission (POA): [ ] Yes [ ] No [ ] Unable to determine For continuity of documentation, please document condition throughout progress notes and discharge summary. Thank You. CLINICAL INDICATORS - SIGNS / SYMPTOMS / LABS ED: SEPSIS; CELLULITIS SEPSIS ALERT PT LEFT AMA TUESDAY NIGHT FROM ED AFTER BEING SEPTIC W/ LEFT BREAST P 120-128 BP 129/110; 129/110; 135/112 NAUSEA/VOMITING LABS: WBC 12-24 @ 0048 13.7 12-24 @ 0559 15.1 12-24 ([facility]): SEPSIS D/T UTI PT LEFT AMA 12- RISK FACTORS 12-24 H&P ([facility]): * 3X3 ERYTHEMATOUS LESION ON LEFT BREAST W/ .75CM INCISION IN THE CENTER * DM TYPE 2 * UTI TREATMENTS ED: CLINDAMYCIN IV; CEFEPIME IV; 2LNS IVF MAR: IVF NS 12-24 VANCOMYCIN IV 12-24 THANK YOU, HOLLY (This form is maintained as a part of the permanent medical record) 2015 [employer], [employer] All Rights Reserved Holly Davis RN, BS [email or web address] [facility]
[2018-11-06] MEDS ORDERED: Paliperidone Palmitate 234 MG/1.5 ML SYRINGE IM SCH (09:00)
== END 2018-10-23 15:57 | disposition home or self-care (01) | DRG 872 ==
LOC: ERS 00:15 → SJJU 02:57
PROVIDERS: ADMIT Family Medicine; ATTEND Family Medicine
DX: A41.9 Sepsis, unspecified organism (principal); N39.0 Urinary tract infection, site not specified; K50.90 Crohn's disease, unspecified, without complications; N61.1 Abscess of the breast and nipple; E11.43 Type 2 diabetes mellitus with diabetic autonomic (poly)neuropathy; K31.84 Gastroparesis; F41.9 Anxiety disorder, unspecified; F31.9 Bipolar disorder, unspecified; L73.2 Hidradenitis suppurativa; E78.5 Hyperlipidemia, unspecified; I10 Essential (primary) hypertension; F17.210 Nicotine dependence, cigarettes, uncomplicated; G47.33 Obstructive sleep apnea (adult) (pediatric); Z79.899 Other long term (current) drug therapy; E11.65 Type 2 diabetes mellitus with hyperglycemia; Z88.0 Allergy status to penicillin; Z88.8 Allergy status to other drugs, medicaments and biological substances; F14.11 Cocaine abuse, in remission; R00.0 Tachycardia, unspecified; J44.9 Chronic obstructive pulmonary disease, unspecified
CPT/HCPCS: 36415; 36416; 71046; 80053; 80306; 81003; 81015; 82330; 82803; 83605; 84145; 84703; 85025; 87040; 93005; 96365; 96372; 96375; J0135; J0692; J1650; J2405; J2765; J3370; J3490; J7050; S0028

== ENCOUNTER 2018-11-01 07:39 | Emergency (ER) | payer OTHER ==
[2018-11-01] MEDS ORDERED: Metoclopramide HCl 10 MG/2 ML VIAL ONE (07:58)
[2018-11-01] MEDS ORDERED: Ondansetron PF 4 MG/2 ML Vial ONE (07:58)
[2018-11-01] MEDS ORDERED: Dicyclomine 20 MG TAB ONE (07:58)
== END 2018-11-01 08:54 | disposition home or self-care (01) ==
LOC: ERS 07:39
DX: R11.2 Nausea with vomiting, unspecified (principal); I10 Essential (primary) hypertension; E66.9 Obesity, unspecified; J44.9 Chronic obstructive pulmonary disease, unspecified; F41.9 Anxiety disorder, unspecified; F31.9 Bipolar disorder, unspecified; F17.210 Nicotine dependence, cigarettes, uncomplicated
CPT/HCPCS: 96365; 96375; J2405; J2765

== ENCOUNTER 2018-11-16 16:18 | Emergency (ER) | payer OTHER ==
[2018-11-16] MEDS ORDERED: Albuterol Sulfate 2.5 mg/0.5 ml Neb ONE (16:37)
[2018-11-16 17:30] LABS: #Basophils 0.1 thou/uL (0.0-0.2); #Eosinphils 0.1 thou/uL (0.0-0.7); #Lymphocytes 3.9 thou/uL (1.20-3.40); #Monocytes 0.4 thou/uL (0.11-0.59); %Basophils 0.5 % (0.0-1.0); %Monocytes 3.2 % (0.0-10.0); %Neutrophils 66.2 % (42.0-75.0); Hemoglobin 17.3 g/dL (12.0-16.0); Mean Corpuscular Hemoglobin 34.4 pg (27.0-31.0); Mean Corpuscular Volume 98.1 fL (78.0-98.0); Platelet Count 241 thou/uL (130-400); RBC Distribution Width 12.7 % (11.5-14.5); Red Blood Cell (RBC) Count 5.04 mill/uL (4.20-5.40); White Blood Cell (WBC) Count 13.6 thou/uL (4.8-10.8)
--- NOTE | 2018-11-16 17:39 | RAD ---
RADIOGRAPH CHEST 2 VIEWS: 11/16/18 HISTORY: 33-year-old female with dyspnea. FINDINGS: There is no air space density, pulmonary edema, pleural effusion, pneumothorax, or cardiomegaly. IMPRESSION: No acute cardiopulmonary findings. enio [] POS: [facility]
[2018-11-16 17:56] LABS: ALT (SGPT) 28 U/L (8-55); AST (SGOT) 18 U/L (5-34); Albumin 3.8 g/dL (3.5-5.0); Alkaline Phosphatase 83 U/L (40-150); Anion Gap 15 mmol/L (10-20); BUN (Urea Nitrogen) 14 mg/dL (7.0-18.7); Bilirubin, Total 0.4 mg/dL (0.2-1.2); Calc. Creatinine Clearance 0 mL/min (70-130); Calcium 9.8 mg/dL (7.8-10.44); Carbon Dioxide 29 mmol/L (22-29); Chloride 94 mmol/L (98-107); Estimated GFR-MDRD 71; Glucose 464 mg/dL (70-105); Potassium 4.1 mmol/L (3.5-5.1); Protein, Total 7.8 g/dL (6.0-8.3); Sodium 134 mmol/L (136-145)
--- NOTE | 2018-11-18 11:29 | EKG ---
Test Reason : Blood Pressure : / mmHG Vent. Rate : 129 BPM Atrial Rate : 129 BPM P-R Int : 136 ms QRS Dur : 090 ms QT Int : 312 ms P-R-T Axes : 064 072 053 degrees QTc Int : 457 ms Sinus tachycardia Otherwise normal ECG Confirmed by YESICA COON, ANAHY ([id number]), production editor VINAY LOONEY ([id number]) on 11/18/2018 11:28:59 AM Referred By: Confirmed By:ANAHY ROBERT MD
== END 2018-11-16 18:25 | disposition home or self-care (01) ==
LOC: ERS 16:18
DX: J44.1 Chronic obstructive pulmonary disease with (acute) exacerbation (principal); E11.9 Type 2 diabetes mellitus without complications; I10 Essential (primary) hypertension; F41.9 Anxiety disorder, unspecified; F31.9 Bipolar disorder, unspecified; F17.210 Nicotine dependence, cigarettes, uncomplicated; Z79.899 Other long term (current) drug therapy; Z79.4 Long term (current) use of insulin
CPT/HCPCS: 36415; 71046; 80053; 83880; 84484; 85025; 93005; 94640; 94760; J7611

== ENCOUNTER 2018-11-22 12:42 | Outpatient (CLI) | payer OTHER ==
--- NOTE | 2018-11-22 14:16 | RAD ---
CHEST PA AND LATERAL: HISTORY: Dyspnea. COMPARISON: 11/16/2018 FINDINGS: The heart size is normal. The lungs are well expanded without focal areas of consolidation, pneumoth oraces, or pleural effusions. There are mild degenerative changes in the spine. IMPRESSION: No radiographic evidence of acute cardiopulmonary process. POS: [facility]
== END 2018-11-22 12:43 | disposition home or self-care (01) ==
LOC: RAD 12:42
PROVIDERS: ATTEND Internal Medicine Critical Care Medicine
DX: R06.00 Dyspnea, unspecified (principal)
CPT/HCPCS: 71046

== ENCOUNTER 2019-01-29 13:50 | Emergency (ER) | payer OTHER ==
[2019-01-29 16:18] LABS: #Basophils 0.1 thou/uL (0.0-0.2); #Eosinphils 0.1 thou/uL (0.0-0.7); #Lymphocytes 3.5 thou/uL (1.20-3.40); #Monocytes 0.8 thou/uL (0.11-0.59); #Neutrophils 8.4 thou/uL (1.40-6.50); %Basophils 0.6 % (0.0-1.0); %Eosinophils 0.8 % (0.0-10.0); %Neutrophils 65.8 % (42.0-75.0); Hemoglobin 18.1 g/dL (12.0-16.0); Mean Corpuscular HGB CONC 35.5 g/dL (32.0-36.0); Mean Corpuscular Hemoglobin 33.6 pg (27.0-31.0); Mean Corpuscular Volume 94.6 fL (78.0-98.0); Platelet Count 262 thou/uL (130-400); RBC Distribution Width 13.3 % (11.5-14.5); Red Blood Cell (RBC) Count 5.39 mill/uL (4.20-5.40); White Blood Cell (WBC) Count 12.8 thou/uL (4.8-10.8)
[2019-01-29 16:36] LABS: ALT (SGPT) 44 U/L (8-55); AST (SGOT) 20 U/L (5-34); Albumin 4.5 g/dL (3.5-5.0); Alkaline Phosphatase 59 U/L (40-150); Anion Gap 17 mmol/L (10-20); BUN (Urea Nitrogen) 9 mg/dL (7.0-18.7); Calc. Creatinine Clearance 0 mL/min (70-130); Calcium 10.1 mg/dL (7.8-10.44); Carbon Dioxide 25 mmol/L (22-29); Chloride 101 mmol/L (98-107); Estimated GFR-MDRD 88; Globulin 3.5 g/dL (2.4-3.5); Glucose 202 mg/dL (70-105); Potassium 3.7 mmol/L (3.5-5.1); Sodium 139 mmol/L (136-145)
--- NOTE | 2019-01-31 14:00 | RAD ---
FExam: Chest one view HISTORY:Cough Comparison: 10/21/2018 FINDINGS: Cardiac silhouette: Normal Pulmonary vessels: Normal Costophrenic angles: Clear LUNGS: No masses or consolidation. Pneumothorax: None Osseous abnormalities: None IMPRESSION: No acute cardiopulmonary process.
== END 2019-01-29 17:13 | disposition home or self-care (01) ==
LOC: ERS 13:50
DX: F15.10 Other stimulant abuse, uncomplicated (principal); E11.9 Type 2 diabetes mellitus without complications; I10 Essential (primary) hypertension; J44.9 Chronic obstructive pulmonary disease, unspecified; E66.9 Obesity, unspecified; F41.9 Anxiety disorder, unspecified; F31.9 Bipolar disorder, unspecified; F17.210 Nicotine dependence, cigarettes, uncomplicated
CPT/HCPCS: 36416; 71045; 80053; 84484; 85025; 93005; 96360

== ENCOUNTER 2019-01-31 12:59 | Emergency (ER) | payer OTHER ==
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
[2019-01-31] MEDS ORDERED: Diazepam 5 MG TAB ONE (14:59)
[2019-01-31] MEDS ORDERED: Ketorolac Tromethamine 60 MG/2 ML VIAL ONE (14:59)
== END 2019-01-31 15:48 | disposition home or self-care (01) ==
LOC: ERS 12:59
DX: S16.1XXA Strain of muscle, fascia and tendon at neck level, initial encounter (principal); E11.9 Type 2 diabetes mellitus without complications; I10 Essential (primary) hypertension; E66.9 Obesity, unspecified; J44.9 Chronic obstructive pulmonary disease, unspecified; F41.9 Anxiety disorder, unspecified; F31.9 Bipolar disorder, unspecified; F17.210 Nicotine dependence, cigarettes, uncomplicated; V43.62XA Car passenger injured in collision with other type car in traffic accident, initial encounter
CPT/HCPCS: 72125; 96372; J1885

== ENCOUNTER 2019-02-06 05:33 | Emergency (ER) | payer OTHER | END 2019-02-06 06:01 | disposition left against medical advice (07) | LOC: ERS 05:33 | DX: R11.2 Nausea with vomiting, unspecified (principal); R06.2 Wheezing; Z71.6 Tobacco abuse counseling; E11.9 Type 2 diabetes mellitus without complications; I10 Essential (primary) hypertension; J44.9 Chronic obstructive pulmonary disease, unspecified; F41.9 Anxiety disorder, unspecified; F31.9 Bipolar disorder, unspecified; F17.210 Nicotine dependence, cigarettes, uncomplicated ==

== ENCOUNTER 2019-02-06 14:12 | Emergency (ER) | payer OTHER | END 2019-02-06 15:19 | disposition left against medical advice (07) | LOC: ERS 14:12 | DX: Z53.21 Procedure and treatment not carried out due to patient leaving prior to being seen by health care provider (principal) ==

== ENCOUNTER 2019-02-07 22:26 | Emergency (ER) | payer OTHER ==
[2019-02-07] MEDS ORDERED: Metoclopramide HCl 10 MG/2 ML VIAL ONE (23:15)
== END 2019-02-07 23:36 | disposition left against medical advice (07) ==
LOC: ERS 22:26
DX: R11.10 Vomiting, unspecified (principal); R06.02 Shortness of breath; J44.9 Chronic obstructive pulmonary disease, unspecified; E11.43 Type 2 diabetes mellitus with diabetic autonomic (poly)neuropathy; K31.84 Gastroparesis; F31.9 Bipolar disorder, unspecified; F41.9 Anxiety disorder, unspecified; I10 Essential (primary) hypertension
CPT/HCPCS: 99406; J2765

== ENCOUNTER 2019-02-09 11:31 | Observation (INO) | payer OTHER ==
[2019-02-09] MEDS ORDERED: Sodium Chloride 0.9% 10 ML ONE (11:38)
[2019-02-09 11:57] VITALS: BP 151/99; TEMP 98.7
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
[2019-02-09 12:13] VITALS: BMI 41.5
[2019-02-09] MEDS ORDERED: Ondansetron ODT 4 MG TAB PO PRN (12:13)
[2019-02-09] MEDS ORDERED: Dextrose 50% Abboject 50 ML SYRINGE SLOW IVP PRN (12:13)
[2019-02-09] MEDS ORDERED: Dextrose 5% in Water 1,000 ML IV PRN (12:13)
[2019-02-09] MEDS ORDERED: Ondansetron PF 4 MG/2 ML Vial IVP PRN (12:13)
[2019-02-09] MEDS ORDERED: Acetaminophen 325 MG TAB PO PRN (12:13)
[2019-02-09] MEDS ORDERED: HumaLOG 300 UNITS/3 ML VIAL SC PRN (12:16)
[2019-02-09] MEDS ORDERED: Promethazine HCl 25 MG/ML VIAL IM/IV PRN (12:21)
[2019-02-09] MEDS ORDERED: Promethazine 25 MG TAB PO PRN (12:21)
[2019-02-09] MEDS ORDERED: Lactated Ringer's 1,000 ML IV SCH (12:30)
[2019-02-09 12:41] LABS: #Basophils 0.1 thou/uL (0.0-0.2); #Eosinphils 0.1 thou/uL (0.0-0.7); #Lymphocytes 3.4 thou/uL (1.20-3.40); #Monocytes 1.1 thou/uL (0.11-0.59); #Neutrophils 9.8 thou/uL (1.40-6.50); %Basophils 0.5 % (0.0-1.0); %Eosinophils 0.5 % (0.0-10.0); %Lymphocytes 23.7 % (21.0-51.0); %Monocytes 7.6 % (0.0-10.0); %Neutrophils 67.7 % (42.0-75.0); Hemoglobin 17.3 g/dL (12.0-16.0); Mean Corpuscular HGB CONC 36.3 g/dL (32.0-36.0); Mean Corpuscular Hemoglobin 33.7 pg (27.0-31.0); Mean Corpuscular Volume 92.8 fL (78.0-98.0); Mean Platelet Volume 7.5 fL (7.4-10.4); Platelet Count 255 thou/uL (130-400); RBC Distribution Width 12.6 % (11.5-14.5); Red Blood Cell (RBC) Count 5.12 mill/uL (4.20-5.40); White Blood Cell (WBC) Count 14.5 thou/uL (4.8-10.8)
[2019-02-09] MEDS ORDERED: Nystatin 500,000 UNITS/5 ML UDCUP SSW SCH (13:00)
[2019-02-09] MEDS ORDERED: Nicotine 14 MG PATCH TD SCH (13:00)
[2019-02-09 13:03] LABS: ALT (SGPT) 37 U/L (8-55); AST (SGOT) 26 U/L (5-34); Alkaline Phosphatase 58 U/L (40-150); Anion Gap 14 mmol/L (10-20); BUN (Urea Nitrogen) 14 mg/dL (7.0-18.7); Bilirubin, Total 1.5 mg/dL (0.2-1.2); Calc. Creatinine Clearance 196 mL/min (70-130); Calcium 9.3 mg/dL (7.8-10.44); Carbon Dioxide 30 mmol/L (22-29); Chloride 93 mmol/L (98-107); Estimated GFR-MDRD 83; Globulin 3.6 g/dL (2.4-3.5); Glucose 278 mg/dL (70-105); Potassium 3.6 mmol/L (3.5-5.1); Protein, Total 7.6 g/dL (6.0-8.3); Sodium 133 mmol/L (136-145)
[2019-02-09 13:33] LABS: Amphetamine Not Detected (NotDetected); Barbiturates Screen Not Detected (NotDetected); Benzodiazepine Screen Detected (NotDetected); Cocaine Metabolite Screen Not Detected (NotDetected); Medtox Control Line Valid? VALID (VALID); Medtox Reader # READER 4; Methadone Not Detected (NotDetected); Methamphetamine Not Detected (NotDetected); Opiate Screen Not Detected (NotDetected); Oxycodone Screen Not Detected (NotDetected); Phencyclidine (PCP) Not Detected (NotDetected); THC/Cannabinoid Screen Not Detected (NotDetected); Tricyclic Screen Not Detected (NotDetected)
[2019-02-09] MEDS ORDERED: Sodium Chloride 0.9% 1,000 ML IV SCH (13:45)
[2019-02-10] MEDS ORDERED: Terbinafine 1% 30 GM TUBE TOP SCH (09:00)
[2019-02-10] MEDS ORDERED: Enoxaparin Sodium 40 MG/0.4 ML SYRINGE SC SCH (09:00)
--- NOTE | 2019-02-12 22:36 | EKG ---
Test Reason : Blood Pressure : / mmHG Vent. Rate : 125 BPM Atrial Rate : 125 BPM P-R Int : 140 ms QRS Dur : 086 ms QT Int : 324 ms P-R-T Axes : 073 108 031 degrees QTc Int : 467 ms Sinus tachycardia Rightward axis Borderline ECG When compared with ECG of 29-JAN-2019 14:03, (Unconfirmed) No significant change was found Confirmed by Charity FRANCOIS ([id number]) on 02/12/2019 10:36:29 PM Referred By: JANY lockwood Confirmed By:Charity FRANCOIS
== END 2019-02-09 14:22 | disposition home or self-care (01) ==
LOC: 3SE 11:31
PROVIDERS: ADMIT Family Medicine; ATTEND Family Medicine
DX: E86.0 Dehydration (principal); I10 Essential (primary) hypertension; F31.9 Bipolar disorder, unspecified; J44.9 Chronic obstructive pulmonary disease, unspecified; E11.43 Type 2 diabetes mellitus with diabetic autonomic (poly)neuropathy; K31.84 Gastroparesis; F17.210 Nicotine dependence, cigarettes, uncomplicated; F41.9 Anxiety disorder, unspecified; K50.90 Crohn's disease, unspecified, without complications; L73.2 Hidradenitis suppurativa; E78.5 Hyperlipidemia, unspecified; E66.01 Morbid (severe) obesity due to excess calories; Z68.41 Body mass index [BMI] 40.0-44.9, adult; Z79.82 Long term (current) use of aspirin; Z79.899 Other long term (current) drug therapy; Z79.4 Long term (current) use of insulin; Z88.0 Allergy status to penicillin; Z53.21 Procedure and treatment not carried out due to patient leaving prior to being seen by health care provider
CPT/HCPCS: 36415; 80053; 80306; 85025; 93005; 93010; G0378; Q0169

== ENCOUNTER 2019-02-17 09:19 | Emergency (ER) | payer OTHER ==
[2019-02-17] MEDS ORDERED: Bupivacaine 0.5% 10 ML VIAL ONE (10:04)
== END 2019-02-17 10:52 | disposition home or self-care (01) ==
LOC: ERS 09:19
DX: K04.7 Periapical abscess without sinus (principal); E11.9 Type 2 diabetes mellitus without complications; I10 Essential (primary) hypertension; J44.9 Chronic obstructive pulmonary disease, unspecified; F17.210 Nicotine dependence, cigarettes, uncomplicated
CPT/HCPCS: 41800; J3490

== ENCOUNTER 2019-02-20 05:30 | Emergency (ER) | payer OTHER ==
[2019-02-20 06:14] LABS: Bilirubin Negative (Negative); Blood, Urine Negative (Negative); Clarity CLEAR (Clear); Glucose, Urine (Dipstick) 100 mg/dL (Negative); Leukocyte Negative (Negative); Nitrite Negative (Negative); Protein, Urine (Dipstick) 100 mg/dL (Neg-Trace); Specific Gravity, Urine 1.024 (1.002-1.036); Urobilinogen 0.2 mg/dL (0.2-1.0); pH, Urine 8.5 (5.0-9.0)
[2019-02-20] MEDS ORDERED: Ondansetron PF 4 MG/2 ML Vial ONE ×2 (06:41→08:29)
[2019-02-20] MEDS ORDERED: Metoclopramide HCl 10 MG/2 ML VIAL ONE (06:41)
[2019-02-20 06:48] LABS: Hemoglobin 17.8 g/dL (12.0-16.0); Mean Corpuscular HGB CONC 33.6 g/dL (32.0-36.0); Mean Corpuscular Hemoglobin 32.1 pg (27.0-31.0); Mean Corpuscular Volume 95.7 fL (78.0-98.0); Mean Platelet Volume 7.9 fL (7.4-10.4); Platelet Count 329 thou/uL (130-400); Red Blood Cell (RBC) Count 5.54 mill/uL (4.20-5.40); White Blood Cell (WBC) Count 20.1 thou/uL (4.8-10.8)
[2019-02-20 07:07] LABS: Band 2 % (5-11); Lymphocytes 11 % (21-51); MDiff Complete? YES; Monocytes 6 % (0-10); Neutrophil 80 % (42-75); Nucleated RBC 1 % (0); RBC Morphology Normal; Reactive Lymphocytes 1 % (0-10)
[2019-02-20 07:09] LABS: ALT (SGPT) 32 U/L (8-55); AST (SGOT) 13 U/L (5-34); Albumin 4.2 g/dL (3.5-5.0); Alkaline Phosphatase 54 U/L (40-150); Anion Gap 20 mmol/L (10-20); BUN (Urea Nitrogen) 17 mg/dL (7.0-18.7); Bilirubin, Total 1.1 mg/dL (0.2-1.2); Calc. Creatinine Clearance 0 mL/min (70-130); Calcium 10.1 mg/dL (7.8-10.44); Carbon Dioxide 29 mmol/L (22-29); Chloride 86 mmol/L (98-107); Estimated GFR-MDRD 60; Globulin 4.3 g/dL (2.4-3.5); Glucose 341 mg/dL (70-105); Lipase 24 U/L (8-78); Potassium 3.6 mmol/L (3.5-5.1); Protein, Total 8.5 g/dL (6.0-8.3); Sodium 131 mmol/L (136-145)
[2019-02-20 07:23] LABS: BHCG - Serum Negative (NEGATIVE); Pregs Control Background? CLEAR/WHITE (CLR/WHITE); Pregs Control Bar Appear? YES (CONTROL BAR)
[2019-02-20] MEDS ORDERED: Acetaminophen 500 MG TAB ONE (08:29)
[2019-02-20 08:58] LABS: Base Excess-Venous 6.4 mmol/L (-2.0 to 3.0); Bicarbonate (HCO3v) 32.2 mmol/L (22.0-28.0); CO2 Tension (PvCO2) 48.6 mmHg (40.0-50.0); Calcium, Ionized 1.02 mmol/L (See Comments:); Chloride 93 mmol/L (98-107); Hemoglobin - Calc 16.9 g/dL (12.0-16.0); O2 Tension (PvO2) 33.6 mmHg (35.0-45.0); Potassium 3.6 mmol/L (3.5-5.1); Sodium 133 mmol/L (138-145); T. Carbon Dioxide 33.7 mmol/L (22.0-28.0); vO2 Saturation-calc 65.4 % (60.0-85.0)
--- NOTE | 2019-02-20 09:29 | RAD ---
Exam: Chest one view HISTORY:Cough, pain, vomiting Comparison: 01/29/2019 FINDINGS: Extrinsic artifacts limit visualization. Lungs: No masses or consolidation. Cardiac silhouette: Normal size Pulmonary vessels: Normal Pleural Spaces: Clear Pneumothorax: None Osseous abnormalities: None of acuity. IMPRESSION: No focal consolidation.
== END 2019-02-20 09:55 | disposition home or self-care (01) ==
LOC: ERS 05:30
DX: E11.65 Type 2 diabetes mellitus with hyperglycemia (principal); E11.43 Type 2 diabetes mellitus with diabetic autonomic (poly)neuropathy; K31.84 Gastroparesis; F31.9 Bipolar disorder, unspecified; F41.9 Anxiety disorder, unspecified; J44.9 Chronic obstructive pulmonary disease, unspecified; F17.210 Nicotine dependence, cigarettes, uncomplicated; Z79.899 Other long term (current) drug therapy
CPT/HCPCS: 36415; 36416; 71045; 80053; 81003; 81015; 82010; 82330; 82803; 83690; 84703; 85025; 93005; 96361; 96374; 96375; 96376; J2405; J2765

== ENCOUNTER 2019-05-31 09:04 | Outpatient (CLI) | payer OTHER ==
--- NOTE | 2019-05-31 10:58 | ULT ---
ULTRASOUND LEFT AXILLA: Date: 05/31/19 HISTORY: Pain. COMPARISON: None. FINDINGS: In the left axilla, there is no abnormal mass. Normal arterial flow. There is Rouleaux and very slow flow to the left axillary vein. No adenopathy. IMPRESSION: Very slow flow with Rouleaux appearance of the left axillary vein. No thrombosis. POS: OFF
== END 2019-05-31 09:05 | disposition home or self-care (01) ==
LOC: BICULT 09:04
PROVIDERS: ATTEND Surgery
DX: L73.2 Hidradenitis suppurativa (principal)
CPT/HCPCS: 76999

== ENCOUNTER 2019-06-11 06:06 | Emergency (ER) | payer OTHER ==
[2019-06-11 06:38] LABS: #Eosinphils 0.1 thou/uL (0.0-0.7); #Lymphocytes 3.5 thou/uL (1.20-3.40); #Monocytes 0.8 thou/uL (0.11-0.59); #Neutrophils 9.8 thou/uL (1.40-6.50); %Basophils 0.2 % (0.0-1.0); %Eosinophils 0.7 % (0.0-10.0); %Lymphocytes 24.7 % (21.0-51.0); %Monocytes 5.6 % (0.0-10.0); %Neutrophils 68.8 % (42.0-75.0); Hemoglobin 19.4 g/dL (12.0-16.0); Mean Corpuscular HGB CONC 35.1 g/dL (32.0-36.0); Mean Corpuscular Hemoglobin 34.5 pg (27.0-31.0); Mean Corpuscular Volume 98.4 fL (78.0-98.0); Mean Platelet Volume 7.8 fL (7.4-10.4); Platelet Count 254 thou/uL (130-400); RBC Distribution Width 13.7 % (11.5-14.5); Red Blood Cell (RBC) Count 5.62 mill/uL (4.20-5.40); White Blood Cell (WBC) Count 14.2 thou/uL (4.8-10.8)
[2019-06-11] MEDS ORDERED: Albuterol Sulfate 2.5 mg/0.5 ml Neb ONE (06:41)
[2019-06-11 06:55] LABS: ALT (SGPT) 36 U/L (8-55); AST (SGOT) 23 U/L (5-34); Albumin 4.1 g/dL (3.5-5.0); Alkaline Phosphatase 52 U/L (40-150); Anion Gap 14 mmol/L (10-20); BUN (Urea Nitrogen) 10 mg/dL (7.0-18.7); Bilirubin, Total 0.9 mg/dL (0.2-1.2); Calc. Creatinine Clearance 0 mL/min (70-130); Calcium 9.6 mg/dL (7.8-10.44); Carbon Dioxide 31 mmol/L (22-29); Chloride 91 mmol/L (98-107); Estimated GFR-MDRD 70; Globulin 3.9 g/dL (2.4-3.5); Glucose 316 mg/dL (70-105); Potassium 3.2 mmol/L (3.5-5.1); Sodium 133 mmol/L (136-145)
[2019-06-11] MEDS ORDERED: Dexamethasone 10 MG/ML VIAL ONE (07:06)
[2019-06-11] MEDS ORDERED: Magnesium 2 GM/50 ML BAG (IN WATER) ONE (07:06)
[2019-06-11 07:49] LABS: CK (CPK) 66 U/L (29-168); Lipase 19 U/L (8-78)
--- NOTE | 2019-06-16 10:09 | EKG ---
Test Reason : TACHY Blood Pressure : / mmHG Vent. Rate : 130 BPM Atrial Rate : 130 BPM P-R Int : 000 ms QRS Dur : 084 ms QT Int : 404 ms P-R-T Axes : 042 067 064 degrees QTc Int : 594 ms Sinus tachycardia with short NE Otherwise normal ECG Confirmed by AYALA COON, FERNANDO ([id number]), editor publications RODNEY HAIRSTON ([id number]) on 06/16/2019 10:08:50 AM Referred By: AYALA Confirmed By:FERNANDO CAI MD
== END 2019-06-11 07:25 | disposition left against medical advice (07) ==
LOC: ERS 06:06
DX: R10.9 Unspecified abdominal pain (principal); R09.02 Hypoxemia; E11.43 Type 2 diabetes mellitus with diabetic autonomic (poly)neuropathy; K31.84 Gastroparesis; I10 Essential (primary) hypertension; J44.9 Chronic obstructive pulmonary disease, unspecified; F41.9 Anxiety disorder, unspecified; F31.9 Bipolar disorder, unspecified; F17.210 Nicotine dependence, cigarettes, uncomplicated; Z79.899 Other long term (current) drug therapy; Z79.51 Long term (current) use of inhaled steroids; Z71.6 Tobacco abuse counseling
CPT/HCPCS: 80053; 82550; 83690; 83880; 84484; 85025; 93005; 94640; 94760; 99406; J1100; J3475; J7611; J7620

== ENCOUNTER 2019-06-12 07:28 | Emergency (ER) | payer OTHER ==
--- NOTE | 2019-06-12 07:59 | RAD ---
EXAM: CHEST ONE VIEW HISTORY: Hypoxia one day ago. Patient continues to have shortness of breath with nausea and vomiting today. COMPARISON: 02/20/2019 FINDINGS: The cardiac silhouette and pulmonary vasculature is within normal limits. The lungs are clear. The os seous structures are intact. Chest is stable compared to prior study. IMPRESSION: No acute cardiopulmonary process.
[2019-06-12] MEDS ORDERED: Nicotine 14 MG PATCH ONE (08:07)
[2019-06-12] MEDS ORDERED: Albuterol Sulfate 2.5 mg/0.5 ml Neb ONE (08:28)
[2019-06-12 08:38] LABS: #Basophils 0.1 thou/uL (0.0-0.2); #Eosinphils 0.1 thou/uL (0.0-0.7); #Lymphocytes 2.9 thou/uL (1.20-3.40); #Monocytes 0.9 thou/uL (0.11-0.59); #Neutrophils 10.8 thou/uL (1.40-6.50); %Basophils 0.5 % (0.0-1.0); %Eosinophils 0.4 % (0.0-10.0); %Lymphocytes 19.6 % (21.0-51.0); %Monocytes 5.9 % (0.0-10.0); %Neutrophils 73.6 % (42.0-75.0); Hemoglobin 19.7 g/dL (12.0-16.0); Mean Corpuscular HGB CONC 34.7 g/dL (32.0-36.0); Mean Corpuscular Hemoglobin 33.9 pg (27.0-31.0); Mean Corpuscular Volume 97.5 fL (78.0-98.0); Mean Platelet Volume 7.6 fL (7.4-10.4); Platelet Count 266 thou/uL (130-400); RBC Distribution Width 13.9 % (11.5-14.5); Red Blood Cell (RBC) Count 5.82 mill/uL (4.20-5.40); White Blood Cell (WBC) Count 14.7 thou/uL (4.8-10.8)
[2019-06-12 08:59] LABS: ALT (SGPT) 41 U/L (8-55); AST (SGOT) 27 U/L (5-34); Albumin 4.3 g/dL (3.5-5.0); Alkaline Phosphatase 56 U/L (40-150); Anion Gap 17 mmol/L (10-20); BUN (Urea Nitrogen) 9 mg/dL (7.0-18.7); Bilirubin, Total 0.8 mg/dL (0.2-1.2); Calc. Creatinine Clearance 0 mL/min (70-130); Calcium 9.8 mg/dL (7.8-10.44); Carbon Dioxide 30 mmol/L (22-29); Chloride 91 mmol/L (98-107); Estimated GFR-MDRD 69; Globulin 4.1 g/dL (2.4-3.5); Glucose 273 mg/dL (70-105); Potassium 3.5 mmol/L (3.5-5.1); Protein, Total 8.4 g/dL (6.0-8.3); Sodium 134 mmol/L (136-145)
[2019-06-12] MEDS ORDERED: methylPREDNISolone Sod Succ/PF 125 MG/2 ML VIAL ONE (09:06)
[2019-06-12] MEDS ORDERED: ALPRAZolam 0.25 MG TAB ONE (10:04)
--- NOTE | 2019-06-12 10:30 | PDOC.FPRHP ---
- History of Present Illness Chief Complaint: SOB, nausea & vomiting History of Present Illness: 34 yo F with PMH of DM, COPD, and bipolar disorder presents with nausea and vomiting x1 week, and SOB worsening for the last four days. Patient was seen in the ED yesterday, but left AMA. Patient reports she has been trying to hydrate with gatorade and water, but has been vomiting everything she eats/drinks. Denies bloody emesis. She tried taking her home reglan, but it gave her diarrhea so she stopped taking it. Reports no BM in the past four days. She has a history of gastroparesis 2/2 DM. She also reports SOB that is worsening over the past 4 days. It is worse with laying down, reports PND. Reports chest pain due to the SOB. She has not been taking her symbicort or nebulized medications. She reports improvement with duonebs today. Smokes 1.5 pack cigarettes daily for past 15 years. She is currently satting 88% on 4L BNC. CXR NAD and D-dimer neg in the ED. In ED: She was given Xanax, nicotine, 1L ns, albuterol, methylprednisolone, duonebs CXR: No acute cardiopulmonary process. D-dimer negative - Allergies/Adverse Reactions Allergies Allergy/AdvReac Type Severity Reaction Status Date / Time piperacillin sodium Allergy Severe renal Verified 02/09/19 12:03 [From Zosyn] failure tazobactam sodium Allergy Severe renal Verified 02/09/19 12:03 [From Zosyn] failure Penicillins Allergy renal Verified 02/09/19 12:03 failure - Home Medications Medication Instructions Recorded Confirmed Type Fenofibrate 145 mg PO HS 06/03/15 06/12/19 History Atorvastatin Calcium 80 mg PO HS 10/04/16 06/12/19 History Ibuprofen [Motrin] 800 mg PO BID PRN 10/04/16 06/12/19 History Lisinopril [Zestril] 10 mg PO DAILY 10/04/16 06/12/19 History Aspirin [Adult Low Dose Aspirin EC] 81 mg PO DAILY #30 tablet. 10/06/16 Rx Ondansetron [Zofran ODT] 8 mg PO Q6HR PRN 05/15/17 06/12/19 History Paliperidone Palmitate [Invega 234 mg IM Q28D 08/22/17 06/12/19 History Sustenna] QUEtiapine Fumarate [SEROquel] 400 mg PO HS 05/18/18 06/12/19 History Albuterol Sulfate [Proventil Hfa] 2 puff INH Q4H PRN 07/25/18 06/12/19 History Ipratropium/Albuterol Sulfate 3 ml NEB QID PRN 07/25/18 06/12/19 History [DuoNeb] Levemir Flexpen [Levemir FlexPen] 40 units SC BID 07/25/18 06/12/19 History Metoclopramide HCl [Reglan] 10 mg PO QID 07/25/18 06/12/19 History Metoprolol Succinate 50 mg PO DAILY 07/25/18 06/12/19 History OXcarbazepine [Trileptal] 150 mg PO BID 09/11/18 06/12/19 History Sertraline HCl [Zoloft] 50 mg PO DAILY 06/12/19 06/12/19 History - History PMHx: DM1, gastroparesis, HTN, bipolar, DARRYL, COPD; reports she has crohn's gene PSHx: tonsillectomy, multiple I&Ds, colposcopy FHx: CHF and DM in grandmother. Breast cancer in pGM. Melanoma pUncle. Social: Current 1.5 PPD smoker, for past 15 years. 1/month alcohol use. Hx of marijuana use, none recently. Reports she quit using meth 3 months ago. - Review of Systems General: reports: weight/appetite/sleep changes, fatigue Eyes: denies: eye pain, vision changes ENT: denies: nasal congestion, rhinorrhea Respiratory: reports: cough, shortness of breath Cardiovascular: reports: chest pain, paroxysmal nocturnal dyspnea. denies: palpitation, edema Gastrointestinal: reports: nausea, vomiting, diarrhea. denies: constipation, abdominal pain, GI bleeding Skin: denies: rashes, lesions Musculoskeletal: reports: other (reports calf cramping). denies: pain, tenderness, stiffness Neurological: reports: numbness (bilateral feet). denies: weakness Psychological: reports: anxiety, depression - Vital signs BP: 128/96, Pulse: 123, Resp: 18, Pain: 6, O2 sat: 96 on 4L Oxygen, Time: 2018 07:02. - Physical Exam Constitutional: NAD, awake, alert and oriented, well developed HEENT: normocephalic and atraumatic, PERRLA, EOMI, conjunctiva clear, oropharynx clear Neck: supple, other (+LAD) -Heart: tachycardic, systolic 1/6 murmur Lungs: other (diffuse wheezing, diminished breath sounds to the bases) Abdomen: soft, bowel sounds present, no masses/distention, other (obese) Neurological: no focal deficit Skin: no rash/lesions, good turgor, other (cap refill >2 seconds) Heme/Lymphatic: no unusual bruising or bleeding, no purpura Psychiatric: normal mood and affect, intact recent and remote memory FMR H&P: Results - Labs Result Diagrams: 06/12/19 08:29 06/12/19 08:29 Lab results: WBC 14.7 thou/uL (4.8-10.8) H 06/12/19 08:29 Hgb 19.7 g/dL (12.0-16.0) H 06/12/19 08:29 Hct 56.8 % (36.0-47.0) H 06/12/19 08:29 MCV 97.5 fL (78.0-98.0) 06/12/19 08:29 Plt Count 266 thou/uL (130-400) 06/12/19 08:29 Neutrophils % 73.6 % (42.0-75.0) 06/12/19 08:29 Sodium 134 mmol/L (136-145) L 06/12/19 08:29 Potassium 3.5 mmol/L (3.5-5.1) 06/12/19 08:29 Chloride 91 mmol/L (98-107) L 06/12/19 08:29 Carbon Dioxide 30 mmol/L (22-29) H 06/12/19 08:29 BUN 9 mg/dL (7.0-18.7) 06/12/19 08:29 Creatinine 0.94 mg/dL (0.6-1.1) 06/12/19 08:29 Glucose 273 mg/dL (70-105) H 06/12/19 08:29 Calcium 9.8 mg/dL (7.8-10.44) 06/12/19 08:29 Total Bilirubin 0.8 mg/dL (0.2-1.2) 06/12/19 08:29 AST 27 U/L (5-34) 06/12/19 08:29 ALT 41 U/L (8-55) 06/12/19 08:29 Alkaline Phosphatase 56 U/L (40-150) 06/12/19 08:29 Serum Total Protein 8.4 g/dL (6.0-8.3) H 06/12/19 08:29 Albumin 4.3 g/dL (3.5-5.0) 06/12/19 08:29 FMR H&P: A/P - Problem List (1) COPD exacerbation Current Visit: Yes Status: Acute Code(s): J44.1 - CHRONIC OBSTRUCTIVE PULMONARY DISEASE W (ACUTE) EXACERBATION (2) Gastroparesis due to DM Current Visit: No Status: Acute Code(s): E11.43 - TYPE 2 DIABETES W DIABETIC AUTONOMIC (POLY)NEUROPATHY; K31.84 - GASTROPARESIS (3) Hyperglycemia Current Visit: No Status: Chronic Code(s): R73.9 - HYPERGLYCEMIA, UNSPECIFIED (4) Intractable vomiting with nausea Current Visit: No Status: Acute Code(s): R11.2 - NAUSEA WITH VOMITING, UNSPECIFIED (5) Tachycardia Current Visit: No Status: Acute Code(s): R00.0 - TACHYCARDIA, UNSPECIFIED (6) Bipolar disorder Current Visit: No Status: Chronic Code(s): F31.9 - BIPOLAR DISORDER, UNSPECIFIED Qualifiers: Active/Remission status: remission status unspecified Qualified Code(s): F31.9 - Bipolar disorder, unspecified (7) Hidradenitis Current Visit: No Status: Chronic Code(s): L73.2 - HIDRADENITIS SUPPURATIVA (8) Hypertension Current Visit: No Status: Chronic Code(s): I10 - ESSENTIAL (PRIMARY) HYPERTENSION Qualifiers: Hypertension type: essential hypertension Qualified Code(s): I10 - Essential (primary) hypertension (9) Morbid obesity with BMI of 45.0-49.9, adult Current Visit: No Status: Chronic Code(s): E66.01 - MORBID (SEVERE) OBESITY DUE TO EXCESS CALORIES; Z68.42 - BODY MASS INDEX (BMI) 45.0-49.9, ADULT (10) Tobacco abuse Current Visit: No Status: Chronic Code(s): Z72.0 - TOBACCO USE - Plan Intractable N/V 2/2 Diabetic Gastroparesis -s/p 1L NS -LR @ 125 -zofran PRN for nausea/vomiting -Home reglan COPD exacerbation -CXR wnl, wheezing on exam. O2 sat 88% on 4L BNC -s/p methylprednisolone in ED -40 mg prednisone daily -Azithromycin -Duonebs q4h -O2 PRN, keep sats >88% -patient will need to restart symbicort on discharge for better control -Encourage smoking cessation DM -unknown for sure if type 1 or type 2 -mod SSI, accuchecks -restart half home levemir -continue to monitor Bipolar -resume home meds DARRYL -resume home meds Nicotine dependence -[employer]ist cessation -Patch if needed HTN -resume home meds PCP: Jose Code status: full DVT ppx: lovenox, SCDs Diet: ADA 1800 calories daily Dispo: >2 midnights, admit to medical obs Martin Valadez PGY2 Addendum - Attending - Attending Attestation Date/Time: 06/12/19 1101 I personally evaluated the patient and discussed the management with Dr. Valadez. I agree with the History, Examination, Assessment and Plan documented above with any addition or exceptions noted below. The patient presents with recurrent nausea and vomiting and has a long history of diabetic gastroparesis. In the past 4 days she has had worsening shortness of breath and a nonproductive cough. She has not been taking any of her copd meds. She is requiring O2 for acute hypoxic resp failure. Will begin nebs, steroids, antibiotics. She was able to eat lunch and is tolerating this. Pt will be restarted on gastroparesis meds. Wean o2 as able.
[2019-06-12] MEDS ORDERED: Metoclopramide HCl 10 MG/2 ML VIAL IVP PRN (11:17)
[2019-06-12] MEDS ORDERED: Azithromycin 250 MG TAB PO SCH (11:30)
[2019-06-12] MEDS ORDERED: Dextrose 50% Abboject 50 ML SYRINGE SLOW IVP PRN (11:43)
[2019-06-12] MEDS ORDERED: Dextrose 5% in Water 1,000 ML IV PRN (11:43)
[2019-06-12] MEDS ORDERED: HumaLOG 300 UNITS/3 ML VIAL SC PRN (11:43)
[2019-06-12] MEDS ORDERED: Ondansetron ODT 4 MG TAB PO PRN (11:44)
[2019-06-12] MEDS ORDERED: Ibuprofen 800 MG TAB PO PRN (11:44)
[2019-06-12] MEDS ORDERED: Lactated Ringer's 1,000 ML IV SCH (11:45)
[2019-06-12] MEDS ORDERED: Azithromycin 250 MG TAB ONE (12:46)
[2019-06-12] MEDS ORDERED: Metoclopramide HCl 10 MG TAB PO SCH (13:00)
[2019-06-12] MEDS ORDERED: Insulin Glargine 20 UNITS in Pre-Filled Syringe 1 EACH SC SCH (21:00)
[2019-06-12] MEDS ORDERED: Atorvastatin Calcium 40 MG TAB PO SCH (21:00)
[2019-06-12] MEDS ORDERED: Enoxaparin Sodium 40 MG/0.4 ML SYRINGE SC SCH (21:00)
[2019-06-12] MEDS ORDERED: OXcarbazepine 150 MG TAB PO SCH (21:00)
[2019-06-12] MEDS ORDERED: Fenofibrate Nanocrystallized 145 MG TAB PO SCH (21:00)
[2019-06-13] MEDS ORDERED: predniSONE 20 MG TAB PO SCH (08:00)
[2019-06-13] MEDS ORDERED: Nicotine 21 MG PATCH TD SCH (09:00)
[2019-06-13] MEDS ORDERED: Azithromycin 250 MG TAB PO SCH (09:00)
[2019-06-13] MEDS ORDERED: Enoxaparin Sodium 40 MG/0.4 ML SYRINGE SC SCH (09:00)
[2019-06-13] MEDS ORDERED: Lisinopril 20 MG TAB PO SCH (09:00)
[2019-06-13] MEDS ORDERED: Aspirin 81 mg Enteric Coated Tablet PO SCH (09:00)
--- NOTE | 2019-06-14 23:41 | DIS ---
DATE OF ADMISSION: 06/12/2019 DATE OF DISCHARGE: 06/12/2019 RESIDENT: Miracle Valadez MD ADMITTING ATTENDING: Radha Topete MD DISCHARGE ATTENDING: Patient left AMA. CONSULTS: None. PROCEDURES PERFORMED: The patient had chest x-ray on 06/12/2019. Impression; no acute cardiopulmonary process. PRIMARY DIAGNOSES: 1. Intractable nausea and vomiting, secondary to diabetic gastroparesis. 2. Chronic obstructive pulmonary disease exacerbation. 3. Acute hypoxic respiratory failure secondary to chronic obstructive pulmonary disease exacerbation. SECONDARY DIAGNOSES: 1. Diabetes mellitus type 1. 2. Bipolar. 3. General anxiety disorder. 4. Nicotine dependence. 5. Hypertension. DISCHARGE MEDICATIONS: Not given as the patient left AMA. DISCONTINUED MEDICATIONS: None. HISTORY OF PRESENT ILLNESS/HOSPITAL COURSE: This is a 34-year-old female with a past medical history of diabetes mellitus, COPD and bipolar, who presented with nausea and vomiting x1 week and shortness of breath, worsening for the last four days. The patient was seen in the ED the day prior to admission, but left AMA. The patient reports she had been trying to hydrate with Gatorade and water, but had been vomiting everything that she was eating. She denies any bloody emesis. She tried taking her home Reglan but it was giving her diarrhea, so she stopped taking it. She reports no bowel movement in the past four days. She has a history of gastroparesis secondary to diabetes mellitus. She also reports shortness of breath that was worsening over the past four days. It was worse with lying down. She reported paroxysmal nocturnal dyspnea. She reports chest pain due to shortness of breath. She has not been taking her prescribed Symbicort and nebulized medications. She reports improvement with the DuoNeb given in the ED. She currently smokes 1.5 packs of cigarettes daily for the past 15 years. She was saturating 88% on 4 L by nasal cannula. Chest x-ray showed no acute findings and D-dimer was negative in the ED. In the ED, she was given Xanax, nicotine patch, 1 L normal saline, albuterol, methylprednisolone, and DuoNeb. For intractable nausea and vomiting secondary to diabetic gastroparesis, she was given fluids and Zofran for her nausea and vomiting. Her home Reglan was restarted. For COPD exacerbation, the patient was given methylprednisolone in the ED and azithromycin. She was placed on DuoNeb for acute hypoxic respiratory failure secondary to COPD exacerbation. The patient should restart her home Symbicort. Encouraged smoking cessation. Diabetes mellitus. The patient was unsure if it was type 1 or type 2, but had type 1 tattooed on her wrist and that was documented in the previous hospital visit. The patient was placed on moderate sliding scale insulin and her home Levemir was restarted at half strength that she had been n.p.o. We will plan to continue to monitor her blood sugars. For nicotine dependency, encourage cessation. The patient actually left the ED to go smoke and then returned, and then patient left AMA from the ER. DISPOSITION: Guarded. DISCHARGE INSTRUCTIONS: The patient left against medical advice. 1. Location: Home. 2. Diet: Diabetic diet. 3. Activity: As tolerated. 4. Followup: Follow up with PCP, Dr. Garcia, within 1 week. Job ID: [id number] MTDD
== END 2019-06-12 08:36 | disposition short-term general hospital (02) ==
LOC: ERS 07:28 → ERHOLD 08:36 → UNDOADMIN 09:36 → ERHOLD 13:23 → UNDODISIN 13:23
DX: J44.1 Chronic obstructive pulmonary disease with (acute) exacerbation (principal); D72.829 Elevated white blood cell count, unspecified; E11.43 Type 2 diabetes mellitus with diabetic autonomic (poly)neuropathy; K31.84 Gastroparesis; J44.9 Chronic obstructive pulmonary disease, unspecified; K50.90 Crohn's disease, unspecified, without complications; I10 Essential (primary) hypertension; F41.9 Anxiety disorder, unspecified; E28.2 Polycystic ovarian syndrome; F31.9 Bipolar disorder, unspecified; F17.210 Nicotine dependence, cigarettes, uncomplicated
CPT/HCPCS: 71045; 80053; 84484; 85025; 85379; 93005; 94640; 94760; 96361; 96374; J2930; J7611; J7620

== ENCOUNTER 2019-06-29 12:10 | Emergency (ER) | payer OTHER | END 2019-06-29 14:31 | disposition left against medical advice (07) | LOC: ERS 12:10 | DX: Z53.21 Procedure and treatment not carried out due to patient leaving prior to being seen by health care provider (principal) ==

== ENCOUNTER 2019-07-03 04:51 | Emergency (ER) | payer OTHER ==
[2019-07-03] MEDS ORDERED: Metoclopramide HCl 10 MG/2 ML VIAL ONE (05:25)
[2019-07-03] MEDS ORDERED: diphenhydrAMINE 50 MG/ML VIAL ONE (05:25)
[2019-07-03] MEDS ORDERED: Magnesium 2 GM/50 ML BAG (IN WATER) ONE (05:25)
[2019-07-03] MEDS ORDERED: methylPREDNISolone Sod Succ/PF 125 MG/2 ML VIAL ONE (05:25)
[2019-07-03 05:27] LABS: #Basophils 0.1 thou/uL (0.0-0.2); #Eosinphils 0.1 thou/uL (0.0-0.7); #Lymphocytes 2.6 thou/uL (1.20-3.40); #Monocytes 0.9 thou/uL (0.11-0.59); %Basophils 0.9 % (0.0-1.0); %Eosinophils 0.4 % (0.0-10.0); %Lymphocytes 20.6 % (21.0-51.0); %Monocytes 7.1 % (0.0-10.0); Hemoglobin 18.7 g/dL (12.0-16.0); Mean Corpuscular HGB CONC 34.5 g/dL (32.0-36.0); Mean Corpuscular Hemoglobin 32.8 pg (27.0-31.0); Mean Corpuscular Volume 95.3 fL (78.0-98.0); Mean Platelet Volume 7.8 fL (7.4-10.4); Platelet Count 263 thou/uL (130-400); RBC Distribution Width 12.9 % (11.5-14.5); Red Blood Cell (RBC) Count 5.71 mill/uL (4.20-5.40); White Blood Cell (WBC) Count 12.7 thou/uL (4.8-10.8)
[2019-07-03 05:43] LABS: Acetaminophen Less than 6.0 mcg/mL (10.0-30.0); Alcohol Less than 10 mg/dL (Less than 10); Salicylate Less than 8.0 mg/dL (15.0-30.0)
[2019-07-03 05:45] LABS: ALT (SGPT) 39 U/L (8-55); AST (SGOT) 21 U/L (5-34); Albumin 4.3 g/dL (3.5-5.0); Alkaline Phosphatase 53 U/L (40-150); Anion Gap 14 mmol/L (10-20); BUN (Urea Nitrogen) 12 mg/dL (7.0-18.7); Bilirubin, Total 0.8 mg/dL (0.2-1.2); Calc. Creatinine Clearance 0 mL/min (70-130); Calcium 9.9 mg/dL (7.8-10.44); Carbon Dioxide 28 mmol/L (22-29); Chloride 95 mmol/L (98-107); Estimated GFR-MDRD 77; Glucose 242 mg/dL (70-105); Potassium 3.3 mmol/L (3.5-5.1); Protein, Total 8.3 g/dL (6.0-8.3); Sodium 134 mmol/L (136-145)
== END 2019-07-03 07:43 | disposition home or self-care (01) ==
LOC: ERS 04:51
DX: J44.1 Chronic obstructive pulmonary disease with (acute) exacerbation (principal); E11.9 Type 2 diabetes mellitus without complications; I10 Essential (primary) hypertension; F31.9 Bipolar disorder, unspecified; F41.9 Anxiety disorder, unspecified; F17.210 Nicotine dependence, cigarettes, uncomplicated
CPT/HCPCS: 80053; 80307; 84443; 85025; 93005; 94640; 96365; 96368; 96375; J1200; J2765; J2930; J3475; J7620

== ENCOUNTER 2019-07-10 11:03 | Outpatient (CLI) | payer OTHER ==
--- NOTE | 2019-07-10 11:18 | RAD ---
EXAM: Two views chest PROVIDED CLINICAL HISTORY: Dyspnea. COMPARISON: 11/22/2018. FINDINGS: Cardiac silhouette and pulmonary vasculature are within normal limits. The lungs are clear. The osse ous structures have a normal appearance. IMPRESSION: No acute cardiopulmonary process.
== END 2019-07-10 11:04 | disposition home or self-care (01) ==
LOC: RAD 11:03
PROVIDERS: ATTEND Internal Medicine Critical Care Medicine
DX: R06.00 Dyspnea, unspecified (principal)
CPT/HCPCS: 71046

== ENCOUNTER 2019-07-24 17:58 | Emergency (ER) | payer OTHER ==
--- NOTE | 2019-07-24 18:21 | RAD ---
Exam: Chest one view HISTORY:Chest pain Comparison: 06/12/2019, 07/10/2019 FINDINGS: Cardiac silhouette: Normal Aorta: Unremarkable Pulmonary vessels: Normal Costophrenic angles: Clear LUNGS: No masses or consolidation. Pneumothorax: None Osseous abnormalities: None IMPRESSION: No acute cardiopulmonary process.
[2019-07-24] MEDS ORDERED: methylPREDNISolone Sod Succ/PF 125 MG/2 ML VIAL ONE (18:24)
[2019-07-24] MEDS ORDERED: Magnesium 2 GM/50 ML BAG (IN WATER) ONE (18:24)
[2019-07-24 19:02] LABS: #Basophils 0.1 thou/uL (0.0-0.2); #Eosinphils 0.2 thou/uL (0.0-0.7); #Lymphocytes 4.1 thou/uL (1.20-3.40); #Monocytes 0.8 thou/uL (0.11-0.59); #Neutrophils 8.4 thou/uL (1.40-6.50); %Eosinophils 1.2 % (0.0-10.0); %Lymphocytes 29.9 % (21.0-51.0); %Monocytes 5.7 % (0.0-10.0); %Neutrophils 62.2 % (42.0-75.0); Hemoglobin 17.5 g/dL (12.0-16.0); Mean Corpuscular HGB CONC 35.6 g/dL (32.0-36.0); Mean Corpuscular Hemoglobin 33.8 pg (27.0-31.0); Mean Corpuscular Volume 94.9 fL (78.0-98.0); Mean Platelet Volume 8.1 fL (7.4-10.4); Platelet Count 239 thou/uL (130-400); RBC Distribution Width 12.8 % (11.5-14.5); Red Blood Cell (RBC) Count 5.18 mill/uL (4.20-5.40); White Blood Cell (WBC) Count 13.6 thou/uL (4.8-10.8)
[2019-07-24 19:21] LABS: ALT (SGPT) 28 U/L (8-55); AST (SGOT) 13 U/L (5-34); Albumin 3.9 g/dL (3.5-5.0); Alkaline Phosphatase 46 U/L (40-110); Anion Gap 15 mmol/L (10-20); BUN (Urea Nitrogen) 11 mg/dL (7.0-18.7); Bilirubin, Total 0.7 mg/dL (0.2-1.2); Calc. Creatinine Clearance 0 mL/min (70-130); Calcium 9.1 mg/dL (7.8-10.44); Carbon Dioxide 24 mmol/L (22-29); Chloride 100 mmol/L (98-107); Estimated GFR-MDRD 76; Globulin 3.5 g/dL (2.4-3.5); Glucose 296 mg/dL (70-105); Potassium 3.6 mmol/L (3.5-5.1); Protein, Total 7.4 g/dL (6.0-8.3); Sodium 135 mmol/L (136-145)
== END 2019-07-24 20:53 | disposition home or self-care (01) ==
LOC: ERS 17:58
DX: J44.9 Chronic obstructive pulmonary disease, unspecified (principal); E11.43 Type 2 diabetes mellitus with diabetic autonomic (poly)neuropathy; K31.84 Gastroparesis; I10 Essential (primary) hypertension; F31.9 Bipolar disorder, unspecified; F41.9 Anxiety disorder, unspecified; F17.210 Nicotine dependence, cigarettes, uncomplicated; Z79.51 Long term (current) use of inhaled steroids; Z86.718 Personal history of other venous thrombosis and embolism
CPT/HCPCS: 36415; 71045; 80053; 84484; 85025; 85379; 93005; 94640; 96365; 96375; J2930; J3475; J7620

== ENCOUNTER 2019-09-04 14:52 | Emergency (ER) | payer OTHER | END 2019-09-04 16:33 | disposition left against medical advice (07) | LOC: ERS 14:52 | DX: Z53.21 Procedure and treatment not carried out due to patient leaving prior to being seen by health care provider (principal) ==

== ENCOUNTER 2019-11-23 07:27 | Emergency (ER) | payer OTHER ==
[2019-11-23] MEDS ORDERED: Ondansetron PF 4 MG/2 ML Vial ONE (07:53)
[2019-11-23 08:27] LABS: #Basophils 0.1 thou/uL (0.0-0.2); #Eosinphils 0.1 thou/uL (0.0-0.7); #Lymphocytes 2.2 thou/uL (1.20-3.40); #Monocytes 0.6 thou/uL (0.11-0.59); #Neutrophils 6.9 thou/uL (1.40-6.50); %Basophils 0.7 % (0.0-1.0); %Eosinophils 0.8 % (0.0-10.0); %Lymphocytes 22.1 % (21.0-51.0); %Monocytes 6.3 % (0.0-10.0); %Neutrophils 70.1 % (42.0-75.0); Hemoglobin 17.1 g/dL (12.0-16.0); Mean Corpuscular HGB CONC 35.3 g/dL (32.0-36.0); Mean Corpuscular Hemoglobin 32.7 pg (27.0-31.0); Mean Corpuscular Volume 92.8 fL (78.0-98.0); Mean Platelet Volume 7.5 fL (7.4-10.4); Platelet Count 213 thou/uL (130-400); RBC Distribution Width 12.1 % (11.5-14.5); Red Blood Cell (RBC) Count 5.23 mill/uL (4.20-5.40); White Blood Cell (WBC) Count 9.8 thou/uL (4.8-10.8)
[2019-11-23 08:33] LABS: BHCG - Serum Negative (NEGATIVE); Pregs Control Background? CLEAR/WHITE (CLR/WHITE); Pregs Control Bar Appear? YES (CONTROL BAR)
[2019-11-23 08:46] LABS: ALT (SGPT) 36 U/L (8-55); AST (SGOT) 25 U/L (5-34); Albumin 3.7 g/dL (3.5-5.0); Alkaline Phosphatase 51 U/L (40-110); Anion Gap 14 mmol/L (10-20); BUN (Urea Nitrogen) 8 mg/dL (7.0-18.7); Bilirubin, Total 0.8 mg/dL (0.2-1.2); Calc. Creatinine Clearance 0 mL/min (70-130); Calcium 8.9 mg/dL (7.8-10.44); Carbon Dioxide 28 mmol/L (22-29); Chloride 97 mmol/L (98-107); Estimated GFR-MDRD 88; Globulin 3.1 g/dL (2.4-3.5); Glucose 251 mg/dL (70-105); Lipase 14 U/L (8-78); Potassium 3.5 mmol/L (3.5-5.1); Protein, Total 6.8 g/dL (6.0-8.3); Sodium 135 mmol/L (136-145)
[2019-11-23] MEDS ORDERED: Lorazepam 2 MG/ML VIAL ONE (09:12)
--- NOTE | 2019-11-23 09:15 | ULT ---
US Gallbladder RUQ History: Abdominal pain Comparison: Reference is made to CT exam 2017 Findings: Real-time grayscale and color evaluation right upper quadrant of the abdomen was performed. Diffuse increased hepatic echotexture. The exam was discontinued as patient was unable to finish due to an upcoming anxiety intact. Impression: Limited examination with diffuse increased hepatic echotexture suggesting steatosis. Anxi olytic may be helpful for a retrial of the exam.
== END 2019-11-23 10:20 | disposition home or self-care (01) ==
LOC: ERS 07:27
DX: R11.2 Nausea with vomiting, unspecified (principal); R94.31 Abnormal electrocardiogram [ECG] [EKG]; E11.9 Type 2 diabetes mellitus without complications; I10 Essential (primary) hypertension; J44.9 Chronic obstructive pulmonary disease, unspecified; F41.9 Anxiety disorder, unspecified; F31.9 Bipolar disorder, unspecified; F17.210 Nicotine dependence, cigarettes, uncomplicated; Z79.899 Other long term (current) drug therapy
CPT/HCPCS: 36415; 76705; 80053; 83690; 84484; 84703; 85025; 93005; 96361; 96374; 96375; J2060; J2405

== ENCOUNTER 2020-08-04 12:26 | Outpatient (CLI) | payer OTHER | END 2020-08-04 12:27 | disposition home or self-care (01) | LOC: DTY/OP 12:26 | PROVIDERS: ATTEND Student in an Organized Health Care Education/Training Program | DX: E11.65 Type 2 diabetes mellitus with hyperglycemia (principal) | CPT/HCPCS: 97802 ==

== ENCOUNTER 2021-03-15 11:18 | Emergency (ER) | payer OTHER ==
[2021-03-15] MEDS ORDERED: Ondansetron PF 4 MG/2 ML Vial IVP PRN (13:11)
[2021-03-15] MEDS ORDERED: Bisacodyl 5 MG TAB PO PRN (13:11)
[2021-03-15] MEDS ORDERED: Acetaminophen 325 MG TAB PO PRN (13:11)
[2021-03-15] MEDS ORDERED: Dextrose 50% Abboject 50 ML SYRINGE SLOW IVP PRN (13:15)
[2021-03-15] MEDS ORDERED: Dextrose 5% in Water 1,000 ML IV PRN (13:15)
[2021-03-15] MEDS ORDERED: HumaLOG 300 UNITS/3 ML VIAL SC PRN (13:15)
[2021-03-15] MEDS ORDERED: Lantus 1000 UNITS/10 ML VIAL SC SCH (13:30)
[2021-03-15 13:52] LABS: SARS-CoV-2 NAA Rapid Test Not Detected (NotDetected)
[2021-03-15] MEDS ORDERED: Nicotine 21 MG PATCH TD SCH (14:00)
[2021-03-15] MEDS ORDERED: methylPREDNISolone Sod Succ 40 MG VIAL IVP SCH (18:00)
[2021-03-15] MEDS ORDERED: Atorvastatin Calcium 40 MG TAB PO SCH (21:00)
[2021-03-16] MEDS ORDERED: Lantus 1000 UNITS/10 ML VIAL SC SCH (09:00)
[2021-03-16] MEDS ORDERED: Enoxaparin Sodium 40 MG/0.4 ML SYRINGE SC SCH (09:00)
[2021-03-16] MEDS ORDERED: Insulin Glargine 10 UNITS in Pre-Filled Syringe 1 EACH SC SCH (09:00)
== END 2021-03-15 12:53 | disposition short-term general hospital (02) ==
LOC: ERS 11:18
DX: J44.1 Chronic obstructive pulmonary disease with (acute) exacerbation (principal); E11.65 Type 2 diabetes mellitus with hyperglycemia; I10 Essential (primary) hypertension; J45.909 Unspecified asthma, uncomplicated; F17.210 Nicotine dependence, cigarettes, uncomplicated; Z79.899 Other long term (current) drug therapy; Z20.822 Contact with and (suspected) exposure to COVID-19
CPT/HCPCS: 36416; J1815; J7620; U0002

== ENCOUNTER 2021-03-26 21:28 | Inpatient (IN) | payer OTHER ==
[2021-03-26 22:04] VITALS: BMI 41.8
[2021-03-27] MEDS ORDERED: Morphine 2 MG/ML VIAL SLOW IVP PRN (01:22)
[2021-03-27] MEDS ORDERED: HYDROcodone/Acetaminophen 5/325 mg Tablet PO PRN ×2 (01:24→04:11)
[2021-03-27] MEDS ORDERED: Acetaminophen 500 MG TAB PO PRN (01:24)
[2021-03-27] MEDS ORDERED: Ondansetron ODT 4 MG TAB PO PRN (04:11)
[2021-03-27] MEDS ORDERED: HumaLOG 300 UNITS/3 ML VIAL SC PRN ×2 (04:11)
[2021-03-27] MEDS ORDERED: Dextrose 5% in Water 1,000 ML IV PRN (04:11)
[2021-03-27] MEDS ORDERED: Ondansetron PF 4 MG/2 ML Vial IVP PRN (04:11)
[2021-03-27] MEDS ORDERED: Dextrose 50% Abboject 50 ML SYRINGE SLOW IVP PRN (04:11)
[2021-03-27] MEDS ORDERED: Acetaminophen 325 MG TAB PO PRN (04:11)
[2021-03-27] MEDS ORDERED: Enoxaparin Sodium 40 MG/0.4 ML SYRINGE SC SCH (04:15)
[2021-03-27] MEDS ORDERED: Cefepime 2 GM in Sodium Chloride 0.9% 100 ML IVPB SCH (05:00)
[2021-03-27] MEDS ORDERED: Lantus 1000 UNITS/10 ML VIAL SC SCH (05:00)
[2021-03-27 06:09] VITALS: BP 128/89; TEMP 98.1
[2021-03-27] MEDS ORDERED: Vancomycin 1.5 GRAM/300 ML BAG 1.5 GM in Premix Bag 1 BAG IVPB SCH (09:00)
[2021-03-27] MEDS ORDERED: Vancomycin HCl 1.5 GM in Sodium Chloride 0.9% 250 ML 300 ML IVPB SCH (09:00)
[2021-03-27] MEDS ORDERED: Aspirin 81 mg Enteric Coated Tablet PO SCH (09:00)
[2021-03-27] MEDS ORDERED: OXcarbazepine 150 MG TAB PO SCH (09:00)
[2021-03-27 12:29] LABS: SARS-CoV-2 PCR by NAA Not Detected (NotDetected)
[2021-03-27] MEDS ORDERED: Fenofibrate Nanocrystallized 145 MG TAB PO SCH (21:00)
[2021-03-27] MEDS ORDERED: Atorvastatin Calcium 40 MG TAB PO SCH (21:00)
[2021-03-28] MEDS ORDERED: Lantus 1000 UNITS/10 ML VIAL SC SCH (09:00)
== END 2021-03-27 05:50 | disposition left against medical advice (07) | DRG 872 ==
LOC: T4-B 21:28
PROVIDERS: ADMIT Student in an Organized Health Care Education/Training Program; ATTEND Student in an Organized Health Care Education/Training Program
DX: A41.9 Sepsis, unspecified organism (principal); J98.11 Atelectasis; L02.214 Cutaneous abscess of groin; Z20.822 Contact with and (suspected) exposure to COVID-19; L73.2 Hidradenitis suppurativa; E28.2 Polycystic ovarian syndrome; I10 Essential (primary) hypertension; J44.9 Chronic obstructive pulmonary disease, unspecified; Z53.29 Procedure and treatment not carried out because of patient's decision for other reasons; Z88.0 Allergy status to penicillin; Z88.1 Allergy status to other antibiotic agents; Z79.51 Long term (current) use of inhaled steroids; Z79.899 Other long term (current) drug therapy
CPT/HCPCS: 36416; J1815; U0003; U0005

== ENCOUNTER 2021-03-28 17:16 | Inpatient (IN) | payer OTHER ==
[2021-03-28] MEDS ORDERED: Sodium Chloride 0.9% 100 ML ONE (17:38)
[2021-03-28] MEDS ORDERED: Fentanyl 100 MCG/2 ML VIAL ONE (17:38)
[2021-03-28] MEDS ORDERED: Cefepime 2 GM VIAL ONE (17:38)
[2021-03-28 17:51] LABS: #Basophils 0.1 thou/uL (0.0-0.2); #Eosinphils 0.2 thou/uL (0.0-0.7); #Lymphocytes 3.7 thou/uL (1.20-3.40); #Monocytes 0.7 thou/uL (0.11-0.59); #Neutrophils 6.1 thou/uL (1.40-6.50); %Basophils 1.2 % (0.0-1.0); %Eosinophils 1.7 % (0.0-10.0); %Lymphocytes 34.4 % (21.0-51.0); %Monocytes 6.1 % (0.0-10.0); %Neutrophils 56.6 % (42.0-75.0); Hemoglobin 16.7 g/dL (12.0-16.0); Mean Corpuscular Hemoglobin 32.2 pg (27.0-31.0); Mean Corpuscular Volume 94.6 fL (78.0-98.0); Mean Platelet Volume 8.6 fL (7.4-10.4); Platelet Count 244 thou/uL (130-400); RBC Distribution Width 13.2 % (11.5-14.5); Red Blood Cell (RBC) Count 5.19 mill/uL (4.20-5.40); White Blood Cell (WBC) Count 10.7 thou/uL (4.8-10.8)
[2021-03-28] MEDS ORDERED: Vancomycin HCl 2.5 GM in Sodium Chloride 0.9% 500 ML IVPB SCH (18:00)
[2021-03-28 18:02] LABS: INR-International Normal Ratio 0.9; PTT 27.5 sec (22.9-36.1); Prothrombin Time 12.7 sec (12.0-14.7)
[2021-03-28 18:06] LABS: BHCG - Serum Negative (NEGATIVE); Pregs Control Background? CLEAR/WHITE (CLR/WHITE); Pregs Control Bar Appear? YES (CONTROL BAR)
[2021-03-28 18:18] LABS: Bacteria/HPF None Seen HPF (None Seen); Bilirubin Negative (Negative); Blood, Urine Negative (Negative); Clarity Clear (Clear); Glucose, Urine (Dipstick) Greater than 1000 mg/dL (Negative); Ketone, Urine Negative (Negative); Leukocyte Negative Leu/uL (Negative); Nitrite Negative (Negative); Protein, Urine (Dipstick) 30 mg/dL (Neg-Trace); Specific Gravity, Urine 1.031 (1.002-1.036); Urobilinogen Normal mg/dL (Less than 2); WBC/HPF 0-3 HPF (0-3)
[2021-03-28 18:36] LABS: Actual Bicarbonate (HCO3v) 23 mEq/L (22-28); Analyzer IN Cardio ER; Base Excess 1.1 mEq/L (-2.0 to +3.0); Calcium, Ionized (venous) 1.06 mmol/L (1.16-1.32); Chloride (VBG) 98 mmol/L (98-106); Hemoglobin (Hb) 17.5 g/dL (11.7-15.5); Potassium (VBG) 7.77 mmol/L (3.70-5.30); Sodium 131.2 mmol/L (133-146); pH (venous) 7.49 (7.32-7.43)
[2021-03-28 18:43] LABS: Albumin 3.4 g/dL (3.5-5.0)
[2021-03-28 18:45] LABS: Calcium 9.4 mg/dL (7.8-10.44); Chloride 101 mmol/L (98-107); Potassium 4.7 mmol/L (3.5-5.1); Sodium 137 mmol/L (136-145)
[2021-03-28 18:46] LABS: Globulin 3.5 g/dL (2.4-3.5); Glucose 415 mg/dL (70-105); Protein, Total 6.9 g/dL (6.0-8.3)
[2021-03-28 18:47] LABS: Anion Gap 16 mmol/L (10-20); Carbon Dioxide 25 mmol/L (22-29)
[2021-03-28 18:48] LABS: Bilirubin, Total 0.3 mg/dL (0.2-1.2)
[2021-03-28 18:49] LABS: Alkaline Phosphatase 66 U/L (40-110); Calc. Creatinine Clearance 0 mL/min (70-130)
[2021-03-28 18:50] LABS: BUN (Urea Nitrogen) 19 mg/dL (7.0-18.7)
[2021-03-28 18:51] LABS: AST (SGOT) 21 U/L (5-34)
[2021-03-28 18:52] LABS: ALT (SGPT) 20 U/L (8-55)
[2021-03-28] MEDS ORDERED: Insulin Regular 300 UNITS/3 ML VIAL ONE (20:15)
[2021-03-28] MEDS ORDERED: Morphine 4 MG/ML VIAL ONE (21:16)
[2021-03-28] MEDS ORDERED: Ondansetron PF 4 MG/2 ML Vial ONE (21:16)
[2021-03-28] MEDS ORDERED: Acetaminophen 325 MG TAB PO PRN (23:10)
[2021-03-28] MEDS ORDERED: Ondansetron PF 4 MG/2 ML Vial IVP PRN (23:10)
[2021-03-28] MEDS ORDERED: Ondansetron ODT 8 MG TAB PO PRN (23:12)
[2021-03-28] MEDS ORDERED: Albuterol Sulfate 2.5 mg/3 ml Neb NEB PRN (23:15)
[2021-03-28 23:16] VITALS: BMI 42.1
[2021-03-29] MEDS: Nicotine 21 MG PATCH TD SCH (00:13)
[2021-03-29] MEDS: Sodium Chloride 0.45% 1,000 ML IV SCH ×2 (00:13→15:13)
[2021-03-29] MEDS ORDERED: Dextrose 50% Abboject 50 ML SYRINGE SLOW IVP PRN (00:32)
[2021-03-29] MEDS ORDERED: Dextrose 5% in Water 1,000 ML IV PRN (00:32)
[2021-03-29] MEDS: HYDROcodone/Acetaminophen 5/325 mg Tablet PO PRN ×4 (04:25→20:42)
[2021-03-29] MEDS: Cefepime 2 GM in Sodium Chloride 0.9% 100 ML IVPB SCH ×2 (05:09→17:41)
[2021-03-29] MEDS: Morphine 2 MG/ML VIAL SLOW IVP PRN ×2 (06:02→12:47)
[2021-03-29 06:21] LABS: #Eosinphils 0.2 thou/uL (0.0-0.7); #Lymphocytes 2.9 thou/uL (1.20-3.40); #Monocytes 0.7 thou/uL (0.11-0.59); %Basophils 0.1 % (0.0-1.0); %Eosinophils 1.8 % (0.0-10.0); %Lymphocytes 29.3 % (21.0-51.0); %Monocytes 7.6 % (0.0-10.0); %Neutrophils 61.2 % (42.0-75.0); Hemoglobin 14.8 g/dL (12.0-16.0); Mean Corpuscular HGB CONC 33.9 g/dL (32.0-36.0); Mean Corpuscular Hemoglobin 32.2 pg (27.0-31.0); Mean Platelet Volume 7.9 fL (7.4-10.4); Platelet Count 224 thou/uL (130-400); RBC Distribution Width 12.8 % (11.5-14.5); Red Blood Cell (RBC) Count 4.61 mill/uL (4.20-5.40); White Blood Cell (WBC) Count 9.8 thou/uL (4.8-10.8)
[2021-03-29 06:38] LABS: Anion Gap 12 mmol/L (10-20); BUN (Urea Nitrogen) 15 mg/dL (7.0-18.7); Calc. Creatinine Clearance 197 mL/min (70-130); Calcium 8.8 mg/dL (7.8-10.44); Carbon Dioxide 23 mmol/L (22-29); Chloride 102 mmol/L (98-107); Glucose 393 mg/dL (70-105); Potassium 4.3 mmol/L (3.5-5.1); Sodium 133 mmol/L (136-145)
[2021-03-29] MEDS: Lisinopril 10 MG TAB PO SCH (09:09)
[2021-03-29] MEDS: OXcarbazepine 300 MG TAB PO SCH ×2 (09:09→20:40)
[2021-03-29] MEDS: Aspirin 81 mg Enteric Coated Tablet PO SCH (09:10)
[2021-03-29] MEDS: busPIRone HCl 10 MG TAB PO SCH ×2 (09:10→20:39)
[2021-03-29] MEDS: Metoclopramide HCl 10 MG TAB PO SCH ×4 (09:10→20:40)
[2021-03-29] MEDS: Atorvastatin Calcium 40 MG TAB PO SCH (09:10)
[2021-03-29] MEDS: Lantus 1000 UNITS/10 ML VIAL SC SCH ×2 (09:12→20:41)
[2021-03-29] MEDS: HumaLOG 300 UNITS/3 ML VIAL SC PRN ×3 (12:41→20:43)
[2021-03-29] MEDS: Fenofibrate Nanocrystallized 145 MG TAB PO SCH (20:40)
[2021-03-29] MEDS: FLUoxetine HCl 10 MG CAP PO SCH (20:40)
[2021-03-30] MEDS: Morphine 2 MG/ML VIAL SLOW IVP PRN ×2 (00:07→14:50)
[2021-03-30] MEDS: Nicotine 21 MG PATCH TD SCH ×2 (00:07→23:45)
[2021-03-30] MEDS: HYDROcodone/Acetaminophen 5/325 mg Tablet PO PRN ×3 (02:59→21:07)
[2021-03-30] MEDS: Sodium Chloride 0.45% 1,000 ML IV SCH ×2 (03:00→06:27)
[2021-03-30] MEDS: HumaLOG 300 UNITS/3 ML VIAL SC PRN ×4 (06:20→21:08)
[2021-03-30] MEDS: Cefepime 2 GM in Sodium Chloride 0.9% 100 ML IVPB SCH ×2 (06:26→18:29)
[2021-03-30 07:19] LABS: Vancomycin, Trough 11.6 ug/mL
[2021-03-30] MEDS: HumuLIN 70/30 (300 UNITS/3 ML VIAL) SC SCH ×2 (09:33→17:31)
[2021-03-30] MEDS: Lantus 1000 UNITS/10 ML VIAL SC SCH ×2 (09:33→21:08)
[2021-03-30] MEDS: Atorvastatin Calcium 40 MG TAB PO SCH (09:33)
[2021-03-30] MEDS: OXcarbazepine 300 MG TAB PO SCH ×2 (09:33→21:07)
[2021-03-30] MEDS: busPIRone HCl 10 MG TAB PO SCH ×2 (09:34→21:06)
[2021-03-30] MEDS: Aspirin 81 mg Enteric Coated Tablet PO SCH (09:34)
[2021-03-30] MEDS: Metoclopramide HCl 10 MG TAB PO SCH ×4 (09:34→21:07)
[2021-03-30] MEDS: Lisinopril 10 MG TAB PO SCH (09:34)
[2021-03-30 16:37] LABS: Amphetamine Not Detected (NotDetected); Barbiturates Screen Not Detected (NotDetected); Benzodiazepine Screen Not Detected (NotDetected); Cocaine Metabolite Screen Not Detected (NotDetected); Medtox Control Line Valid? VALID (VALID); Medtox Reader # READER 4; Methadone Not Detected (NotDetected); Methamphetamine Not Detected (NotDetected); Opiate Screen Detected (NotDetected); Oxycodone Screen Not Detected (NotDetected); Phencyclidine (PCP) Not Detected (NotDetected); THC/Cannabinoid Screen Not Detected (NotDetected); Tricyclic Screen Not Detected (NotDetected)
[2021-03-30] MEDS: Fenofibrate Nanocrystallized 145 MG TAB PO SCH (21:06)
[2021-03-30] MEDS: FLUoxetine HCl 10 MG CAP PO SCH (21:06)
[2021-03-31] MEDS: Sodium Chloride 0.45% 1,000 ML IV SCH ×2 (02:47→20:02)
[2021-03-31] MEDS: Cefepime 2 GM in Sodium Chloride 0.9% 100 ML IVPB SCH ×2 (06:25→17:39)
[2021-03-31] MEDS: Morphine 2 MG/ML VIAL SLOW IVP PRN ×3 (06:25→20:57)
[2021-03-31] MEDS: busPIRone HCl 10 MG TAB PO SCH ×2 (09:48→21:03)
[2021-03-31] MEDS ORDERED: Fentanyl 100 MCG/2 ML VIAL ONE (13:09)
[2021-03-31] MEDS ORDERED: PROPOFOL 200 MG/20 ML VIAL ONE (13:27)
[2021-03-31] MEDS ORDERED: Succinylcholine 200 MG/10 ml SYRINGE FS ONE (13:27)
[2021-03-31] MEDS ORDERED: PHENYLEPHRINE-NS 100 MCG/ML 10 ML SYRINGE ONE (13:27)
[2021-03-31] MEDS ORDERED: Ondansetron PF 4 MG/2 ML Vial ONE (13:27)
[2021-03-31] MEDS ORDERED: diphenhydrAMINE 50 MG/ML VIAL ONE (13:27)
[2021-03-31] MEDS ORDERED: Lidocaine 1% PF 5 ML VIAL ONE (13:27)
[2021-03-31] MEDS ORDERED: Bupivacaine 0.25% HCL 30 ML VIAL ONE (13:44)
[2021-03-31] MEDS ORDERED: Lidocaine 1% w/Epinephrine 1:100K 20 ML VIAL ONE (13:44)
[2021-03-31] MEDS ORDERED: HYDROcodone/Acetaminophen 10/325 mg Tablet PO PRN (14:00)
[2021-03-31] MEDS ORDERED: Promethazine HCl 25 MG/ML VIAL SLOW IVP PRN (14:14)
[2021-03-31] MEDS ORDERED: Promethazine HCl 25 MG/ML VIAL IM PRN (14:14)
[2021-03-31] MEDS ORDERED: Ondansetron HCl/PF 4 MG/2 ML Vial IVP PRN (14:14)
[2021-03-31] MEDS ORDERED: HYDROmorphone 2 MG/ML VIAL SLOW IVP PRN (14:14)
[2021-03-31] MEDS: Metoclopramide HCl 10 MG TAB PO SCH ×3 (17:36→21:03)
[2021-03-31] MEDS: Aspirin 81 mg Enteric Coated Tablet PO SCH (17:36)
[2021-03-31] MEDS: HumuLIN 70/30 (300 UNITS/3 ML VIAL) SC SCH ×2 (17:37→17:38)
[2021-03-31] MEDS: Lisinopril 10 MG TAB PO SCH (17:37)
[2021-03-31] MEDS: Atorvastatin Calcium 40 MG TAB PO SCH (17:37)
[2021-03-31] MEDS: HumaLOG 300 UNITS/3 ML VIAL SC PRN ×2 (17:38→21:07)
[2021-03-31] MEDS: OXcarbazepine 300 MG TAB PO SCH ×2 (17:39→21:03)
[2021-03-31] MEDS: Lantus 1000 UNITS/10 ML VIAL SC SCH ×2 (17:40→21:06)
[2021-03-31] MEDS: HYDROcodone/Acetaminophen 10/325 mg Tablet PO PRN (17:40)
[2021-03-31] MEDS: Fenofibrate Nanocrystallized 145 MG TAB PO SCH (21:03)
[2021-03-31] MEDS: FLUoxetine HCl 10 MG CAP PO SCH (21:05)
[2021-03-31] MEDS: Nicotine 21 MG PATCH TD SCH (21:30)
[2021-04-01] MEDS: HYDROcodone/Acetaminophen 10/325 mg Tablet PO PRN ×2 (01:57→06:33)
[2021-04-01] MEDS: HumaLOG 300 UNITS/3 ML VIAL SC PRN (06:33)
[2021-04-01] MEDS: Cefepime 2 GM in Sodium Chloride 0.9% 100 ML IVPB SCH (06:34)
[2021-04-01 07:38] LABS: Vancomycin, Trough 12.8 ug/mL
[2021-04-01 08:05] VITALS: BP 132/91; TEMP 98.7
[2021-04-01] MEDS: Lantus 1000 UNITS/10 ML VIAL SC SCH (08:16)
[2021-04-01] MEDS: HumuLIN 70/30 (300 UNITS/3 ML VIAL) SC SCH (08:16)
[2021-04-01] MEDS: busPIRone HCl 10 MG TAB PO SCH (08:17)
[2021-04-01] MEDS: OXcarbazepine 300 MG TAB PO SCH (08:17)
[2021-04-01] MEDS: Aspirin 81 mg Enteric Coated Tablet PO SCH (08:17)
[2021-04-01] MEDS: Atorvastatin Calcium 40 MG TAB PO SCH (08:17)
[2021-04-01] MEDS: Lisinopril 10 MG TAB PO SCH (08:18)
[2021-04-01] MEDS: Metoclopramide HCl 10 MG TAB PO SCH (08:18)
[2021-04-01] MEDS: Sodium Chloride 0.45% 1,000 ML IV SCH (11:03)
== END 2021-04-01 11:41 | disposition home or self-care (01) | DRG 571 ==
LOC: ERS 17:16 → SURG A 20:32
PROVIDERS: ADMIT Internal Medicine; ATTEND Internal Medicine
PROC: 0JB80ZZ Excision of Abdomen Subcutaneous Tissue and Fascia, Open Approach (ICD-10-PCS; principal; 2021-03-31)
PROC: 0W9N0ZZ Drainage of Female Perineum, Open Approach (ICD-10-PCS; 2021-03-31)
DX: L02.211 Cutaneous abscess of abdominal wall (principal); L02.415 Cutaneous abscess of right lower limb; E66.2 Morbid (severe) obesity with alveolar hypoventilation; Z68.41 Body mass index [BMI] 40.0-44.9, adult; E87.2 Acidosis; Z20.822 Contact with and (suspected) exposure to COVID-19; L02.215 Cutaneous abscess of perineum; E11.65 Type 2 diabetes mellitus with hyperglycemia; F31.9 Bipolar disorder, unspecified; F41.9 Anxiety disorder, unspecified; F17.210 Nicotine dependence, cigarettes, uncomplicated; E11.43 Type 2 diabetes mellitus with diabetic autonomic (poly)neuropathy; K31.84 Gastroparesis; E28.2 Polycystic ovarian syndrome; F12.10 Cannabis abuse, uncomplicated; L73.2 Hidradenitis suppurativa; J45.20 Mild intermittent asthma, uncomplicated; E78.5 Hyperlipidemia, unspecified; J44.9 Chronic obstructive pulmonary disease, unspecified; L03.315 Cellulitis of perineum; B95.4 Other streptococcus as the cause of diseases classified elsewhere; Z90.89 Acquired absence of other organs; Z88.0 Allergy status to penicillin; Z79.899 Other long term (current) drug therapy; Z79.82 Long term (current) use of aspirin; Z79.4 Long term (current) use of insulin; Z81.8 Family history of other mental and behavioral disorders; Z83.79 Family history of other diseases of the digestive system; Z82.0 Family history of epilepsy and other diseases of the nervous system
CPT/HCPCS: 36415; 36416; 74177; 80048; 80053; 80202; 80306; 81003; 81015; 82010; 82805; 83605; 84703; 85025; 85610; 85730; 87040; 87070; 87077; 87086; 87205; 93005; 94760; 96365; 96366; 96367; 96375; J0692; J1200; J1815; J2270; J2405; J2704; J3010; J3370; J3490; J7030; S0020

== ENCOUNTER 2021-08-08 19:00 | Outpatient (CLI) | payer OTHER | END 2021-08-08 19:01 | disposition home or self-care (01) | LOC: SLEEPLAB 19:00 | PROVIDERS: ATTEND Internal Medicine Critical Care Medicine | DX: G47.33 Obstructive sleep apnea (adult) (pediatric) (principal); R53.83 Other fatigue; R06.83 Snoring; G47.00 Insomnia, unspecified; G47.10 Hypersomnia, unspecified; J44.9 Chronic obstructive pulmonary disease, unspecified; E11.9 Type 2 diabetes mellitus without complications; I10 Essential (primary) hypertension; R09.02 Hypoxemia; R00.0 Tachycardia, unspecified | CPT/HCPCS: 95810 ==

== ENCOUNTER 2022-02-05 11:05 | Outpatient (CLI) | payer OTHER ==
[2022-02-05 11:28] LABS: Estimated GFR-MDRD - POC Greater than 90
== END 2022-02-05 11:06 | disposition home or self-care (01) ==
LOC: BICCT 11:05
PROVIDERS: ATTEND Physician Assistant Medical
DX: E11.43 Type 2 diabetes mellitus with diabetic autonomic (poly)neuropathy (principal); R14.0 Abdominal distension (gaseous); K21.9 Gastro-esophageal reflux disease without esophagitis; K76.0 Fatty (change of) liver, not elsewhere classified
CPT/HCPCS: 74177; 82565

== ENCOUNTER 2022-03-25 20:59 | Observation (INO) | payer OTHER ==
[2022-03-25] MEDS ORDERED: Dextrose 5% in Water 1,000 ML IV PRN (22:50)
[2022-03-25] MEDS ORDERED: Dextrose 50% Abboject 50 ML SYRINGE SLOW IVP PRN (22:50)
[2022-03-25] MEDS ORDERED: HumaLOG 300 UNITS/3 ML VIAL SC PRN ×2 (22:50)
[2022-03-25] MEDS ORDERED: Acetaminophen 650 MG Suppository PR PRN (22:50)
[2022-03-25] MEDS ORDERED: Ondansetron ODT 4 MG TAB PO PRN (22:50)
[2022-03-25] MEDS ORDERED: Ondansetron PF 4 MG/2 ML Vial IVP PRN (22:50)
[2022-03-25] MEDS ORDERED: Acetaminophen 325 MG TAB PO PRN (22:50)
[2022-03-25 22:53] VITALS: BMI 46.9
[2022-03-25] MEDS ORDERED: Nicotine 21 MG PATCH TD SCH (23:00)
[2022-03-25] MEDS ORDERED: cefTRIAXone\\ROCEPHIN 1 GM in Sodium Chloride 0.9% 100 ML IVPB SCH (23:00)
[2022-03-25 23:07] LABS: Glucose POC Confirmation 541 mg/dl (70-105)
[2022-03-26 04:31] VITALS: BP 136/73; TEMP 97.7
[2022-03-26] MEDS ORDERED: Mometasone 200 MCG/Formoterol 5 MCG 120 PUFF INHALER INH SCH (06:30)
[2022-03-26] MEDS ORDERED: Insulin Regular 300 UNITS/3 ML VIAL SC SCH (07:30)
[2022-03-26] MEDS ORDERED: Enoxaparin Sodium 40 MG/0.4 ML SYRINGE SC SCH (09:00)
[2022-03-26] MEDS ORDERED: Aspirin 81 mg Enteric Coated Tablet PO SCH (09:00)
[2022-03-26] MEDS ORDERED: Nicotine 21 MG PATCH TD SCH (09:00)
[2022-03-26] MEDS ORDERED: Atorvastatin Calcium 40 MG TAB PO SCH (09:00)
[2022-03-26] MEDS ORDERED: Lisinopril 10 MG TAB PO SCH (09:00)
== END 2022-03-26 04:50 | disposition left against medical advice (07) ==
LOC: 2SW 21:53
PROVIDERS: ADMIT Student in an Organized Health Care Education/Training Program; ATTEND Student in an Organized Health Care Education/Training Program
DX: J44.1 Chronic obstructive pulmonary disease with (acute) exacerbation (principal); J96.01 Acute respiratory failure with hypoxia; E11.9 Type 2 diabetes mellitus without complications; I10 Essential (primary) hypertension; E78.00 Pure hypercholesterolemia, unspecified; F17.210 Nicotine dependence, cigarettes, uncomplicated; E66.9 Obesity, unspecified; Z68.42 Body mass index [BMI] 45.0-49.9, adult; Z53.29 Procedure and treatment not carried out because of patient's decision for other reasons; Z79.4 Long term (current) use of insulin; Z79.82 Long term (current) use of aspirin; Z79.899 Other long term (current) drug therapy; Z88.0 Allergy status to penicillin; Z88.8 Allergy status to other drugs, medicaments and biological substances
CPT/HCPCS: 36415; 96365; G0378; J0696; J1815; J3490

== ENCOUNTER 2022-04-06 05:38 | Inpatient (IN) | payer OTHER ==
[2022-04-06] MEDS ORDERED: Dexamethasone 10 MG/ML VIAL ONE (05:59)
[2022-04-06 06:27] LABS: #Basophils 0.1 thou/uL (0.0-0.2); #Eosinphils 0.1 thou/uL (0.0-0.7); #Lymphocytes 2.1 thou/uL (1.20-3.40); #Monocytes 0.6 thou/uL (0.11-0.59); #Neutrophils 7.7 thou/uL (1.40-6.50); %Basophils 0.6 % (0.0-1.0); %Eosinophils 0.9 % (0.0-10.0); %Lymphocytes 19.9 % (21.0-51.0); %Monocytes 5.6 % (0.0-10.0); Hemoglobin 16.6 g/dL (12.0-16.0); Mean Corpuscular HGB CONC 33.5 g/dL (32.0-36.0); Mean Corpuscular Hemoglobin 32.5 pg (27.0-31.0); Mean Corpuscular Volume 96.8 fL (78.0-98.0); Mean Platelet Volume 7.6 fL (7.4-10.4); Platelet Count 207 thou/uL (130-400); RBC Distribution Width 13.6 % (11.5-14.5); White Blood Cell (WBC) Count 10.5 thou/uL (4.8-10.8)
[2022-04-06 06:49] LABS: ALT (SGPT) 29 U/L (8-55); AST (SGOT) 21 U/L (5-34); Albumin 3.2 g/dL (3.5-5.0); Alkaline Phosphatase 56 U/L (40-110); Anion Gap 15 mmol/L (10-20); BUN (Urea Nitrogen) 9 mg/dL (7.0-18.7); Bilirubin, Total 0.5 mg/dL (0.2-1.2); Calc. Creatinine Clearance 0 mL/min (70-130); Calcium 8.1 mg/dL (7.8-10.44); Carbon Dioxide 25 mmol/L (22-29); Chloride 99 mmol/L (98-107); Globulin 3.4 g/dL (2.4-3.5); Glucose 343 mg/dL (70-105); Potassium 4.2 mmol/L (3.5-5.1); Protein, Total 6.6 g/dL (6.0-8.3); Sodium 135 mmol/L (136-145)
[2022-04-06] MEDS ORDERED: Moisturizing Cream (Eucerin) 113 GM JAR TOP PRN (08:05)
[2022-04-06] MEDS ORDERED: Acetaminophen 650 MG Suppository PR PRN (08:05)
[2022-04-06] MEDS ORDERED: Senokot S 8.6-50 MG TAB PO PRN (08:05)
[2022-04-06] MEDS ORDERED: HYDROcodone/Acetaminophen 5/325 mg Tablet PO PRN (08:05)
[2022-04-06] MEDS ORDERED: HumaLOG 300 UNITS/3 ML VIAL SC PRN ×3 (08:05→09:48)
[2022-04-06] MEDS ORDERED: Ondansetron PF 4 MG/2 ML Vial IVP PRN (08:05)
[2022-04-06] MEDS ORDERED: Labetalol HCl 100 MG/20 ML VIAL SLOW IVP PRN (08:05)
[2022-04-06] MEDS ORDERED: Ondansetron ODT 4 MG TAB PO PRN (08:05)
[2022-04-06] MEDS ORDERED: Acetaminophen 325 MG TAB PO PRN (08:05)
[2022-04-06] MEDS ORDERED: Artificial Tear Sol 15 ML BOT EA EYE PRN (08:05)
[2022-04-06] MEDS ORDERED: Dextrose 5% in Water 1,000 ML IV PRN ×2 (08:05→09:48)
[2022-04-06] MEDS ORDERED: Bisacodyl 5 MG TAB PO PRN (08:05)
[2022-04-06] MEDS ORDERED: Calcium Carbonate 500 MG ChewTAB PO PRN (08:05)
[2022-04-06] MEDS ORDERED: hydrALAZINE 20 MG/ML VIAL SLOW IVP PRN ×2 (08:05→10:05)
[2022-04-06] MEDS ORDERED: Dextrose 50% Abboject 50 ML SYRINGE SLOW IVP PRN ×2 (08:05→09:48)
[2022-04-06] MEDS ORDERED: Azithromycin 500 MG VIAL ONE (08:08)
[2022-04-06] MEDS ORDERED: Enoxaparin Sodium 40 MG/0.4 ML SYRINGE SC SCH (08:15)
[2022-04-06] MEDS ORDERED: Insulin Regular 300 UNITS/3 ML VIAL SC SCH (09:00)
[2022-04-06] MEDS ORDERED: NIFEdipine XL 30 MG TAB PO SCH (09:00)
[2022-04-06] MEDS ORDERED: Nicotine 21 MG PATCH TD SCH (09:00)
[2022-04-06] MEDS ORDERED: Nicotine 14 MG PATCH TD SCH (09:00)
[2022-04-06] MEDS ORDERED: INVEGA IM SCH (09:15)
[2022-04-06] MEDS ORDERED: hydrOXYzine Pamoate 25 mg Capsule PO PRN (10:10)
[2022-04-06] MEDS ORDERED: PALIPERIDONE PALMITATE 234 MG/1.5 ML IM SCH (10:15)
[2022-04-06 10:49] VITALS: BMI 48.4
[2022-04-06] MEDS ORDERED: Magnesium 2 GM/50 ML(in water) 2 GM in Premix Bag 1 BAG IVPB SCH (11:00)
[2022-04-06 11:09] LABS: Base Excess (BEa) 1.1 mEq/L (-2.0 to +3.0); CO2 Tension 47.2 mmHg (35.0-45.0); Calcium, Ionized (arterial) 1.11 mmol/L (1.12-1.30); Carboxyhemoglobin (COHb) 7.1 gm% (0.0-3.0); Potassium - ABG Lab 4.26 mmol/L (3.70-5.30); pH, Arterial 7.38 (7.35-7.45)
[2022-04-06 11:19] LABS: O2 Tension (PaO2), arterial 54.8 mmHg (80.0-100.0); Puncture Site LRA
[2022-04-06] MEDS ORDERED: methylPREDNISolone Sod Succ 40 MG VIAL IVP SCH (12:00)
[2022-04-06 12:07] VITALS: TEMP 98.2
[2022-04-06] MEDS: methylPREDNISolone Sod Succ 40 MG VIAL IVP SCH ×2 (12:27→17:47)
[2022-04-06] MEDS: HumaLOG 300 UNITS/3 ML VIAL SC PRN ×2 (12:33→17:48)
[2022-04-06] MEDS: Insulin Regular 300 UNITS/3 ML VIAL SC SCH ×2 (12:48→18:02)
[2022-04-06 14:02] LABS: Pregnancy Test - Urine (BHCG) Negative (Negative); Pregu Control Background? CLEAR/WHITE (CLR/WHITE); Pregu Control Bar Appear? YES (CONTROL BAR); Specific Gravity 1.041 (1.002-1.036)
[2022-04-06 14:21] LABS: Amphetamine Not Detected (NotDetected); Barbiturates Screen Not Detected (NotDetected); Benzodiazepine Screen Not Detected (NotDetected); Cocaine Metabolite Screen Not Detected (NotDetected); Methadone Not Detected (NotDetected); Methamphetamine Not Detected (NotDetected); Opiate Screen Detected (NotDetected); Oxycodone Screen Not Detected (NotDetected); Phencyclidine (PCP) Not Detected (NotDetected); THC/Cannabinoid Screen Detected (NotDetected); Tricyclic Screen Detected (NotDetected)
[2022-04-06 17:25] VITALS: BP 162/96
[2022-04-06] MEDS ORDERED: Mometasone/Formoterol 200/5 60 PUFF INH SCH ×2 (18:30)
[2022-04-06] MEDS ORDERED: Budesonide 0.5 MG/2 ML NEB NEB SCH (18:30)
[2022-04-06] MEDS ORDERED: Arformoterol 15 MCG/2 ML NEB NEB SCH (18:30)
[2022-04-06] MEDS ORDERED: Non-Formulary Item 1 EACH (Fenofibrate [Fenofibrate] 150 MG Capsule) PO SCH (21:00)
[2022-04-06] MEDS ORDERED: Non-Formulary Item 1 EACH (Atorvastatin Calcium [Atorvastatin Calcium] 80 MG Tablet) PO SCH (21:00)
[2022-04-06] MEDS ORDERED: Fenofibrate Nanocrystallized 145 MG TAB PO SCH (21:00)
[2022-04-06] MEDS ORDERED: Montelukast Sodium 10 mg Tablet PO SCH (21:00)
[2022-04-06] MEDS ORDERED: Atorvastatin Calcium 40 MG TAB PO SCH (21:00)
[2022-04-06] MEDS ORDERED: Non-Formulary Item 1 EACH (Quetiapine Fumarate [Seroquel] 400 MG Tablet) PO SCH (21:00)
[2022-04-07] MEDS ORDERED: Insulin Regular 300 UNITS/3 ML VIAL SC SCH (08:00)
[2022-04-07] MEDS ORDERED: Enoxaparin Sodium 40 MG/0.4 ML SYRINGE SC SCH (09:00)
[2022-04-07] MEDS ORDERED: Azithromycin 500 MG in Sodium Chloride 0.9% 250 ML 250 ML IVPB SCH (09:00)
[2022-04-07] MEDS ORDERED: Aspirin 81 mg Enteric Coated Tablet PO SCH (09:00)
== END 2022-04-06 18:10 | disposition left against medical advice (07) | DRG 189 ==
LOC: ERS 05:38 → T4-A 08:04 → OBSVTOIN 09:51
PROVIDERS: ADMIT Family Medicine; ATTEND Family Medicine
DX: J96.01 Acute respiratory failure with hypoxia (principal); J44.1 Chronic obstructive pulmonary disease with (acute) exacerbation; J45.901 Unspecified asthma with (acute) exacerbation; Z20.822 Contact with and (suspected) exposure to COVID-19; E11.9 Type 2 diabetes mellitus without complications; I10 Essential (primary) hypertension; L73.2 Hidradenitis suppurativa; F31.9 Bipolar disorder, unspecified; F41.9 Anxiety disorder, unspecified; E28.2 Polycystic ovarian syndrome; G47.33 Obstructive sleep apnea (adult) (pediatric); E78.00 Pure hypercholesterolemia, unspecified; F17.210 Nicotine dependence, cigarettes, uncomplicated; Z79.4 Long term (current) use of insulin; Z79.51 Long term (current) use of inhaled steroids; Z79.899 Other long term (current) drug therapy; Z88.0 Allergy status to penicillin; Z88.1 Allergy status to other antibiotic agents; Z91.19 Patient's noncompliance with other medical treatment and regimen; Z53.29 Procedure and treatment not carried out because of patient's decision for other reasons
CPT/HCPCS: 36415; 36416; 36600; 71045; 80053; 80306; 81025; 82805; 83880; 84145; 85025; 87633; 93005; 94640; J0456; J1100; J1650; J1815; J2920; J3475; J7620; Q0177

== ENCOUNTER 2022-07-24 16:38 | Emergency (ER) | payer OTHER ==
[2022-07-24 17:10] LABS: #Eosinphils 0.1 thou/uL (0.0-0.7); #Lymphocytes 2.9 thou/uL (1.20-3.40); #Monocytes 0.8 thou/uL (0.11-0.59); #Neutrophils 8.2 thou/uL (1.40-6.50); %Basophils 0.4 % (0.0-1.0); %Eosinophils 0.9 % (0.0-10.0); %Lymphocytes 23.9 % (21.0-51.0); %Monocytes 6.7 % (0.0-10.0); Hemoglobin 16.9 g/dL (12.0-16.0); Mean Corpuscular HGB CONC 33.1 g/dL (32.0-36.0); Mean Corpuscular Hemoglobin 31.9 pg (27.0-31.0); Mean Corpuscular Volume 96.7 fL (78.0-98.0); Mean Platelet Volume 8.7 fL (7.4-10.4); Platelet Count 200 thou/uL (130-400); RBC Distribution Width 13.2 % (11.5-14.5); Red Blood Cell (RBC) Count 5.29 mill/uL (4.20-5.40); White Blood Cell (WBC) Count 12.1 thou/uL (4.8-10.8)
[2022-07-24 17:17] LABS: BHCG - Serum Negative (NEGATIVE); Pregs Control Background? CLEAR/WHITE (CLR/WHITE); Pregs Control Bar Appear? YES (CONTROL BAR)
[2022-07-24] MEDS ORDERED: Metoprolol Tartrate 25 MG TAB PO SCH (17:30)
[2022-07-24 17:34] LABS: ALT (SGPT) 26 U/L (8-55); AST (SGOT) 13 U/L (5-34); Albumin 3.5 g/dL (3.5-5.0); Alkaline Phosphatase 69 U/L (40-110); Anion Gap 13 mmol/L (10-20); BUN (Urea Nitrogen) 12 mg/dL (7.0-18.7); Bilirubin, Total 0.5 mg/dL (0.2-1.2); Calc. Creatinine Clearance 0 mL/min (70-130); Calcium 10.1 mg/dL (7.8-10.44); Carbon Dioxide 31 mmol/L (22-29); Chloride 93 mmol/L (98-107); Estimated GFR 84; Globulin 3.9 g/dL (2.4-3.5); Glucose 463 mg/dL (70-105); Potassium 3.9 mmol/L (3.5-5.1); Protein, Total 7.4 g/dL (6.0-8.3); Sodium 133 mmol/L (136-145)
[2022-07-24] MEDS ORDERED: Morphine 4 MG/ML VIAL ONE (17:38)
[2022-07-24] MEDS ORDERED: Metoprolol Tartrate 50 MG TAB ONE (17:39)
[2022-07-24] MEDS ORDERED: Ondansetron PF 4 MG/2 ML Vial ONE (17:39)
[2022-07-24] MEDS ORDERED: diphenhydrAMINE 50 MG/ML VIAL ONE (19:46)
[2022-07-24 20:01] LABS: Lactic Acid 2.1 mmol/L (0.5-2.2)
== END 2022-07-24 20:40 | disposition home or self-care (01) ==
LOC: ERS 16:38
DX: E86.0 Dehydration (principal); M79.606 Pain in leg, unspecified; I10 Essential (primary) hypertension; E11.9 Type 2 diabetes mellitus without complications; J44.9 Chronic obstructive pulmonary disease, unspecified; F17.210 Nicotine dependence, cigarettes, uncomplicated; Z79.899 Other long term (current) drug therapy
CPT/HCPCS: 36415; 71045; 80053; 83605; 83880; 84484; 84703; 85025; 93005; 93923; 96374; 96375; J1200; J2270; J2405

== ENCOUNTER 2022-09-11 12:42 | Emergency (ER) | payer OTHER ==
[~2022-09-11 12:42] MED LIST: Iopamidol-370 76% 500 ML 1 ML ONE
[2022-09-11] MEDS ORDERED: Morphine 4 MG/ML VIAL ONE (13:03)
[2022-09-11] MEDS ORDERED: Ondansetron PF 4 MG/2 ML Vial ONE (13:03)
[2022-09-11 13:22] LABS: #Basophils 0.1 thou/uL (0.0-0.2); #Eosinphils 0.2 thou/uL (0.0-0.7); #Lymphocytes 3.1 thou/uL (1.20-3.40); #Monocytes 0.6 thou/uL (0.11-0.59); #Neutrophils 7.2 thou/uL (1.40-6.50); %Basophils 0.5 % (0.0-1.0); %Eosinophils 1.5 % (0.0-10.0); %Lymphocytes 27.8 % (21.0-51.0); %Neutrophils 65.1 % (42.0-75.0); Hemoglobin 16.7 g/dL (12.0-16.0); Mean Corpuscular HGB CONC 32.5 g/dL (32.0-36.0); Mean Corpuscular Hemoglobin 29.7 pg (27.0-31.0); Mean Corpuscular Volume 91.5 fl (78.0-98.0); Mean Platelet Volume 8.3 fL (7.4-10.4); Platelet Count 198 10x3/uL (130-400); RBC Distribution Width 12.6 % (11.5-14.5); White Blood Cell (WBC) Count 11.1 10x3/uL (4.8-10.8)
[2022-09-11 13:44] LABS: ALT (SGPT) 35 U/L (8-55); AST (SGOT) 21 U/L (5-34); Albumin 3.6 g/dL (3.5-5.0); Alkaline Phosphatase 89 U/L (40-110); Anion Gap 14 mmol/L (10-20); BUN (Urea Nitrogen) 10 mg/dL (7.0-18.7); Bilirubin, Total 0.3 mg/dL (0.2-1.2); Calc. Creatinine Clearance 0 mL/min (70-130); Calcium 9.5 mg/dL (7.8-10.44); Carbon Dioxide 28 mmol/L (22-29); Chloride 97 mmol/L (98-107); Estimated GFR 84; Globulin 4.2 g/dL (2.4-3.5); Glucose 357 mg/dL (70-105); Lipase 64 U/L (8-78); Potassium 3.9 mmol/L (3.5-5.1); Protein, Total 7.8 g/dL (6.0-8.3); Sodium 135 mmol/L (136-145)
[2022-09-11 14:39] LABS: Bacteria/HPF 2+ HPF (None Seen); Bilirubin Negative (Negative); Blood, Urine Trace (Negative); Clarity Clear (Clear); Glucose, Urine (Dipstick) >=1000 mg/dL (Negative); Ketone, Urine Trace mg/dL (Negative); Leukocyte Negative Leu/uL (Negative); Nitrite Negative (Negative); Protein, Urine (Dipstick) 300 mg/dL (Neg-Trace); Specific Gravity, Urine 1.027 (1.002-1.036); WBC/HPF 0-3 HPF (0-3)
[2022-09-11 14:40] LABS: Pregnancy Test - Urine (BHCG) Negative (Negative); Pregu Control Background? CLEAR/WHITE (CLR/WHITE); Pregu Control Bar Appear? YES (CONTROL BAR); Specific Gravity 1.027 (1.002-1.036)
[2022-09-11] MEDS ORDERED: Ketorolac Tromethamine 30 MG/ML VIAL ONE (15:40)
== END 2022-09-11 15:49 | disposition home or self-care (01) ==
LOC: ERS 12:42
DX: I31.39 Other pericardial effusion (noninflammatory) (principal); E11.9 Type 2 diabetes mellitus without complications; R00.0 Tachycardia, unspecified; I10 Essential (primary) hypertension; J44.9 Chronic obstructive pulmonary disease, unspecified; F17.210 Nicotine dependence, cigarettes, uncomplicated; Z79.4 Long term (current) use of insulin
CPT/HCPCS: 74177; 80053; 81003; 81015; 81025; 83690; 85025; 93005; J1885; J2270; J2405

== ENCOUNTER 2022-09-12 10:26 | Emergency (ER) | payer OTHER ==
[2022-09-12 11:17] LABS: #Basophils 0.1 thou/uL (0.0-0.2); #Eosinphils 0.2 thou/uL (0.0-0.7); #Lymphocytes 2.9 thou/uL (1.20-3.40); #Monocytes 0.6 thou/uL (0.11-0.59); #Neutrophils 7.8 thou/uL (1.40-6.50); %Basophils 0.8 % (0.0-1.0); %Eosinophils 1.5 % (0.0-10.0); %Lymphocytes 25.1 % (21.0-51.0); %Monocytes 4.9 % (0.0-10.0); %Neutrophils 67.7 % (42.0-75.0); Hemoglobin 16.7 g/dL (12.0-16.0); Mean Corpuscular HGB CONC 33.3 g/dL (32.0-36.0); Mean Corpuscular Hemoglobin 31.2 pg (27.0-31.0); Mean Corpuscular Volume 93.9 fl (78.0-98.0); Mean Platelet Volume 8.7 fL (7.4-10.4); Platelet Count 194 10x3/uL (130-400); RBC Distribution Width 12.7 % (11.5-14.5); Red Blood Cell (RBC) Count 5.35 mill/uL (4.20-5.40); White Blood Cell (WBC) Count 11.6 10x3/uL (4.8-10.8)
[2022-09-12] MEDS ORDERED: Morphine 4 MG/ML VIAL ONE (11:24)
[2022-09-12] MEDS ORDERED: Aspirin Chewable 81 MG TAB ONE (11:24)
[2022-09-12] MEDS ORDERED: Lidocaine 1% PF 5 ML VIAL ONE (11:25)
[2022-09-12] MEDS ORDERED: Lidocaine 1% w/Epinephrine 1:100K 20 ML VIAL ONE (11:26)
[2022-09-12 11:47] LABS: ALT (SGPT) 38 U/L (8-55); AST (SGOT) 32 U/L (5-34); Albumin 3.5 g/dL (3.5-5.0); Alkaline Phosphatase 69 U/L (40-110); Anion Gap 17 mmol/L (10-20); BUN (Urea Nitrogen) 15 mg/dL (7.0-18.7); Bilirubin, Total 0.5 mg/dL (0.2-1.2); Calc. Creatinine Clearance 0 mL/min (70-130); Calcium 9.3 mg/dL (7.8-10.44); Carbon Dioxide 23 mmol/L (22-29); Chloride 97 mmol/L (98-107); Estimated GFR 71; Globulin 3.8 g/dL (2.4-3.5); Potassium 4.8 mmol/L (3.5-5.1); Protein, Total 7.3 g/dL (6.0-8.3); Sodium 132 mmol/L (136-145)
[2022-09-12 11:59] LABS: Glucose 506 mg/dL (70-105)
[2022-09-12 12:56] LABS: Bacteria/HPF 2+ HPF (None Seen); Bilirubin Negative (Negative); Blood, Urine Negative (Negative); Clarity Clear (Clear); Glucose, Urine (Dipstick) Greater than 1000 mg/dL (Negative); Ketone, Urine Trace mg/dL (Negative); Leukocyte Negative Leu/uL (Negative); Nitrite Negative (Negative); Protein, Urine (Dipstick) 300 mg/dL (Neg-Trace); Specific Gravity, Urine 1.037 (1.002-1.036); Urobilinogen Normal mg/dL (Less than 2)
[2022-09-12 12:59] LABS: Pregnancy Test - Urine (BHCG) Negative (Negative); Pregu Control Background? CLEAR/WHITE (CLR/WHITE); Pregu Control Bar Appear? YES (CONTROL BAR); Specific Gravity 1.037 (1.002-1.036)
[2022-09-12] MEDS ORDERED: Acetaminophen 325 MG TAB PO PRN (14:03)
[2022-09-12] MEDS ORDERED: Dextrose 5% in Water 1,000 ML IV PRN (14:06)
[2022-09-12] MEDS ORDERED: Dextrose 50% Abboject 50 ML SYRINGE SLOW IVP PRN (14:06)
[2022-09-12] MEDS ORDERED: HumaLOG 300 UNITS/3 ML VIAL SC PRN (14:06)
[2022-09-12 14:35] LABS: Hemoglobin A1c 11.4 % (4.0-6.0)
[2022-09-12] MEDS ORDERED: Nicotine 21 MG PATCH TD SCH (15:00)
[2022-09-12] MEDS ORDERED: Insulin Regular 300 UNITS/3 ML VIAL SC SCH (17:00)
== END 2022-09-12 15:04 | disposition short-term general hospital (02) ==
LOC: ERS 10:26
DX: I31.39 Other pericardial effusion (noninflammatory) (principal); E11.9 Type 2 diabetes mellitus without complications; R00.0 Tachycardia, unspecified; D72.829 Elevated white blood cell count, unspecified; J44.9 Chronic obstructive pulmonary disease, unspecified; F17.210 Nicotine dependence, cigarettes, uncomplicated
CPT/HCPCS: 10060; 36415; 36416; 71045; 71275; 74177; 80053; 81003; 81015; 81025; 83036; 83690; 83880; 84484; 84550; 85025; 93005; 94760; 96374; 96375; J1885; J2270; J2405; Q9967

== ENCOUNTER 2022-09-13 14:45 | Emergency (ER) | payer OTHER | END 2022-09-13 15:03 | disposition left against medical advice (07) | LOC: ERS 14:45 | DX: Z53.21 Procedure and treatment not carried out due to patient leaving prior to being seen by health care provider (principal) | CPT/HCPCS: 93005 ==

== ENCOUNTER 2022-09-15 11:19 | Emergency (ER) | payer OTHER ==
[2022-09-15 12:32] LABS: #Eosinphils 0.1 thou/uL (0.0-0.7); #Lymphocytes 2.8 thou/uL (1.20-3.40); #Monocytes 0.6 thou/uL (0.11-0.59); #Neutrophils 7.4 thou/uL (1.40-6.50); %Basophils 0.1 % (0.0-1.0); %Eosinophils 1.1 % (0.0-10.0); %Lymphocytes 25.7 % (21.0-51.0); %Monocytes 5.3 % (0.0-10.0); %Neutrophils 67.8 % (42.0-75.0); Hemoglobin 16.6 g/dL (12.0-16.0); Mean Corpuscular HGB CONC 33.2 g/dL (32.0-36.0); Mean Corpuscular Hemoglobin 30.9 pg (27.0-31.0); Mean Corpuscular Volume 92.8 fl (78.0-98.0); Mean Platelet Volume 8.3 fL (7.4-10.4); Platelet Count 201 10x3/uL (130-400); RBC Distribution Width 12.5 % (11.5-14.5); Red Blood Cell (RBC) Count 5.38 mill/uL (4.20-5.40); White Blood Cell (WBC) Count 10.9 10x3/uL (4.8-10.8)
[2022-09-15 12:48] LABS: ALT (SGPT) 33 U/L (8-55); AST (SGOT) 23 U/L (5-34); Albumin 3.6 g/dL (3.5-5.0); Alkaline Phosphatase 85 U/L (40-110); Anion Gap 15 mmol/L (10-20); BUN (Urea Nitrogen) 11 mg/dL (7.0-18.7); Bilirubin, Total 0.5 mg/dL (0.2-1.2); Calc. Creatinine Clearance 0 mL/min (70-130); Calcium 9.6 mg/dL (7.8-10.44); Carbon Dioxide 28 mmol/L (22-29); Chloride 96 mmol/L (98-107); Estimated GFR 89; Globulin 3.7 g/dL (2.4-3.5); Lipase 52 U/L (8-78); Potassium 5.1 mmol/L (3.5-5.1); Protein, Total 7.3 g/dL (6.0-8.3); Sodium 134 mmol/L (136-145)
[2022-09-15 13:00] LABS: Glucose 400 mg/dL (70-105)
[2022-09-15 13:15] LABS: BHCG - Serum Negative (NEGATIVE); Pregs Control Background? CLEAR/WHITE (CLR/WHITE); Pregs Control Bar Appear? YES (CONTROL BAR)
== END 2022-09-15 13:39 | disposition left against medical advice (07) ==
LOC: ERS 11:19
DX: Z53.21 Procedure and treatment not carried out due to patient leaving prior to being seen by health care provider (principal)
CPT/HCPCS: 71045; 80053; 83690; 83880; 84484; 84703; 85025; 93005

== ENCOUNTER 2022-09-16 17:21 | Observation (INO) | payer OTHER ==
[2022-09-16 18:16] LABS: #Eosinphils 0.2 thou/uL (0.0-0.7); #Lymphocytes 2.8 thou/uL (1.20-3.40); #Monocytes 0.7 thou/uL (0.11-0.59); #Neutrophils 6.9 thou/uL (1.40-6.50); %Basophils 0.4 % (0.0-1.0); %Eosinophils 1.7 % (0.0-10.0); %Lymphocytes 25.9 % (21.0-51.0); %Monocytes 6.9 % (0.0-10.0); %Neutrophils 65.1 % (42.0-75.0); Hemoglobin 16.1 g/dL (12.0-16.0); Mean Corpuscular HGB CONC 32.9 g/dL (32.0-36.0); Mean Corpuscular Hemoglobin 30.7 pg (27.0-31.0); Mean Corpuscular Volume 93.1 fl (78.0-98.0); Mean Platelet Volume 8.5 fL (7.4-10.4); Platelet Count 197 10x3/uL (130-400); RBC Distribution Width 12.6 % (11.5-14.5); Red Blood Cell (RBC) Count 5.23 mill/uL (4.20-5.40); White Blood Cell (WBC) Count 10.6 10x3/uL (4.8-10.8)
[2022-09-16] MEDS ORDERED: Morphine 4 MG/ML VIAL ONE (18:19)
[2022-09-16] MEDS ORDERED: Magnesium 2 GM/50 ML BAG (IN WATER) ONE (18:19)
[2022-09-16] MEDS ORDERED: Ondansetron PF 4 MG/2 ML Vial ONE (18:19)
[2022-09-16 18:48] LABS: ALT (SGPT) 32 U/L (8-55); AST (SGOT) 22 U/L (5-34); Albumin 3.4 g/dL (3.5-5.0); Alkaline Phosphatase 78 U/L (40-110); Anion Gap 14 mmol/L (10-20); BUN (Urea Nitrogen) 11 mg/dL (7.0-18.7); Bilirubin, Total 0.4 mg/dL (0.2-1.2); Calc. Creatinine Clearance 0 mL/min (70-130); Calcium 8.9 mg/dL (7.8-10.44); Carbon Dioxide 28 mmol/L (22-29); Chloride 98 mmol/L (98-107); Estimated GFR 86; Globulin 3.5 g/dL (2.4-3.5); Lipase 58 U/L (8-78); Potassium 4.3 mmol/L (3.5-5.1); Protein, Total 6.9 g/dL (6.0-8.3); Sodium 136 mmol/L (136-145)
[2022-09-16 18:51] LABS: Glucose 449 mg/dL (70-105)
[2022-09-16] MEDS ORDERED: Insulin Regular 300 UNITS/3 ML VIAL ONE (20:12)
[2022-09-16] MEDS ORDERED: cefTRIAXone\\ROCEPHIN 1 GM VIAL ONE (20:12)
[2022-09-16 20:38] LABS: Bilirubin Negative (Negative); Blood, Urine Trace (Negative); Clarity Clear (Clear); Glucose, Urine (Dipstick) Greater than 1000 mg/dL (Negative); Ketone, Urine Trace mg/dL (Negative); Leukocyte Negative Leu/uL (Negative); Nitrite Negative (Negative); Protein, Urine (Dipstick) 200 mg/dL (Neg-Trace); Specific Gravity, Urine 1.042 (1.002-1.036); WBC/HPF 0-3 HPF (0-3)
[2022-09-16 20:40] LABS: Bacteria/HPF 1+ HPF (None Seen)
[2022-09-16] MEDS ORDERED: Enoxaparin Sodium 40 MG/0.4 ML SYRINGE SC SCH (21:15)
[2022-09-16] MEDS ORDERED: Albuterol 200 PUFF (6.7GM INHALER) INH PRN (21:28)
[2022-09-16 21:29] LABS: Lactic Acid 1.9 mmol/L (0.5-2.2)
[2022-09-16] MEDS ORDERED: HumaLOG 300 UNITS/3 ML VIAL SC PRN ×2 (22:06)
[2022-09-16] MEDS ORDERED: Dextrose 5% in Water 1,000 ML IV PRN (22:06)
[2022-09-16] MEDS ORDERED: Dextrose 50% Abboject 50 ML SYRINGE SLOW IVP PRN (22:06)
[2022-09-17] MEDS ORDERED: Mometasone 200 MCG/Formoterol 5 MCG 120 PUFF INHALER INH SCH (06:30)
[2022-09-17] MEDS ORDERED: Enoxaparin Sodium 40 MG/0.4 ML SYRINGE SC SCH (09:00)
[2022-09-17] MEDS ORDERED: Aspirin 81 mg Enteric Coated Tablet PO SCH (09:00)
[2022-09-17] MEDS ORDERED: Atorvastatin Calcium 40 MG TAB PO SCH (21:00)
[2022-09-17] MEDS ORDERED: Fenofibrate Nanocrystallized 145 MG TAB PO SCH (21:00)
== END 2022-09-16 22:30 | disposition left against medical advice (07) ==
LOC: ERS 17:21 → ERHOLD 21:06
PROVIDERS: ADMIT Internal Medicine; ATTEND Internal Medicine
DX: R07.89 Other chest pain (principal); Z53.29 Procedure and treatment not carried out because of patient's decision for other reasons; I31.39 Other pericardial effusion (noninflammatory); J44.9 Chronic obstructive pulmonary disease, unspecified; R00.0 Tachycardia, unspecified; F41.9 Anxiety disorder, unspecified; E11.65 Type 2 diabetes mellitus with hyperglycemia; E66.2 Morbid (severe) obesity with alveolar hypoventilation; Z91.14 Patient's other noncompliance with medication regimen; F31.9 Bipolar disorder, unspecified; Z72.0 Tobacco use; Z68.41 Body mass index [BMI] 40.0-44.9, adult; Z79.82 Long term (current) use of aspirin
CPT/HCPCS: 36415; 36416; 71045; 80053; 81003; 81015; 83605; 83690; 83880; 84484; 85025; 87040; 87086; 93005; 96365; 96367; 96375; G0378; J0696; J1815; J2270; J2405; J3475

== ENCOUNTER 2022-09-19 07:46 | Inpatient (IN) | payer OTHER ==
[2022-09-19 09:39] LABS: #Eosinphils 0.2 thou/uL (0.0-0.7); #Lymphocytes 1.8 thou/uL (1.20-3.40); #Monocytes 0.6 thou/uL (0.11-0.59); %Basophils 0.5 % (0.0-1.0); %Eosinophils 1.6 % (0.0-10.0); %Lymphocytes 18.7 % (21.0-51.0); %Monocytes 6.2 % (0.0-10.0); %Neutrophils 73.1 % (42.0-75.0); Hemoglobin 15.1 g/dL (12.0-16.0); Mean Corpuscular HGB CONC 33.8 g/dL (32.0-36.0); Mean Corpuscular Hemoglobin 32.5 pg (27.0-31.0); Mean Corpuscular Volume 96.1 fl (78.0-98.0); Mean Platelet Volume 8.9 fL (7.4-10.4); Platelet Count 174 10x3/uL (130-400); RBC Distribution Width 12.7 % (11.5-14.5); Red Blood Cell (RBC) Count 4.64 mill/uL (4.20-5.40); White Blood Cell (WBC) Count 9.5 10x3/uL (4.8-10.8)
[2022-09-19 09:56] LABS: ALT (SGPT) 25 U/L (8-55); AST (SGOT) 16 U/L (5-34); Albumin 3.3 g/dL (3.5-5.0); Alkaline Phosphatase 63 U/L (40-110); Anion Gap 13 mmol/L (10-20); BUN (Urea Nitrogen) 23 mg/dL (7.0-18.7); Bilirubin, Total 0.5 mg/dL (0.2-1.2); Calc. Creatinine Clearance 0 mL/min (70-130); Calcium 8.9 mg/dL (7.8-10.44); Carbon Dioxide 25 mmol/L (22-29); Chloride 103 mmol/L (98-107); Estimated GFR 91; Globulin 3.5 g/dL (2.4-3.5); Glucose 332 mg/dL (70-105); Protein, Total 6.8 g/dL (6.0-8.3); Sodium 136 mmol/L (136-145)
[2022-09-19] MEDS ORDERED: FENTANYL 50 MCG/ML 1 ML VIAL ONE ×2 (10:29→13:58)
[2022-09-19] MEDS ORDERED: Insulin Regular 300 UNITS/3 ML VIAL ONE (11:19)
== END 2022-09-19 14:55 | disposition left against medical advice (07) | DRG 315 ==
LOC: ERS 07:46 → ERHOLD 12:42
PROVIDERS: ADMIT Internal Medicine; ATTEND Internal Medicine
DX: I31.39 Other pericardial effusion (noninflammatory) (principal); J44.1 Chronic obstructive pulmonary disease with (acute) exacerbation; F17.210 Nicotine dependence, cigarettes, uncomplicated; Z20.822 Contact with and (suspected) exposure to COVID-19; E66.01 Morbid (severe) obesity due to excess calories; L73.2 Hidradenitis suppurativa; E28.2 Polycystic ovarian syndrome; G47.33 Obstructive sleep apnea (adult) (pediatric); E11.9 Type 2 diabetes mellitus without complications; E28.1 Androgen excess; Z53.29 Procedure and treatment not carried out because of patient's decision for other reasons; Z88.0 Allergy status to penicillin; Z88.1 Allergy status to other antibiotic agents; Z79.82 Long term (current) use of aspirin; Z79.51 Long term (current) use of inhaled steroids; Z79.4 Long term (current) use of insulin; Z79.899 Other long term (current) drug therapy; Z90.09 Acquired absence of other part of head and neck; Z98.890 Other specified postprocedural states
CPT/HCPCS: 36415; 71275; 80053; 83880; 84484; 85025; 93005; 94760; J1815; J3010

== ENCOUNTER 2022-10-09 13:09 | Inpatient (IN) | payer OTHER ==
[2022-10-09] MEDS ORDERED: Acetaminophen 500 MG TAB ONE (13:28)
[2022-10-09] MEDS ORDERED: Morphine 4 MG/ML VIAL ONE (13:40)
[2022-10-09] MEDS ORDERED: fentaNYL PF 100 MCG/2 ML SYRINGE ONE (14:18)
[2022-10-09] MEDS ORDERED: Bupivacaine/Epinephrine 0.25% 30 ML VIAL ONE (14:44)
[2022-10-09] MEDS ORDERED: Insulin Regular 300 UNITS/3 ML VIAL ONE ×2 (15:05→16:27)
[2022-10-09] MEDS ORDERED: Succinylcholine 200 MG/10 ml SYRINGE FS ONE (15:08)
[2022-10-09] MEDS ORDERED: Phenylephrine 10 MG/ML VIAL ONE (15:08)
[2022-10-09] MEDS ORDERED: Rocuronium Bromide 10 MG/ML (10ML VIAL) ONE (15:08)
[2022-10-09] MEDS ORDERED: Bisacodyl 5 MG TAB PO PRN (15:13)
[2022-10-09] MEDS ORDERED: Dextrose 50% Abboject 50 ML SYRINGE SLOW IVP PRN (15:13)
[2022-10-09] MEDS ORDERED: HumaLOG 300 UNITS/3 ML VIAL SC PRN (15:13)
[2022-10-09] MEDS ORDERED: Dextrose 5% in Water 1,000 ML IV PRN (15:13)
[2022-10-09] MEDS ORDERED: Acetaminophen 325 MG TAB PO PRN (15:13)
[2022-10-09] MEDS ORDERED: Ondansetron PF 4 MG/2 ML Vial IVP PRN (15:13)
[2022-10-09] MEDS ORDERED: Clindamycin/D5W 900 mg/50 ml Premix Bag ONE (15:16)
[2022-10-09] MEDS ORDERED: Albuterol Sulfate HFA (OR ONLY) ONE (15:47)
[2022-10-09] MEDS ORDERED: SUGAMMADEX SODIUM 200 MG/2 ML VIAL ONE (15:56)
[2022-10-09] MEDS ORDERED: Promethazine HCl 25 MG/ML VIAL IM PRN (16:17)
[2022-10-09] MEDS ORDERED: Promethazine HCl 25 MG/ML VIAL IVPB PRN (16:17)
[2022-10-09] MEDS ORDERED: Ondansetron HCl/PF 4 MG/2 ML Vial IVP PRN (16:17)
[2022-10-09] MEDS ORDERED: Metoprolol Tartrate 5 MG/5 ML VIAL ONE (16:18)
[2022-10-09] MEDS ORDERED: FENTANYL 50 MCG/ML 1 ML VIAL ONE ×3 (16:27→17:17)
[2022-10-09 16:46] LABS: Fluid, Protein 5.3 g/dL (Not Available)
[2022-10-09 16:51] LABS: RBC Count-Automated (BF) 146157 /cu.mm; WBC/Nucleated-Auto (BF) 16642 /cu.mm
[2022-10-09 16:56] LABS: BF Color Red; Body Fluid Source Pericardial Fluid; Clarity Cloudy/Turbid (Clear); Tube # EDTA
[2022-10-09 17:15] LABS: BF Segmented Neutrophils 73 %; Cell Count Non Hematic 15 %; Lymphocytes 12 %
[2022-10-09 17:45] VITALS: BMI 47.2
[2022-10-09] MEDS: FENTANYL 50 MCG/ML 1 ML VIAL SLOW IVP PRN ×2 (18:12→22:02)
[2022-10-09] MEDS: Nicotine 21 MG PATCH TD SCH ×2 (18:49→20:24)
[2022-10-09] MEDS: HUMULIN R 100 UNITS in Sodium Chloride 0.9% 100 ML IVPB SCH (19:12)
[2022-10-09] MEDS: Metoprolol Tartrate 25 MG TAB PO SCH (20:22)
[2022-10-09] MEDS: Colchicine 0.6 MG TAB PO SCH (20:22)
[2022-10-09] MEDS: Ibuprofen 800 MG TAB PO PRN (20:22)
[2022-10-09] MEDS: Enoxaparin Sodium 40 MG/0.4 ML SYRINGE SC SCH (20:23)
[2022-10-09] MEDS ORDERED: Atorvastatin Calcium 20 MG TAB PO SCH (21:00)
[2022-10-09] MEDS: HYDROcodone/Acetaminophen 5/325 mg Tablet PO PRN (23:00)
[2022-10-10] MEDS ORDERED: Sodium Chloride 0.9% 1,000 ML IV SCH (03:30)
[2022-10-10 04:04] LABS: #Eosinphils 0.2 thou/uL (0.0-0.7); #Lymphocytes 2.7 thou/uL (1.20-3.40); #Monocytes 0.8 thou/uL (0.11-0.59); #Neutrophils 9.3 thou/uL (1.40-6.50); %Basophils 0.3 % (0.0-1.0); %Eosinophils 1.9 % (0.0-10.0); %Lymphocytes 20.5 % (21.0-51.0); %Monocytes 6.3 % (0.0-10.0); Hemoglobin 13.8 g/dL (12.0-16.0); Mean Corpuscular HGB CONC 33.4 g/dL (32.0-36.0); Mean Corpuscular Hemoglobin 30.7 pg (27.0-31.0); Mean Corpuscular Volume 91.8 fl (78.0-98.0); Mean Platelet Volume 8.4 fL (7.4-10.4); Platelet Count 184 10x3/uL (130-400); RBC Distribution Width 12.6 % (11.5-14.5); Red Blood Cell (RBC) Count 4.51 mill/uL (4.20-5.40); White Blood Cell (WBC) Count 13.1 10x3/uL (4.8-10.8)
[2022-10-10] MEDS ORDERED: Electrolyte Replacement Protocol 1 EACH FS PRN (04:04)
[2022-10-10 04:27] LABS: Anion Gap 12 mmol/L (10-20); BUN (Urea Nitrogen) 16 mg/dL (7.0-18.7); Calc. Creatinine Clearance 190 mL/min (70-130); Calcium 8.5 mg/dL (7.8-10.44); Carbon Dioxide 27 mmol/L (22-29); Chloride 99 mmol/L (98-107); Estimated GFR 84; Glucose 226 mg/dL (70-105); Potassium 3.6 mmol/L (3.5-5.1); Sodium 134 mmol/L (136-145)
[2022-10-10] MEDS: HUMULIN R 100 UNITS in Sodium Chloride 0.9% 100 ML IVPB SCH (06:00)
[2022-10-10] MEDS: Ibuprofen 800 MG TAB PO PRN (07:09)
[2022-10-10] MEDS: HYDROcodone/Acetaminophen 5/325 mg Tablet PO PRN ×4 (08:05→21:24)
[2022-10-10] MEDS: Metoprolol Tartrate 25 MG TAB PO SCH ×2 (09:39→21:18)
[2022-10-10] MEDS: Colchicine 0.6 MG TAB PO SCH ×2 (09:39→21:19)
[2022-10-10] MEDS: Polyethylene Glycol 3350 17 GM Packet PO SCH (09:39)
[2022-10-10] MEDS: HumaLOG 300 UNITS/3 ML VIAL SC PRN ×2 (12:27→16:49)
[2022-10-10] MEDS ORDERED: VANCOMYCIN IVPB PRN (16:23)
[2022-10-10] MEDS: Nicotine 21 MG PATCH TD SCH (16:25)
[2022-10-10] MEDS ORDERED: Vancomycin 1 GM in Premix Bag 1 BAG IVPB SCH (16:30)
[2022-10-10 17:16] LABS: Amphetamine Not Detected (NotDetected); Barbiturates Screen Not Detected (NotDetected); Benzodiazepine Screen Not Detected (NotDetected); Cocaine Metabolite Screen Not Detected (NotDetected); Methadone Not Detected (NotDetected); Methamphetamine Not Detected (NotDetected); Opiate Screen Detected (NotDetected); Oxycodone Screen Not Detected (NotDetected); Phencyclidine (PCP) Not Detected (NotDetected); THC/Cannabinoid Screen Not Detected (NotDetected); Tricyclic Screen Detected (NotDetected)
[2022-10-10] MEDS ORDERED: Insulin Regular 300 UNITS/3 ML VIAL SC SCH (18:15)
[2022-10-10] MEDS ORDERED: VANCOMYCIN 2 GRAM/500 ML BAG 2 GM in Premix Bag 1 BAG IVPB SCH (18:15)
[2022-10-10] MEDS ORDERED: Mometasone 200 MCG/Formoterol 5 MCG 120 PUFF INHALER INH SCH (18:30)
[2022-10-10] MEDS: Mometasone/Formoterol 200/5 60 PUFF INH SCH (18:33)
[2022-10-10] MEDS: Enoxaparin Sodium 40 MG/0.4 ML SYRINGE SC SCH (21:18)
[2022-10-10] MEDS: DULoxetine 30 MG CAP PO SCH (21:18)
[2022-10-10] MEDS: Fenofibrate Nanocrystallized 145 MG TAB PO SCH (21:18)
[2022-10-10] MEDS: Atorvastatin Calcium 40 MG TAB PO SCH (21:19)
[2022-10-11] MEDS: VANCOMYCIN 1.25 GM/250 ML BAG 1.25 GM in Premix Bag 1 BAG IVPB SCH ×3 (04:50→22:35)
[2022-10-11] MEDS: HYDROcodone/Acetaminophen 5/325 mg Tablet PO PRN ×3 (05:01→20:49)
[2022-10-11 07:59] LABS: #Eosinphils 0.2 thou/uL (0.0-0.7); #Monocytes 0.9 thou/uL (0.11-0.59); #Neutrophils 8.8 thou/uL (1.40-6.50); %Basophils 0.3 % (0.0-1.0); %Eosinophils 1.6 % (0.0-10.0); %Lymphocytes 16.9 % (21.0-51.0); %Monocytes 7.7 % (0.0-10.0); %Neutrophils 73.5 % (42.0-75.0); Hemoglobin 14.1 g/dL (12.0-16.0); Mean Corpuscular Hemoglobin 30.8 pg (27.0-31.0); Mean Corpuscular Volume 93.6 fl (78.0-98.0); Mean Platelet Volume 8.4 fL (7.4-10.4); Platelet Count 221 10x3/uL (130-400); RBC Distribution Width 12.6 % (11.5-14.5); Red Blood Cell (RBC) Count 4.58 mill/uL (4.20-5.40)
[2022-10-11 08:09] LABS: Anion Gap 15 mmol/L (10-20); BUN (Urea Nitrogen) 16 mg/dL (7.0-18.7); Calc. Creatinine Clearance 188 mL/min (70-130); Calcium 8.8 mg/dL (7.8-10.44); Carbon Dioxide 24 mmol/L (22-29); Chloride 99 mmol/L (98-107); Estimated GFR 83; Glucose 264 mg/dL (70-105); Potassium 4.8 mmol/L (3.5-5.1); Sodium 133 mmol/L (136-145)
[2022-10-11] MEDS: Insulin Regular 300 UNITS/3 ML VIAL SC SCH ×3 (08:35→17:19)
[2022-10-11] MEDS: DULoxetine 30 MG CAP PO SCH ×2 (08:35→20:49)
[2022-10-11] MEDS: Colchicine 0.6 MG TAB PO SCH ×2 (08:36→20:48)
[2022-10-11] MEDS: Metoprolol Tartrate 25 MG TAB PO SCH (08:36)
[2022-10-11] MEDS: Polyethylene Glycol 3350 17 GM Packet PO SCH (08:37)
[2022-10-11] MEDS: Mometasone/Formoterol 200/5 60 PUFF INH SCH ×2 (09:57→19:24)
[2022-10-11] MEDS ORDERED: Metoprolol Tartrate 25 MG TAB PO SCH ×2 (11:00→21:00)
[2022-10-11] MEDS: Nicotine 21 MG PATCH TD SCH ×2 (17:19→20:47)
[2022-10-11] MEDS: Enoxaparin Sodium 40 MG/0.4 ML SYRINGE SC SCH (20:47)
[2022-10-11] MEDS: Atorvastatin Calcium 40 MG TAB PO SCH (20:48)
[2022-10-11] MEDS: Fenofibrate Nanocrystallized 145 MG TAB PO SCH (20:48)
[2022-10-11 21:06] LABS: Vancomycin, Trough 16.3 ug/mL
[2022-10-12] MEDS: VANCOMYCIN 1.25 GM/250 ML BAG 1.25 GM in Premix Bag 1 BAG IVPB SCH ×2 (03:17→11:50)
[2022-10-12] MEDS: HYDROcodone/Acetaminophen 5/325 mg Tablet PO PRN ×2 (03:25→08:33)
[2022-10-12 06:10] LABS: #Eosinphils 0.2 thou/uL (0.0-0.7); #Monocytes 0.9 thou/uL (0.11-0.59); %Basophils 0.1 % (0.0-1.0); %Lymphocytes 24.3 % (21.0-51.0); %Monocytes 10.6 % (0.0-10.0); Hemoglobin 12.8 g/dL (12.0-16.0); Mean Corpuscular HGB CONC 31.3 g/dL (32.0-36.0); Mean Corpuscular Hemoglobin 29.3 pg (27.0-31.0); Mean Corpuscular Volume 93.5 fl (78.0-98.0); Mean Platelet Volume 7.9 fL (7.4-10.4); Platelet Count 221 10x3/uL (130-400); RBC Distribution Width 12.8 % (11.5-14.5); Red Blood Cell (RBC) Count 4.39 mill/uL (4.20-5.40); White Blood Cell (WBC) Count 8.1 10x3/uL (4.8-10.8)
[2022-10-12 06:32] LABS: Anion Gap 12 mmol/L (10-20); BUN (Urea Nitrogen) 9 mg/dL (7.0-18.7); Calc. Creatinine Clearance 224 mL/min (70-130); Calcium 8.6 mg/dL (7.8-10.44); Carbon Dioxide 29 mmol/L (22-29); Chloride 101 mmol/L (98-107); Estimated GFR 102; Glucose 249 mg/dL (70-105); Potassium 4.2 mmol/L (3.5-5.1); Sodium 138 mmol/L (136-145)
[2022-10-12] MEDS: DULoxetine 30 MG CAP PO SCH (08:25)
[2022-10-12] MEDS: Polyethylene Glycol 3350 17 GM Packet PO SCH (08:25)
[2022-10-12] MEDS: Colchicine 0.6 MG TAB PO SCH (08:25)
[2022-10-12] MEDS: HUMULIN R U-500 SC SCH ×3 (08:27→16:38)
[2022-10-12] MEDS: Mometasone/Formoterol 200/5 60 PUFF INH SCH (08:27)
[2022-10-12 15:47] VITALS: BP 125/80; TEMP 97.4
[2022-10-12] MEDS: Nicotine 21 MG PATCH TD SCH (16:38)
== END 2022-10-12 16:50 | disposition left against medical advice (07) | DRG 271 ==
LOC: ERS 13:09 → SDC 15:01 → CCU 17:07 → NEURO 10-10 11:19
PROVIDERS: ADMIT Family Medicine; ATTEND Family Medicine
PROC: 0W9D00Z Drainage of Pericardial Cavity with Drainage Device, Open Approach (ICD-10-PCS; principal; 2022-10-09)
DX: I31.39 Other pericardial effusion (noninflammatory) (principal); E87.1 Hypo-osmolality and hyponatremia; Z68.42 Body mass index [BMI] 45.0-49.9, adult; I31.4 Cardiac tamponade; F31.9 Bipolar disorder, unspecified; E11.9 Type 2 diabetes mellitus without complications; E66.01 Morbid (severe) obesity due to excess calories; J44.9 Chronic obstructive pulmonary disease, unspecified; F41.9 Anxiety disorder, unspecified; L73.2 Hidradenitis suppurativa; E28.2 Polycystic ovarian syndrome; G47.33 Obstructive sleep apnea (adult) (pediatric); F17.210 Nicotine dependence, cigarettes, uncomplicated; F12.10 Cannabis abuse, uncomplicated; E78.00 Pure hypercholesterolemia, unspecified; B95.7 Other staphylococcus as the cause of diseases classified elsewhere; Z88.1 Allergy status to other antibiotic agents; Z88.0 Allergy status to penicillin; Z79.899 Other long term (current) drug therapy; Z79.82 Long term (current) use of aspirin; Z79.84 Long term (current) use of oral hypoglycemic drugs; Z90.49 Acquired absence of other specified parts of digestive tract; Z83.79 Family history of other diseases of the digestive system; Z82.49 Family history of ischemic heart disease and other diseases of the circulatory system; Z71.6 Tobacco abuse counseling; Z71.51 Drug abuse counseling and surveillance of drug abuser; Z79.4 Long term (current) use of insulin
CPT/HCPCS: 36415; 36416; 80048; 80202; 80306; 82150; 84157; 85025; 85060; 87070; 87077; 87186; 87205; 89051; 96374; J1650; J1815; J1956; J2270; J2370; J3010; J3370; J3490; J7050; J7620

== ENCOUNTER 2022-11-01 20:16 | Observation (INO) | payer OTHER ==
[2022-11-01] MEDS ORDERED: Morphine 4 MG/ML VIAL ONE (20:52)
[2022-11-01] MEDS ORDERED: Dextrose 5% in Water 1,000 ML IV PRN (21:24)
[2022-11-01] MEDS ORDERED: Ondansetron PF 4 MG/2 ML Vial IVP PRN (21:24)
[2022-11-01] MEDS ORDERED: HumaLOG 300 UNITS/3 ML VIAL SC PRN ×2 (21:24)
[2022-11-01] MEDS ORDERED: Dextrose 50% Abboject 50 ML SYRINGE SLOW IVP PRN (21:24)
[2022-11-01] MEDS ORDERED: Acetaminophen 325 MG TAB PO PRN (21:24)
[2022-11-01] MEDS ORDERED: Ondansetron ODT 4 MG TAB PO PRN (21:24)
[2022-11-01] MEDS ORDERED: Nicotine 21 MG PATCH TD SCH (21:30)
[2022-11-01 21:51] LABS: Troponin I Less than 0.010 ng/mL (< 0.028)
[2022-11-01] MEDS ORDERED: HumaLOG 300 UNITS/3 ML VIAL ONE ×2 (22:32→22:34)
[2022-11-01] MEDS ORDERED: Insulin Regular 300 UNITS/3 ML VIAL ONE (22:34)
[2022-11-01 22:58] VITALS: BP 140/92; TEMP 98
[2022-11-01] MEDS ORDERED: HYDROcodone/Acetaminophen 5/325 mg Tablet ONE (23:46)
[2022-11-01] MEDS: HYDROcodone/Acetaminophen 5/325 mg Tablet PO PRN (23:50)
[2022-11-02 01:03] LABS: Troponin I Less than 0.010 ng/mL (< 0.028)
[2022-11-02] MEDS: HYDROcodone/Acetaminophen 5/325 mg Tablet PO PRN ×2 (04:48→09:23)
[2022-11-02] MEDS ORDERED: HYDROcodone/Acetaminophen 5/325 mg Tablet ONE ×2 (04:49→09:21)
[2022-11-02 05:08] LABS: #Eosinphils 0.3 thou/uL (0.0-0.7); #Lymphocytes 2.4 thou/uL (1.20-3.40); #Monocytes 0.7 thou/uL (0.11-0.59); #Neutrophils 6.1 thou/uL (1.40-6.50); %Basophils 0.2 % (0.0-1.0); %Eosinophils 3.5 % (0.0-10.0); %Monocytes 7.7 % (0.0-10.0); %Neutrophils 63.7 % (42.0-75.0); Hemoglobin 14.4 g/dL (12.0-16.0); Mean Corpuscular HGB CONC 34.2 g/dL (32.0-36.0); Mean Corpuscular Hemoglobin 30.9 pg (27.0-31.0); Mean Corpuscular Volume 90.3 fl (78.0-98.0); Mean Platelet Volume 7.9 fL (7.4-10.4); Platelet Count 304 10x3/uL (130-400); RBC Distribution Width 13.2 % (11.5-14.5); Red Blood Cell (RBC) Count 4.66 mill/uL (4.20-5.40); White Blood Cell (WBC) Count 9.5 10x3/uL (4.8-10.8)
[2022-11-02 05:27] LABS: Anion Gap 13 mmol/L (10-20); BUN (Urea Nitrogen) 9 mg/dL (7.0-18.7); Calc. Creatinine Clearance 0 mL/min (70-130); Calcium 8.7 mg/dL (7.8-10.44); Carbon Dioxide 29 mmol/L (22-29); Chloride 98 mmol/L (98-107); Estimated GFR 109; Glucose 216 mg/dL (70-105); Potassium 3.7 mmol/L (3.5-5.1); Sodium 136 mmol/L (136-145)
[2022-11-02] MEDS: Morphine 4 MG/ML VIAL SLOW IVP PRN ×2 (06:23→11:45)
[2022-11-02] MEDS ORDERED: Morphine 4 MG/ML VIAL ONE ×2 (06:24→11:45)
[2022-11-02] MEDS ORDERED: Nicotine 21 MG PATCH TD SCH (09:00)
== END 2022-11-02 13:23 | disposition left against medical advice (07) ==
LOC: ERS 20:16 → ERHOLD 21:04
PROVIDERS: ADMIT Family Medicine; ATTEND Family Medicine
DX: I31.39 Other pericardial effusion (noninflammatory) (principal); R06.00 Dyspnea, unspecified; E11.65 Type 2 diabetes mellitus with hyperglycemia; E11.43 Type 2 diabetes mellitus with diabetic autonomic (poly)neuropathy; K31.84 Gastroparesis; J44.9 Chronic obstructive pulmonary disease, unspecified; F17.210 Nicotine dependence, cigarettes, uncomplicated; F12.10 Cannabis abuse, uncomplicated; G47.33 Obstructive sleep apnea (adult) (pediatric); F15.11 Other stimulant abuse, in remission; J90 Pleural effusion, not elsewhere classified; R16.2 Hepatomegaly with splenomegaly, not elsewhere classified; E66.01 Morbid (severe) obesity due to excess calories; Z53.29 Procedure and treatment not carried out because of patient's decision for other reasons; Z91.14 Patient's other noncompliance with medication regimen; Z79.4 Long term (current) use of insulin; Z79.899 Other long term (current) drug therapy; Z88.0 Allergy status to penicillin; Z88.1 Allergy status to other antibiotic agents; Z20.822 Contact with and (suspected) exposure to COVID-19
CPT/HCPCS: 36415; 80048; 84484; 85025; 93005; 96374; 96376; G0378; J1815; J2270; U0003; U0005

== ENCOUNTER 2022-11-03 17:57 | Emergency (ER) | payer OTHER | END 2022-11-03 18:36 | disposition home or self-care (01) | LOC: ERS 17:57 | DX: I30.9 Acute pericarditis, unspecified (principal); E11.9 Type 2 diabetes mellitus without complications; J44.9 Chronic obstructive pulmonary disease, unspecified; F17.210 Nicotine dependence, cigarettes, uncomplicated | CPT/HCPCS: 93005 ==

== ENCOUNTER 2022-12-14 15:59 | Emergency (ER) | payer OTHER ==
[2022-12-14 16:45] LABS: #Eosinphils 0.1 thou/uL (0.0-0.7); #Lymphocytes 3.1 thou/uL (1.20-3.40); #Monocytes 0.6 thou/uL (0.11-0.59); #Neutrophils 5.7 thou/uL (1.40-6.50); %Basophils 0.3 % (0.0-1.0); %Eosinophils 1.4 % (0.0-10.0); %Monocytes 6.4 % (0.0-10.0); %Neutrophils 59.8 % (42.0-75.0); Mean Corpuscular HGB CONC 34.7 g/dL (32.0-36.0); Mean Corpuscular Hemoglobin 30.9 pg (27.0-31.0); Mean Corpuscular Volume 89.2 fl (78.0-98.0); Mean Platelet Volume 8.7 fL (7.4-10.4); Platelet Count 228 10x3/uL (130-400); RBC Distribution Width 14.5 % (11.5-14.5); Red Blood Cell (RBC) Count 5.81 mill/uL (4.20-5.40); White Blood Cell (WBC) Count 9.6 10x3/uL (4.8-10.8)
[2022-12-14 17:05] LABS: ALT (SGPT) 28 U/L (8-55); AST (SGOT) 18 U/L (5-34); Albumin 3.7 g/dL (3.5-5.0); Alkaline Phosphatase 70 U/L (40-110); Anion Gap 16 mmol/L (10-20); BUN (Urea Nitrogen) 13 mg/dL (7.0-18.7); Bilirubin, Total 0.6 mg/dL (0.2-1.2); Calc. Creatinine Clearance 0 mL/min (70-130); Calcium 10.9 mg/dL (7.8-10.44); Carbon Dioxide 26 mmol/L (22-29); Chloride 95 mmol/L (98-107); Estimated GFR 92; Globulin 3.6 g/dL (2.4-3.5); Glucose 325 mg/dL (70-105); Magnesium 1.3 mg/dL (1.6-2.6); Potassium 4.2 mmol/L (3.5-5.1); Protein, Total 7.3 g/dL (6.0-8.3); Sodium 133 mmol/L (136-145)
[2022-12-14] MEDS ORDERED: predniSONE 50 MG TAB PO SCH (17:45)
== END 2022-12-14 17:07 | disposition home or self-care (01) ==
LOC: ERS 15:59
DX: J44.9 Chronic obstructive pulmonary disease, unspecified (principal); R00.0 Tachycardia, unspecified; G89.29 Other chronic pain; E03.9 Hypothyroidism, unspecified; E11.9 Type 2 diabetes mellitus without complications; F17.210 Nicotine dependence, cigarettes, uncomplicated
CPT/HCPCS: 36415; 71045; 80053; 83735; 83880; 84484; 85025; 93005; J7512

== ENCOUNTER 2023-06-01 21:35 | Emergency (ER) | payer OTHER ==
[2023-06-01] MEDS ORDERED: Acetaminophen/Codeine 30-300mg Tablet ONE (22:48)
== END 2023-06-01 22:57 | disposition home or self-care (01) ==
LOC: ERS 21:35
DX: S76.012A Strain of muscle, fascia and tendon of left hip, initial encounter (principal); E11.9 Type 2 diabetes mellitus without complications; K21.9 Gastro-esophageal reflux disease without esophagitis; F17.210 Nicotine dependence, cigarettes, uncomplicated; J44.9 Chronic obstructive pulmonary disease, unspecified; W01.10XA Fall on same level from slipping, tripping and stumbling with subsequent striking against unspecified object, initial encounter

== ENCOUNTER 2023-06-09 20:29 | Emergency (ER) | payer OTHER ==
[~2023-06-09 20:29] MED LIST changes: -Iopamidol-370 76% 500 ML 1 ML ONE; +Iopamidol-370 76% 500 ML MDV (1 ML CHARGE) ONE
[2023-06-09 21:04] LABS: #Basophils 0.1 thou/uL (0.0-0.2); #Eosinphils 0.2 thou/uL (0.0-0.7); #Monocytes 0.9 thou/uL (0.11-0.59); %Basophils 0.4 % (0.0-1.0); %Eosinophils 1.2 % (0.0-10.0); %Lymphocytes 29.8 % (21.0-51.0); %Monocytes 6.7 % (0.0-10.0); %Neutrophils 61.3 % (42.0-75.0); Hematocrit 46.7 % (36.0-47.0); Hemoglobin 16.3 g/dL (12.0-16.0); Mean Corpuscular HGB CONC 34.9 g/dL (32.0-36.0); Mean Corpuscular Hemoglobin 32.1 pg (27.0-31.0); Mean Corpuscular Volume 92.1 fl (78.0-98.0); Mean Platelet Volume 10.1 fL (7.4-10.4); Platelet Count 242 10x3/uL (130-400); RBC Distribution Width 13.3 % (11.5-14.5); Red Blood Cell (RBC) Count 5.07 mill/uL (4.20-5.40); White Blood Cell (WBC) Count 13.1 10x3/uL (4.8-10.8)
[2023-06-09] MEDS ORDERED: Ketorolac Tromethamine 30 MG/ML VIAL ONE (21:25)
[2023-06-09 21:28] LABS: ALT (SGPT) 17 U/L (8-55); AST (SGOT) 12 U/L (5-34); Albumin 3.7 g/dL (3.5-5.0); Alkaline Phosphatase 68 U/L (40-110); Anion Gap 18 mmol/L (10-20); BUN (Urea Nitrogen) 15 mg/dL (7.0-18.7); Bilirubin, Total 0.3 mg/dL (0.2-1.2); Calc. Creatinine Clearance 0 mL/min (70-130); Calcium 9.8 mg/dL (7.8-10.44); Carbon Dioxide 22 mmol/L (22-29); Chloride 100 mmol/L (98-107); Estimated GFR 93; Globulin 3.3 g/dL (2.4-3.5); Glucose 337 mg/dL (70-105); Potassium 4.6 mmol/L (3.5-5.1); Sodium 135 mmol/L (136-145)
[2023-06-09 21:29] LABS: Troponin I Less than 0.010 ng/mL (< 0.028)
[2023-06-09 22:48] LABS: BHCG - Serum Negative (NEGATIVE); Pregs Control Background? CLEAR/WHITE (CLR/WHITE); Pregs Control Bar Appear? YES (CONTROL BAR)
== END 2023-06-09 23:21 | disposition home or self-care (01) ==
LOC: ERS 20:29
DX: R07.9 Chest pain, unspecified (principal); K21.9 Gastro-esophageal reflux disease without esophagitis; E11.9 Type 2 diabetes mellitus without complications; F17.210 Nicotine dependence, cigarettes, uncomplicated
CPT/HCPCS: 36415; 71045; 71275; 80053; 83605; 84484; 84703; 85025; 93005; 96361; 96374; J1885

== ENCOUNTER 2023-06-10 18:33 | Emergency (ER) | payer OTHER ==
[2023-06-10] MEDS ORDERED: Ketorolac Tromethamine 30 MG/ML VIAL ONE (19:06)
[2023-06-10] MEDS ORDERED: Famotidine/PF 20 mg/2ml Vial ONE (19:06)
[2023-06-10] MEDS ORDERED: Ondansetron PF 4 MG/2 ML Vial ONE (19:06)
[2023-06-10 19:21] LABS: #Monocytes 0.6 thou/uL (0.11-0.59); #Neutrophils 10.3 thou/uL (1.40-6.50); %Basophils 0.3 % (0.0-1.0); %Eosinophils 0.2 % (0.0-10.0); %Lymphocytes 14.5 % (21.0-51.0); %Monocytes 4.7 % (0.0-10.0); %Neutrophils 79.9 % (42.0-75.0); Hematocrit 44.6 % (36.0-47.0); Hemoglobin 15.7 g/dL (12.0-16.0); Mean Corpuscular HGB CONC 35.2 g/dL (32.0-36.0); Mean Corpuscular Hemoglobin 32.4 pg (27.0-31.0); Mean Platelet Volume 10.1 fL (7.4-10.4); Platelet Count 224 10x3/uL (130-400); RBC Distribution Width 13.2 % (11.5-14.5); Red Blood Cell (RBC) Count 4.85 mill/uL (4.20-5.40); White Blood Cell (WBC) Count 12.9 10x3/uL (4.8-10.8)
[2023-06-10] MEDS ORDERED: Lidocaine Viscous Sol 2% 15 ml UD Cup SSP SCH (19:45)
[2023-06-10 19:51] LABS: ALT (SGPT) 17 U/L (8-55); AST (SGOT) 14 U/L (5-34); Albumin 3.4 g/dL (3.5-5.0); Alkaline Phosphatase 58 U/L (40-110); Anion Gap 14 mmol/L (10-20); BUN (Urea Nitrogen) 16 mg/dL (7.0-18.7); Bilirubin, Total 0.5 mg/dL (0.2-1.2); Calc. Creatinine Clearance 0 mL/min (70-130); Calcium 9.3 mg/dL (7.8-10.44); Carbon Dioxide 26 mmol/L (22-29); Chloride 100 mmol/L (98-107); Estimated GFR 96; Globulin 3.5 g/dL (2.4-3.5); Glucose 292 mg/dL (70-105); Lipase 41 U/L (8-78); Protein, Total 6.9 g/dL (6.0-8.3); Sodium 136 mmol/L (136-145)
[2023-06-10 19:55] LABS: Troponin I Less than 0.010 ng/mL (< 0.028)
[2023-06-10] MEDS ORDERED: Promethazine HCl 25 MG/ML VIAL ONE (20:42)
== END 2023-06-10 21:01 | disposition home or self-care (01) ==
LOC: ERS 18:33
DX: K25.9 Gastric ulcer, unspecified as acute or chronic, without hemorrhage or perforation (principal); F17.210 Nicotine dependence, cigarettes, uncomplicated; E11.9 Type 2 diabetes mellitus without complications
CPT/HCPCS: 36415; 71045; 71275; 80053; 83605; 83690; 83880; 84484; 84703; 85025; 93005; 96361; 96374; 96375; J1885; J2405; J2550; Q9967; S0028

== ENCOUNTER 2023-06-13 07:27 | Emergency (ER) | payer OTHER ==
[2023-06-13 08:05] LABS: #Monocytes 0.6 thou/uL (0.11-0.59); %Basophils 0.3 % (0.0-1.0); %Eosinophils 0.2 % (0.0-10.0); %Lymphocytes 12.6 % (21.0-51.0); %Monocytes 4.5 % (0.0-10.0); %Neutrophils 81.8 % (42.0-75.0); Hematocrit 47.1 % (36.0-47.0); Hemoglobin 16.2 g/dL (12.0-16.0); Mean Corpuscular HGB CONC 34.4 g/dL (32.0-36.0); Mean Corpuscular Hemoglobin 32.1 pg (27.0-31.0); Mean Corpuscular Volume 93.5 fl (78.0-98.0); Mean Platelet Volume 10.2 fL (7.4-10.4); Platelet Count 259 10x3/uL (130-400); RBC Distribution Width 13.1 % (11.5-14.5); Red Blood Cell (RBC) Count 5.04 mill/uL (4.20-5.40); White Blood Cell (WBC) Count 13.5 10x3/uL (4.8-10.8)
[2023-06-13] MEDS ORDERED: Famotidine/PF 20 mg/2ml Vial ONE (08:09)
[2023-06-13] MEDS ORDERED: Ondansetron PF 4 MG/2 ML Vial ONE (08:09)
[2023-06-13 08:21] LABS: BHCG - Serum Negative (NEGATIVE); Pregs Control Background? CLEAR/WHITE (CLR/WHITE); Pregs Control Bar Appear? YES (CONTROL BAR)
[2023-06-13 08:30] LABS: ALT (SGPT) 24 U/L (8-55); AST (SGOT) 18 U/L (5-34); Albumin 3.6 g/dL (3.5-5.0); Alkaline Phosphatase 60 U/L (40-110); Anion Gap 17 mmol/L (10-20); BUN (Urea Nitrogen) 13 mg/dL (7.0-18.7); Bilirubin, Total 0.8 mg/dL (0.2-1.2); Calc. Creatinine Clearance 0 mL/min (70-130); Calcium 8.7 mg/dL (7.8-10.44); Carbon Dioxide 25 mmol/L (22-29); Chloride 99 mmol/L (98-107); Estimated GFR 94; Globulin 3.7 g/dL (2.4-3.5); Glucose 342 mg/dL (70-105); Lipase 29 U/L (8-78); Potassium 3.6 mmol/L (3.5-5.1); Protein, Total 7.3 g/dL (6.0-8.3); Sodium 137 mmol/L (136-145)
[2023-06-13 08:32] LABS: Troponin I Less than 0.010 ng/mL (< 0.028)
== END 2023-06-13 08:41 | disposition left against medical advice (07) ==
LOC: ERS 07:27
DX: Z53.29 Procedure and treatment not carried out because of patient's decision for other reasons (principal)
CPT/HCPCS: 71045; 83690; 83880; 84484; 84703; 93005; 96374; 96375; J2405; S0028

== ENCOUNTER 2023-06-24 17:24 | Emergency (ER) | payer OTHER ==
[2023-06-24 17:53] LABS: Actual Bicarbonate (HCO3v) 24.2 mEq/L (22-28); Base Excess 0.9 mEq/L (-2.0 to +3.0); Calcium, Ionized (venous) 0.84 mmol/L (1.16-1.32); Chloride (VBG) 100 mmol/L (98-106); Hematocrit-VBG 47 % (36.0-47.0); Potassium (VBG) 4.11 mmol/L (3.70-5.30); pH (venous) 7.456 (7.32-7.43)
[2023-06-24 17:57] LABS: #Monocytes 0.5 thou/uL (0.11-0.59); #Neutrophils 10.3 thou/uL (1.40-6.50); %Basophils 0.1 % (0.0-1.0); %Eosinophils 0.2 % (0.0-10.0); %Lymphocytes 12.6 % (21.0-51.0); %Monocytes 3.6 % (0.0-10.0); %Neutrophils 83.2 % (42.0-75.0); Hematocrit 42.3 % (36.0-47.0); Hemoglobin 14.7 g/dL (12.0-16.0); Mean Corpuscular HGB CONC 34.8 g/dL (32.0-36.0); Mean Corpuscular Hemoglobin 32.3 pg (27.0-31.0); Mean Platelet Volume 11.1 fL (7.4-10.4); Platelet Count 201 10x3/uL (130-400); RBC Distribution Width 13.4 % (11.5-14.5); Red Blood Cell (RBC) Count 4.55 mill/uL (4.20-5.40); White Blood Cell (WBC) Count 12.3 10x3/uL (4.8-10.8)
[2023-06-24 18:22] LABS: ALT (SGPT) 26 U/L (8-55); AST (SGOT) 13 U/L (5-34); Albumin 3.2 g/dL (3.5-5.0); Alkaline Phosphatase 75 U/L (40-110); Anion Gap 13 mmol/L (10-20); BUN (Urea Nitrogen) 12 mg/dL (7.0-18.7); Bilirubin, Total 0.3 mg/dL (0.2-1.2); Calc. Creatinine Clearance 0 mL/min (70-130); Carbon Dioxide 23 mmol/L (22-29); Chloride 101 mmol/L (98-107); Estimated GFR 102; Globulin 2.8 g/dL (2.4-3.5); Potassium 4.2 mmol/L (3.5-5.1); Sodium 133 mmol/L (136-145)
[2023-06-24 18:26] LABS: Calcium 6.8 mg/dL (7.8-10.44); Glucose 436 mg/dL (70-105)
== END 2023-06-24 19:00 | disposition left against medical advice (07) ==
LOC: ERS 17:24
DX: Z53.29 Procedure and treatment not carried out because of patient's decision for other reasons (principal)
CPT/HCPCS: 36415; 36416; 80053; 82010; 82805; 85025; 93005; 96360

== ENCOUNTER 2023-08-07 11:07 | Emergency (ER) | payer OTHER ==
[2023-08-07] MEDS ORDERED: Ipratropium/Albuterol 3 ML NEB ONE (11:50)
[2023-08-07 11:51] LABS: #Eosinphils 0.1 thou/uL (0.0-0.7); #Monocytes 0.5 thou/uL (0.11-0.59); #Neutrophils 8.5 thou/uL (1.40-6.50); %Basophils 0.3 % (0.0-1.0); %Lymphocytes 19.6 % (21.0-51.0); %Monocytes 4.1 % (0.0-10.0); %Neutrophils 74.4 % (42.0-75.0); Hematocrit 45.2 % (36.0-47.0); Hemoglobin 15.9 g/dL (12.0-16.0); Mean Corpuscular HGB CONC 35.2 g/dL (32.0-36.0); Mean Corpuscular Hemoglobin 31.7 pg (27.0-31.0); Mean Corpuscular Volume 90.2 fl (78.0-98.0); Mean Platelet Volume 10.7 fL (7.4-10.4); Platelet Count 224 10x3/uL (130-400); RBC Distribution Width 12.8 % (11.5-14.5); Red Blood Cell (RBC) Count 5.01 mill/uL (4.20-5.40); White Blood Cell (WBC) Count 11.5 10x3/uL (4.8-10.8)
[2023-08-07 12:19] LABS: ALT (SGPT) 23 U/L (8-55); AST (SGOT) 14 U/L (5-34); Albumin 3.5 g/dL (3.5-5.0); Alkaline Phosphatase 77 U/L (40-110); Anion Gap 17 mmol/L (10-20); BUN (Urea Nitrogen) 12 mg/dL (7.0-18.7); Bilirubin, Total 0.3 mg/dL (0.2-1.2); Calc. Creatinine Clearance 0 mL/min (70-130); Calcium 9.3 mg/dL (7.8-10.44); Carbon Dioxide 25 mmol/L (22-29); Chloride 95 mmol/L (98-107); Estimated GFR 84; Globulin 3.5 g/dL (2.4-3.5); Lipase 46 U/L (8-78); Potassium 4.2 mmol/L (3.5-5.1); Sodium 133 mmol/L (136-145)
[2023-08-07 12:21] LABS: Troponin I Less than 0.010 ng/mL (< 0.028)
[2023-08-07 12:22] LABS: Glucose 459 mg/dL (70-105)
== END 2023-08-07 12:44 | disposition left against medical advice (07) ==
LOC: ERS 11:07
DX: I10 Essential (primary) hypertension (principal); E11.65 Type 2 diabetes mellitus with hyperglycemia; E78.00 Pure hypercholesterolemia, unspecified; K21.9 Gastro-esophageal reflux disease without esophagitis; J44.9 Chronic obstructive pulmonary disease, unspecified; F17.210 Nicotine dependence, cigarettes, uncomplicated; Z79.4 Long term (current) use of insulin; Z79.899 Other long term (current) drug therapy
CPT/HCPCS: 36416; 80053; 83690; 84484; 85025; 85379; 93005; 96360; J7620

== ENCOUNTER 2023-08-10 11:09 | Emergency (ER) | payer OTHER ==
[2023-08-10] MEDS ORDERED: Metoprolol Tartrate 50 MG TAB ONE (11:43)
[2023-08-10 11:49] LABS: #Eosinphils 0.1 thou/uL (0.0-0.7); #Monocytes 0.7 thou/uL (0.11-0.59); %Basophils 0.3 % (0.0-1.0); %Eosinophils 1.2 % (0.0-10.0); %Lymphocytes 24.7 % (21.0-51.0); %Monocytes 5.5 % (0.0-10.0); %Neutrophils 67.7 % (42.0-75.0); Hematocrit 43.5 % (36.0-47.0); Hemoglobin 15.4 g/dL (12.0-16.0); Mean Corpuscular HGB CONC 35.4 g/dL (32.0-36.0); Mean Corpuscular Hemoglobin 32.2 pg (27.0-31.0); Mean Corpuscular Volume 90.8 fl (78.0-98.0); Mean Platelet Volume 10.7 fL (7.4-10.4); Platelet Count 229 10x3/uL (130-400); RBC Distribution Width 12.8 % (11.5-14.5); Red Blood Cell (RBC) Count 4.79 mill/uL (4.20-5.40); White Blood Cell (WBC) Count 11.8 10x3/uL (4.8-10.8)
[2023-08-10 12:10] LABS: Lipase 43 U/L (8-78)
[2023-08-10 12:10] LABS: Base Excess 3.2 mEq/L (-2.0 to +3.0); Calcium, Ionized (venous) 1.13 mmol/L (1.16-1.32); Chloride (VBG) 96 mmol/L (98-106); Hematocrit-VBG 48 % (36.0-47.0); Hemoglobin (Hb) 16.3 g/dL (11.7-15.5); Potassium (VBG) 4.28 mmol/L (3.70-5.30); Sodium 133 mmol/L (133-146); pH (venous) 7.462 (7.32-7.43)
[2023-08-10 12:15] LABS: Troponin I Less than 0.010 ng/mL (< 0.028)
[2023-08-10 12:18] LABS: ALT (SGPT) 26 U/L (8-55); AST (SGOT) 25 U/L (5-34); Albumin 3.7 g/dL (3.5-5.0); Alkaline Phosphatase 71 U/L (40-110); Anion Gap 17 mmol/L (10-20); BUN (Urea Nitrogen) 11 mg/dL (7.0-18.7); Bilirubin, Total 0.3 mg/dL (0.2-1.2); Calc. Creatinine Clearance 0 mL/min (70-130); Calcium 9.3 mg/dL (7.8-10.44); Carbon Dioxide 24 mmol/L (22-29); Chloride 94 mmol/L (98-107); Estimated GFR 93; Globulin 3.6 g/dL (2.4-3.5); Glucose 356 mg/dL (70-105); Magnesium 1.4 mg/dL (1.6-2.6); Potassium 4.8 mmol/L (3.5-5.1); Protein, Total 7.3 g/dL (6.0-8.3); Sodium 130 mmol/L (136-145)
[2023-08-10] MEDS ORDERED: Insulin Regular 300 UNITS/3 ML VIAL ONE (12:27)
[2023-08-10 13:57] LABS: Bacteria/HPF 4+ HPF (None Seen); Bilirubin Negative (Negative); Blood, Urine Negative (Negative); CAUTI Indications for Culture Pelvic or flank pain; Clarity Clear (Clear); Glucose, Urine (Dipstick) >=1000 mg/dL (Negative); Ketone, Urine Negative (Negative); Leukocyte Negative Leu/uL (Negative); Nitrite Negative (Negative); Protein, Urine (Dipstick) 70 mg/dL (Neg-Trace); RBC/HPF 0-3 HPF (0-3); Specific Gravity, Urine 1.009 (1.002-1.036); Urobilinogen Normal mg/dL (Less than 2); WBC/HPF 0-3 HPF (0-3)
[2023-08-10 14:02] LABS: Urine Culture Reflex No No
== END 2023-08-10 14:15 | disposition home or self-care (01) ==
LOC: ERS 11:09
DX: E10.65 Type 1 diabetes mellitus with hyperglycemia (principal); E83.42 Hypomagnesemia; E78.00 Pure hypercholesterolemia, unspecified; K21.9 Gastro-esophageal reflux disease without esophagitis; J44.9 Chronic obstructive pulmonary disease, unspecified; F17.210 Nicotine dependence, cigarettes, uncomplicated; Z79.4 Long term (current) use of insulin; Z79.899 Other long term (current) drug therapy; Z79.01 Long term (current) use of anticoagulants
CPT/HCPCS: 36415; 36416; 71045; 80053; 81001; 82010; 82805; 83690; 83735; 84100; 84484; 85025; 93005; 96365; 96366; 96375; J1815; J3475; J3490

== ENCOUNTER 2023-08-18 14:21 | Emergency (ER) | payer OTHER ==
[2023-08-18 14:55] LABS: #Eosinphils 0.2 thou/uL (0.0-0.7); #Monocytes 0.7 thou/uL (0.11-0.59); %Basophils 0.2 % (0.0-1.0); %Eosinophils 1.3 % (0.0-10.0); %Lymphocytes 27.7 % (21.0-51.0); %Monocytes 5.9 % (0.0-10.0); %Neutrophils 64.3 % (42.0-75.0); Hemoglobin 15.7 g/dL (12.0-16.0); Mean Corpuscular HGB CONC 34.1 g/dL (32.0-36.0); Mean Corpuscular Hemoglobin 31.7 pg (27.0-31.0); Mean Corpuscular Volume 92.9 fl (78.0-98.0); Mean Platelet Volume 10.2 fL (7.4-10.4); Platelet Count 246 10x3/uL (130-400); RBC Distribution Width 13.2 % (11.5-14.5); Red Blood Cell (RBC) Count 4.95 mill/uL (4.20-5.40); White Blood Cell (WBC) Count 12.5 10x3/uL (4.8-10.8)
[2023-08-18 15:24] LABS: ALT (SGPT) 29 U/L (8-55); AST (SGOT) 16 U/L (5-34); Albumin 3.7 g/dL (3.5-5.0); Alkaline Phosphatase 69 U/L (40-110); Anion Gap 17 mmol/L (10-20); BUN (Urea Nitrogen) 13 mg/dL (7.0-18.7); Bilirubin, Total 0.3 mg/dL (0.2-1.2); Calc. Creatinine Clearance 0 mL/min (70-130); Carbon Dioxide 24 mmol/L (22-29); Chloride 99 mmol/L (98-107); Estimated GFR 100; Glucose 340 mg/dL (70-105); Lipase 52 U/L (8-78); Magnesium 1.5 mg/dL (1.6-2.6); Potassium 4.8 mmol/L (3.5-5.1); Protein, Total 6.7 g/dL (6.0-8.3); Sodium 135 mmol/L (136-145)
[2023-08-18 15:27] LABS: Troponin I Less than 0.010 ng/mL (< 0.028)
[2023-08-18] MEDS ORDERED: Morphine 4 MG/ML VIAL ONE (15:54)
== END 2023-08-18 17:30 | disposition home or self-care (01) ==
LOC: ERS 14:21
DX: R07.9 Chest pain, unspecified (principal); R00.0 Tachycardia, unspecified; G89.29 Other chronic pain; E78.00 Pure hypercholesterolemia, unspecified; K21.9 Gastro-esophageal reflux disease without esophagitis; E11.9 Type 2 diabetes mellitus without complications; F17.210 Nicotine dependence, cigarettes, uncomplicated; Z79.4 Long term (current) use of insulin; Z79.899 Other long term (current) drug therapy
CPT/HCPCS: 36415; 71045; 80053; 82010; 83690; 83735; 83880; 84484; 85025; 93005; 96374; J2270

== ENCOUNTER 2023-08-28 20:10 | Emergency (ER) | payer OTHER ==
[2023-08-28 20:43] LABS: #Basophils 0.1 thou/uL (0.0-0.2); #Eosinphils 0.2 thou/uL (0.0-0.7); #Monocytes 0.6 thou/uL (0.11-0.59); #Neutrophils 6.9 thou/uL (1.40-6.50); %Basophils 0.5 % (0.0-1.0); %Eosinophils 1.5 % (0.0-10.0); %Lymphocytes 29.5 % (21.0-51.0); %Monocytes 5.1 % (0.0-10.0); %Neutrophils 62.6 % (42.0-75.0); Hematocrit 45.2 % (36.0-47.0); Hemoglobin 15.8 g/dL (12.0-16.0); Mean Corpuscular Hemoglobin 32.6 pg (27.0-31.0); Mean Corpuscular Volume 93.2 fl (78.0-98.0); Mean Platelet Volume 10.4 fL (7.4-10.4); Platelet Count 247 10x3/uL (130-400); RBC Distribution Width 13.2 % (11.5-14.5); Red Blood Cell (RBC) Count 4.85 mill/uL (4.20-5.40)
[2023-08-28] MEDS ORDERED: Ipratropium/Albuterol 3 ML NEB ONE (20:59)
[2023-08-28] MEDS ORDERED: Aspirin Chewable 81 MG TAB ONE (20:59)
[2023-08-28 21:13] LABS: Troponin I Less than 0.010 ng/mL (< 0.028)
[2023-08-28 21:45] LABS: ALT (SGPT) 26 U/L (8-55); AST (SGOT) 21 U/L (5-34); Albumin 3.6 g/dL (3.5-5.0); Alkaline Phosphatase 79 U/L (40-110); Anion Gap 21 mmol/L (10-20); BUN (Urea Nitrogen) 11 mg/dL (7.0-18.7); Bilirubin, Total 0.2 mg/dL (0.2-1.2); Calc. Creatinine Clearance 0 mL/min (70-130); Calcium 9.3 mg/dL (7.8-10.44); Carbon Dioxide 17 mmol/L (22-29); Chloride 102 mmol/L (98-107); Estimated GFR 80; Globulin 3.4 g/dL (2.4-3.5); Potassium 4.2 mmol/L (3.5-5.1); Sodium 136 mmol/L (136-145)
[2023-08-28 21:54] LABS: Glucose 402 mg/dL (70-105)
== END 2023-08-28 23:04 | disposition home or self-care (01) ==
LOC: ERS 20:10
DX: R07.89 Other chest pain (principal); F17.210 Nicotine dependence, cigarettes, uncomplicated; I10 Essential (primary) hypertension; K21.9 Gastro-esophageal reflux disease without esophagitis; E78.00 Pure hypercholesterolemia, unspecified; J44.9 Chronic obstructive pulmonary disease, unspecified; E11.9 Type 2 diabetes mellitus without complications; Z79.899 Other long term (current) drug therapy; Z79.01 Long term (current) use of anticoagulants; Z79.84 Long term (current) use of oral hypoglycemic drugs
CPT/HCPCS: 36415; 71045; 71275; 80053; 83880; 84484; 85025; 85379; 93005; 96360; 96361; J7620; Q9967

== ENCOUNTER 2023-08-31 14:19 | Emergency (ER) | payer OTHER ==
[2023-08-31] MEDS ORDERED: Dexamethasone 10 MG/ML VIAL ONE (14:46)
[2023-08-31] MEDS ORDERED: Ipratropium/Albuterol 3 ML NEB ONE (14:46)
[2023-08-31 15:34] LABS: ALT (SGPT) 26 U/L (8-55); AST (SGOT) 15 U/L (5-34); Albumin 3.4 g/dL (3.5-5.0); Alkaline Phosphatase 81 U/L (40-110); Anion Gap 16 mmol/L (10-20); BUN (Urea Nitrogen) 10 mg/dL (7.0-18.7); Bilirubin, Total 0.2 mg/dL (0.2-1.2); Calc. Creatinine Clearance 0 mL/min (70-130); Calcium 8.7 mg/dL (7.8-10.44); Carbon Dioxide 23 mmol/L (22-29); Chloride 99 mmol/L (98-107); Estimated GFR 84; Globulin 3.2 g/dL (2.4-3.5); Lipase 74 U/L (8-78); Potassium 4.1 mmol/L (3.5-5.1); Protein, Total 6.6 g/dL (6.0-8.3); Sodium 134 mmol/L (136-145)
[2023-08-31 15:39] LABS: Glucose 430 mg/dL (70-105)
[2023-08-31 15:41] LABS: Troponin I Less than 0.010 ng/mL (< 0.028)
[2023-08-31] MEDS ORDERED: Acetaminophen 500 MG TAB ONE (16:05)
[2023-08-31] MEDS ORDERED: Insulin Regular 300 UNITS/3 ML VIAL ONE (16:06)
== END 2023-08-31 16:40 | disposition home or self-care (01) ==
LOC: ERS 14:19
DX: R06.02 Shortness of breath (principal); E78.00 Pure hypercholesterolemia, unspecified; I10 Essential (primary) hypertension; K21.9 Gastro-esophageal reflux disease without esophagitis; F17.210 Nicotine dependence, cigarettes, uncomplicated
CPT/HCPCS: 71045; 83690; 83880; 84484; 85379; 93005; 94760; 96374; 96375; J1100; J1815; J7620

== ENCOUNTER 2023-09-03 01:12 | Emergency (ER) | payer OTHER ==
[2023-09-03 03:01] LABS: SARS-CoV-2 NAA Rapid Test Not Detected (NotDetected)
== END 2023-09-03 03:21 | disposition left against medical advice (07) ==
LOC: ERS 01:12
DX: R06.02 Shortness of breath (principal); E78.00 Pure hypercholesterolemia, unspecified; I10 Essential (primary) hypertension; K21.9 Gastro-esophageal reflux disease without esophagitis; F17.210 Nicotine dependence, cigarettes, uncomplicated; Z53.29 Procedure and treatment not carried out because of patient's decision for other reasons
CPT/HCPCS: 36416; 71045; 93005; 96360

== ENCOUNTER 2023-09-14 19:28 | Emergency (ER) | payer OTHER | END 2023-09-14 21:17 | disposition left against medical advice (07) | LOC: ERS 19:28 | DX: Z53.21 Procedure and treatment not carried out due to patient leaving prior to being seen by health care provider (principal) | CPT/HCPCS: 93005 ==

== ENCOUNTER 2023-09-18 11:07 | Inpatient (IN) | payer OTHER ==
[2023-09-18 11:52] LABS: Bacteria/HPF None Seen HPF (None Seen); Bilirubin Negative (Negative); Blood, Urine Trace (Negative); CAUTI Indications for Culture Pelvic or flank pain; Clarity Clear (Clear); Glucose, Urine (Dipstick) Greater than 1000 mg/dL (Negative); Ketone, Urine Negative (Negative); Leukocyte Negative Leu/uL (Negative); Nitrite Negative (Negative); Protein, Urine (Dipstick) 70 mg/dL (Neg-Trace); Specific Gravity, Urine 1.023 (1.002-1.036); Urobilinogen Normal mg/dL (Less than 2); WBC/HPF 0-3 HPF (0-3)
[2023-09-18 11:55] LABS: Urine Culture Reflex No No
[2023-09-18] MEDS ORDERED: Aztreonam 2 GM in Sodium Chloride 0.9% 100 ML IVPB SCH (12:00)
[2023-09-18 12:09] LABS: #Eosinphils 0.1 thou/uL (0.0-0.7); #Monocytes 0.6 thou/uL (0.11-0.59); #Neutrophils 6.8 thou/uL (1.40-6.50); %Basophils 0.4 % (0.0-1.0); %Eosinophils 1.2 % (0.0-10.0); %Lymphocytes 24.4 % (21.0-51.0); %Neutrophils 67.2 % (42.0-75.0); Hematocrit 44.6 % (36.0-47.0); Hemoglobin 15.4 g/dL (12.0-16.0); Mean Corpuscular HGB CONC 34.5 g/dL (32.0-36.0); Mean Corpuscular Hemoglobin 32.6 pg (27.0-31.0); Mean Corpuscular Volume 94.5 fl (78.0-98.0); Mean Platelet Volume 10.5 fL (7.4-10.4); Platelet Count 216 10x3/uL (130-400); RBC Distribution Width 13.2 % (11.5-14.5); Red Blood Cell (RBC) Count 4.72 mill/uL (4.20-5.40); White Blood Cell (WBC) Count 10.1 10x3/uL (4.8-10.8)
[2023-09-18 12:12] LABS: BHCG - Serum Negative (NEGATIVE); Pregs Control Background? CLEAR/WHITE (CLR/WHITE); Pregs Control Bar Appear? YES (CONTROL BAR)
[2023-09-18] MEDS ORDERED: Clindamycin/D5W 600 mg/50 ml Premix Bag ONE (12:12)
[2023-09-18 12:14] LABS: ALT (SGPT) 26 U/L (8-55); AST (SGOT) 20 U/L (5-34); Albumin 3.4 g/dL (3.5-5.0); Alkaline Phosphatase 81 U/L (40-110); Anion Gap 19 mmol/L (10-20); BUN (Urea Nitrogen) 12 mg/dL (7.0-18.7); Bilirubin, Total 0.2 mg/dL (0.2-1.2); Calc. Creatinine Clearance 0 mL/min (70-130); Calcium 9.1 mg/dL (7.8-10.44); Carbon Dioxide 21 mmol/L (22-29); Chloride 96 mmol/L (98-107); Estimated GFR 93; Globulin 3.7 g/dL (2.4-3.5); Potassium 4.8 mmol/L (3.5-5.1); Protein, Total 7.1 g/dL (6.0-8.3); Sodium 131 mmol/L (136-145)
[2023-09-18 12:15] LABS: INR-International Normal Ratio 0.9; Prothrombin Time 12.6 sec (12.0-14.7)
[2023-09-18 12:16] LABS: PTT 27.7 sec (22.9-36.1)
[2023-09-18 12:23] LABS: Glucose 447 mg/dL (70-105)
[2023-09-18] MEDS ORDERED: Morphine 4 MG/ML VIAL ONE ×2 (12:24→12:58)
[2023-09-18] MEDS ORDERED: LORazepam 2 MG/ML SYR.(CARPUJECT) ONE (13:33)
[2023-09-18] MEDS ORDERED: Ondansetron PF 4 MG/2 ML Vial IVP PRN ×2 (13:35→15:15)
[2023-09-18] MEDS ORDERED: Acetaminophen 325 MG TAB PO PRN ×2 (13:35→15:15)
[2023-09-18] MEDS ORDERED: Ondansetron ODT 4 MG TAB SL PRN (13:35)
[2023-09-18] MEDS ORDERED: Vancomycin (BATCH) 2 GM/500 ML BAG ONE (14:05)
[2023-09-18] MEDS ORDERED: metroNIDAZOLE 500 MG/100 ML BAG ONE (14:05)
[2023-09-18 15:08] LABS: Lactic Acid 2.7 mmol/L (0.5-2.2)
[2023-09-18] MEDS ORDERED: HYDROcodone/Acetaminophen 5/325 mg Tablet PO PRN (15:15)
[2023-09-18] MEDS ORDERED: Ipratropium/Albuterol 3 ML NEB NEB PRN (15:26)
[2023-09-18] MEDS ORDERED: Nicotine 21 MG PATCH TD SCH (16:00)
[2023-09-18] MEDS: HYDROcodone/Acetaminophen 10/325 mg Tablet PO PRN ×2 (16:24→21:21)
[2023-09-18] MEDS: Sodium Chloride 0.9% 1,000 ML IV SCH ×2 (16:32→18:10)
[2023-09-18 16:40] VITALS: BMI 48.2
[2023-09-18] MEDS ORDERED: HumaLOG 300 UNITS/3 ML VIAL SC SCH (17:00)
[2023-09-18] MEDS ORDERED: cefTRIAXone\\ROCEPHIN 1 GM in Sodium Chloride 0.9% 100 ML IVPB SCH (18:00)
[2023-09-18] MEDS ORDERED: QUEtiapine 200 MG TAB PO SCH (21:00)
[2023-09-18] MEDS ORDERED: Insulin Glargine 30 UNITS/0.3 ML VIAL SC SCH (21:00)
[2023-09-18] MEDS ORDERED: Vancomycin 1 GM in Premix 1 BAG IVPB SCH (21:00)
[2023-09-18] MEDS ORDERED: Famotidine 20 MG TAB PO SCH (21:00)
[2023-09-18] MEDS ORDERED: Atorvastatin Calcium 40 MG TAB PO SCH (21:00)
[2023-09-18] MEDS ORDERED: Fenofibrate Nanocrystallized 145 MG TAB PO SCH (21:00)
[2023-09-18 23:33] VITALS: BP 152/91; TEMP 97.8
[2023-09-19] MEDS ORDERED: Vancomycin (BATCH) 1.5 GM in Premix 1 BAG IVPB SCH (01:00)
== END 2023-09-19 01:33 | disposition left against medical advice (07) | DRG 758 ==
LOC: ERS 11:07 → 2NO 13:45
PROVIDERS: ADMIT Family Medicine; ATTEND Family Medicine
DX: N76.4 Abscess of vulva (principal); K50.90 Crohn's disease, unspecified, without complications; R65.10 Systemic inflammatory response syndrome (SIRS) of non-infectious origin without acute organ dysfunction; Z68.41 Body mass index [BMI] 40.0-44.9, adult; I10 Essential (primary) hypertension; J44.9 Chronic obstructive pulmonary disease, unspecified; F31.9 Bipolar disorder, unspecified; F41.9 Anxiety disorder, unspecified; E66.01 Morbid (severe) obesity due to excess calories; E11.65 Type 2 diabetes mellitus with hyperglycemia; L73.2 Hidradenitis suppurativa; G47.33 Obstructive sleep apnea (adult) (pediatric); Z88.1 Allergy status to other antibiotic agents; Z88.0 Allergy status to penicillin; Z79.899 Other long term (current) drug therapy; Z79.4 Long term (current) use of insulin; Z91.148 Patient's other noncompliance with medication regimen for other reason
CPT/HCPCS: 36415; 36416; 71045; 74177; 80053; 81001; 81025; 82010; 83605; 83690; 84703; 85025; 85610; 85730; 86140; 87040; 87086; 94760; 96365; 96367; 96368; 96375; 96376; J0457; J0696; J2060; J2270; J3370; J3370-JW; J3490; J7050; Q9967

== ENCOUNTER 2023-09-19 19:58 | Inpatient (IN) | payer OTHER ==
[2023-09-19] MEDS ORDERED: Vancomycin (BATCH) 1.5 GM in Premix 1 BAG IVPB SCH (21:00)
[2023-09-19] MEDS ORDERED: Sodium Chloride 0.9% 100 ML ONE (21:02)
[2023-09-19] MEDS ORDERED: fentaNYL 50 mcg/mL 1 mL Vial ONE (21:02)
[2023-09-19] MEDS ORDERED: Cefepime 2 GM VIAL ONE (21:02)
[2023-09-19 21:30] LABS: #Eosinphils 0.1 thou/uL (0.0-0.7); #Monocytes 0.5 thou/uL (0.11-0.59); #Neutrophils 5.7 thou/uL (1.40-6.50); %Basophils 0.5 % (0.0-1.0); %Eosinophils 1.5 % (0.0-10.0); %Lymphocytes 24.8 % (21.0-51.0); %Monocytes 6.2 % (0.0-10.0); %Neutrophils 66.3 % (42.0-75.0); Hematocrit 41.7 % (36.0-47.0); Hemoglobin 14.6 g/dL (12.0-16.0); Mean Corpuscular Hemoglobin 32.7 pg (27.0-31.0); Mean Corpuscular Volume 93.3 fl (78.0-98.0); Mean Platelet Volume 10.8 fL (7.4-10.4); Platelet Count 185 10x3/uL (130-400); RBC Distribution Width 13.3 % (11.5-14.5); Red Blood Cell (RBC) Count 4.47 mill/uL (4.20-5.40); White Blood Cell (WBC) Count 8.6 10x3/uL (4.8-10.8)
[2023-09-19 21:48] LABS: INR-International Normal Ratio 0.9; PTT 25.4 sec (22.9-36.1); Prothrombin Time 12.4 sec (12.0-14.7)
[2023-09-19] MEDS ORDERED: Ondansetron PF 4 MG/2 ML Vial IVP PRN (21:49)
[2023-09-19] MEDS ORDERED: HumaLOG 300 UNITS/3 ML VIAL SC PRN ×4 (21:51→22:15)
[2023-09-19] MEDS ORDERED: Glucagon 1 MG/ML KIT IM PRN (21:51)
[2023-09-19] MEDS ORDERED: Dextrose 5% in Water 1,000 ML IV PRN (21:51)
[2023-09-19] MEDS ORDERED: Dextrose 50% Abboject 50 ML SYRINGE SLOW IVP PRN (21:51)
[2023-09-19 21:52] LABS: Bacteria/HPF None Seen HPF (None Seen); Bilirubin Negative (Negative); Blood, Urine Trace (Negative); CAUTI Indications for Culture Pelvic or flank pain; Clarity Clear (Clear); Glucose, Urine (Dipstick) Greater than 1000 mg/dL (Negative); Ketone, Urine Negative (Negative); Leukocyte Negative Leu/uL (Negative); Nitrite Negative (Negative); Protein, Urine (Dipstick) 100 mg/dL (Neg-Trace); RBC/HPF 0-3 HPF (0-3); Squamous Epithelial 0-3 HPF (0-3); Urobilinogen Normal mg/dL (Less than 2); WBC/HPF 0-3 HPF (0-3); pH, Urine 6.5 (5.0-9.0)
[2023-09-19 21:53] LABS: Urine Culture Reflex No No
[2023-09-19 22:01] LABS: ALT (SGPT) 23 U/L (8-55); AST (SGOT) 15 U/L (5-34); Albumin 3.2 g/dL (3.5-5.0); Alkaline Phosphatase 80 U/L (40-110); Anion Gap 14 mmol/L (10-20); BUN (Urea Nitrogen) 9 mg/dL (7.0-18.7); Bilirubin, Total 0.2 mg/dL (0.2-1.2); Calc. Creatinine Clearance 0 mL/min (70-130); Calcium 8.3 mg/dL (7.8-10.44); Carbon Dioxide 23 mmol/L (22-29); Chloride 102 mmol/L (98-107); Estimated GFR 88; Globulin 3.1 g/dL (2.4-3.5); Potassium 4.4 mmol/L (3.5-5.1); Protein, Total 6.3 g/dL (6.0-8.3); Sodium 135 mmol/L (136-145)
[2023-09-19 22:03] LABS: CRP (Inflammatory) 2.63 mg/dL (= or < 0.5); Glucose 483 mg/dL (70-105); Lipase 58 U/L (8-78); Magnesium 1.3 mg/dL (1.6-2.6)
[2023-09-19 22:05] LABS: Troponin I Less than 0.010 ng/mL (< 0.028)
[2023-09-19 22:21] VITALS: BMI 45.6
[2023-09-19] MEDS ORDERED: Insulin Glargine 30 UNITS/0.3 ML VIAL SC SCH (22:30)
[2023-09-19] MEDS ORDERED: Magnesium 2 GM/50 ML(in water) 2 GM in Premix 1 BAG IVPB SCH (22:30)
[2023-09-19] MEDS ORDERED: Nicotine 14 MG PATCH TD SCH (23:00)
[2023-09-19] MEDS ORDERED: Magnesium 2 GM/50 ML BAG (IN WATER) ONE (23:27)
[2023-09-19] MEDS ORDERED: Metoprolol Tartrate 50 MG TAB ONE (23:27)
[2023-09-19] MEDS ORDERED: HumaLOG 300 UNITS/3 ML VIAL ONE (23:28)
[2023-09-19] MEDS ORDERED: Nicotine 14 MG PATCH ONE (23:29)
[2023-09-20] MEDS ORDERED: Acetaminophen 325 MG TAB ONE (00:36)
[2023-09-20 00:48] LABS: Lactic Acid 2.5 mmol/L (0.5-2.2)
[2023-09-20] MEDS: Acetaminophen 325 MG TAB PO PRN ×2 (00:53→09:20)
[2023-09-20 05:49] LABS: #Eosinphils 0.1 thou/uL (0.0-0.7); #Monocytes 0.6 thou/uL (0.11-0.59); %Basophils 0.5 % (0.0-1.0); %Eosinophils 1.2 % (0.0-10.0); %Lymphocytes 23.6 % (21.0-51.0); %Monocytes 6.4 % (0.0-10.0); %Neutrophils 67.7 % (42.0-75.0); Hematocrit 43.6 % (36.0-47.0); Hemoglobin 14.5 g/dL (12.0-16.0); Mean Corpuscular HGB CONC 33.3 g/dL (32.0-36.0); Mean Corpuscular Hemoglobin 32.3 pg (27.0-31.0); Mean Platelet Volume 10.7 fL (7.4-10.4); Platelet Count 179 10x3/uL (130-400); RBC Distribution Width 13.5 % (11.5-14.5); Red Blood Cell (RBC) Count 4.49 mill/uL (4.20-5.40); White Blood Cell (WBC) Count 8.9 10x3/uL (4.8-10.8)
[2023-09-20 06:05] LABS: Anion Gap 13 mmol/L (10-20); BUN (Urea Nitrogen) 9 mg/dL (7.0-18.7); Calc. Creatinine Clearance 251 mL/min (70-130); Carbon Dioxide 24 mmol/L (22-29); Chloride 106 mmol/L (98-107); Potassium 4.7 mmol/L (3.5-5.1); Sodium 138 mmol/L (136-145)
[2023-09-20 06:06] LABS: Calcium 8.4 mg/dL (7.8-10.44); Estimated GFR 116; Glucose 301 mg/dL (70-105); Magnesium 1.7 mg/dL (1.6-2.6)
[2023-09-20 06:15] LABS: Mean Corpuscular Volume 97.1 fl (78.0-98.0)
[2023-09-20 07:33] LABS: Hemoglobin A1c 10.4 % (4.0-6.0)
[2023-09-20 07:49] VITALS: TEMP 98.2
[2023-09-20] MEDS ORDERED: Sodium Chloride 0.9% 1,000 ML IV SCH (08:15)
[2023-09-20] MEDS ORDERED: Morphine 4 MG/ML VIAL SLOW IVP PRN (10:06)
[2023-09-20] MEDS ORDERED: Lidocaine 2% PF 5 ML VIAL ONE (11:41)
[2023-09-20] MEDS ORDERED: PROPOFOL 20 ML ONE (11:41)
[2023-09-20] MEDS ORDERED: Midazolam HCl 2 mg/2 ml Vial ONE (11:56)
[2023-09-20] MEDS ORDERED: PROPOFOL 200 MG/20 ML VIAL ONE (12:09)
[2023-09-20] MEDS ORDERED: Albuterol HFA (OR) 200 PUFF INH ONE (12:09)
[2023-09-20] MEDS ORDERED: fentaNYL PF 100 MCG/2 ML SYRINGE ONE ×2 (12:09→12:36)
[2023-09-20] MEDS ORDERED: Albuterol 200 PUFF (6.7GM INHALER) ONE (12:09)
[2023-09-20] MEDS ORDERED: Metoclopramide HCl 10 MG/2 ML VIAL ONE ×2 (12:09→12:33)
[2023-09-20] MEDS ORDERED: Succinylcholine 200 MG/10 ml SYRINGE FS ONE (12:09)
[2023-09-20] MEDS ORDERED: Lidocaine 1% PF 5 ML VIAL ONE (12:09)
[2023-09-20] MEDS ORDERED: Ondansetron PF 4 MG/2 ML Vial ONE ×2 (12:09→12:28)
[2023-09-20] MEDS ORDERED: Rocuronium Bromide 10 MG/ML (10ML VIAL) ONE (12:09)
[2023-09-20] MEDS ORDERED: Dexamethasone 4 mg/ml Vial ONE (12:28)
[2023-09-20] MEDS ORDERED: SUGAMMADEX SODIUM 200 MG/2 ML VIAL ONE (12:37)
[2023-09-20] MEDS ORDERED: EPINEPHrine 1 MG/ML VIAL ONE (12:38)
[2023-09-20] MEDS ORDERED: Bupivacaine PF 0.5% 30 ML VIAL ONE (12:39)
[2023-09-20] MEDS ORDERED: Ibuprofen 600 MG TAB PO PRN (13:00)
[2023-09-20] MEDS ORDERED: traMADol HCl 50 MG TAB PO PRN (13:00)
[2023-09-20] MEDS ORDERED: Acetaminophen 500 MG TAB PO SCH ×2 (13:00→23:59)
[2023-09-20] MEDS ORDERED: fentaNYL 50 mcg/mL 1 mL Vial ONE ×2 (13:01→13:22)
[2023-09-20] MEDS ORDERED: Ondansetron ODT 4 MG TAB PO PRN (13:04)
[2023-09-20] MEDS ORDERED: Cyclobenzaprine 10 MG TAB PO PRN (13:04)
[2023-09-20] MEDS ORDERED: clonazePAM 1 MG TAB PO PRN (13:04)
[2023-09-20] MEDS ORDERED: Ipratropium/Albuterol 3 ML NEB NEB PRN (13:04)
[2023-09-20] MEDS ORDERED: PALIPERIDONE PALMITATE 234 MG/1.5 ML IM SCH (13:15)
[2023-09-20] MEDS ORDERED: [UNRECOGNIZED DRUG - OTHER] IM SCH (13:15)
[2023-09-20 14:12] VITALS: BP 142/81
[2023-09-20] MEDS ORDERED: HumaLOG 300 UNITS/3 ML VIAL SC SCH (17:00)
[2023-09-20] MEDS ORDERED: Atorvastatin Calcium 10 MG TAB PO SCH (21:00)
[2023-09-20] MEDS ORDERED: Doxycycline 100 MG CAP PO SCH (21:00)
[2023-09-20] MEDS ORDERED: QUEtiapine 200 MG TAB PO SCH (21:00)
[2023-09-20] MEDS ORDERED: Insulin Glargine 30 UNITS/0.3 ML VIAL SC SCH ×2 (21:00)
== END 2023-09-20 16:04 | disposition home or self-care (01) | DRG 746 ==
LOC: ERS 19:58 → ERHOLD 21:14 → T4-A 21:47
PROVIDERS: ADMIT Internal Medicine; ATTEND Nurse Practitioner Family
PROC: 0U9M0ZZ Drainage of Vulva, Open Approach (ICD-10-PCS; principal; 2023-09-20)
PROC: 3E033XZ Introduction of Vasopressor into Peripheral Vein, Percutaneous Approach (ICD-10-PCS; 2023-09-20)
DX: N76.4 Abscess of vulva (principal); K50.90 Crohn's disease, unspecified, without complications; Z68.42 Body mass index [BMI] 45.0-49.9, adult; I10 Essential (primary) hypertension; J44.9 Chronic obstructive pulmonary disease, unspecified; R00.0 Tachycardia, unspecified; G47.33 Obstructive sleep apnea (adult) (pediatric); F31.9 Bipolar disorder, unspecified; F41.9 Anxiety disorder, unspecified; E66.01 Morbid (severe) obesity due to excess calories; R53.1 Weakness; R50.9 Fever, unspecified; F17.210 Nicotine dependence, cigarettes, uncomplicated; E11.65 Type 2 diabetes mellitus with hyperglycemia; E83.42 Hypomagnesemia; Z88.1 Allergy status to other antibiotic agents; Z88.8 Allergy status to other drugs, medicaments and biological substances; Z88.0 Allergy status to penicillin; Z79.899 Other long term (current) drug therapy; Z79.4 Long term (current) use of insulin; Z71.6 Tobacco abuse counseling; Z90.89 Acquired absence of other organs; Z98.890 Other specified postprocedural states
CPT/HCPCS: 36415; 36416; 71045; 80048; 80053; 81001; 83036; 83605; 83690; 83735; 84484; 85025; 85610; 85730; 86140; 87040; 87077; 87149; 87186; 93005; J0171; J0692; J1100; J1815; J2001; J2250; J2405; J2704; J2765; J3010; J3370; J3475; J3490; J7050; S0020

== ENCOUNTER 2023-09-21 11:24 | Emergency (ER) | payer OTHER ==
[2023-09-21 12:18] LABS: #Eosinphils 0.1 thou/uL (0.0-0.7); #Monocytes 0.7 thou/uL (0.11-0.59); #Neutrophils 8.9 thou/uL (1.40-6.50); %Basophils 0.3 % (0.0-1.0); %Eosinophils 0.6 % (0.0-10.0); %Lymphocytes 17.7 % (21.0-51.0); %Monocytes 5.7 % (0.0-10.0); %Neutrophils 74.9 % (42.0-75.0); Hematocrit 41.4 % (36.0-47.0); Hemoglobin 14.1 g/dL (12.0-16.0); Mean Corpuscular HGB CONC 34.1 g/dL (32.0-36.0); Mean Corpuscular Hemoglobin 32.9 pg (27.0-31.0); Mean Corpuscular Volume 96.5 fl (78.0-98.0); Mean Platelet Volume 10.4 fL (7.4-10.4); Platelet Count 192 10x3/uL (130-400); RBC Distribution Width 13.6 % (11.5-14.5); Red Blood Cell (RBC) Count 4.29 mill/uL (4.20-5.40); White Blood Cell (WBC) Count 11.9 10x3/uL (4.8-10.8)
[2023-09-21] MEDS ORDERED: Ipratropium/Albuterol 3 ML NEB ONE (12:23)
[2023-09-21] MEDS ORDERED: Magnesium 2 GM/50 ML BAG (IN WATER) ONE (12:27)
[2023-09-21] MEDS ORDERED: methylPREDNISolone Sod Succ/PF 125 MG/2 ML VIAL ONE (12:27)
[2023-09-21 12:43] LABS: ALT (SGPT) 25 U/L (8-55); AST (SGOT) 16 U/L (5-34); Albumin 3.4 g/dL (3.5-5.0); Alkaline Phosphatase 57 U/L (40-110); Anion Gap 13 mmol/L (10-20); BUN (Urea Nitrogen) 10 mg/dL (7.0-18.7); Bilirubin, Total 0.6 mg/dL (0.2-1.2); Calc. Creatinine Clearance 0 mL/min (70-130); Calcium 9.1 mg/dL (7.8-10.44); Carbon Dioxide 28 mmol/L (22-29); Chloride 98 mmol/L (98-107); Estimated GFR 107; Globulin 2.8 g/dL (2.4-3.5); Glucose 334 mg/dL (70-105); Potassium 4.3 mmol/L (3.5-5.1); Protein, Total 6.2 g/dL (6.0-8.3); Sodium 135 mmol/L (136-145)
[2023-09-21 12:45] LABS: Troponin I Less than 0.010 ng/mL (< 0.028)
[2023-09-21] MEDS ORDERED: Ondansetron PF 4 MG/2 ML Vial ONE (13:14)
[2023-09-21] MEDS ORDERED: Morphine 4 MG/ML VIAL ONE (13:14)
[2023-09-21] MEDS ORDERED: Sodium Chloride 0.9% 0 ML ONE (13:14)
[2023-09-21] MEDS ORDERED: Cefepime 2 GM VIAL ONE (13:14)
[2023-09-21] MEDS ORDERED: Sodium Chloride 0.9% 100 ML ONE (13:15)
[2023-09-21 13:23] LABS: Actual Bicarbonate (HCO3v) 25.4 mEq/L (22-28); Analyzer IN Cardio ER; Base Excess 0.7 mEq/L (-2.0 to +3.0); Calcium, Ionized (venous) 1.08 mmol/L (1.16-1.32); Chloride (VBG) 99 mmol/L (98-106); Hematocrit-VBG 45 % (36.0-47.0); Hemoglobin (Hb) 15.3 g/dL (11.7-15.5); Potassium (VBG) 4.13 mmol/L (3.70-5.30); Sodium 135 mmol/L (133-146)
[2023-09-21] MEDS ORDERED: SODIUM CHLORIDE 0.9% IVPB SCH (13:45)
[2023-09-21] MEDS ORDERED: VANCOMYCIN IVPB SCH (13:45)
[2023-09-21] MEDS ORDERED: VANCOMYCIN HCL IVPB SCH (13:45)
== END 2023-09-21 15:55 | disposition left against medical advice (07) ==
LOC: ERS 11:24
DX: J18.9 Pneumonia, unspecified organism (principal); J45.901 Unspecified asthma with (acute) exacerbation; E10.65 Type 1 diabetes mellitus with hyperglycemia; K21.9 Gastro-esophageal reflux disease without esophagitis; F17.210 Nicotine dependence, cigarettes, uncomplicated; J44.9 Chronic obstructive pulmonary disease, unspecified; I10 Essential (primary) hypertension; Z79.51 Long term (current) use of inhaled steroids; Z79.4 Long term (current) use of insulin; Z79.899 Other long term (current) drug therapy
CPT/HCPCS: 36415; 36416; 71045; 80053; 82805; 83605; 84484; 85025; 87040; 93005; 94640; 96361; 96365; 96367; 96375; J0692; J2270; J2405; J2930; J3370; J3475; J3490; J7030; J7620

== ENCOUNTER 2023-09-23 13:18 | Observation (INO) | payer OTHER ==
[2023-09-23 13:50] LABS: #Eosinphils 0.1 thou/uL (0.0-0.7); #Monocytes 0.7 thou/uL (0.11-0.59); #Neutrophils 7.9 thou/uL (1.40-6.50); %Basophils 0.3 % (0.0-1.0); %Eosinophils 0.9 % (0.0-10.0); %Lymphocytes 18.8 % (21.0-51.0); %Monocytes 6.5 % (0.0-10.0); %Neutrophils 72.8 % (42.0-75.0); Hematocrit 42.4 % (36.0-47.0); Hemoglobin 14.2 g/dL (12.0-16.0); Mean Corpuscular HGB CONC 33.5 g/dL (32.0-36.0); Mean Corpuscular Hemoglobin 32.5 pg (27.0-31.0); Mean Platelet Volume 10.5 fL (7.4-10.4); Platelet Count 240 10x3/uL (130-400); RBC Distribution Width 13.5 % (11.5-14.5); Red Blood Cell (RBC) Count 4.37 mill/uL (4.20-5.40); White Blood Cell (WBC) Count 10.8 10x3/uL (4.8-10.8)
[2023-09-23 14:13] LABS: ALT (SGPT) 29 U/L (8-55); AST (SGOT) 24 U/L (5-34); Albumin 3.4 g/dL (3.5-5.0); Alkaline Phosphatase 58 U/L (40-110); Anion Gap 14 mmol/L (10-20); BUN (Urea Nitrogen) 11 mg/dL (7.0-18.7); Bilirubin, Total 0.3 mg/dL (0.2-1.2); Calc. Creatinine Clearance 0 mL/min (70-130); Calcium 9.1 mg/dL (7.8-10.44); Carbon Dioxide 30 mmol/L (22-29); Chloride 97 mmol/L (98-107); Estimated GFR 88; Globulin 3.2 g/dL (2.4-3.5); Glucose 295 mg/dL (70-105); Potassium 4.3 mmol/L (3.5-5.1); Protein, Total 6.6 g/dL (6.0-8.3); Sodium 137 mmol/L (136-145)
[2023-09-23] MEDS ORDERED: hydrOXYzine 10 MG TAB PO SCH (14:30)
[2023-09-23] MEDS ORDERED: Morphine 4 MG/ML VIAL ONE (14:34)
[2023-09-23] MEDS ORDERED: Ondansetron PF 4 MG/2 ML Vial ONE ×2 (14:34→14:35)
[2023-09-23] MEDS ORDERED: Nicotine 14 MG PATCH ONE (14:34)
[2023-09-23] MEDS ORDERED: Vancomycin (BATCH) 2 GM in Premix 1 BAG IVPB SCH (15:00)
[2023-09-23 15:04] LABS: Bacteria/HPF None Seen HPF (None Seen); Bilirubin Negative (Negative); Blood, Urine Trace (Negative); CAUTI Indications for Culture Dysuria,urgency,freq; Clarity Clear (Clear); Glucose, Urine (Dipstick) 30 mg/dL (Negative); Ketone, Urine Negative (Negative); Leukocyte Negative Leu/uL (Negative); Nitrite Negative (Negative); Protein, Urine (Dipstick) 200 mg/dL (Neg-Trace); Specific Gravity, Urine 1.016 (1.002-1.036); Urobilinogen Normal mg/dL (Less than 2); WBC/HPF 0-3 HPF (0-3); pH, Urine 6.5 (5.0-9.0)
[2023-09-23 15:05] LABS: Urine Culture Reflex No No
[2023-09-23] MEDS ORDERED: Acetaminophen 325 MG TAB PO PRN (16:52)
[2023-09-23] MEDS ORDERED: HYDROcodone/Acetaminophen 5/325 mg Tablet PO PRN (16:52)
[2023-09-23] MEDS ORDERED: Ipratropium/Albuterol 3 ML NEB NEB PRN (16:59)
[2023-09-23] MEDS ORDERED: clonazePAM 1 MG TAB PO PRN (16:59)
[2023-09-23] MEDS ORDERED: Cyclobenzaprine 10 MG TAB PO PRN (16:59)
[2023-09-23] MEDS ORDERED: Albuterol 200 PUFF (6.7GM INHALER) INH PRN (16:59)
[2023-09-23 17:03] LABS: Lactic Acid 2.1 mmol/L (0.5-2.2)
[2023-09-23] MEDS ORDERED: Glucagon 1 MG/ML KIT IM PRN (17:06)
[2023-09-23] MEDS ORDERED: Dextrose 5% in Water 1,000 ML IV PRN (17:06)
[2023-09-23] MEDS ORDERED: Dextrose 50% Abboject 50 ML SYRINGE SLOW IVP PRN (17:06)
[2023-09-23] MEDS ORDERED: Nicotine 21 MG PATCH TD SCH (18:00)
[2023-09-23] MEDS ORDERED: Atorvastatin Calcium 10 MG TAB PO SCH (21:00)
[2023-09-23] MEDS ORDERED: QUEtiapine 200 MG TAB PO SCH (21:00)
[2023-09-23] MEDS: Insulin Glargine 30 UNITS/0.3 ML VIAL SC SCH (21:52)
[2023-09-23] MEDS: Clindamycin/D5W 900 MG in Premix 1 BAG IVPB SCH (21:59)
[2023-09-23 22:13] VITALS: BMI 47.1
[2023-09-23] MEDS: HYDROcodone/Acetaminophen 5/325 mg Tablet PO PRN (22:35)
[2023-09-24 05:05] LABS: #Eosinphils 0.2 thou/uL (0.0-0.7); #Monocytes 0.8 thou/uL (0.11-0.59); #Neutrophils 4.9 thou/uL (1.40-6.50); %Basophils 0.5 % (0.0-1.0); %Eosinophils 1.9 % (0.0-10.0); %Lymphocytes 30.5 % (21.0-51.0); %Monocytes 8.8 % (0.0-10.0); %Neutrophils 57.6 % (42.0-75.0); Hematocrit 41.6 % (36.0-47.0); Hemoglobin 13.3 g/dL (12.0-16.0); Mean Corpuscular Hemoglobin 31.9 pg (27.0-31.0); Mean Corpuscular Volume 99.8 fl (78.0-98.0); Mean Platelet Volume 10.8 fL (7.4-10.4); Platelet Count 232 10x3/uL (130-400); Red Blood Cell (RBC) Count 4.17 mill/uL (4.20-5.40); White Blood Cell (WBC) Count 8.5 10x3/uL (4.8-10.8)
[2023-09-24] MEDS: Clindamycin/D5W 900 MG in Premix 1 BAG IVPB SCH (05:48)
[2023-09-24] MEDS: HumaLOG 300 UNITS/3 ML VIAL SC PRN ×2 (05:48→11:43)
[2023-09-24] MEDS: HYDROcodone/Acetaminophen 5/325 mg Tablet PO PRN (09:08)
[2023-09-24] MEDS: Insulin Glargine 30 UNITS/0.3 ML VIAL SC SCH (09:12)
[2023-09-24 11:28] VITALS: BP 111/79; TEMP 98.6
== END 2023-09-24 12:18 | disposition home or self-care (01) ==
LOC: ERS 13:18 → INTOOBSV 16:57 → SURG A 16:57
PROVIDERS: ADMIT Internal Medicine; ATTEND Internal Medicine
DX: E11.65 Type 2 diabetes mellitus with hyperglycemia (principal); K50.90 Crohn's disease, unspecified, without complications; I10 Essential (primary) hypertension; E78.5 Hyperlipidemia, unspecified; J45.909 Unspecified asthma, uncomplicated; G47.33 Obstructive sleep apnea (adult) (pediatric); K21.9 Gastro-esophageal reflux disease without esophagitis; Z79.899 Other long term (current) drug therapy; F17.210 Nicotine dependence, cigarettes, uncomplicated; Z88.0 Allergy status to penicillin; Z88.8 Allergy status to other drugs, medicaments and biological substances; Z79.4 Long term (current) use of insulin; Z98.890 Other specified postprocedural states; Z90.89 Acquired absence of other organs
CPT/HCPCS: 36415; 36416; 71045; 71275; 72193; 80053; 81001; 83605; 85025; 87040; 93005; 94640; 96365; 96375; 97139; J1650; J1815; J2270; J2405; J3370; J3490; J7620; Q9967

== ENCOUNTER 2023-09-26 16:37 | Emergency (ER) | payer OTHER ==
[2023-09-26 17:11] LABS: #Eosinphils 0.1 thou/uL (0.0-0.7); #Monocytes 0.7 thou/uL (0.11-0.59); #Neutrophils 6.9 thou/uL (1.40-6.50); %Basophils 0.4 % (0.0-1.0); %Eosinophils 0.8 % (0.0-10.0); %Lymphocytes 23.4 % (21.0-51.0); %Monocytes 6.6 % (0.0-10.0); %Neutrophils 67.7 % (42.0-75.0); Hematocrit 43.1 % (36.0-47.0); Hemoglobin 14.3 g/dL (12.0-16.0); Mean Corpuscular HGB CONC 33.2 g/dL (32.0-36.0); Mean Corpuscular Hemoglobin 32.1 pg (27.0-31.0); Mean Corpuscular Volume 96.9 fl (78.0-98.0); Mean Platelet Volume 10.1 fL (7.4-10.4); Platelet Count 264 10x3/uL (130-400); RBC Distribution Width 14.3 % (11.5-14.5); Red Blood Cell (RBC) Count 4.45 mill/uL (4.20-5.40); White Blood Cell (WBC) Count 10.1 10x3/uL (4.8-10.8)
[2023-09-26 17:28] LABS: BHCG - Serum Negative (NEGATIVE); PTT 29.4 sec (22.9-36.1); Pregs Control Background? CLEAR/WHITE (CLR/WHITE); Pregs Control Bar Appear? YES (CONTROL BAR); Prothrombin Time 13.7 sec (12.0-14.7)
[2023-09-26] MEDS ORDERED: Ondansetron PF 4 MG/2 ML Vial ONE (17:46)
[2023-09-26] MEDS ORDERED: Morphine 4 MG/ML VIAL ONE (17:46)
[2023-09-26 17:48] LABS: ALT (SGPT) 22 U/L (8-55); AST (SGOT) 13 U/L (5-34); Albumin 3.2 g/dL (3.5-5.0); Alkaline Phosphatase 65 U/L (40-110); Anion Gap 19 mmol/L (10-20); BUN (Urea Nitrogen) 12 mg/dL (7.0-18.7); Bilirubin, Total 0.3 mg/dL (0.2-1.2); Calc. Creatinine Clearance 0 mL/min (70-130); Calcium 9.6 mg/dL (7.8-10.44); Carbon Dioxide 26 mmol/L (22-29); Chloride 95 mmol/L (98-107); Estimated GFR 67; Globulin 3.6 g/dL (2.4-3.5); Lipase 46 U/L (8-78); Magnesium 1.7 mg/dL (1.6-2.6); Potassium 4.2 mmol/L (3.5-5.1); Protein, Total 6.8 g/dL (6.0-8.3); Sodium 136 mmol/L (136-145)
[2023-09-26 17:53] LABS: Glucose 498 mg/dL (70-105)
[2023-09-26 18:03] LABS: Troponin I Less than 0.010 ng/mL (< 0.028)
[2023-09-26] MEDS ORDERED: Ipratropium/Albuterol 3 ML NEB ONE (18:21)
[2023-09-26 18:51] LABS: Actual Bicarbonate (HCO3v) 29.2 mEq/L (22-28); Analyzer IN Cardio ER; Base Excess 3.3 mEq/L (-2.0 to +3.0); Calcium, Ionized (venous) 1.11 mmol/L (1.16-1.32); Chloride (VBG) 98 mmol/L (98-106); Hematocrit-VBG 44 % (36.0-47.0); Hemoglobin (Hb) 14.8 g/dL (11.7-15.5); Potassium (VBG) 4.39 mmol/L (3.70-5.30); Sodium 137 mmol/L (133-146); pH (venous) 7.391 (7.32-7.43)
[2023-09-26] MEDS ORDERED: Insulin Regular 300 UNITS/3 ML VIAL ONE (19:03)
[2023-09-26] MEDS ORDERED: methylPREDNISolone Sod Succ/PF 125 MG/2 ML VIAL ONE (19:03)
[2023-09-26] MEDS ORDERED: Albuterol 2.5 MG/0.5 ML NEB ONE (19:04)
== END 2023-09-26 20:34 | disposition home or self-care (01) ==
LOC: ERS 16:37
DX: J44.1 Chronic obstructive pulmonary disease with (acute) exacerbation (principal); I10 Essential (primary) hypertension; E10.9 Type 1 diabetes mellitus without complications; F17.210 Nicotine dependence, cigarettes, uncomplicated; E78.5 Hyperlipidemia, unspecified; Z79.899 Other long term (current) drug therapy
CPT/HCPCS: 36415; 71275; 80053; 82805; 83605; 83690; 83735; 84484; 84703; 85025; 85610; 85730; 93005; 94640; 94760; 96361; 96374; 96375; J1815; J2270; J2405; J2930; J7611; J7620; Q9967

== ENCOUNTER 2023-09-29 07:21 | Emergency (ER) | payer OTHER ==
[2023-09-29 08:17] LABS: #Basophils 0.1 thou/uL (0.0-0.2); #Eosinphils 0.2 thou/uL (0.0-0.7); #Monocytes 0.8 thou/uL (0.11-0.59); #Neutrophils 8.9 thou/uL (1.40-6.50); %Basophils 0.5 % (0.0-1.0); %Eosinophils 1.2 % (0.0-10.0); %Lymphocytes 21.1 % (21.0-51.0); %Monocytes 6.4 % (0.0-10.0); %Neutrophils 69.2 % (42.0-75.0); Hemoglobin 14.9 g/dL (12.0-16.0); Mean Corpuscular HGB CONC 33.1 g/dL (32.0-36.0); Mean Corpuscular Hemoglobin 32.8 pg (27.0-31.0); Mean Corpuscular Volume 99.1 fl (78.0-98.0); Mean Platelet Volume 10.4 fL (7.4-10.4); Platelet Count 289 10x3/uL (130-400); RBC Distribution Width 14.7 % (11.5-14.5); Red Blood Cell (RBC) Count 4.54 mill/uL (4.20-5.40); White Blood Cell (WBC) Count 12.9 10x3/uL (4.8-10.8)
[2023-09-29] MEDS ORDERED: Ondansetron PF 4 MG/2 ML Vial ONE (08:30)
[2023-09-29] MEDS ORDERED: Morphine 4 MG/ML VIAL ONE (08:30)
[2023-09-29] MEDS ORDERED: Ketorolac Tromethamine 30 MG/ML VIAL ONE (08:30)
[2023-09-29] MEDS ORDERED: Ipratropium/Albuterol 3 ML NEB ONE (08:31)
[2023-09-29] MEDS ORDERED: methylPREDNISolone Sod Succ/PF 125 MG/2 ML VIAL ONE (08:31)
[2023-09-29] MEDS ORDERED: Magnesium 2 GM/50 ML BAG (IN WATER) ONE (08:31)
[2023-09-29 08:36] LABS: INR-International Normal Ratio 0.9; PTT 25.3 sec (22.9-36.1); Prothrombin Time 12.8 sec (12.0-14.7)
[2023-09-29 08:39] LABS: ALT (SGPT) 22 U/L (8-55); AST (SGOT) 16 U/L (5-34); Albumin 3.4 g/dL (3.5-5.0); Alkaline Phosphatase 85 U/L (40-110); Anion Gap 14 mmol/L (10-20); BHCG - Serum Negative (NEGATIVE); BUN (Urea Nitrogen) 13 mg/dL (7.0-18.7); Bilirubin, Total 0.4 mg/dL (0.2-1.2); Calc. Creatinine Clearance 0 mL/min (70-130); Calcium 9.5 mg/dL (7.8-10.44); Carbon Dioxide 25 mmol/L (22-29); Chloride 97 mmol/L (98-107); Estimated GFR 90; Globulin 3.6 g/dL (2.4-3.5); Magnesium 1.3 mg/dL (1.6-2.6); Potassium 4.3 mmol/L (3.5-5.1); Pregs Control Background? CLEAR/WHITE (CLR/WHITE); Pregs Control Bar Appear? YES (CONTROL BAR); Sodium 132 mmol/L (136-145)
[2023-09-29 08:43] LABS: Troponin I Less than 0.010 ng/mL (< 0.028)
[2023-09-29 09:05] LABS: Glucose 436 mg/dL (70-105)
[2023-09-29] MEDS ORDERED: Insulin Regular 300 UNITS/3 ML VIAL ONE (09:27)
== END 2023-09-29 09:51 | disposition left against medical advice (07) ==
LOC: ERS 07:21
DX: A41.9 Sepsis, unspecified organism (principal); R06.03 Acute respiratory distress; J44.9 Chronic obstructive pulmonary disease, unspecified; I10 Essential (primary) hypertension; F17.210 Nicotine dependence, cigarettes, uncomplicated; E78.5 Hyperlipidemia, unspecified; Z79.899 Other long term (current) drug therapy; Z79.4 Long term (current) use of insulin; Z53.29 Procedure and treatment not carried out because of patient's decision for other reasons
CPT/HCPCS: 71045; 80053; 83605; 83735; 84484; 84703; 85025; 85610; 85730; 87040; 93005; 96365; 96375; J1815; J1885; J2270; J2405; J2930; J3475; J7620

== ENCOUNTER 2023-10-03 07:45 | Outpatient (CLI) | payer OTHER | END 2023-10-03 07:46 | disposition home or self-care (01) | LOC: RAD 07:45 | PROVIDERS: ATTEND Internal Medicine Critical Care Medicine | DX: R06.00 Dyspnea, unspecified (principal); J98.4 Other disorders of lung; M51.34 Other intervertebral disc degeneration, thoracic region; M25.78 Osteophyte, vertebrae | CPT/HCPCS: 71046 ==

== ENCOUNTER 2023-10-19 17:32 | Emergency (ER) | payer OTHER | END 2023-10-19 19:23 | disposition left against medical advice (07) | LOC: ERS 17:32 | DX: Z53.21 Procedure and treatment not carried out due to patient leaving prior to being seen by health care provider (principal) ==

== ENCOUNTER 2023-11-10 14:42 | Emergency (ER) | payer OTHER ==
[2023-11-10] MEDS ORDERED: Metoprolol Tartrate 50 MG TAB ONE (15:49)
== END 2023-11-10 16:11 | disposition home or self-care (01) ==
LOC: ERS 14:42
DX: N64.4 Mastodynia (principal); F17.210 Nicotine dependence, cigarettes, uncomplicated; J44.9 Chronic obstructive pulmonary disease, unspecified; E11.9 Type 2 diabetes mellitus without complications; I10 Essential (primary) hypertension
CPT/HCPCS: 71046; 93005

== ENCOUNTER 2023-11-18 17:58 | Emergency (ER) | payer OTHER ==
[2023-11-18 19:22] LABS: #Eosinphils 0.1 thou/uL (0.0-0.7); #Monocytes 0.6 thou/uL (0.11-0.59); #Neutrophils 5.8 thou/uL (1.40-6.50); %Basophils 0.3 % (0.0-1.0); %Eosinophils 1.2 % (0.0-10.0); %Lymphocytes 29.6 % (21.0-51.0); %Monocytes 6.3 % (0.0-10.0); %Neutrophils 62.2 % (42.0-75.0); Hematocrit 47.6 % (36.0-47.0); Hemoglobin 16.4 g/dL (12.0-16.0); Mean Corpuscular HGB CONC 34.5 g/dL (32.0-36.0); Mean Corpuscular Hemoglobin 31.7 pg (27.0-31.0); Mean Corpuscular Volume 91.9 fl (78.0-98.0); Mean Platelet Volume 10.7 fL (7.4-10.4); Platelet Count 218 10x3/uL (130-400); RBC Distribution Width 13.2 % (11.5-14.5); Red Blood Cell (RBC) Count 5.18 mill/uL (4.20-5.40); White Blood Cell (WBC) Count 9.3 10x3/uL (4.8-10.8)
[2023-11-18 19:49] LABS: ALT (SGPT) 27 U/L (8-55); AST (SGOT) 14 U/L (5-34); Acetaminophen Less than 10 mcg/mL (10.0-30.0); Albumin 3.4 g/dL (3.5-5.0); Alcohol Less than 10.0 mg/dL (Less than 10); Alkaline Phosphatase 65 U/L (40-110); Anion Gap 13 mmol/L (10-20); BUN (Urea Nitrogen) 7 mg/dL (7.0-18.7); Bilirubin, Total 0.3 mg/dL (0.2-1.2); Calc. Creatinine Clearance 0 mL/min (70-130); Calcium 9.2 mg/dL (7.8-10.44); Carbon Dioxide 28 mmol/L (22-29); Chloride 95 mmol/L (98-107); Estimated GFR 94; Globulin 3.2 g/dL (2.4-3.5); Glucose 372 mg/dL (70-105); Protein, Total 6.6 g/dL (6.0-8.3); Salicylate Less than 8.0 mg/dL (15.0-30.0); Sodium 132 mmol/L (136-145)
[2023-11-18 20:20] LABS: Amphetamine Not Detected (NotDetected); Barbiturates Screen Not Detected (NotDetected); Benzodiazepine Screen Not Detected (NotDetected); Cocaine Metabolite Screen Not Detected (NotDetected); Methadone Not Detected (NotDetected); Methamphetamine Not Detected (NotDetected); Opiate Screen Not Detected (NotDetected); Oxycodone Screen Not Detected (NotDetected); Phencyclidine (PCP) Not Detected (NotDetected); THC/Cannabinoid Screen Detected (NotDetected); Tricyclic Screen Detected (NotDetected)
== END 2023-11-18 22:10 | disposition home or self-care (01) ==
LOC: ERS 17:58
DX: T43.592A Poisoning by other antipsychotics and neuroleptics, intentional self-harm, initial encounter (principal); T43.212A Poisoning by selective serotonin and norepinephrine reuptake inhibitors, intentional self-harm, initial encounter; R45.851 Suicidal ideations; J44.9 Chronic obstructive pulmonary disease, unspecified; E11.9 Type 2 diabetes mellitus without complications; I10 Essential (primary) hypertension; F17.210 Nicotine dependence, cigarettes, uncomplicated; Z79.4 Long term (current) use of insulin; Z79.899 Other long term (current) drug therapy
CPT/HCPCS: 36415; 80053; 80143; 80179; 80306; 80307; 85025; 93005

== ENCOUNTER 2023-11-27 11:55 | Emergency (ER) | payer OTHER ==
[2023-11-27 12:47] LABS: #Eosinphils 0.1 thou/uL (0.0-0.7); #Monocytes 0.6 thou/uL (0.11-0.59); #Neutrophils 7.7 thou/uL (1.40-6.50); %Basophils 0.4 % (0.0-1.0); %Eosinophils 1.3 % (0.0-10.0); %Lymphocytes 23.5 % (21.0-51.0); %Monocytes 5.2 % (0.0-10.0); %Neutrophils 69.1 % (42.0-75.0); Hematocrit 46.4 % (36.0-47.0); Mean Corpuscular HGB CONC 34.5 g/dL (32.0-36.0); Mean Corpuscular Hemoglobin 31.6 pg (27.0-31.0); Mean Corpuscular Volume 91.5 fl (78.0-98.0); Mean Platelet Volume 10.2 fL (7.4-10.4); Platelet Count 231 10x3/uL (130-400); RBC Distribution Width 13.3 % (11.5-14.5); Red Blood Cell (RBC) Count 5.07 mill/uL (4.20-5.40); White Blood Cell (WBC) Count 11.1 10x3/uL (4.8-10.8)
[2023-11-27 12:55] LABS: Bacteria/HPF 1+ HPF (None Seen); Bilirubin Negative (Negative); Blood, Urine Negative (Negative); CAUTI Indications for Culture Dysuria,urgency,freq; Clarity Clear (Clear); Glucose, Urine (Dipstick) Greater than 1000 mg/dL (Negative); Ketone, Urine Negative (Negative); Leukocyte Negative Leu/uL (Negative); Nitrite Negative (Negative); Pregnancy Test - Urine (BHCG) Negative (Negative); Protein, Urine (Dipstick) 100 mg/dL (Neg-Trace); RBC/HPF 0-3 HPF (0-3); Specific Gravity, Urine 1.022 (1.002-1.036); Urobilinogen Normal mg/dL (Less than 2); WBC/HPF 0-3 HPF (0-3); pH, Urine 6.5 (5.0-9.0)
[2023-11-27 12:56] LABS: Pregu Control Background? CLEAR/WHITE (CLR/WHITE); Pregu Control Bar Appear? YES (CONTROL BAR); Specific Gravity 1.022 (1.002-1.036)
[2023-11-27 12:57] LABS: Urine Culture Reflex No No
[2023-11-27 13:00] LABS: Actual Bicarbonate (HCO3v) 23.9 mEq/L (22-28); Base Excess -0.5 mEq/L (-2.0 to +3.0); Calcium, Ionized (venous) 1.07 mmol/L (1.16-1.32); Chloride (VBG) 99 mmol/L (98-106); Hematocrit-VBG 48 % (36.0-47.0); Hemoglobin (Hb) 16.2 g/dL (11.7-15.5); Potassium (VBG) 4.02 mmol/L (3.70-5.30); Sodium 134 mmol/L (133-146); pH (venous) 7.408 (7.32-7.43)
[2023-11-27 13:13] LABS: Critical Call Chem-Lactate NUR.JF4 @1313
[2023-11-27 13:14] LABS: ALT (SGPT) 32 U/L (8-55); AST (SGOT) 32 U/L (5-34); Albumin 3.5 g/dL (3.5-5.0); Alkaline Phosphatase 62 U/L (40-110); Anion Gap 18 mmol/L (10-20); BUN (Urea Nitrogen) 10 mg/dL (7.0-18.7); Bilirubin, Total 0.4 mg/dL (0.2-1.2); Calc. Creatinine Clearance 0 mL/min (70-130); Calcium 8.5 mg/dL (7.8-10.44); Carbon Dioxide 22 mmol/L (22-29); Chloride 99 mmol/L (98-107); Estimated GFR 92; Glucose 394 mg/dL (70-105); Lipase 44 U/L (8-78); Potassium 4.2 mmol/L (3.5-5.1); Protein, Total 6.5 g/dL (6.0-8.3); Sodium 135 mmol/L (136-145)
[2023-11-27 13:17] LABS: Troponin I Less than 0.010 ng/mL (< 0.028)
[2023-11-27] MEDS ORDERED: Iopamidol-370 76% 500 ML MDV (1 ML CHARGE) ONE (13:23)
[2023-11-27 13:59] LABS: SARS-CoV-2 NAA Rapid Test Not Detected (NotDetected)
[2023-11-27] MEDS ORDERED: Sodium Chloride 0.9% 100 ML ONE (14:10)
[2023-11-27] MEDS ORDERED: Cefepime 2 GM VIAL ONE (14:10)
[2023-11-27] MEDS ORDERED: Lorazepam 1 MG TAB ONE (14:18)
[2023-11-27] MEDS ORDERED: HYDROcodone/Acetaminophen 5/325 mg Tablet PO PRN (14:28)
[2023-11-27] MEDS ORDERED: Zolpidem Tartrate 5 MG TAB PO PRN (14:28)
[2023-11-27] MEDS ORDERED: Senokot S 8.6-50 MG TAB PO PRN (14:28)
[2023-11-27] MEDS ORDERED: Acetaminophen 325 MG TAB PO PRN (14:28)
[2023-11-27] MEDS ORDERED: Ondansetron PF 4 MG/2 ML Vial IVP PRN (14:28)
[2023-11-27] MEDS ORDERED: Guaifenesin DM 100-10/5 ML UDCUP PO PRN (14:28)
[2023-11-27] MEDS ORDERED: Bisacodyl 5 MG TAB PO PRN (14:28)
[2023-11-27] MEDS ORDERED: Vancomycin 2.5 GM, Admixture Fee 1 EACH in Sodium Chloride 0.9% 500 ML IVPB SCH (14:30)
[2023-11-27] MEDS ORDERED: Famotidine/PF 20 mg/2ml Vial SLOW IVP SCH (21:00)
[2023-11-28] MEDS ORDERED: Enoxaparin 40 MG (0.4 mL) SYRINGE SC SCH (09:00)
== END 2023-11-27 15:54 | disposition left against medical advice (07) ==
LOC: ERS 11:55
DX: A41.9 Sepsis, unspecified organism (principal); J44.9 Chronic obstructive pulmonary disease, unspecified; E11.9 Type 2 diabetes mellitus without complications; I10 Essential (primary) hypertension; F17.210 Nicotine dependence, cigarettes, uncomplicated; Z79.4 Long term (current) use of insulin; Z79.899 Other long term (current) drug therapy
CPT/HCPCS: 36415; 71045; 74177; 80053; 81001; 81025; 82010; 82805; 83605; 83690; 84484; 85025; 85379; 87040; 93005; 96361; 96365; 96366; 96368; J0692; J3370; J3490; J7030; Q9967

== ENCOUNTER 2023-12-08 08:04 | Outpatient (CLI) | payer OTHER | END 2023-12-08 08:05 | disposition home or self-care (01) | LOC: BICMAMMO 08:04 | PROVIDERS: ATTEND Advanced Practice Midwife | DX: I88.9 Nonspecific lymphadenitis, unspecified (principal) | CPT/HCPCS: 77066; G0279 ==

== ENCOUNTER 2023-12-16 10:02 | Emergency (ER) | payer OTHER ==
[2023-12-16 10:54] LABS: #Eosinphils 0.1 thou/uL (0.0-0.7); #Monocytes 0.6 thou/uL (0.11-0.59); #Neutrophils 7.3 thou/uL (1.40-6.50); %Basophils 0.3 % (0.0-1.0); %Eosinophils 1.1 % (0.0-10.0); %Lymphocytes 22.1 % (21.0-51.0); %Neutrophils 70.2 % (42.0-75.0); Hematocrit 48.5 % (36.0-47.0); Hemoglobin 16.6 g/dL (12.0-16.0); Mean Corpuscular HGB CONC 34.2 g/dL (32.0-36.0); Mean Corpuscular Hemoglobin 32.5 pg (27.0-31.0); Mean Corpuscular Volume 94.9 fl (78.0-98.0); Mean Platelet Volume 10.4 fL (7.4-10.4); Platelet Count 205 10x3/uL (130-400); RBC Distribution Width 13.7 % (11.5-14.5); Red Blood Cell (RBC) Count 5.11 mill/uL (4.20-5.40); White Blood Cell (WBC) Count 10.3 10x3/uL (4.8-10.8)
[2023-12-16 11:02] LABS: Actual Bicarbonate (HCO3v) 23.1 mEq/L (22-28); Base Excess -1.8 mEq/L (-2.0 to +3.0); Chloride (VBG) 99 mmol/L (98-106); Hematocrit-VBG 59 % (36.0-47.0); Hemoglobin (Hb) 19.9 g/dL (11.7-15.5); Potassium (VBG) 3.89 mmol/L (3.70-5.30); Sodium 137 mmol/L (133-146)
[2023-12-16 11:23] LABS: Bacteria/HPF None Seen HPF (None Seen); Bilirubin Negative (Negative); Blood, Urine Trace (Negative); CAUTI Indications for Culture Dysuria,urgency,freq; Clarity Clear (Clear); Glucose, Urine (Dipstick) Greater than 1000 mg/dL (Negative); Ketone, Urine Negative (Negative); Leukocyte Negative Leu/uL (Negative); Nitrite Negative (Negative); Protein, Urine (Dipstick) 70 mg/dL (Neg-Trace); RBC/HPF 0-3 HPF (0-3); Specific Gravity, Urine 1.028 (1.002-1.036); Squamous Epithelial 0-3 HPF (0-3); Urobilinogen Normal mg/dL (Less than 2); WBC/HPF 0-3 HPF (0-3)
[2023-12-16 11:23] LABS: ALT (SGPT) 24 U/L (8-55); AST (SGOT) 20 U/L (5-34); Albumin 3.4 g/dL (3.5-5.0); Alkaline Phosphatase 59 U/L (40-110); Anion Gap 12 mmol/L (10-20); BUN (Urea Nitrogen) 13 mg/dL (7.0-18.7); Bilirubin, Total 0.3 mg/dL (0.2-1.2); CRP (Inflammatory) 1.95 mg/dL (= or < 0.5); Calc. Creatinine Clearance 0 mL/min (70-130); Calcium 9.3 mg/dL (7.8-10.44); Carbon Dioxide 28 mmol/L (22-29); Chloride 100 mmol/L (98-107); Estimated GFR 94; Globulin 3.3 g/dL (2.4-3.5); Glucose 270 mg/dL (70-105); Potassium 3.8 mmol/L (3.5-5.1); Protein, Total 6.7 g/dL (6.0-8.3); Sodium 136 mmol/L (136-145)
[2023-12-16 11:25] LABS: Urine Culture Reflex No No
[2023-12-16] MEDS ORDERED: Ketorolac Tromethamine 30 MG (1 mL) VIAL ONE (11:39)
[2023-12-16] MEDS ORDERED: Doxycycline 100 MG CAP ONE (12:09)
== END 2023-12-16 12:31 | disposition home or self-care (01) ==
LOC: ERS 10:02
DX: J18.9 Pneumonia, unspecified organism (principal); M54.50 Low back pain, unspecified; G06.1 Intraspinal abscess and granuloma; J44.9 Chronic obstructive pulmonary disease, unspecified; E11.9 Type 2 diabetes mellitus without complications; I10 Essential (primary) hypertension; F17.210 Nicotine dependence, cigarettes, uncomplicated; F12.10 Cannabis abuse, uncomplicated; Z79.899 Other long term (current) drug therapy; Z79.4 Long term (current) use of insulin; Z55.6 Problems related to health literacy
CPT/HCPCS: 36415; 71045; 80053; 81001; 82010; 82805; 83605; 85025; 86140; 87040; 87086; 93005; 94760; 96374; J1885

== ENCOUNTER 2024-03-20 12:13 | Emergency (ER) | payer OTHER | END 2024-03-20 12:54 | disposition left against medical advice (07) | LOC: ERS 12:13 | DX: R00.2 Palpitations (principal); J44.89 Other specified chronic obstructive pulmonary disease; F17.210 Nicotine dependence, cigarettes, uncomplicated; I10 Essential (primary) hypertension; E11.9 Type 2 diabetes mellitus without complications; Z55.6 Problems related to health literacy; Z53.21 Procedure and treatment not carried out due to patient leaving prior to being seen by health care provider | CPT/HCPCS: 93005 ==

== ENCOUNTER 2024-07-19 17:45 | Emergency (ER) | payer OTHER ==
[2024-07-19 18:27] LABS: #Basophils 0.04 10x3/uL (0.0-0.2); %Basophils 0.4 % (0.0-1.0); %Lymphocytes 26.1 % (21.0-51.0); %Monocytes 6.2 % (0.0-10.0); %Neutrophils 64.8 % (42.0-75.0); Hemoglobin 16.7 g/dL (12.0-16.0); Mean Corpuscular HGB CONC 34.1 g/dL (32.0-36.0); Mean Corpuscular Volume 91.1 fL (78.0-98.0); Mean Platelet Volume 10.8 fL (7.4-10.4); Platelet Count 194 10x3/uL (130-400); RBC Distribution Width 13.5 % (11.5-14.5); Red Blood Cell (RBC) Count 5.38 mill/uL (4.20-5.40)
[2024-07-19] MEDS ORDERED: Ketorolac Tromethamine 30 MG (1 mL) VIAL ONE (18:34)
[2024-07-19 18:40] LABS: BHCG - Serum Negative (NEGATIVE); Pregs Control Background? CLEAR/WHITE (CLR/WHITE); Pregs Control Bar Appear? YES (CONTROL BAR)
[2024-07-19 18:49] LABS: Troponin I Less than 0.010 ng/mL (< 0.028)
[2024-07-19 18:55] LABS: ALT (SGPT) 20 U/L (8-55); AST (SGOT) 22 U/L (5-34); Albumin 2.6 g/dL (3.5-5.0); Alkaline Phosphatase 62 U/L (40-110); Anion Gap 14 mmol/L (10-20); BUN (Urea Nitrogen) 17 mg/dL (7.0-18.7); Bilirubin, Total 0.2 mg/dL (0.2-1.2); Calc. Creatinine Clearance 0 mL/min (70-130); Calcium 9.2 mg/dL (7.8-10.44); Carbon Dioxide 25 mmol/L (22-29); Chloride 101 mmol/L (98-107); Estimated GFR 103; Globulin 4.2 g/dL (2.4-3.5); Glucose 237 mg/dL (70-105); Lipase 31 U/L (8-78); Potassium 4.3 mmol/L (3.5-5.1); Protein, Total 6.8 g/dL (6.0-8.3); Sodium 136 mmol/L (136-145)
[2024-07-19] MEDS ORDERED: Ipratropium/Albuterol 3 ML NEB ONE (19:05)
== END 2024-07-19 20:41 | disposition home or self-care (01) ==
LOC: ERS 17:45
DX: R10.12 Left upper quadrant pain (principal); I10 Essential (primary) hypertension; J44.9 Chronic obstructive pulmonary disease, unspecified; E11.9 Type 2 diabetes mellitus without complications; F17.210 Nicotine dependence, cigarettes, uncomplicated
CPT/HCPCS: 36415; 71045; 80053; 83690; 84484; 84703; 85025; 93005; 96361; 96374; J1885; J7620

== ENCOUNTER 2024-07-31 14:48 | Emergency (ER) | payer OTHER | END 2024-07-31 18:53 | disposition left against medical advice (07) | LOC: ERS 14:48 | DX: R07.9 Chest pain, unspecified (principal); R06.02 Shortness of breath; Z53.8 Procedure and treatment not carried out for other reasons | CPT/HCPCS: 71045; 93005 ==

== ENCOUNTER 2024-08-19 04:51 | Emergency (ER) | payer OTHER ==
[2024-08-19 05:15] LABS: #Basophils 0.05 10x3/uL (0.0-0.2); %Basophils 0.5 % (0.0-1.0); %Eosinophils 1.9 % (0.0-10.0); %Lymphocytes 32.6 % (21.0-51.0); %Monocytes 6.2 % (0.0-10.0); %Neutrophils 58.2 % (42.0-75.0); Hematocrit 52.2 % (36.0-47.0); Hemoglobin 17.4 g/dL (12.0-16.0); Mean Corpuscular HGB CONC 33.3 g/dL (32.0-36.0); Mean Corpuscular Hemoglobin 31.9 pg (27.0-31.0); Mean Corpuscular Volume 95.6 fL (78.0-98.0); Platelet Count 247 10x3/uL (130-400); RBC Distribution Width 14.3 % (11.5-14.5); Red Blood Cell (RBC) Count 5.46 mill/uL (4.20-5.40)
[2024-08-19 05:39] LABS: ALT (SGPT) 24 U/L (8-55); AST (SGOT) 21 U/L (5-34); Alkaline Phosphatase 67 U/L (40-110); Anion Gap 18 mmol/L (10-20); BUN (Urea Nitrogen) 15 mg/dL (7.0-18.7); Bilirubin, Total 0.2 mg/dL (0.2-1.2); Calc. Creatinine Clearance 0 mL/min (70-130); Calcium 8.9 mg/dL (7.8-10.44); Carbon Dioxide 24 mmol/L (22-29); Chloride 99 mmol/L (98-107); Estimated GFR 87; Globulin 4.3 g/dL (2.4-3.5); Glucose 251 mg/dL (70-105); Potassium 4.2 mmol/L (3.5-5.1); Protein, Total 7.3 g/dL (6.0-8.3); Sodium 137 mmol/L (136-145)
[2024-08-19 05:44] LABS: Troponin I Less than 0.010 ng/mL (< 0.028)
[2024-08-19] MEDS ORDERED: Ketorolac Tromethamine 30 MG (1 mL) VIAL ONE (07:38)
[2024-08-19] MEDS ORDERED: Morphine 4 MG/ML VIAL ONE (07:38)
[2024-08-19] MEDS ORDERED: Furosemide 40 MG (4 mL) VIAL ONE (07:38)
[2024-08-19] MEDS ORDERED: Ondansetron PF 4 MG/2 ML Vial ONE (07:38)
[2024-08-19] MEDS ORDERED: Ipratropium/Albuterol 3 ML NEB ONE (08:02)
[2024-08-19] MEDS ORDERED: methylPREDNISolone Sod Succ/PF 125 MG/2 ML VIAL ONE (09:34)
== END 2024-08-19 09:50 | disposition home or self-care (01) ==
LOC: ERS 04:51
DX: J44.1 Chronic obstructive pulmonary disease with (acute) exacerbation (principal); R07.9 Chest pain, unspecified; E11.9 Type 2 diabetes mellitus without complications; I10 Essential (primary) hypertension; F17.210 Nicotine dependence, cigarettes, uncomplicated; Z79.4 Long term (current) use of insulin; Z75.3 Unavailability and inaccessibility of health-care facilities; Z55.6 Problems related to health literacy; Z79.899 Other long term (current) drug therapy
CPT/HCPCS: 36415; 71045; 80053; 83880; 84484; 85025; 87426; 93005; 96374; 96375; J1885; J1940; J2272; J2405; J2919; J7620

== ENCOUNTER 2024-09-01 19:07 | Emergency (ER) | payer OTHER ==
[2024-09-01 19:25] LABS: #Basophils 0.05 10x3/uL (0.0-0.2); %Basophils 0.4 % (0.0-1.0); %Eosinophils 0.7 % (0.0-10.0); %Lymphocytes 22.5 % (21.0-51.0); %Monocytes 5.8 % (0.0-10.0); Hematocrit 49.4 % (36.0-47.0); Hemoglobin 16.6 g/dL (12.0-16.0); Mean Corpuscular HGB CONC 33.6 g/dL (32.0-36.0); Mean Corpuscular Hemoglobin 32.1 pg (27.0-31.0); Mean Corpuscular Volume 95.6 fL (78.0-98.0); Mean Platelet Volume 10.2 fL (7.4-10.4); Platelet Count 227 10x3/uL (130-400); RBC Distribution Width 14.3 % (11.5-14.5); Red Blood Cell (RBC) Count 5.17 mill/uL (4.20-5.40)
[2024-09-01 20:00] LABS: Troponin I Less than 0.010 ng/mL (< 0.028)
[2024-09-01 20:02] LABS: ALT (SGPT) 21 U/L (8-55); AST (SGOT) 16 U/L (5-34); Albumin 2.8 g/dL (3.5-5.0); Alkaline Phosphatase 66 U/L (40-110); Anion Gap 16 mmol/L (10-20); BUN (Urea Nitrogen) 11 mg/dL (7.0-18.7); Bilirubin, Total 0.3 mg/dL (0.2-1.2); Calc. Creatinine Clearance 0 mL/min (70-130); Calcium 8.6 mg/dL (7.8-10.44); Carbon Dioxide 24 mmol/L (22-29); Chloride 100 mmol/L (98-107); Estimated GFR 85; Globulin 3.7 g/dL (2.4-3.5); Glucose 403 mg/dL (70-105); Lipase 54 U/L (8-78); Potassium 4.4 mmol/L (3.5-5.1); Protein, Total 6.5 g/dL (6.0-8.3); Sodium 136 mmol/L (136-145)
[2024-09-01 20:14] LABS: Bacteria/HPF None Seen HPF (None Seen); Bilirubin Negative (Negative); Blood, Urine Trace (Negative); CAUTI Indications for Culture Pelvic or flank pain; Clarity Clear (Clear); Glucose, Urine (Dipstick) Greater than 1000 mg/dL (Negative); Ketone, Urine Negative (Negative); Leukocyte Negative Leu/uL (Negative); Nitrite Negative (Negative); Protein, Urine (Dipstick) 70 mg/dL (Neg-Trace); RBC/HPF 0-3 HPF (0-3); Specific Gravity, Urine 1.028 (1.002-1.036); Squamous Epithelial 0-3 HPF (0-3); Urobilinogen Normal mg/dL (Less than 2); WBC/HPF 0-3 HPF (0-3); Yeast-Budding 1+ HPF (None Seen)
[2024-09-01 20:15] LABS: Urine Culture Reflex No No
== END 2024-09-01 20:53 | disposition left against medical advice (07) ==
LOC: ERS 19:07
DX: Z53.21 Procedure and treatment not carried out due to patient leaving prior to being seen by health care provider (principal)
CPT/HCPCS: 36415; 36416; 71045; 80053; 81001; 83690; 84484; 85025; 93005

== ENCOUNTER 2024-09-18 20:01 | Emergency (ER) | payer OTHER ==
[2024-09-18] MEDS ORDERED: Ketorolac Tromethamine 30 MG (1 mL) VIAL ONE (20:44)
[2024-09-18] MEDS ORDERED: Lidocaine 1% w/Epinephrine 1:100K 20 ML VIAL ONE (20:47)
[2024-09-18] MEDS ORDERED: Acetaminophen 325 MG TAB ONE (20:47)
[2024-09-18] MEDS ORDERED: Boostrix 0.5 ML (Tdap) VIAL (>/=7 yrs of age) ONE (21:31)
== END 2024-09-18 21:50 | disposition home or self-care (01) ==
LOC: ERS 20:01
DX: L02.214 Cutaneous abscess of groin (principal); I10 Essential (primary) hypertension; E78.5 Hyperlipidemia, unspecified; F17.210 Nicotine dependence, cigarettes, uncomplicated; E11.9 Type 2 diabetes mellitus without complications; J44.89 Other specified chronic obstructive pulmonary disease; Z79.899 Other long term (current) drug therapy; Z79.4 Long term (current) use of insulin
CPT/HCPCS: 10060; 87480; 87510; 87660; 90471; 90715; 96372; J1885

== ENCOUNTER 2024-09-30 19:01 | Emergency (ER) | payer OTHER | END 2024-09-30 20:33 | disposition left against medical advice (07) | LOC: ERS 19:01 | DX: Z53.21 Procedure and treatment not carried out due to patient leaving prior to being seen by health care provider (principal) ==

== ENCOUNTER 2024-10-25 09:18 | Outpatient (CLI) | payer OTHER | END 2024-10-25 09:19 | disposition home or self-care (01) | LOC: SCSRAD 09:18 | PROVIDERS: ATTEND Family Medicine | DX: M25.511 Pain in right shoulder (principal); M19.011 Primary osteoarthritis, right shoulder ==

== ENCOUNTER 2024-11-05 16:25 | Emergency (ER) | payer OTHER ==
[2024-11-05] MEDS ORDERED: Pantoprazole 40 MG VIAL ONE (16:46)
[2024-11-05] MEDS ORDERED: Metoclopramide HCl 10 MG (2 mL) VIAL ONE (16:46)
[2024-11-05 17:03] LABS: #Basophils 0.04 10x3/uL (0.0-0.2); %Basophils 0.3 % (0.0-1.0); %Eosinophils 0.4 % (0.0-10.0); %Monocytes 5.7 % (0.0-10.0); %Neutrophils 79.3 % (42.0-75.0); Hematocrit 53.6 % (36.0-47.0); Hemoglobin 18.2 g/dL (12.0-16.0); Mean Corpuscular Volume 94.4 fL (78.0-98.0); Platelet Count 251 10x3/uL (130-400); RBC Distribution Width 13.9 % (11.5-14.5); Red Blood Cell (RBC) Count 5.68 mill/uL (4.20-5.40)
[2024-11-05 17:16] LABS: Prothrombin Time 12.8 sec (12.0-14.7)
[2024-11-05 17:20] LABS: ALT (SGPT) 21 U/L (8-55); AST (SGOT) 14 U/L (5-34); Albumin 3.2 g/dL (3.5-5.0); Alkaline Phosphatase 69 U/L (40-110); Anion Gap 15 mmol/L (10-20); BUN (Urea Nitrogen) 14 mg/dL (7.0-18.7); Bilirubin, Total 0.6 mg/dL (0.2-1.2); CK (CPK) 72 U/L (29-168); Calc. Creatinine Clearance 0 mL/min (70-130); Calcium 9.6 mg/dL (7.8-10.44); Carbon Dioxide 31 mmol/L (22-29); Chloride 99 mmol/L (98-107); Estimated GFR 94; Globulin 4.3 g/dL (2.4-3.5); Glucose 187 mg/dL (70-105); Lipase 26 U/L (8-78); Protein, Total 7.5 g/dL (6.0-8.3); Sodium 141 mmol/L (136-145)
[2024-11-05 17:22] LABS: BHCG - Serum Negative (NEGATIVE); Pregs Control Background? CLEAR/WHITE (CLR/WHITE); Pregs Control Bar Appear? YES (CONTROL BAR)
== END 2024-11-05 17:46 | disposition home or self-care (01) ==
LOC: ERS 16:25
DX: K31.84 Gastroparesis (principal); E86.0 Dehydration; E11.9 Type 2 diabetes mellitus without complications; F17.210 Nicotine dependence, cigarettes, uncomplicated; Z55.6 Problems related to health literacy
CPT/HCPCS: 36415; 80053; 82550; 83690; 84703; 85025; 85610; 85730; 93005; 96374; 96375; J2470; J2765

== ENCOUNTER 2025-06-20 12:57 | Emergency (ER) | payer MEDICAID ==
[2025-06-20] MEDS ORDERED: Albuterol 2.5 MG (3 mL) NEB ONE (15:04)
== END 2025-06-20 15:14 | disposition home or self-care (01) ==
LOC: ERS 12:57
DX: J45.901 Unspecified asthma with (acute) exacerbation (principal); F17.210 Nicotine dependence, cigarettes, uncomplicated
CPT/HCPCS: 71045; 96374; J2919; J7611

== ENCOUNTER 2025-07-19 14:26 | Emergency (ER) | payer MEDICAID ==
[2025-07-19] MEDS ORDERED: Ketorolac Tromethamine 30 MG (1 mL) VIAL ONE (15:38)
[2025-07-19 16:19] LABS: #Basophils 0.04 10x3/uL (0.0-0.2); #Eosinophils Less than 0.03 10x3/uL (0.0-0.7); #Monocytes 1.43 10x3/uL (0.11-0.59); #Neutrophils 20.66 10x3/uL (1.40-6.50); %Basophils 0.2 % (0.0-1.0); %Eosinophils 0.1 % (0.0-10.0); %Lymphocytes 5.5 % (21.0-51.0); %Monocytes 6.0 % (0.0-10.0); %Neutrophils 87.3 % (42.0-75.0); Hematocrit 52.5 % (36.0-47.0); Hemoglobin 18.0 g/dL (12.0-16.0); Mean Corpuscular Hemoglobin 31.1 pg (27.0-31.0); Mean Corpuscular Volume 90.7 fL (78.0-98.0); Platelet Count 321 10x3/uL (130-400); Red Blood Cell (RBC) Count 5.79 mill/uL (4.20-5.40); White Blood Cell (WBC) Count 23.66 10x3/uL (4.8-10.8)
[2025-07-19 16:24] LABS: Actual Bicarbonate (HCO3v) 41.2 mEq/L (22-28); Analyzer IN Cardio ER; Base Excess 14.8 mEq/L (-2.0 to +3.0); Calcium, Ionized (venous) 1.28 mmol/L (1.16-1.32); Chloride (VBG) 82 mmol/L (98-106); Hematocrit-VBG 49 % (36.0-47.0); Hemoglobin (Hb) 16.6 g/dL (11.7-15.5); Potassium (VBG) 3.23 mmol/L (3.70-5.30); Sodium 133 mmol/L (133-146)
[2025-07-19 17:05] LABS: ALT (SGPT) 14 U/L (Less than 34); AST (SGOT) 15 U/L (11-34); Albumin 3.2 g/dL (3.1-4.5); Alkaline Phosphatase 68 U/L (40-110); Anion Gap 24 mmol/L (10-20); BUN (Urea Nitrogen) 24 mg/dL (7.0-18.7); Bilirubin, Total 0.7 mg/dL (0.3-1.2); Calc. Creatinine Clearance 0 mL/min (70-130); Calcium 12.0 mg/dL (7.8-10.44); Carbon Dioxide 36 mmol/L (22-29); Chloride 75 mmol/L (98-107); Globulin 3.8 g/dL (2.4-3.5); Glucose 474 mg/dL (70-105); Lipase 23 U/L (8-78); Magnesium 1.3 mg/dL (1.6-2.6); Potassium 3.5 mmol/L (3.5-5.1); Sodium 131 mmol/L (136-145)
[2025-07-19] MEDS ORDERED: Magnesium 2 GM/50 ML BAG (IN WATER) ONE (17:17)
[2025-07-19] MEDS ORDERED: LevoFLOXacin 750 mg/D5W 150 ml Premix Bag ONE (17:23)
[2025-07-19 19:26] LABS: ALT (SGPT) 10 U/L (Less than 34); AST (SGOT) 13 U/L (11-34); Albumin 2.9 g/dL (3.1-4.5); Alkaline Phosphatase 57 U/L (40-110); Anion Gap 20 mmol/L (10-20); BUN (Urea Nitrogen) 25 mg/dL (7.0-18.7); Bilirubin, Total 0.5 mg/dL (0.3-1.2); Calc. Creatinine Clearance 0 mL/min (70-130); Calcium 11.0 mg/dL (7.8-10.44); Carbon Dioxide 30 mmol/L (22-29); Chloride 82 mmol/L (98-107); Globulin 3.6 g/dL (2.4-3.5); Glucose 419 mg/dL (70-105); Potassium 3.4 mmol/L (3.5-5.1); Sodium 129 mmol/L (136-145)
== END 2025-07-19 20:03 | disposition home or self-care (01) ==
LOC: ERS 14:26
DX: E11.65 Type 2 diabetes mellitus with hyperglycemia (principal); R10.9 Unspecified abdominal pain; E87.20 Acidosis, unspecified; D72.829 Elevated white blood cell count, unspecified; R00.0 Tachycardia, unspecified; I10 Essential (primary) hypertension; E11.51 Type 2 diabetes mellitus with diabetic peripheral angiopathy without gangrene; F17.210 Nicotine dependence, cigarettes, uncomplicated
CPT/HCPCS: 36416; 71045; 80053; 82010; 82805; 83605; 83690; 83735; 84100; 84484; 85025; 87040; 93005; 94760; 96361; 96365; 96375; J1815; J1885; J1956; J3475

== ENCOUNTER 2025-08-01 21:25 | Emergency (ER) | payer MEDICAID ==
[2025-08-01] MEDS ORDERED: Ondansetron PF 4 MG/2 ML Vial ONE (22:40)
[2025-08-01] MEDS ORDERED: Ketorolac Tromethamine 30 MG (1 mL) VIAL ONE (22:41)
[2025-08-01 22:56] LABS: #Basophils 0.04 10x3/uL (0.0-0.2); #Eosinophils 0.11 10x3/uL (0.0-0.7); #Monocytes 0.80 10x3/uL (0.11-0.59); #Neutrophils 9.29 10x3/uL (1.40-6.50); %Basophils 0.3 % (0.0-1.0); %Eosinophils 0.8 % (0.0-10.0); %Lymphocytes 21.7 % (21.0-51.0); %Monocytes 6.1 % (0.0-10.0); %Neutrophils 70.4 % (42.0-75.0); Hematocrit 48.7 % (36.0-47.0); Hemoglobin 16.3 g/dL (12.0-16.0); Mean Corpuscular Hemoglobin 31.9 pg (27.0-31.0); Mean Corpuscular Volume 95.3 fL (78.0-98.0); Platelet Count 247 10x3/uL (130-400); Red Blood Cell (RBC) Count 5.11 mill/uL (4.20-5.40); White Blood Cell (WBC) Count 13.20 10x3/uL (4.8-10.8)
[2025-08-01 23:19] LABS: ALT (SGPT) 12 U/L (Less than 34); AST (SGOT) 16 U/L (11-34); Albumin 2.8 g/dL (3.1-4.5); Alkaline Phosphatase 65 U/L (40-110); Anion Gap 17 mmol/L (10-20); BUN (Urea Nitrogen) 13 mg/dL (7.0-18.7); Bilirubin, Total 0.2 mg/dL (0.3-1.2); Calc. Creatinine Clearance 0 mL/min (70-130); Calcium 9.5 mg/dL (7.8-10.44); Carbon Dioxide 32 mmol/L (22-29); Chloride 96 mmol/L (98-107); Globulin 3.7 g/dL (2.4-3.5); Glucose 263 mg/dL (70-105); Lipase 53 U/L (8-78); Magnesium 1.5 mg/dL (1.6-2.6); Potassium 3.3 mmol/L (3.5-5.1); Sodium 142 mmol/L (136-145)
[2025-08-02] MEDS ORDERED: Clindamycin 150 MG CAP ONE (00:10)
[2025-08-02 00:11] LABS: Actual Bicarbonate (HCO3v) 31.9 mEq/L (22-28); Base Excess 5.9 mEq/L (-2.0 to +3.0); Calcium, Ionized (venous) 1.11 mmol/L (1.16-1.32); Chloride (VBG) 96 mmol/L (98-106); Hematocrit-VBG 51 % (36.0-47.0); Hemoglobin (Hb) 17.4 g/dL (11.7-15.5); Potassium (VBG) 3.22 mmol/L (3.70-5.30); Sodium 139 mmol/L (133-146)
[2025-08-02] MEDS ORDERED: Magnesium 2 GM/50 ML BAG (IN WATER) ONE (00:11)
== END 2025-08-02 00:36 | disposition left against medical advice (07) ==
LOC: ERS 21:25
DX: L02.211 Cutaneous abscess of abdominal wall (principal); I10 Essential (primary) hypertension; E11.9 Type 2 diabetes mellitus without complications; F17.210 Nicotine dependence, cigarettes, uncomplicated
CPT/HCPCS: 36415; 80053; 82010; 82805; 83605; 83690; 83735; 84100; 85025; 93005; 94760; 96365; 96375; J1885; J3475

== ENCOUNTER 2025-08-12 09:48 | Inpatient (IN) | payer MEDICAID ==
[2025-08-12 10:26] LABS: Actual Bicarbonate (HCO3v) 30.1 mEq/L (22-28); Analyzer IN Cardio ER; Base Excess 6.1 mEq/L (-2.0 to +3.0); Calcium, Ionized (venous) 1.15 mmol/L (1.16-1.32); Chloride (VBG) 92 mmol/L (98-106); Hematocrit-VBG 53 % (36.0-47.0); Hemoglobin (Hb) 18.0 g/dL (11.7-15.5); Potassium (VBG) 4.80 mmol/L (3.70-5.30); Sodium 136 mmol/L (133-146)
[2025-08-12 10:31] LABS: #Basophils 0.04 10x3/uL (0.0-0.2); #Eosinophils 0.08 10x3/uL (0.0-0.7); #Monocytes 0.98 10x3/uL (0.11-0.59); #Neutrophils 10.31 10x3/uL (1.40-6.50); %Basophils 0.3 % (0.0-1.0); %Eosinophils 0.6 % (0.0-10.0); %Lymphocytes 14.4 % (21.0-51.0); %Monocytes 7.3 % (0.0-10.0); %Neutrophils 76.8 % (42.0-75.0); Hematocrit 50.2 % (36.0-47.0); Hemoglobin 16.6 g/dL (12.0-16.0); Mean Corpuscular Hemoglobin 31.9 pg (27.0-31.0); Mean Corpuscular Volume 96.4 fL (78.0-98.0); Platelet Count 264 10x3/uL (130-400); Red Blood Cell (RBC) Count 5.21 mill/uL (4.20-5.40); White Blood Cell (WBC) Count 13.43 10x3/uL (4.8-10.8)
[2025-08-12 10:39] LABS: BHCG - Serum Negative (NEGATIVE); Pregs Control Background? CLEAR/WHITE (CLR/WHITE); Pregs Control Bar Appear? YES (CONTROL BAR)
[2025-08-12 11:12] LABS: INR-International Normal Ratio 1.0; PTT 27.6 sec (22.9-36.1); Prothrombin Time 13.6 sec (12.0-14.7)
[2025-08-12 11:16] LABS: ALT (SGPT) 13 U/L (Less than 34); AST (SGOT) 20 U/L (11-34); Albumin 2.9 g/dL (3.1-4.5); Alkaline Phosphatase 57 U/L (40-110); Anion Gap 20 mmol/L (10-20); BUN (Urea Nitrogen) 14 mg/dL (7.0-18.7); Bilirubin, Total 0.5 mg/dL (0.3-1.2); Calc. Creatinine Clearance 0 mL/min (70-130); Calcium 9.8 mg/dL (7.8-10.44); Carbon Dioxide 27 mmol/L (22-29); Chloride 92 mmol/L (98-107); Globulin 3.7 g/dL (2.4-3.5); Glucose 279 mg/dL (70-105); Potassium 4.9 mmol/L (3.5-5.1); Sodium 134 mmol/L (136-145)
[2025-08-12] MEDS ORDERED: Lidocaine 1% w/Epinephrine 1:100K 20 ML VIAL ONE (11:19)
[2025-08-12] MEDS ORDERED: Acetaminophen 325 MG TAB PO PRN (12:45)
[2025-08-12] MEDS ORDERED: Dextrose 50% Abboject 50 ML SYRINGE SLOW IVP PRN (12:45)
[2025-08-12] MEDS ORDERED: Glucagon 1 MG/ML KIT IM PRN (12:45)
[2025-08-12 15:42] VITALS: BMI 41.0
[2025-08-12] MEDS: Vancomycin (BATCH) 2.5 GM in Premix 1 BAG IVPB SCH (15:50)
[2025-08-12] MEDS: Ondansetron PF 4 MG/2 ML Vial IVP PRN (20:39)
[2025-08-12] MEDS: Famotidine 20 MG TAB PO SCH (20:40)
[2025-08-12] MEDS: Vancomycin 1 GM in Premix 1 BAG IVPB SCH (23:30)
[2025-08-12] MEDS: QUEtiapine 25 MG TAB PO PRN (23:45)
[2025-08-13] MEDS: Melatonin 3 MG TAB PO PRN (02:24)
[2025-08-13 05:40] LABS: #Basophils 0.05 10x3/uL (0.0-0.2); #Eosinophils 0.11 10x3/uL (0.0-0.7); #Monocytes 0.77 10x3/uL (0.11-0.59); #Neutrophils 11.53 10x3/uL (1.40-6.50); %Basophils 0.3 % (0.0-1.0); %Eosinophils 0.7 % (0.0-10.0); %Lymphocytes 15.6 % (21.0-51.0); %Monocytes 5.2 % (0.0-10.0); %Neutrophils 77.8 % (42.0-75.0); Hematocrit 44.5 % (36.0-47.0); Hemoglobin 14.3 g/dL (12.0-16.0); Mean Corpuscular Hemoglobin 31.5 pg (27.0-31.0); Mean Corpuscular Volume 98.0 fL (78.0-98.0); Platelet Count 223 10x3/uL (130-400); Red Blood Cell (RBC) Count 4.54 mill/uL (4.20-5.40); White Blood Cell (WBC) Count 14.83 10x3/uL (4.8-10.8)
[2025-08-13 05:51] LABS: Anion Gap 13 mmol/L (10-20); BUN (Urea Nitrogen) 18 mg/dL (7.0-18.7); Calc. Creatinine Clearance 155 mL/min (70-130); Calcium 8.8 mg/dL (7.8-10.44); Carbon Dioxide 31 mmol/L (22-29); Chloride 96 mmol/L (98-107); Glucose 191 mg/dL (70-105); Potassium 3.8 mmol/L (3.5-5.1); Sodium 136 mmol/L (136-145)
[2025-08-13 06:01] LABS: Vancomycin, Random 34.1 ug/mL (See Comment)
[2025-08-13 08:18] VITALS: BP 100/67; TEMP 98.2
[2025-08-13] MEDS: Enoxaparin 40 MG (0.4 mL) SYRINGE SC SCH (09:42)
[2025-08-13] MEDS: Dapagliflozin Propanediol 10 MG TAB PO SCH (09:42)
[2025-08-13] MEDS: Metoprolol Succinate XL 100 MG ER.TAB PO SCH (09:43)
[2025-08-13] MEDS: FLU (Fluarix Triv) 25-26 (6MOS UP)/PF 45 MCG/0.5 ML Syringe IM ONE (09:43)
[2025-08-13] MEDS ORDERED: Cyclobenzaprine 10 MG TAB PO PRN (12:08)
[2025-08-13] MEDS ORDERED: Albuterol 2.5 MG (3 mL) NEB NEB PRN (12:16)
[2025-08-13] MEDS ORDERED: Ciprofloxacin 500 MG TAB PO SCH (20:00)
[2025-08-13] MEDS ORDERED: Insulin Glargine 30 UNITS/0.3 ML VIAL SC SCH (21:00)
[2025-08-13] MEDS ORDERED: Transdermal Patch Removal TOP SCH (21:00)
[2025-08-14] MEDS ORDERED: carBAMazepine XR 200 mg ER.Tablet PO SCH (09:00)
[2025-08-15] MEDS ORDERED: FLU (Fluarix Triv) 25-26 (6MOS UP)/PF 45 MCG/0.5 ML Syringe IM ONE (18:30)
[2025-08-15] MEDS ORDERED: PNEUMOC 20-VAL CONJ-DIP CRM/PF 0.5 ML SYRINGE IM ONE (18:30)
== END 2025-08-13 15:11 | disposition left against medical advice (07) | DRG 854 ==
LOC: ERS 09:48 → ERHOLD 12:10 → T4-B 15:37
PROVIDERS: ADMIT Family Medicine; ATTEND Internal Medicine
PROC: 0W9F0ZZ Drainage of Abdominal Wall, Open Approach (ICD-10-PCS; principal; 2025-08-12)
PROC: 3E03329 Introduction of Other Anti-infective into Peripheral Vein, Percutaneous Approach (ICD-10-PCS; 2025-08-12)
DX: A41.89 Other specified sepsis (principal); K50.90 Crohn's disease, unspecified, without complications; L02.211 Cutaneous abscess of abdominal wall; E11.9 Type 2 diabetes mellitus without complications; I10 Essential (primary) hypertension; E28.2 Polycystic ovarian syndrome; J44.89 Other specified chronic obstructive pulmonary disease; F31.9 Bipolar disorder, unspecified; F41.9 Anxiety disorder, unspecified; F17.210 Nicotine dependence, cigarettes, uncomplicated; E66.01 Morbid (severe) obesity due to excess calories; G47.33 Obstructive sleep apnea (adult) (pediatric); L73.2 Hidradenitis suppurativa; Z98.890 Other specified postprocedural states; Z90.89 Acquired absence of other organs; Z89.511 Acquired absence of right leg below knee; Z88.8 Allergy status to other drugs, medicaments and biological substances; Z88.0 Allergy status to penicillin; Z88.1 Allergy status to other antibiotic agents; Z79.899 Other long term (current) drug therapy; Z79.4 Long term (current) use of insulin; Z79.85 Long-term (current) use of injectable non-insulin antidiabetic drugs; Z99.81 Dependence on supplemental oxygen
CPT/HCPCS: 10060; 36415; 36416; 71045; 74177; 80048; 80053; 80202; 82805; 83036; 83605; 83880; 84443; 84484; 84703; 85025; 85610; 85730; 87040; 87070; 87077; 87081; 87149; 87186; 87205; 93005; 94760; 96365; 96366; 96367; 96372; 96375; 96376; 99283; J1650; J1815; J1885; J2185; J2270; J2405; J2550; J3010; J3373; J7050; J7120; Q9967

== ENCOUNTER 2025-08-14 17:25 | Emergency (ER) | payer MEDICAID ==
[2025-08-14 18:19] LABS: #Basophils 0.04 10x3/uL (0.0-0.2); #Eosinophils 0.15 10x3/uL (0.0-0.7); #Monocytes 0.74 10x3/uL (0.11-0.59); #Neutrophils 9.04 10x3/uL (1.40-6.50); %Basophils 0.3 % (0.0-1.0); %Eosinophils 1.2 % (0.0-10.0); %Lymphocytes 19.7 % (21.0-51.0); %Monocytes 5.9 % (0.0-10.0); %Neutrophils 72.3 % (42.0-75.0); Hematocrit 47.2 % (36.0-47.0); Hemoglobin 15.8 g/dL (12.0-16.0); Mean Corpuscular Hemoglobin 32.2 pg (27.0-31.0); Mean Corpuscular Volume 96.1 fL (78.0-98.0); Platelet Count 253 10x3/uL (130-400); Red Blood Cell (RBC) Count 4.91 mill/uL (4.20-5.40); White Blood Cell (WBC) Count 12.52 10x3/uL (4.8-10.8)
[2025-08-14 18:35] LABS: ALT (SGPT) 13 U/L (Less than 34); AST (SGOT) 17 U/L (11-34); Albumin 3.0 g/dL (3.1-4.5); Alkaline Phosphatase 55 U/L (40-110); Anion Gap 13 mmol/L (10-20); BUN (Urea Nitrogen) 11 mg/dL (7.0-18.7); Bilirubin, Total 0.3 mg/dL (0.3-1.2); Calc. Creatinine Clearance 0 mL/min (70-130); Calcium 9.3 mg/dL (7.8-10.44); Carbon Dioxide 31 mmol/L (22-29); Chloride 96 mmol/L (98-107); Globulin 3.9 g/dL (2.4-3.5); Glucose 226 mg/dL (70-105); Potassium 3.5 mmol/L (3.5-5.1); Sodium 136 mmol/L (136-145)
[2025-08-14] MEDS ORDERED: Ondansetron PF 4 MG/2 ML Vial ONE (18:43)
== END 2025-08-14 18:50 | disposition home or self-care (01) ==
LOC: ERS 17:25
DX: L02.211 Cutaneous abscess of abdominal wall (principal); L02.31 Cutaneous abscess of buttock; I10 Essential (primary) hypertension; E11.9 Type 2 diabetes mellitus without complications; F17.200 Nicotine dependence, unspecified, uncomplicated
CPT/HCPCS: 80053; 83605; 85025; 87040; 96374; 96375; J2270

== ENCOUNTER 2025-08-27 15:00 | Emergency (ER) | payer MEDICAID, OTHER | END 2025-08-27 17:48 | disposition home or self-care (01) | LOC: ERS 15:00 | DX: R07.89 Other chest pain (principal); E11.9 Type 2 diabetes mellitus without complications; I10 Essential (primary) hypertension; J44.9 Chronic obstructive pulmonary disease, unspecified; F17.210 Nicotine dependence, cigarettes, uncomplicated; W19.XXXA Unspecified fall, initial encounter | CPT/HCPCS: 99283 ==

== ENCOUNTER 2025-09-19 18:11 | Emergency (ER) | payer MEDICAID ==
[2025-09-19 18:59] LABS: #Basophils 0.07 10x3/uL (0.0-0.2); #Eosinophils 0.15 10x3/uL (0.0-0.7); #Monocytes 0.84 10x3/uL (0.11-0.59); #Neutrophils 10.21 10x3/uL (1.40-6.50); %Basophils 0.5 % (0.0-1.0); %Eosinophils 1.1 % (0.0-10.0); %Lymphocytes 20.1 % (21.0-51.0); %Monocytes 5.9 % (0.0-10.0); %Neutrophils 71.8 % (42.0-75.0); Hematocrit 51.9 % (36.0-47.0); Hemoglobin 17.5 g/dL (12.0-16.0); Mean Corpuscular Hemoglobin 32.1 pg (27.0-31.0); Mean Corpuscular Volume 95.2 fL (78.0-98.0); Platelet Count 298 10x3/uL (130-400); Red Blood Cell (RBC) Count 5.45 mill/uL (4.20-5.40); White Blood Cell (WBC) Count 14.21 10x3/uL (4.8-10.8)
[2025-09-19 19:10] LABS: ALT (SGPT) 13 U/L (Less than 34); AST (SGOT) 23 U/L (11-34); Albumin 3.3 g/dL (3.1-4.5); Alkaline Phosphatase 66 U/L (40-110); Anion Gap 18 mmol/L (10-20); BUN (Urea Nitrogen) 17 mg/dL (7.0-18.7); Bilirubin, Total 0.3 mg/dL (0.3-1.2); Calc. Creatinine Clearance 0 mL/min (70-130); Calcium 9.6 mg/dL (7.8-10.44); Carbon Dioxide 25 mmol/L (22-29); Chloride 95 mmol/L (98-107); Globulin 4.3 g/dL (2.4-3.5); Glucose 264 mg/dL (70-105); Potassium 4.3 mmol/L (3.5-5.1); Sodium 134 mmol/L (136-145)
== END 2025-09-19 20:08 | disposition left against medical advice (07) ==
LOC: ERS 18:11
DX: T87.89 Other complications of amputation stump (principal); E11.9 Type 2 diabetes mellitus without complications; I10 Essential (primary) hypertension; J44.9 Chronic obstructive pulmonary disease, unspecified; F17.210 Nicotine dependence, cigarettes, uncomplicated; Z53.29 Procedure and treatment not carried out because of patient's decision for other reasons; Z79.4 Long term (current) use of insulin; Z79.899 Other long term (current) drug therapy
CPT/HCPCS: 71045; 80053; 83605; 85025; 87040; 87077; 87149; 93005; 94760; 96360